=== PATIENT | male | born 1970 | race Caucasian/White ===

== ENCOUNTER 2017-09-10 15:01 | Observation (INO) | payer OTHER ==
--- NOTE | 2017-09-10 15:26 | PDOC ---
Rapid Medical Evaluation Time Seen by Provider: 09/10/17 15:25 Medical Evaluation: Allergies Allergy/AdvReac Type Severity Reaction Status Date / Time No Known Drug Allergies Allergy Verified 09/10/17 15:23 09/10/17 15:26 The patient presents with a chief complaint of: missed dialysis , last one was 5 days ago I have performed a brief in-person evaluation of this patient. Pertinent physical exam findings: vss, pt has no physical complaint I have ordered the following: cbc, cmp The patient will proceed to the ED for further evaluation. 09/10/17 15:28
[2017-09-10 15:48] LABS: BASO % 1.2 % (0-2.0); EOS % 1.1 % (0-4.5); HEMATOCRIT 33.8 % (35.4-49); HEMOGLOBIN 11.2 GM/dL (11.7-16.9); LYMPH % 14.9 % (8-40); MCH 29.4 pg (25.7-33.7); MCHC 33.1 g/dl (32.0-35.9); MEAN CELL VOLUME 88.9 fl (80-96); MEAN PLT VOLUME 10.2 fl (7.5-11.1); NEUT % 73.8 % (42.8-82.8); PLATELET COUNT 106 K/MM3 (134-434); RDW 16.5 % (11.9-15.9); WHITE BLOOD COUNT 3.5 K/mm3 (4.0-10.0)
[2017-09-10 16:20] LABS: ALBUMIN 3.7 g/dl (3.4-5.0); ANION GAP 17 (8-16); BLOOD UREA NITROGEN 77 mg/dL (7-18); CALCIUM 8.7 mg/dL (8.5-10.1); CHLORIDE 101 mmol/L (98-107); CO2 21 mmol/L (21-32); POTASSIUM 4.8 mmol/L (3.5-5.1); SGOT/AST 22 U/L (15-37); SODIUM 139 mmol/L (136-145)
[2017-09-10 16:28] LABS: ALK PHOS 139 U/L (45-117); SGPT/ALT 31 U/L (12-78); TOT PROT 6.8 g/dl (6.4-8.2)
[2017-09-10 16:34] LABS: GLUCOSE,RANDOM 334 mg/dL (74-106)
[2017-09-10 16:35] LABS: CREATININE 10.2 mg/dL (0.7-1.3)
[2017-09-10] MEDS ORDERED: SODIUM CHLORIDE 250 ML IV PRN (16:37)
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
--- NOTE | 2017-09-10 16:52 | HP ---
CHIEF COMPLAINT: PCP: HISTORY OF PRESENT ILLNESS: ER course was notable for: (1) (2) (3) Recent Travel: PAST MEDICAL HISTORY: PAST SURGICAL HISTORY: Social History: Smoking: Alcohol: Drugs: Family History: Allergies No Known Drug Allergies Allergy (Verified 09/10/17 15:23) HOME MEDICATIONS: Home Medications Medication Instructions Recorded Insulin Aspart [Novolog Flexpen] 10 unit SQ TID PRN #1 ml 11/16/14 Calcitriol [Calcitriol -] 0.25 mcg PO BID #60 capsule 10/07/15 Famotidine 20 mg PO DAILY 11/01/15 Acetaminophen Suppository [Tylenol 650 mg TN Q6H PRN #0 supp.rect 11/08/15 .Suppository -] Amlodipine Besylate [Norvasc -] 10 mg PO DAILY #30 tablet 11/08/15 Calcium Acetate [Phoslo -] 1,334 mg PO TIDCM #180 capsule 11/08/15 Furosemide [Lasix -] 40 mg PO BID #60 tablet 11/08/15 Labetalol HCl [Normodyne -] 600 mg PO TID #270 tablet 11/08/15 Lisinopril [Prinivil -] 40 mg PO DAILY #30 tablet 11/08/15 Ranitidine [Zantac -] 150 mg PO DAILY #30 tablet 11/08/15 hydrALAZINE HCL [Apresoline -] 1.5 tablet PO TID 30 Days tablet 11/08/15 REVIEW OF SYSTEMS CONSTITUTIONAL: Absent: fever, chills, diaphoresis, generalized weakness, malaise, loss of appetite, weight change HEENT: Absent: rhinorrhea, nasal congestion, throat pain, throat swelling, difficulty swallowing, mouth swelling, ear pain, eye pain, visual changes CARDIOVASCULAR: Absent: chest pain, syncope, palpitations, irregular heart rate, lightheadedness , peripheral edema RESPIRATORY: Absent: cough, shortness of breath, dyspnea with exertion, orthopnea, wheezing, stridor, hemoptysis GASTROINTESTINAL: Absent: abdominal pain, abdominal distension, nausea, vomiting, diarrhea, constipation, melena, hematochezia GENITOURINARY: Absent: dysuria, frequency, urgency, hesitancy, hematuria, flank pain, genital pain MUSCULOSKELETAL: Absent: myalgia, arthralgia, joint swelling, back pain, neck pain SKIN: Absent: rash, itching, pallor HEMATOLOGIC/IMMUNOLOGIC: Absent: easy bleeding, easy bruising, lymphadenopathy, frequent infections ENDOCRINE: Absent: unexplained weight gain, unexplained weight loss, heat intolerance, cold intolerance NEUROLOGIC: Absent: headache, focal weakness or paresthesias, dizziness, unsteady gait, seizure, mental status changes, bladder or bowel incontinence PSYCHIATRIC: Absent: anxiety, depression, suicidal or homicidal ideation, hallucinations. PHYSICAL EXAMINATION Vital Signs - 24 hr 09/10/17 15:23 Temperature 98.7 F Pulse Rate 75 Respiratory 19 Rate Blood Pressure 159/77 O2 Sat by Pulse 99 Oximetry (%) GENERAL: Awake, alert, and fully oriented, in no acute distress. HEAD: Normal with no signs of trauma. EYES: Pupils equal, round and reactive to light, extraocular movements intact, sclera anicteric, conjunctiva clear. No lid lag. EARS, NOSE, THROAT: Ears normal, nares patent, oropharynx clear without exudates. Moist mucous membranes. NECK: Normal range of motion, supple without lymphadenopathy, JVD, or masses. LUNGS: Breath sounds equal, clear to auscultation bilaterally. No wheezes, and no crackles. No accessory muscle use. HEART: Regular rate and rhythm, normal S1 and S2 without murmur, rub or gallop. ABDOMEN: Soft, nontender, not distended, normoactive bowel sounds, no guarding, no rebound, no masses. No hepatomegaly or splenomegaly. MUSCULOSKELETAL: Normal range of motion at all joints. No bony deformities or tenderness. No CVA tenderness. UPPER EXTREMITIES: 2+ pulses, warm, well-perfused. No cyanosis. No clubbing. No peripheral edema. LOWER EXTREMITIES: 2+ pulses, warm, well-perfused. No calf tenderness. No peripheral edema. NEUROLOGICAL: Cranial nerves II-XII intact. Normal speech. Normal gait. PSYCHIATRIC: Cooperative. Good eye contact. Appropriate mood and affect. SKIN: Warm, dry, normal turgor, no rashes or lesions noted, normal capillary refill. Laboratory Results - last 24 hr 09/10/17 09/10/17 15:40 15:40 WBC 3.5 L D RBC 3.80 L Hgb 11.2 L Hct 33.8 L MCV 88.9 MCH 29.4 MCHC 33.1 RDW 16.5 H Plt Count 106 L D MPV 10.2 Neutrophils % 73.8 Lymphocytes % 14.9 Monocytes % 9.0 Eosinophils % 1.1 D Basophils % 1.2 Sodium 139 Potassium 4.8 Chloride 101 Carbon Dioxide 21 Anion Gap 17 H BUN 77 H Creatinine 10.2 H* Creat Clearance w eGFR 5.54 Random Glucose 334 H* D Calcium 8.7 Total Bilirubin 1.0 D AST 22 ALT 31 Alkaline Phosphatase 139 H Total Protein 6.8 Albumin 3.7 D ASSESSMENT/PLAN: Hospitalist Screening - Colonoscopy Questionnaire Colonoscopy Questionnaire: Colonoscopy Questionnaire
[2017-09-10] MEDS: INSULIN SLIDING SCALE (NOVOLOG) 1 VIAL SQ SCH (21:57)
[2017-09-10] MEDS ORDERED: hydrALAZINE HCL 50 MG TABLET (FP) PO SCH (22:00)
[2017-09-10] MEDS: CALCIUM ACETATE 667 MG CAPSULE (FP) PO SCH (22:47)
[2017-09-10] MEDS: FUROSEMIDE 40 MG TABLET (FP) PO SCH (22:47)
[2017-09-10] MEDS: CALCITRIOL 0.25 MCG CAPSULE (FP) PO SCH (22:47)
[2017-09-10] MEDS: LABETALOL HCL 200 MG TABLET (FP) PO SCH (22:47)
[2017-09-11 00:19] VITALS: BMI 25.2
[2017-09-11] MEDS: INSULIN SLIDING SCALE (NOVOLOG) 1 VIAL SQ SCH (06:04)
[2017-09-11] MEDS: FUROSEMIDE 40 MG TABLET (FP) PO SCH (06:05)
[2017-09-11] MEDS: LABETALOL HCL 200 MG TABLET (FP) PO SCH (06:05)
--- NOTE | 2017-09-11 08:58 | DS ---
Physical Exam: SUBJECTIVE: Patient seen and examined OBJECTIVE: Vital Signs Period Temp Pulse Resp BP Sys/Kaufman Pulse Ox Last 24 Hr 97.9 F-98.7 F 62-99 16-20 143-195/69-93 98-99 PHYSICAL EXAM GENERAL: The patient is awake, alert, and fully oriented, in no acute distress. HEAD: Normal with no signs of trauma. EYES: PERRL, extraocular movements intact, sclera anicteric, conjunctiva clear. ENT: Ears normal, nares patent, oropharynx clear without exudates, moist mucous membranes. NECK: Trachea midline, full range of motion, supple. LUNGS: Breath sounds equal, clear to auscultation bilaterally, no wheezes, no crackles, no accessory muscle use. HEART: Regular rate and rhythm, S1, S2 without murmur, rub or gallop. ABDOMEN: Soft, nontender, nondistended, normoactive bowel sounds, no guarding, no rebound, no hepatosplenomegaly, no masses. EXTREMITIES: 2+ pulses, warm, well-perfused, no edema. NEUROLOGICAL: Cranial nerves II through XII grossly intact. Normal speech, gait not observed. PSYCH: Normal mood, normal affect. SKIN: Warm, dry, normal turgor, no rashes or lesions noted. LABS Laboratory Results - last 24 hr 09/10/17 09/10/17 09/10/17 15:40 15:40 18:30 WBC 3.5 L D RBC 3.80 L Hgb 11.2 L Hct 33.8 L MCV 88.9 MCH 29.4 MCHC 33.1 RDW 16.5 H Plt Count 106 L D MPV 10.2 Neutrophils % 73.8 Lymphocytes % 14.9 Monocytes % 9.0 Eosinophils % 1.1 D Basophils % 1.2 Sodium 139 Potassium 4.8 Chloride 101 Carbon Dioxide 21 Anion Gap 17 H BUN 77 H Creatinine 10.2 H* Creat Clearance w eGFR 5.54 POC Glucometer Random Glucose 334 H* D Calcium 8.7 Total Bilirubin 1.0 D AST 22 ALT 31 Alkaline Phosphatase 139 H Total Protein 6.8 Albumin 3.7 D Hep C Ab Diagnostic Cancelled HCV RNA PCR log copper etcher/ml Cancelled HCV RNA (PCR) IUs/ml Cancelled 09/10/17 09/11/17 21:51 05:55 WBC RBC Hgb Hct MCV MCH MCHC RDW Plt Count MPV Neutrophils % Lymphocytes % Monocytes % Eosinophils % Basophils % Sodium Potassium Chloride Carbon Dioxide Anion Gap BUN Creatinine Creat Clearance w eGFR POC Glucometer 137 130 Random Glucose Calcium Total Bilirubin AST ALT Alkaline Phosphatase Total Protein Albumin Hep C Ab Diagnostic HCV RNA PCR log copper etcher/ml HCV RNA (PCR) IUs/ml HOSPITAL COURSE: Date of Admission:09/10/17 Date of Discharge: 09/11/17 Discharge Summary Reason For Visit: END STAGE RENAL DISEASE Current Active Problems End-stage renal disease (ESRD) (Acute) Condition: Improved - Instructions Diet, Activity, Other Instructions: Please follow up with your next regularly scheduled dialysis treatment. Referrals: Miguel Kerns MD [Staff Physician] - Disposition: HOME - Home Medications Comprehensive Discharge Medication List: Ambulatory Orders Insulin Aspart [Novolog Flexpen] 10 unit SQ TID PRN #1 ml 11/16/14 Calcitriol [Calcitriol -] 0.25 mcg PO BID #60 capsule 10/07/15 Famotidine 20 mg PO DAILY 11/01/15 Acetaminophen Suppository [Tylenol .Suppository -] 650 mg [place] Q6H PRN #0 supp.rect 11/08/15 Amlodipine Besylate [Norvasc -] 10 mg PO DAILY #30 tablet 11/08/15 Calcium Acetate [Phoslo -] 1,334 mg PO TIDCM #180 capsule 11/08/15 Furosemide [Lasix -] 40 mg PO BID #60 tablet 11/08/15 Labetalol HCl [Normodyne -] 600 mg PO TID #270 tablet 11/08/15 Lisinopril [Prinivil -] 40 mg PO DAILY #30 tablet 11/08/15 Ranitidine [Zantac -] 150 mg PO DAILY #30 tablet 11/08/15 hydrALAZINE HCL [Apresoline -] 1.5 tablet PO TID 30 Days tablet 11/08/15
[2017-09-11] MEDS: CALCIUM ACETATE 667 MG CAPSULE (FP) PO SCH (09:02)
[2017-09-11] MEDS: CALCITRIOL 0.25 MCG CAPSULE (FP) PO SCH (09:03)
[2017-09-11 09:16] VITALS: BP 171/81; PULSE 73; TEMP 98.3
[2017-09-11] MEDS ORDERED: RANITIDINE HCL 150 MG TABLET (FP) PO SCH (10:00)
[2017-09-11] MEDS ORDERED: LISINOPRIL 20 MG TABLET (FP) PO SCH (10:00)
[2017-09-11] MEDS ORDERED: amLODIPine BESYLATE 10 MG TABLET (FP) PO SCH (10:00)
[2017-09-11] MEDS: hydrALAZINE HCL 50 MG TABLET (FP) PO SCH (10:16)
[2017-09-13 00:07] LABS: HBSAG SCREEN Negative (Negative); HEP A AB, IGM Negative (Negative); HEP B CORE AB, TOT Negative (Negative)
== END 2017-09-11 09:25 | disposition home or self-care (01) ==
LOC: JER 15:01 → JERBED 16:57 → J8W 21:30
PROVIDERS: ADMIT Internal Medicine; ATTEND Nurse Practitioner Acute Care
DX: N18.6 End stage renal disease (principal); I12.0 Hypertensive chronic kidney disease with stage 5 chronic kidney disease or end stage renal disease; E11.22 Type 2 diabetes mellitus with diabetic chronic kidney disease; E11.65 Type 2 diabetes mellitus with hyperglycemia; Z99.2 Dependence on renal dialysis; Z91.15 Patient's noncompliance with renal dialysis; Z87.891 Personal history of nicotine dependence; E78.5 Hyperlipidemia, unspecified; Z79.4 Long term (current) use of insulin; R60.0 Localized edema; D64.9 Anemia, unspecified
CPT/HCPCS: 36415; 80053; 82962; 85025; 86704; 86706; 86708; 87340; 99285-25; G0378

== ENCOUNTER 2017-09-20 15:05 | Inpatient (IN) | payer OTHER ==
[2017-09-21 05:22] VITALS: BMI 25.4
[2017-09-25 15:49] VITALS: BP 154/71; PULSE 73; TEMP 98.9
== END 2017-09-25 15:56 | disposition home or self-care (01) | DRG 263 ==
LOC: JER 15:05 → JERBED 21:09 → UNDOADMOB 21:58 → JERBED 21:58 → J8W 23:53 → JERBED 23:53 → OBSVTOIN 09-23 16:17
PROVIDERS: ADMIT Internal Medicine; ATTEND Family Medicine
PROC: 0FT44ZZ Resection of Gallbladder, Percutaneous Endoscopic Approach (ICD-10-PCS; principal; 2017-09-23)
PROC: 5A1D90Z Performance of Urinary Filtration, Continuous, Greater than 18 hours Per Day (ICD-10-PCS; 2017-09-24)
DX: K80.12 Calculus of gallbladder with acute and chronic cholecystitis without obstruction (principal); D64.9 Anemia, unspecified; I12.0 Hypertensive chronic kidney disease with stage 5 chronic kidney disease or end stage renal disease; E11.22 Type 2 diabetes mellitus with diabetic chronic kidney disease; E11.65 Type 2 diabetes mellitus with hyperglycemia; N18.6 End stage renal disease; Z99.2 Dependence on renal dialysis; E86.0 Dehydration; E11.51 Type 2 diabetes mellitus with diabetic peripheral angiopathy without gangrene; C23 Malignant neoplasm of gallbladder; E78.5 Hyperlipidemia, unspecified
CPT/HCPCS: 36415; 71045-TC-FY; 76705-TC; 80048; 80053; 82962; 83036; 83690; 83735; 84100; 84484; 85025; 85027; 85610; 86704; 86706; 86708; 86850; 86900; 86901; 87340; 93005; 93010; 94760; 97116-GP; 97161-GP; 99282-25; G0378; J0735; J0885; J7030

== ENCOUNTER 2018-03-10 21:23 | Observation (INO) | payer OTHER ==
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
[2018-03-10 22:08] VITALS: BMI 27.1
[2018-03-10 22:54] LABS: BASO % 0.7 % (0-2.0); EOS % 0.5 % (0-4.5); HEMOGLOBIN 8.4 GM/dL (11.7-16.9); LYMPH % 9.8 % (8-40); MCH 31.4 pg (25.7-33.7); MCHC 33.6 g/dl (32.0-35.9); MEAN CELL VOLUME 93.5 fl (80-96); MEAN PLT VOLUME 10.1 fl (7.5-11.1); MONO % 6.3 % (3.8-10.2); NEUT % 82.7 % (42.8-82.8); PLATELET COUNT 108 K/MM3 (134-434); RBC 2.68 M/mm3 (4.00-5.60); RDW 16.2 % (11.9-15.9); WHITE BLOOD COUNT 4.4 K/mm3 (4.0-10.0)
[2018-03-10 23:07] LABS: INR 1.05 (0.83-1.09); PROTHROMBIN TIME (PATIENT) 11.9 SEC (9.7-13.0)
[2018-03-10 23:10] LABS: ACTIVATED PTT 28.4 SECONDS (25.2-36.5)
[2018-03-10 23:25] LABS: ALBUMIN 3.6 g/dl (3.4-5.0); ANION GAP 11 MMOL/L (8-16); BILIRUBIN,TOTAL 0.9 mg/dL (0.2-1); BLOOD UREA NITROGEN 53 mg/dL (7-18); CALCIUM 8.7 mg/dL (8.5-10.1); CHLORIDE 101 mmol/L (98-107); CO2 27 mmol/L (21-32); GLUCOSE,RANDOM 183 mg/dL (74-106); LIPASE 91 U/L (73-393); MAGNESIUM 2.4 mg/dL (1.8-2.4); PHOSPHOROUS 5.1 mg/dL (2.5-4.9); POTASSIUM 4.5 mmol/L (3.5-5.1); SGOT/AST 26 U/L (15-37); SGPT/ALT 32 U/L (13-61); SODIUM 139 mmol/L (136-145)
[2018-03-10 23:26] LABS: ALK PHOS 113 U/L (45-117)
[2018-03-11] MEDS ORDERED: ASPIRIN 81 MG CHEWABLE TABLETS PO ONE (02:13)
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
[2018-03-11] MEDS ORDERED: ASPIRIN 325 MG TABLET ONE (02:54)
[2018-03-11] MEDS ORDERED: hydrALAZINE HCL 50 MG TABLET (FP) PO SCH (08:00)
[2018-03-11] MEDS: cloNIDine HCL 0.1 MG TABLET PO SCH ×2 (09:05→22:10)
[2018-03-11] MEDS ORDERED: cloNIDine HCL 0.1 MG TABLET ONE (09:18)
[2018-03-11 09:42] LABS: HEMATOCRIT 24.9 % (35.4-49); HEMOGLOBIN 8.5 GM/dL (11.7-16.9); LYMPH % 14.1 % (8-40); MCH 31.5 pg (25.7-33.7); MEAN CELL VOLUME 92.7 fl (80-96); MEAN PLT VOLUME 10.1 fl (7.5-11.1); MONO % 7.2 % (3.8-10.2); NEUT % 76.7 % (42.8-82.8); PLATELET COUNT 102 K/MM3 (134-434); RBC 2.69 M/mm3 (4.00-5.60); RDW 15.7 % (11.9-15.9); WHITE BLOOD COUNT 3.2 K/mm3 (4.0-10.0)
--- NOTE | 2018-03-11 09:57 | PN ---
Progress Note, Physician Chief Complaint: PATIENT SEEN AND EXAMINED IN ER EVENTS AND NOTES REVIEWED DENIES CHEST PAIN NO SOB - Current Medication List Current Medications: Active Medications Calcitriol (Rocaltrol -) 0.25 mcg PO BID AFIA Calcium Acetate (Phoslo -) 1,334 mg PO TIDCM AFIA Clonidine (Catapres -) 0.3 mg PO TID AFIA Insulin Aspart (Novolog Vial Sliding Scale -) 1 vial SQ ACHS [facility]; Protocol Labetalol HCl (Normodyne -) 600 mg PO TID AFIA Ranitidine HCl (Zantac -) 150 mg PO DAILY AFIA - Objective Vital Signs: Vital Signs Temperature 98.1 F 03/11/18 09:14 Pulse Rate 73 03/11/18 09:14 Respiratory Rate 16 03/11/18 09:14 Blood Pressure 183/83 03/11/18 09:14 O2 Sat by Pulse Oximetry (%) 97 03/11/18 08:57 Constitutional: Yes: No Distress Eyes: Yes: WNL HENT: Yes: WNL Neck: Yes: WNL Cardiovascular: Yes: WNL Respiratory: Yes: WNL Gastrointestinal: Yes: WNL Genitourinary: Yes: Other Musculoskeletal: Yes: WNL Extremities: Yes: WNL Edema: Yes Peripheral Pulses WNL: Yes Integumentary: Yes: WNL Wound/Incision: Yes: Clean/Dry Neurological: Yes: WNL ...Motor Strength: WNL Psychiatric: Yes: WNL Labs: CBC, BMP 03/11/18 09:00 03/10/18 22:38 INR, PTT INR 1.05 (0.83-1.09) 03/10/18 22:38 Problem List - Problems (1) Chest pain Code(s): R07.9 - CHEST PAIN, UNSPECIFIED Qualifiers: Chest pain type: unspecified Qualified Code(s): R07.9 - Chest pain, unspecified (2) End-stage renal disease (ESRD) Code(s): N18.6 - END STAGE RENAL DISEASE (3) ESRD (end stage renal disease) on dialysis Code(s): N18.6 - END STAGE RENAL DISEASE; Z99.2 - DEPENDENCE ON RENAL DIALYSIS Assessment/Plan CONTROL BP NO CARDIAC ALARMS AND ENZYMES NEGATIVE DC TELE RENAL AND CARDIO EVAL ON OBSERVATION
[2018-03-11] MEDS ORDERED: PATIENT'S OWN MEDICATION (NON-FORMULARY) (Famotidine [Famotidine] 20 MG) PO SCH (10:00)
[2018-03-11] MEDS ORDERED: FUROSEMIDE 40 MG TABLET (FP) PO SCH (10:00)
--- NOTE | 2018-03-11 10:28 | EKG ---
Test Reason : Blood Pressure : / mmHG Vent. Rate : 076 BPM Atrial Rate : 076 BPM P-R Int : 172 ms QRS Dur : 100 ms QT Int : 422 ms P-R-T Axes : 059 -35 070 degrees QTc Int : 474 ms NORMAL SINUS RHYTHM POSSIBLE LEFT ATRIAL ENLARGEMENT LEFT AXIS DEVIATION LEFT VENTRICULAR HYPERTROPHY CANNOT RULE OUT SEPTAL INFARCT (CITED ON OR BEFORE 03-OCT-2015) ABNORMAL ECG WHEN COMPARED WITH ECG OF 21-SEP-2017 09:25, QUESTIONABLE CHANGE IN INITIAL FORCES OF SEPTAL LEADS Confirmed by JAN DAVID, GEN ([id number]) on 03/11/2018 10:27:59 AM Referred By: Confirmed By:GEN MONTOYA MD
[2018-03-11] MEDS: CALCITRIOL 0.25 MCG CAPSULE (FP) PO SCH ×2 (11:00→22:08)
[2018-03-11] MEDS: RANITIDINE HCL 150 MG TABLET (FP) PO SCH (11:16)
--- NOTE | 2018-03-11 12:25 | CONSULT ---
Consult Consult Specialty:: Nephrology Reason for Consultation:: ESRD - History of Present Illness Chief Complaint: chest pain History of Present Illness: Pt is a 48 year old male with pmhx of ESRD, HTN, and anemia who presents to the ER with chest pain. He had an altercation with his yesterday. He says that he walked in and found her cheating on him. He became furious and then felt chest pain. He is now awake and alert. He denies chest pain. He denies palpitations. He is due for HD today. He did not take any of his bp meds last night or today. - History Source History Provided By: Patient - Past Medical History Cardio/Vascular: Yes: HTN, Hyperlipdemia Gastrointestinal: Yes: Cancer Renal/: Yes: Renal Failure, Hemodialysis (Mo,We,Fr) Heme/Onc: Yes: Other (adenocarcinoma gallbladder treated) Endocrine: Yes: Diabetes Mellitus - Past Surgical History Past Surgical History: Yes: AV Fistula/Graft (Left upper arm), Cholecystectomy - Alcohol/Substance Use Hx Alcohol Use: No History of Substance Use: reports: None - Smoking History Smoking history: Never smoked Have you smoked in the past 12 months: No Aproximately how many cigarettes per day: 12 If you are a former smoker, when did you quit?: 1999 - Social History ADL: Independent History of Recent Travel: No Home Medications - Allergies Allergies/Adverse Reactions: Allergies Allergy/AdvReac Type Severity Reaction Status Date / Time No Known Drug Allergies Allergy Verified 09/20/17 15:10 - Home Medications Home Medications: Ambulatory Orders Insulin Aspart [Novolog Flexpen] 10 unit SQ TID PRN #1 ml 11/16/14 Calcitriol [Calcitriol -] 0.25 mcg PO BID #60 capsule 10/07/15 Famotidine 20 mg PO DAILY 11/01/15 Acetaminophen Suppository [Tylenol .Suppository -] 650 mg [place] Q6H PRN #0 supp.rect 11/08/15 Calcium Acetate [Phoslo -] 1,334 mg PO TIDCM #180 capsule 11/08/15 Furosemide [Lasix -] 40 mg PO BID #60 tablet 11/08/15 Labetalol HCl [Normodyne -] 600 mg PO TID #270 tablet 11/08/15 Lisinopril [Prinivil -] 40 mg PO DAILY #30 tablet 11/08/15 Ranitidine [Zantac -] 150 mg PO DAILY #30 tablet 11/08/15 Clonidine HCl 0.3 mg PO TID #90 tablet 09/25/17 Hydralazine HCl 100 mg PO TID #180 tablet 09/25/17 Labetalol HCl [Normodyne -] 600 mg PO TID #270 tablet 09/25/17 Nifedipine ER [Procardia XL -] 90 mg PO DAILY #30 tab.er.24 09/25/17 Family Disease History - Family Disease History Family Disease History: Diabetes: Father (ESRD), Heart Disease: Father, Mother, Other: Father Review of Systems - Review of Systems Constitutional: reports: No Symptoms Eyes: reports: No Symptoms HENT: reports: No Symptoms Neck: reports: No Symptoms Cardiovascular: reports: Chest Pain Respiratory: reports: No Symptoms Gastrointestinal: reports: No Symptoms Genitourinary: reports: No Symptoms Musculoskeletal: reports: No Symptoms Integumentary: reports: No Symptoms Neurological: reports: No Symptoms Endocrine: reports: No Symptoms Psychiatric: reports: Other (agitated) Physical Exam Vital Signs: Vital Signs Temperature 98.1 F 03/11/18 09:14 Pulse Rate 73 03/11/18 09:14 Respiratory Rate 16 03/11/18 09:14 Blood Pressure 183/83 03/11/18 09:14 O2 Sat by Pulse Oximetry (%) 97 03/11/18 08:57 Constitutional: Yes: Anxious Eyes: Yes: Conjunctiva Clear HENT: Yes: Atraumatic Neck: Yes: Supple Cardiovascular: Yes: S1, S2 Respiratory: Yes: CTA Bilaterally Gastrointestinal: Yes: Soft Renal/: Yes: WNL Musculoskeletal: Yes: WNL Edema: Yes Edema: LLE: 1+, RLE: 1+ Neurological: Yes: Oriented Psychiatric: Yes: Agitated Labs: CBC, BMP 03/11/18 09:00 03/10/18 22:38 Laboratory Tests 03/10/18 03/10/18 03/11/18 22:38 22:38 01:00 Hgb 8.4 L Sodium 139 Potassium 4.5 BUN 53 H Creatinine 9.0 H* Troponin I 0.04 03/11/18 03/11/18 03/11/18 02:22 09:00 09:00 Hgb 8.5 L Sodium Potassium BUN Creatinine Troponin I 0.04 0.03 Problem List - Problems (1) Chest pain Code(s): R07.9 - CHEST PAIN, UNSPECIFIED Qualifiers: Chest pain type: unspecified Qualified Code(s): R07.9 - Chest pain, unspecified (2) End-stage renal disease (ESRD) Code(s): N18.6 - END STAGE RENAL DISEASE (3) Anemia Code(s): D64.9 - ANEMIA, UNSPECIFIED Qualifiers: Other causes of anemia: chronic disease, kidney Assessment/Plan Current Medications Generic Name Dose Route Start Last Admin Trade Name Freq PRN Reason Stop Dose Admin Calcitriol 0.25 mcg 03/11/18 10:00 Rocaltrol - PO BID [facility] Calcium Acetate 1,334 mg 03/11/18 12:00 Phoslo - PO TIDCM [facility] Clonidine 0.3 mg 03/11/18 08:00 03/11/18 09:05 Catapres - PO 0.3 mg TID [facility] Administration Insulin Aspart 1 vial 03/11/18 11:00 Novolog Vial Sliding Scale - SQ ACHS [facility] Protocol Labetalol HCl 600 mg 03/11/18 14:00 Normodyne - PO TID [facility] Ranitidine HCl 150 mg 03/11/18 10:00 03/11/18 11:16 Zantac - PO 150 mg DAILY [facility] Administration Impression 1. ESRD 2. HTN 3. DM 4. anemia 5. chest pain 6. gallbladder adenoca Plan - will arrange for HD today - resume home meds - can give bp meds now as BP is elevated - trop are negative - will follow Dr Kerns
[2018-03-11] MEDS ORDERED: SODIUM CHLORIDE 250 ML IV PRN (12:32)
[2018-03-11] MEDS: INSULIN SLIDING SCALE (NOVOLOG) 1 VIAL SQ SCH ×2 (13:23→22:21)
[2018-03-11] MEDS ORDERED: INSULIN (NOVOLOG) ASPART 100 UNITS/ML 10ML VIAL ONE ×2 (13:24→22:20)
[2018-03-11] MEDS: LISINOPRIL 20 MG TABLET (FP) PO SCH (13:30)
[2018-03-11] MEDS: CALCIUM ACETATE 667 MG CAPSULE (FP) PO SCH (13:30)
--- NOTE | 2018-03-11 13:31 | ECHO ---
Name: CRYSTAL SPAIN HARRIS Exam:Adult Echocardiogram Study Date: 03/11/2018 07:27 AM Age: 48 yrs Reason For Study: Chest pain Height: 68 in Weight: 178 lb BSA: 1.9 m2 BP: 178/81 mmHg MMode/2D Measurements & Calculations IVSd: 0.95 cm Ao root diam: 2.8 cm LVIDd: 5.3 cm LA dimension: 3.9 cm LVIDs: 3.4 cm LVPWd: 1.5 cm EDV(Teich): 137.7 ml LAV (MOD-bp): 71.6 ml ESV(Teich): 48.1 ml Doppler Measurements & Calculations MV E max bam: 174.0 cm/sec MR max bam: 366.5 cm/sec MV A max bam: 117.7 cm/sec MR max P.4 mmHg MV E/A: 1.5 MV dec time: 0.16 sec TR max bma: 314.5 cm/sec Med Peak E' Bam: 7.5 cm/sec TR max P.6 mmHg Med E/e': 23.2 Lat Peak E' Bam: 12.2 cm/sec Lat E/e': 14.3 PI Vmax: 122.2 cm/sec Procedure A two-dimensional transthoracic echocardiogram with color flow and Doppler was performed. Left Ventricle The left ventricular size, thickness and function are normal. The left ventricular ejection fraction is normal. Left Ventricular Filling pattern is normal for age. The left ventricular wall motion is sinan l. Right Ventricle The right ventricle is normal in size and function. Atria The left atrium is mildly dilated. The right atrium is mildly dilated. Mitral Valve There is mild mitral valve thickening. Prolapse of the posterior mitral leaflet(s). There is no mohinder l valve stenosis. There is mild to moderate mitral regurgitation. Tricuspid Valve There is mild tricuspid valve thickening. There is no tricuspid stenosis. There is mild tricuspid regurgitation. Right ventricular systolic pressure is elevated at 30-40mmHg. Aortic Valve The aortic valve is normal in structure and function. No hemodynamically significant valvular aortic stenosis. No aortic regurgitation is present. Pulmonic Valve The pulmonic valve is not well visualized. Great Vessels The aortic root is normal size. Pericardium/Pleura There is no pericardial effusion. Interpretation Summary There is mild to moderate mitral regurgitation. Prolapse of the posterior mitral leaflet(s). The left atrium is mildly dilated. The right atrium is mildly dilated. There is mild tricuspid regurgitation. Right ventricular systolic pressure is elevated at 30-40mmHg. The left ventricular wall motion is normal. Left Ventricular Filling pattern is normal for age. The left ventricular ejection fraction is normal. The left ventricular size, thickness and function are normal MD Oscar Melton 03/11/2018 01:31 PM
--- NOTE | 2018-03-11 16:36 | CON.CARD ---
Consult Consult Specialty:: Cardiology Referred by:: Dr. Worthy Reason for Consultation:: Chest pain - History of Present Illness Chief Complaint: chest pain sob History of Present Illness: 48 year old man pmh HTN, DMII, ESRD on HD, chronic anemia, h/o gallbladder adeno CA s/p recection and being monitored at [facility], admitted with chest pain, sob , uncontrolled HTN, nausea, abd discomfort, which was acutely exacerbated after finding out his was cheating on him yesterday. Pt was seen and examined today in HD in [facility]. pt states that the chest pain lasted approximately 15min then resolved once he got to the ER. states he felt well overnight and today. denies having had chest pain previously. - History Source History Provided By: Patient, Medical Record Limitations to Obtaining History: No Limitations - Past Medical History Cardio/Vascular: Yes: HTN, Hyperlipdemia Gastrointestinal: Yes: Cancer Renal/: Yes: Renal Failure, Hemodialysis (Mo,We,Fr) Endocrine: Yes: Diabetes Mellitus - Past Surgical History Past Surgical History: Yes: AV Fistula/Graft (Left upper arm), Cholecystectomy - Alcohol/Substance Use Hx Alcohol Use: No History of Substance Use: reports: None - Smoking History Smoking history: Never smoked Have you smoked in the past 12 months: No Aproximately how many cigarettes per day: 12 If you are a former smoker, when did you quit?: 1999 - Social History ADL: Independent History of Recent Travel: No Home Medications - Allergies Allergies/Adverse Reactions: Allergies Allergy/AdvReac Type Severity Reaction Status Date / Time No Known Drug Allergies Allergy Verified 09/20/17 15:10 - Home Medications Home Medications: Ambulatory Orders Insulin Aspart [Novolog Flexpen] 10 unit SQ TID PRN #1 ml 11/16/14 Calcitriol [Calcitriol -] 0.25 mcg PO BID #60 capsule 10/07/15 Famotidine 20 mg PO DAILY 11/01/15 Acetaminophen Suppository [Tylenol .Suppository -] 650 mg [place] Q6H PRN #0 supp.rect 11/08/15 Calcium Acetate [Phoslo -] 1,334 mg PO TIDCM #180 capsule 11/08/15 Furosemide [Lasix -] 40 mg PO BID #60 tablet 11/08/15 Labetalol HCl [Normodyne -] 600 mg PO TID #270 tablet 11/08/15 Lisinopril [Prinivil -] 40 mg PO DAILY #30 tablet 11/08/15 Ranitidine [Zantac -] 150 mg PO DAILY #30 tablet 11/08/15 Clonidine HCl 0.3 mg PO TID #90 tablet 09/25/17 Hydralazine HCl 100 mg PO TID #180 tablet 09/25/17 Labetalol HCl [Normodyne -] 600 mg PO TID #270 tablet 09/25/17 Nifedipine ER [Procardia XL -] 90 mg PO DAILY #30 tab.er.24 09/25/17 Family Disease History - Family Disease History Family Disease History: Diabetes: Father (ESRD), Heart Disease: Father, Mother, Other: Father Review of Systems - Review of Systems Cardiovascular: reports: Chest Pain, Shortness of Breath - Risk Factors Known Risk Factors: Yes: Diabetes Mellitus, Hypercholesterolemia, Hypertension Vital Signs: Vital Signs Temperature 98.2 F 03/11/18 14:15 Pulse Rate 67 03/11/18 16:20 Respiratory Rate 18 03/11/18 16:20 Blood Pressure 169/79 03/11/18 16:20 O2 Sat by Pulse Oximetry (%) 96 03/11/18 14:00 Constitutional: Yes: Well Nourished, No Distress, Calm Eyes: Yes: WNL, Conjunctiva Clear, EOM Intact, PERRL HENT: Yes: WNL, Atraumatic, Normocephalic Neck: Yes: WNL, Supple, Trachea Midline Respiratory: Yes: Regular, Rales. No: Rhonchi, SOB, Wheezes Gastrointestinal: Yes: Normal Bowel Sounds, Soft. No: Distention, Tenderness Cardiovascular: Yes: Regular Rate and Rhythm. No: Bradycardia, Tachycardia, Pulse Irregular, Gallop, Rub, Varicosities JVD: No Carotid Bruit: No PMI: Non-Displaced Heart Sounds: Yes: S1, S2. No: Split S2, S3, S4, Clicks, Gallop, Rub, Bruit Murmur: Yes: Systolic Murmur, Grade 3. No: Diastolic Murmur, Grade 1, Grade 2, Grade 4, Grade 5, Grade 6 Musculoskeletal: Yes: WNL Extremities: Yes: WNL Edema: No Peripheral Pulses WNL: Yes Peripheral Pulses: 2+ Left Doralis Pedis, 2+ Right Dorsalis Pedis Integumentary: Yes: WNL Neurological: Yes: Alert, Oriented Psychiatric: Yes: Alert, Oriented - Other Data Labs, Other Data: CBC, BMP 03/11/18 09:00 03/10/18 22:38 INR, PTT INR 1.05 (0.83-1.09) 03/10/18 22:38 Troponin, BNP 03/11/18 03/11/18 03/11/18 01:00 02:22 09:00 Troponin I 0.04 0.04 0.03 03/11/18 12:25 Troponin I 0.03 Troponin, BNP 03/11/18 03/11/18 03/11/18 01:00 02:22 09:00 Troponin I 0.04 0.04 0.03 03/11/18 12:25 Troponin I 0.03 nsr lvh with repolarization abnl otherwise nl ecg Echo: Report Reviewed Imaging - Results Chest X-ray: Report Reviewed, Image Reviewed EKG: Report Reviewed, Image Reviewed Other: Report Reviewed, Image Reviewed Assessment/Plan 48 year old man pmh HTN, DMII, ESRD on HD, chronic anemia, h/o gallbladder adeno CA s/p recection and being monitored at [facility], admitted with chest pain, sob , uncontrolled HTN, nausea, abd discomfort, which was acutely exacerbated after finding out his was cheating on him yesterday. Pt was seen and examined today in HD in [facility]. pt states that the chest pain lasted approximately 15min then resolved once he got to the ER. states he felt well overnight and today. denies having had chest pain previously. Chest pain/sob-after a stressful event -ekg no ischemia -symptoms resolved -cardiac enzymes wnl -echo showed normal LV systolic function, mild to mod MR with posterior MV leaflet prolapse -does have evidence of mild pulm edema on exam -volume removal with HD and with furosemide -can monitor on tele overnight -if no arrhythmias and no recurrence of symptoms pt can be discharged with a plan for close outpatient fup and ischemic work up as outpatient HTN-uncontrolled -re-evaluate after HD -cont Labetalol, lisinopril, hydralazine, nifedipine, clonidine for now -adjust meds as needed
[2018-03-11] MEDS: LABETALOL HCL 200 MG TABLET (FP) PO SCH (22:09)
[2018-03-11] MEDS: hydrALAZINE HCL 50 MG TABLET (FP) PO SCH (22:10)
[2018-03-12] MEDS: cloNIDine HCL 0.1 MG TABLET PO SCH ×2 (06:13→14:16)
[2018-03-12] MEDS: LABETALOL HCL 200 MG TABLET (FP) PO SCH ×2 (06:14→14:16)
[2018-03-12] MEDS: hydrALAZINE HCL 50 MG TABLET (FP) PO SCH ×2 (06:14→14:16)
[2018-03-12] MEDS: INSULIN SLIDING SCALE (NOVOLOG) 1 VIAL SQ SCH ×3 (06:15→16:42)
[2018-03-12 08:03] LABS: BASO % 0.6 % (0-2.0); EOS % 0.7 % (0-4.5); HEMATOCRIT 23.9 % (35.4-49); HEMOGLOBIN 8.1 GM/dL (11.7-16.9); LYMPH % 13.1 % (8-40); MCH 31.2 pg (25.7-33.7); MCHC 33.8 g/dl (32.0-35.9); MEAN CELL VOLUME 92.4 fl (80-96); MONO % 6.8 % (3.8-10.2); NEUT % 78.8 % (42.8-82.8); PLATELET COUNT 95 K/MM3 (134-434); RBC 2.59 M/mm3 (4.00-5.60); RDW 15.6 % (11.9-15.9); WHITE BLOOD COUNT 3.8 K/mm3 (4.0-10.0)
[2018-03-12 08:49] LABS: ANION GAP 11 MMOL/L (8-16); BLOOD UREA NITROGEN 37 mg/dL (7-18); CALCIUM 8.6 mg/dL (8.5-10.1); CHLORIDE 104 mmol/L (98-107); CO2 29 mmol/L (21-32); CREATININE 6.5 mg/dL (0.55-1.3); GLUCOSE,RANDOM 136 mg/dL (74-106); POTASSIUM 4.3 mmol/L (3.5-5.1); SODIUM 144 mmol/L (136-145)
--- NOTE | 2018-03-12 09:08 | PN ---
Progress Note, Physician History of Present Illness: 48 year old man pmh HTN, DMII, ESRD on HD, chronic anemia, h/o gallbladder adeno CA s/p recection and being monitored at [facility], admitted with chest pain, sob , uncontrolled HTN, nausea, abd discomfort, which was acutely exacerbated after finding out his was cheating on him yesterday. Pt was seen and examined today in HD in [facility]. pt states that the chest pain lasted approximately 15min then resolved once he got to the ER. states he felt well overnight and today. denies having had chest pain previously. - Current Medication List Current Medications: Active Medications Calcitriol (Rocaltrol -) 0.25 mcg PO BID [facility] Last Admin: 03/11/18 22:08 Dose: 0.25 mcg Calcium Acetate (Phoslo -) 1,334 mg PO TIDCM [facility] Last Admin: 03/11/18 13:30 Dose: 1,334 mg Clonidine (Catapres -) 0.3 mg PO TID [facility] Last Admin: 03/12/18 06:13 Dose: 0.3 mg Hydralazine HCl (Apresoline -) 100 mg PO TID [facility] Last Admin: 03/12/18 06:14 Dose: 100 mg Sodium Chloride (Normal Saline -) 250 mls @ 3,000 mls/hr IV PRN PRN PRN Reason: Hypotension during Dialysis Stop: 03/12/18 12:33 Insulin Aspart (Novolog Vial Sliding Scale -) 1 vial SQ [facility]; Protocol Last Admin: 03/12/18 06:15 Dose: Not Given Labetalol HCl (Normodyne -) 600 mg PO TID [facility] Last Admin: 03/12/18 06:14 Dose: 600 mg Lisinopril (Prinivil) 40 mg PO DAILY [facility] Last Admin: 03/11/18 13:30 Dose: 40 mg Nifedipine (Procardia Xl -) 90 mg PO DAILY [facility] Ranitidine HCl (Zantac -) 150 mg PO DAILY [facility] Last Admin: 03/11/18 11:16 Dose: 150 mg - Objective Vital Signs: Vital Signs Temperature 98.5 F 03/12/18 05:36 Pulse Rate 73 03/12/18 05:36 Respiratory Rate 18 03/12/18 05:36 Blood Pressure 184/80 03/12/18 05:36 O2 Sat by Pulse Oximetry (%) 96 03/11/18 19:30 Cardiovascular: Yes: S1, S2 Respiratory: Yes: Regular, CTA Bilaterally Gastrointestinal: Yes: Normal Bowel Sounds, Soft Labs: CBC, BMP 03/12/18 06:45 03/12/18 06:45 INR, PTT INR 1.05 (0.83-1.09) 03/10/18 22:38 Problem List - Problems (1) Chest pain Assessment/Plan: more likely secondary to stress (argument with his S.O.) Serial Enzymes negative Appreciate Cardiology consult Echo in am Asa given in ED, will continue continue cardiac monitoring Cardio consult -ekg no ischemia -symptoms resolved -cardiac enzymes wnl -echo showed normal LV systolic function, mild to mod MR with posterior MV leaflet prolapse -does have evidence of mild pulm edema on exam -volume removal with HD and with furosemide -if no arrhythmias and no recurrence of symptoms pt can be discharged with a plan for close outpatient fup and ischemic work up as outpatient Code(s): R07.9 - CHEST PAIN, UNSPECIFIED Qualifiers: Chest pain type: unspecified Qualified Code(s): R07.9 - Chest pain, unspecified (2) End-stage renal disease (ESRD) Assessment/Plan: HD (M,W,F) Appreciate Nephrology consult Continue home meds Code(s): N18.6 - END STAGE RENAL DISEASE (3) Anemia Code(s): D64.9 - ANEMIA, UNSPECIFIED Qualifiers: Other causes of anemia: chronic disease, kidney (4) Type 2 diabetes mellitus with diabetic peripheral angiopathy without gangrene Assessment/Plan: stable BGMs Code(s): E11.51 - TYPE 2 DIABETES W DIABETIC PERIPHERAL ANGIOPATH W/O GANGRENE
[2018-03-12] MEDS ORDERED: NIFEdipine E.R. 90 MG TABLET (FP) PO SCH (10:00)
[2018-03-12] MEDS ORDERED: PT OWN MED DRAWER 7, Y5N ONE (10:49)
[2018-03-12] MEDS: RANITIDINE HCL 150 MG TABLET (FP) PO SCH (10:51)
[2018-03-12] MEDS: LISINOPRIL 20 MG TABLET (FP) PO SCH (10:51)
[2018-03-12] MEDS: CALCITRIOL 0.25 MCG CAPSULE (FP) PO SCH (10:51)
[2018-03-12] MEDS: CALCIUM ACETATE 667 MG CAPSULE (FP) PO SCH ×4 (10:53→16:46)
--- NOTE | 2018-03-12 14:09 | PN ---
Progress Note, Physician Chief Complaint: Cardiology FU Has reporducible chest pain Telem NSR - Current Medication List Current Medications: Active Medications Calcitriol (Rocaltrol -) 0.25 mcg PO BID [facility] Last Admin: 03/12/18 10:51 Dose: 0.25 mcg Calcium Acetate (Phoslo -) 1,334 mg PO TIDCM [facility] Last Admin: 03/12/18 10:53 Dose: 1,334 mg Clonidine (Catapres -) 0.3 mg PO TID [facility] Last Admin: 03/12/18 06:13 Dose: 0.3 mg Hydralazine HCl (Apresoline -) 100 mg PO TID [facility] Last Admin: 03/12/18 06:14 Dose: 100 mg Sodium Chloride (Normal Saline -) 250 mls @ 3,000 mls/hr IV PRN PRN PRN Reason: Hypotension during Dialysis Stop: 03/12/18 12:33 Insulin Aspart (Novolog Vial Sliding Scale -) 1 vial SQ [facility]; Protocol Last Admin: 03/12/18 06:15 Dose: Not Given Labetalol HCl (Normodyne -) 600 mg PO TID [facility] Last Admin: 03/12/18 06:14 Dose: 600 mg Lisinopril (Prinivil) 40 mg PO DAILY [facility] Last Admin: 03/12/18 10:51 Dose: 40 mg Nifedipine (Procardia Xl -) 90 mg PO DAILY [facility] Last Admin: 03/12/18 10:51 Dose: 90 mg Ranitidine HCl (Zantac -) 150 mg PO DAILY [facility] Last Admin: 03/12/18 10:51 Dose: 150 mg - Objective Vital Signs: Vital Signs Temperature 98.6 F 03/12/18 10:00 Pulse Rate 67 03/12/18 10:00 Respiratory Rate 18 03/12/18 10:00 Blood Pressure 148/76 03/12/18 10:00 O2 Sat by Pulse Oximetry (%) 97 03/12/18 10:00 Constitutional: Yes: Well Nourished, No Distress Eyes: Yes: Conjunctiva Clear, EOM Intact HENT: Yes: Atraumatic, Normocephalic Neck: Yes: Supple, Trachea Midline Cardiovascular: Yes: Regular Rate and Rhythm. No: JVD Respiratory: Yes: Regular, CTA Bilaterally Gastrointestinal: Yes: Normal Bowel Sounds Edema: No Labs: CBC, BMP 03/12/18 06:45 03/12/18 06:45 INR, PTT INR 1.05 (0.83-1.09) 03/10/18 22:38 Problem List - Problems (1) Chest pain Code(s): R07.9 - CHEST PAIN, UNSPECIFIED Qualifiers: Chest pain type: unspecified Qualified Code(s): R07.9 - Chest pain, unspecified Assessment/Plan He has reproducible and non-cardiac chest pain. Telemetry is normal. No further in-patient cardiac testing is suggested at this time. Will see as needed
[2018-03-12] MEDS ORDERED: SODIUM CHLORIDE 250 ML IV PRN (15:33)
--- NOTE | 2018-03-12 15:35 | PN ---
Progress Note, Physician History of Present Illness: Pt seen and examined at bedside. He says that he has chest pain when he bends down. - Current Medication List Current Medications: Active Medications Calcitriol (Rocaltrol -) 0.25 mcg PO BID [facility] Last Admin: 03/12/18 10:51 Dose: 0.25 mcg Calcium Acetate (Phoslo -) 1,334 mg PO TIDCM [facility] Last Admin: 03/12/18 14:16 Dose: 1,334 mg Clonidine (Catapres -) 0.3 mg PO TID [facility] Last Admin: 03/12/18 14:16 Dose: 0.3 mg Hydralazine HCl (Apresoline -) 100 mg PO TID [facility] Last Admin: 03/12/18 14:16 Dose: 100 mg Sodium Chloride (Normal Saline -) 250 mls @ 3,000 mls/hr IV PRN PRN PRN Reason: Hypotension during Dialysis Stop: 03/12/18 12:33 Insulin Aspart (Novolog Vial Sliding Scale -) 1 vial SQ [facility]; Protocol Last Admin: 03/12/18 13:00 Dose: Not Given Labetalol HCl (Normodyne -) 600 mg PO TID [facility] Last Admin: 03/12/18 14:16 Dose: 600 mg Lisinopril (Prinivil) 40 mg PO DAILY [facility] Last Admin: 03/12/18 10:51 Dose: 40 mg Nifedipine (Procardia Xl -) 90 mg PO DAILY [facility] Last Admin: 03/12/18 10:51 Dose: 90 mg Ranitidine HCl (Zantac -) 150 mg PO DAILY [facility] Last Admin: 03/12/18 10:51 Dose: 150 mg - Objective Vital Signs: Vital Signs Temperature 99 F 03/12/18 14:00 Pulse Rate 69 03/12/18 14:00 Respiratory Rate 20 03/12/18 14:00 Blood Pressure 166/82 03/12/18 14:00 O2 Sat by Pulse Oximetry (%) 97 03/12/18 10:00 Constitutional: Yes: Calm Eyes: Yes: Conjunctiva Clear HENT: Yes: Atraumatic Neck: Yes: Supple Cardiovascular: Yes: S1, S2 Respiratory: Yes: CTA Bilaterally Gastrointestinal: Yes: Normal Bowel Sounds, Soft Genitourinary: Yes: WNL Musculoskeletal: Yes: WNL Edema: LLE: Trace, RLE: Trace Neurological: Yes: Oriented Psychiatric: Yes: Oriented Labs: CBC, BMP 03/12/18 06:45 03/12/18 06:45 INR, PTT INR 1.05 (0.83-1.09) 03/10/18 22:38 Problem List - Problems (1) Chest pain Code(s): R07.9 - CHEST PAIN, UNSPECIFIED Qualifiers: Chest pain type: unspecified Qualified Code(s): R07.9 - Chest pain, unspecified (2) End-stage renal disease (ESRD) Code(s): N18.6 - END STAGE RENAL DISEASE (3) Anemia Code(s): D64.9 - ANEMIA, UNSPECIFIED Qualifiers: Other causes of anemia: chronic disease, kidney Assessment/Plan Current Medications Generic Name Dose Route Start Last Admin Trade Name Freq PRN Reason Stop Dose Admin Calcitriol 0.25 mcg 03/11/18 10:00 03/12/18 10:51 Rocaltrol - PO 0.25 mcg BID [facility] Administration Calcium Acetate 1,334 mg 03/11/18 12:00 03/12/18 14:16 Phoslo - PO 1,334 mg TIDCM [facility] Administration Clonidine 0.3 mg 03/11/18 08:00 03/12/18 14:16 Catapres - PO 0.3 mg TID [facility] Administration Hydralazine HCl 100 mg 03/11/18 14:00 03/12/18 14:16 Apresoline - PO 100 mg TID [facility] Administration Sodium Chloride 250 mls @ 3,000 mls/hr 03/11/18 12:32 Normal Saline - IV 03/12/18 12:33 PRN PRN Hypotension during Dialysis Insulin Aspart 1 vial 03/11/18 11:00 03/12/18 13:00 Novolog Vial Sliding Scale - SQ Not Given ACHS [facility] Protocol Labetalol HCl 600 mg 03/11/18 14:00 03/12/18 14:16 Normodyne - PO 600 mg TID [facility] Administration Lisinopril 40 mg 03/11/18 12:45 03/12/18 10:51 Prinivil PO 40 mg DAILY [facility] Administration Nifedipine 90 mg 03/12/18 10:00 03/12/18 10:51 Procardia Xl - PO 90 mg DAILY [facility] Administration Ranitidine HCl 150 mg 03/11/18 10:00 03/12/18 10:51 Zantac - PO 150 mg DAILY [facility] Administration Impression 1. ESRD 2. HTN 3. DM 4. anemia 5. chest pain 6. gallbladder adenoca Plan - HD in am - cont bp meds - please give am meds tomorrow before HD - cardio input appreciated - will follow Dr Kerns
--- NOTE | 2018-03-12 15:45 | DS ---
Physical Examination Vital Signs: Vital Signs Temperature 99 F 03/12/18 14:00 Pulse Rate 69 03/12/18 14:00 Respiratory Rate 20 03/12/18 14:00 Blood Pressure 166/82 03/12/18 14:00 O2 Sat by Pulse Oximetry (%) 97 03/12/18 10:00 Labs: CBC, BMP 03/12/18 06:45 03/12/18 06:45 Discharge Summary Reason For Visit: SOB/END STAGE RENAL DISEASE Current Active Problems Chest pain (Acute) End-stage renal disease (ESRD) (Acute) SOB (shortness of breath) (Acute) Condition: Improved - Instructions Referrals: Rosalina Humphries MD [Primary Care Provider] - 1 Week Disposition: HOME - Home Medications Comprehensive Discharge Medication List: Ambulatory Orders Insulin Aspart [Novolog Flexpen] 10 unit SQ TID PRN #1 ml 11/16/14 Calcitriol [Calcitriol -] 0.25 mcg PO BID #60 capsule 10/07/15 Famotidine 20 mg PO DAILY 11/01/15 Acetaminophen Suppository [Tylenol .Suppository -] 650 mg [place] Q6H PRN #0 supp.rect 11/08/15 Calcium Acetate [Phoslo -] 1,334 mg PO TIDCM #180 capsule 11/08/15 Furosemide [Lasix -] 40 mg PO BID #60 tablet 11/08/15 Labetalol HCl [Normodyne -] 600 mg PO TID #270 tablet 11/08/15 Lisinopril [Prinivil -] 40 mg PO DAILY #30 tablet 11/08/15 Ranitidine [Zantac -] 150 mg PO DAILY #30 tablet 11/08/15 Clonidine HCl 0.3 mg PO TID #90 tablet 09/25/17 Hydralazine HCl 100 mg PO TID #180 tablet 09/25/17 Labetalol HCl [Normodyne -] 600 mg PO TID #270 tablet 09/25/17 Nifedipine ER [Procardia XL -] 90 mg PO DAILY #30 tab.er.24 09/25/17
[2018-03-12] MEDS ORDERED: INSULIN (NOVOLOG) ASPART 100 UNITS/ML 10ML VIAL ONE (16:38)
[2018-03-12 19:20] VITALS: BP 130/60; PULSE 65; TEMP 98.8
[2018-03-13] MEDS ORDERED: EPOETIN ALFA 2,000 UNIT/1 ML VIAL IVPUSH ONE (15:33)
[2018-03-14 00:09] LABS: HBSAG SCREEN Negative (Negative); HEP A AB, IGM Negative (Negative); HEP B CORE AB, TOT Negative (Negative)
== END 2018-03-12 18:38 | disposition home or self-care (01) ==
LOC: JER 21:23 → JERBED 03-11 02:16 → UNDOADMOB 03-11 05:12 → JERBED 03-11 05:12 → J4W 03-11 18:13
PROVIDERS: ADMIT Internal Medicine; ATTEND Family Medicine
PROC: 3E013VG Introduction of Insulin into Subcutaneous Tissue, Percutaneous Approach (ICD-10-PCS; principal; 2018-03-11)
DX: R07.9 Chest pain, unspecified (principal); R06.02 Shortness of breath; I12.0 Hypertensive chronic kidney disease with stage 5 chronic kidney disease or end stage renal disease; E11.22 Type 2 diabetes mellitus with diabetic chronic kidney disease; N18.6 End stage renal disease; N17.8 Other acute kidney failure; Z99.2 Dependence on renal dialysis; Z79.4 Long term (current) use of insulin; D64.9 Anemia, unspecified; E78.5 Hyperlipidemia, unspecified; E78.00 Pure hypercholesterolemia, unspecified; Z85.09 Personal history of malignant neoplasm of other digestive organs; Z90.49 Acquired absence of other specified parts of digestive tract
CPT/HCPCS: 36415; 71045-TC-FY; 80048; 80053; 82550; 82553; 82962; 83690; 83735; 84100; 84484; 85025; 85610; 85730; 86704; 86706; 86708; 86803; 86850; 86900; 86901; 87340; 93005; 93010; 93306-TC; 99285-25; G0378; J0735

== ENCOUNTER 2018-08-01 10:52 | Inpatient (IN) | payer OTHER ==
--- NOTE | 2018-08-01 11:31 | PDOC ---
History of Present Illness - General Chief Complaint: Respiratory Stated Complaint: SENT BY PCP / EVAL Time Seen by Provider: 08/01/18 11:13 History Source: Patient Exam Limitations: No Limitations - History of Present Illness Initial Comments: 08/01/18 11:39 Patient was sent from dialysis for evaluation of fevers, cough, body aches for the past 24 hours. States MAXIMUM TEMPERATURE was over 100 Severity: reports: mild, moderate Associated Symptoms: reports: denies symptoms, cough, earache, fever/chills, nasal congestion, nasal drainage Past History - Travel Traveled outside of the country in the last 30 days: No Close contact w/someone who was outside of country & ill: No - Past Medical History Allergies/Adverse Reactions: Allergies Allergy/AdvReac Type Severity Reaction Status Date / Time No Known Drug Allergies Allergy Verified 08/01/18 11:02 Home Medications: Ambulatory Orders Insulin Aspart [Novolog Flexpen] 10 unit SQ TID PRN #1 ml 11/16/14 Calcitriol [Calcitriol -] 0.25 mcg PO BID #60 capsule 10/07/15 Famotidine 20 mg PO DAILY 11/01/15 Acetaminophen Suppository [Tylenol .Suppository -] 650 mg [place] Q6H PRN #0 supp.rect 11/08/15 Calcium Acetate [Phoslo -] 1,334 mg PO TIDCM #180 capsule 11/08/15 Furosemide [Lasix -] 40 mg PO BID #60 tablet 11/08/15 Labetalol HCl [Normodyne -] 600 mg PO TID #270 tablet 11/08/15 Lisinopril [Prinivil -] 40 mg PO DAILY #30 tablet 11/08/15 Ranitidine [Zantac -] 150 mg PO DAILY #30 tablet 11/08/15 Clonidine HCl 0.3 mg PO TID #90 tablet 09/25/17 Hydralazine HCl 100 mg PO TID #180 tablet 09/25/17 Labetalol HCl [Normodyne -] 600 mg PO TID #270 tablet 09/25/17 Nifedipine ER [Procardia XL -] 90 mg PO DAILY #30 tab.er.24 09/25/17 Anemia: No Asthma: No Cancer: Yes Cardiac Disorders: No CVA: No COPD: No DVT: No Dementia: No Diabetes: Yes Dialysis: Yes (M-W-F) GI Disorders: No Disorders: No HTN: Yes Hypercholesterolemia: Yes Kidney Stones: (Possible kidney failure, has not started Dialysis process.) Liver Disease: No Psychiatric Problems: No Seizures: No Thyroid Disease: No Lung CA: No - Immunization History Immunization Up to Date: No - Suicide/Smoking/Psychosocial Hx Smoking History: Never smoked Have you smoked in the past 12 months: No Number of Cigarettes Smoked Daily: 12 If you are a former smoker, when did you quit?: 1999 Hx Alcohol Use: No Drug/Substance Use Hx: No Substance Use Type: None Hx Substance Use Treatment: No Review of Systems - Review of Systems Able to Perform ROS?: Yes Is the patient limited Amharic proficient: Yes Constitutional: Yes: Symptoms Reported, See HPI, Malaise HEENTM: Yes: Symptoms Reported, See HPI, Nose Congestion Respiratory: Yes: Symptoms reported, See HPI, Cough, Wheezing Musculoskeletal: Yes: Symptoms Reported, See HPI, Muscle Pain, Muscle Weakness All Other Systems: Reviewed and Negative *Physical Exam - Vital Signs Last Vital Signs Temp Pulse Resp BP Pulse Ox 99.2 F 76 18 146/58 L 99 08/01/18 10:56 08/01/18 10:56 08/01/18 10:56 08/01/18 10:56 08/01/18 10:56 - Physical Exam General Appearance: Yes: Nourished, Appropriately Dressed, Apparent Distress, Mild Distress HEENT: positive: EOMI, ROMINA, TMs Normal, Pharynx Normal, Pharyngeal Erythema ( mild, ), Nasal Congestion, Rhinorrhea, Sinus Tenderness Neck: positive: Supple. negative: Tender, Lymphadenopathy (R), Lymphadenopathy (L) Respiratory/Chest: positive: Normal Breath Sounds (but coarse insp exp BS. No rhonchi or crackle noted ). negative: Chest Tender, Lungs Clear, Rhonchi, Wheezing Cardiovascular: positive: Regular Rate Gastrointestinal/Abdominal: positive: Soft. negative: Tender Musculoskeletal: positive: Normal Inspection Integumentary: positive: Dry, Warm, Pale Neurologic: positive: night time nanny II-XII NML intact, Fully Oriented, Alert, Normal Mood/ Affect, Normal Response, Motor Strength 5/5 Moderate Sedation - Procedure Monitoring Vital Signs: Procedure Monitoring Vital Signs Temperature 99.2 F 08/01/18 10:56 Pulse Rate 76 08/01/18 10:56 Respiratory Rate 18 08/01/18 10:56 Blood Pressure 146/58 L 08/01/18 10:56 O2 Sat by Pulse Oximetry (%) 99 08/01/18 10:56 ED Treatment Course - LABORATORY CBC & Chemistry Diagram: 08/02/18 06:20 08/02/18 06:20 Progress Note - Progress Note Progress Note: 12:30 influenza set testing negative, however patient. Chest x-ray taken and noted to have bilateral pneumonia. Case was discussed with Dr. Sae Austin who will receive patient and main emergency department for further workup and probable admission. Patient updated plan *DC/Admit/Observation/Transfer Diagnosis at time of Disposition: Pneumonia - Discharge Dispostion Condition at time of disposition: Stable - Referrals - Patient Instructions - Post Discharge Activity
[2018-08-01] MEDS ORDERED: PIPERACILLIN/TAZOB 3.375 GM 3.375 GM in DEXTROSE 5%-WATER - 50 ML IVPB ONE (12:49)
[2018-08-01] MEDS ORDERED: VANCOMYCIN 1 GM in D5W (PRE-DOCKED) 1,000 MG/250 ML IVPB ONE (12:49)
--- NOTE | 2018-08-01 13:55 | PDOC ---
History of Present Illness - General History Source: Patient Exam Limitations: No Limitations - History of Present Illness Initial Comments: 08/01/18 14:42 The patient is a 48 year old male, with a significant past medical history of of IDDM, ESRD (on HD MWF, most recent today), chronic anemia, recently diagnosed gallbladder adenocarcinoma, and HTN (with prior hypertensive emergency ), who presents to the ED with a productive cough, associated with bloody sputum , and tactile fevers since yesterday. The patient notes he had 2 episodes of vomiting yesterday when he went to his HD appointment. The patient states he experiences chest tightness and chest pain when breathing. The patient denies sick contacts or recent travels. Allergies: NKA Social history: None reported PCP: Collins Silva <Renae Shine - Last Filed: 08/01/18 14:42> - General History Source: Patient Exam Limitations: No Limitations <Grover Austin - Last Filed: 08/01/18 15:46> - General Chief Complaint: Respiratory Stated Complaint: SENT BY PCP / EVAL Time Seen by Provider: 08/01/18 11:13 Past History <Renae Shine - Last Filed: 08/01/18 14:42> - Past Medical History Anemia: No Asthma: No Cancer: Yes Cardiac Disorders: No CVA: No COPD: No DVT: No Dementia: No Diabetes: Yes Dialysis: Yes (M-W-F) GI Disorders: No Disorders: No HTN: Yes Hypercholesterolemia: Yes Kidney Stones: (Possible kidney failure, has not started Dialysis process.) Liver Disease: No Psychiatric Problems: No Seizures: No Thyroid Disease: No Lung CA: No - Immunization History Immunization Up to Date: No - Suicide/Smoking/Psychosocial Hx Smoking History: Never smoked Have you smoked in the past 12 months: No Number of Cigarettes Smoked Daily: 12 If you are a former smoker, when did you quit?: 1999 Hx Alcohol Use: No Drug/Substance Use Hx: No Substance Use Type: None Hx Substance Use Treatment: No <Grover Austin - Last Filed: 08/01/18 15:46> - Past Medical History Allergies/Adverse Reactions: Allergies Allergy/AdvReac Type Severity Reaction Status Date / Time No Known Drug Allergies Allergy Verified 08/01/18 11:02 Home Medications: Ambulatory Orders Insulin Aspart [Novolog Flexpen] 10 unit SQ TID PRN #1 ml 11/16/14 Calcitriol [Calcitriol -] 0.25 mcg PO BID #60 capsule 10/07/15 Famotidine 20 mg PO DAILY 11/01/15 Acetaminophen Suppository [Tylenol .Suppository -] 650 mg [place] Q6H PRN #0 supp.rect 11/08/15 Calcium Acetate [Phoslo -] 1,334 mg PO TIDCM #180 capsule 11/08/15 Furosemide [Lasix -] 40 mg PO BID #60 tablet 11/08/15 Labetalol HCl [Normodyne -] 600 mg PO TID #270 tablet 11/08/15 Lisinopril [Prinivil -] 40 mg PO DAILY #30 tablet 11/08/15 Ranitidine [Zantac -] 150 mg PO DAILY #30 tablet 11/08/15 Clonidine HCl 0.3 mg PO TID #90 tablet 09/25/17 Hydralazine HCl 100 mg PO TID #180 tablet 09/25/17 Labetalol HCl [Normodyne -] 600 mg PO TID #270 tablet 09/25/17 Nifedipine ER [Procardia XL -] 90 mg PO DAILY #30 tab.er.24 09/25/17 Review of Systems - Review of Systems Able to Perform ROS?: Yes Comments:: 08/01/18 14:46 GENERAL/CONSTITUTIONAL: (+) fevers. No chills. No weakness. HEAD, EYES, EARS, NOSE AND THROAT: No change in vision. No ear pain or discharge. No sore throat. CARDIOVASCULAR: (+) chest pain or shortness of breath. RESPIRATORY: (+) cough GASTROINTESTINAL: (+) vomiting associated with bloody sputum. No diarrhea or constipation. GENITOURINARY: No dysuria, frequency, or change in urination. MUSCULOSKELETAL: No joint or muscle swelling or pain. No neck or back pain. SKIN: No rash NEUROLOGIC: no headache, vertigo, loss of consciousness, or change in strength/ sensation. ENDOCRINE: No increased thirst. No abnormal weight change. HEMATOLOGIC/LYMPHATIC: No anemia, easy bleeding, or history of blood clots. ALLERGIC/IMMUNOLOGIC: No hives or skin allergy. All Other Systems: Reviewed and Negative <Renae Shine - Last Filed: 08/01/18 14:42> - Review of Systems Is the patient limited Greek proficient: Yes <Grover Austin - Last Filed: 08/01/18 15:46> *Physical Exam - Vital Signs Last Vital Signs Temp Pulse Resp BP Pulse Ox 99.2 F 76 18 146/58 L 99 08/01/18 10:56 08/01/18 10:56 08/01/18 10:56 08/01/18 10:56 08/01/18 10:56 - Physical Exam Comments: 08/01/18 14:47 GENERAL: Awake, alert, and fully oriented, in no acute distress NECK: Normal ROM, supple, no lymphadenopathy, JVD, or masses LUNGS:(+) crackling on bilateral lung bases HEART: Regular rate and rhythm, normal S1 and S2, no murmurs, rubs or gallops ABDOMEN: Soft, nontender, normoactive bowel sounds. No guarding, no rebound. No masses EXTREMITIES: (+) right upper extremity fistula. No clubbing or cyanosis. No cords, erythema, or tenderness NEUROLOGICAL: Cranial nerves II through XII grossly intact. Normal speech SKIN: Warm, Dry, normal turgor, no rashes or lesions noted. <Renae Shine - Last Filed: 08/01/18 14:42> - Vital Signs Last Vital Signs Temp Pulse Resp BP Pulse Ox 99.2 F 76 18 146/58 L 99 08/01/18 10:56 08/01/18 10:56 08/01/18 10:56 08/01/18 10:56 08/01/18 10:56 <Grover Austin - Last Filed: 08/01/18 15:46> Moderate Sedation - Procedure Monitoring Vital Signs: Procedure Monitoring Vital Signs Temperature 99.2 F 08/01/18 10:56 Pulse Rate 76 08/01/18 10:56 Respiratory Rate 18 08/01/18 10:56 Blood Pressure 146/58 L 08/01/18 10:56 O2 Sat by Pulse Oximetry (%) 99 08/01/18 10:56 <Renae Shine - Last Filed: 08/01/18 14:42> - Procedure Monitoring Vital Signs: Procedure Monitoring Vital Signs Temperature 99.2 F 08/01/18 10:56 Pulse Rate 76 08/01/18 10:56 Respiratory Rate 18 08/01/18 10:56 Blood Pressure 146/58 L 08/01/18 10:56 O2 Sat by Pulse Oximetry (%) 99 08/01/18 10:56 <Grover Austin - Last Filed: 08/01/18 15:46> Heart Score/ECG Review #1 ECG reviewed & interpreted by me at: 14:00 08/01/18 13:56 NSR 80, left axis deviation, LVH, TWI aVL, QTC 475 msec <Grover Austin - Last Filed: 08/01/18 15:46> ED Treatment Course - LABORATORY CBC & Chemistry Diagram: 08/01/18 13:12 08/01/18 13:12 - ADDITIONAL ORDERS Additional order review: Laboratory Results 08/01/18 08/01/18 08/01/18 13:45 13:12 13:12 PT with INR 13.40 H INR 1.13 H PTT (Actin FS) 28.3 VBG pH 7.47 H POC VBG pCO2 39.5 POC VBG pO2 45.8 Mixed VBG HCO3 28.1 H Sodium 136 Potassium 3.9 Chloride 100 Carbon Dioxide 28 Anion Gap 9 BUN 33 H Creatinine 6.1 H Creat Clearance w eGFR 9.98 Random Glucose 192 H Calcium 8.5 Total Bilirubin 1.4 H AST 18 ALT 23 Alkaline Phosphatase 105 Total Protein 7.0 Albumin 3.4 08/01/18 13:12 RBC 3.68 L MCV 90.2 MCHC 34.0 RDW 17.8 H MPV 10.3 Neutrophils % 87.7 H Lymphocytes % 5.2 L D Monocytes % 6.6 Eosinophils % 0.1 D Basophils % 0.4 - Medications Given in the ED: ED Medications Discontinued Medications Generic Name Dose Route Start Last Admin Trade Name Freq PRN Reason Stop Dose Admin Piperacillin Sod/Tazobactam 50 mls @ 100 mls/hr 08/01/18 12:49 08/01/18 14:23 Sod 3.375 gm/ Dextrose IVPB 08/01/18 13:18 100 mls/hr ONCE ONE Administration Protocol <Renae Shine - Last Filed: 08/01/18 14:42> - LABORATORY CBC & Chemistry Diagram: 08/01/18 13:12 08/01/18 13:12 <Grover Austin - Last Filed: 08/01/18 15:46> Medical Decision Making - Medical Decision Making 08/01/18 13:55 A portion of this note was documented by scribe services under my direction. I have reviewed the details of the note, within reason, and agree with the documentation with the following case summary and management plan written by me. Patient treated in the ED. Nursing notes are reviewed and incorporated into the medical decision-making. Vital signs reviewed. Peripheral IV access obtained by the nurse, laboratory studies are drawn and sent, reviewed and interpreted by myself. Vital Signs Temp Pulse Resp BP Pulse Ox 99.2 F 76 18 146/58 L 99 08/01/18 10:56 08/01/18 10:56 08/01/18 10:56 08/01/18 10:56 08/01/18 10:56 48-year-old male with past medical history of type 1 diabetes, end-stage renal disease on dialysis, last dialysis today, hypertension, hyperlipidemia, presents with coughing since yesterday. Patient has been complaining about mildly blood tinged productive cough and tactile fevers at home. Started reports some chest discomfort and shortness of breath. Denies sick contacts or recent travels. With the dialysis today completed the course. Chest x-ray doctors bilateral pneumonia. Given that he is a dialysis patient, will treat as hospital acquired pneumonia. Neck and Zosyn ordered. Admit the patient to the hospital. 08/01/18 15:44 CBC, BMP 08/01/18 13:12 08/01/18 13:12 CMP Sodium 136 mmol/L (136-145) 08/01/18 13:12 Potassium 3.9 mmol/L (3.5-5.1) 08/01/18 13:12 Chloride 100 mmol/L (98-107) 08/01/18 13:12 Carbon Dioxide 28 mmol/L (21-32) 08/01/18 13:12 Anion Gap 9 MMOL/L (8-16) 08/01/18 13:12 BUN 33 mg/dL (7-18) H 08/01/18 13:12 Creatinine 6.1 mg/dL (0.55-1.3) H 08/01/18 13:12 Creat Clearance w eGFR 9.98 (>60) 08/01/18 13:12 Random Glucose 192 mg/dL (74-106) H 08/01/18 13:12 Lactic Acid 2.3 mmol/L (0.4-2.0) H* 08/01/18 13:12 Calcium 8.5 mg/dL (8.5-10.1) 08/01/18 13:12 Total Bilirubin 1.4 mg/dL (0.2-1) H 08/01/18 13:12 AST 18 U/L (15-37) 08/01/18 13:12 ALT 23 U/L (13-61) 08/01/18 13:12 Alkaline Phosphatase 105 U/L (45-117) 08/01/18 13:12 Troponin I 0.07 ng/ml (0.00-0.05) H 08/01/18 13:12 Total Protein 7.0 g/dl (6.4-8.2) 08/01/18 13:12 Albumin 3.4 g/dl (3.4-5.0) 08/01/18 13:12 Slightly elevated troponin, which I suspect is secondary to the ESRD. However, case discussed with Dr. Worthy. Will consult Dr. Rowe and admit on telemetry. Admission diagnosis: Bilateral PNA Case discussed in detail with admitting physician including history, physical exam and ancillary studies. Admitting physician has assumed care for the patient, will follow all pending diagnostics and will complete the evaluation and treatment. <Grover Austin - Last Filed: 08/01/18 15:46> *DC/Admit/Observation/Transfer - Attestations Scribe Attestion: 08/01/18 14:47 Documentation prepared by Renae Shine, acting as medical dosimetrist for Grover Austin MD, MD <Renae Shine - Last Filed: 08/01/18 14:42> - Discharge Dispostion Decision to Admit order: Yes <Grover Austin - Last Filed: 08/01/18 15:46> Diagnosis at time of Disposition: Pneumonia Qualifiers: Pneumonia type: due to unspecified organism Laterality: unspecified laterality Lung location: unspecified part of lung Qualified Code(s): J18.9 - Pneumonia, unspecified organism - Discharge Dispostion Condition at time of disposition: Stable - Referrals Referrals: Collins Romano [Primary Care Provider] - - Patient Instructions - Post Discharge Activity
[2018-08-01 14:04] LABS: BASO % 0.4 % (0-2.0); EOS % 0.1 % (0-4.5); HEMATOCRIT 33.2 % (35.4-49); HEMOGLOBIN 11.3 GM/dL (11.7-16.9); LYMPH % 5.2 % (8-40); MCH 30.7 pg (25.7-33.7); MEAN CELL VOLUME 90.2 fl (80-96); MEAN PLT VOLUME 10.3 fl (7.5-11.1); MONO % 6.6 % (3.8-10.2); NEUT % 87.7 % (42.8-82.8); PLATELET COUNT 125 K/MM3 (134-434); RBC 3.68 M/mm3 (4.00-5.60); RDW 17.8 % (11.9-15.9); WHITE BLOOD COUNT 9.7 K/mm3 (4.0-10.0)
[2018-08-01 14:04] LABS: VENOUS PC02 39.5 mmHg (38-52); VENOUS PH 7.47 (7.32-7.42); VENOUS PO2 45.8 mmHg (28-48)
[2018-08-01 14:10] LABS: INR 1.13 (0.83-1.09); PROTHROMBIN TIME (PATIENT) 13.4 SEC (9.7-13.0)
[2018-08-01 14:13] LABS: ACTIVATED PTT 28.3 SECONDS (25.2-36.5)
[2018-08-01] MEDS ORDERED: PIPERACILLIN/TAZOB 3.375 GM 3.375 GM/50 ML BAG IVPB ONE (14:15)
[2018-08-01] MEDS ORDERED: VANCOMYCIN 1 GRAM (PRE-DOCKED) 1,000 MG/250 ML BAG IVPB ONE (14:15)
[2018-08-01 14:19] LABS: ALBUMIN 3.4 g/dl (3.4-5.0); ALK PHOS 105 U/L (45-117); ANION GAP 9 MMOL/L (8-16); BILIRUBIN,TOTAL 1.4 mg/dL (0.2-1); BLOOD UREA NITROGEN 33 mg/dL (7-18); CALCIUM 8.5 mg/dL (8.5-10.1); CHLORIDE 100 mmol/L (98-107); CO2 28 mmol/L (21-32); CREATININE 6.1 mg/dL (0.55-1.3); GLUCOSE,RANDOM 192 mg/dL (74-106); POTASSIUM 3.9 mmol/L (3.5-5.1); SGOT/AST 18 U/L (15-37); SGPT/ALT 23 U/L (13-61); SODIUM 136 mmol/L (136-145)
--- NOTE | 2018-08-01 15:29 | EKG ---
Test Reason : Blood Pressure : / mmHG Vent. Rate : 080 BPM Atrial Rate : 080 BPM P-R Int : 158 ms QRS Dur : 096 ms QT Int : 412 ms P-R-T Axes : 032 -31 080 degrees QTc Int : 475 ms NORMAL SINUS RHYTHM LEFT AXIS DEVIATION MINIMAL VOLTAGE CRITERIA FOR LVH, MAY BE NORMAL VARIANT SEPTAL INFARCT (CITED ON OR BEFORE 03-OCT-2015) ABNORMAL ECG Confirmed by Guero Rowe MD ([id number]) on 08/01/2018 3:28:45 PM Referred By: Confirmed By:Guero Rowe MD
[2018-08-01] MEDS ORDERED: PIPERACILLIN/TAZOB 2.25 GM 2.25 GM/50 ML BAG IVPB ONE (18:03)
[2018-08-01] MEDS: PIPERACILLIN/TAZOB 2.25 GM 2.25 GM in DEXTROSE 5%-WATER - 50 ML IVPB SCH ×2 (18:08→18:15)
[2018-08-01] MEDS: CALCIUM ACETATE 667 MG CAPSULE (FP) PO SCH (18:08)
[2018-08-01] MEDS ORDERED: FUROSEMIDE 40 MG TABLET (FP) ONE (22:56)
[2018-08-01] MEDS ORDERED: hydrALAZINE HCL 25 MG TABLET (FP) ONE (22:56)
[2018-08-01] MEDS ORDERED: LABETALOL HCL 100 MG TABLET (FP) ONE (22:56)
[2018-08-01] MEDS ORDERED: cloNIDine HCL 0.1 MG TABLET ONE (22:56)
[2018-08-01] MEDS ORDERED: HEPARIN NA (PORCINE) 5,000 UNITS/ML 1ML VIAL ONE (22:57)
[2018-08-01] MEDS: cloNIDine HCL 0.1 MG TABLET PO SCH (23:13)
[2018-08-01] MEDS: LABETALOL HCL 200 MG TABLET (FP) PO SCH (23:13)
[2018-08-01] MEDS: hydrALAZINE HCL 50 MG TABLET (FP) PO SCH (23:13)
[2018-08-01] MEDS: HEPARIN NA (PORCINE) 5,000 UNITS/ML 1ML VIAL SQ SCH (23:13)
[2018-08-01] MEDS: FUROSEMIDE 40 MG TABLET (FP) PO SCH (23:13)
[2018-08-01] MEDS: INSULIN SLIDING SCALE (NOVOLOG) 1 VIAL SQ SCH (23:13)
[2018-08-01] MEDS: CALCITRIOL 0.25 MCG CAPSULE (FP) PO SCH (23:14)
[2018-08-02] MEDS ORDERED: PIPERACILLIN/TAZOB 2.25 GM 2.25 GM/50 ML BAG IVPB ONE ×2 (02:20→10:06)
[2018-08-02] MEDS: PIPERACILLIN/TAZOB 2.25 GM 2.25 GM in DEXTROSE 5%-WATER - 50 ML IVPB SCH ×2 (02:28→10:11)
[2018-08-02] MEDS ORDERED: LABETALOL HCL 100 MG TABLET (FP) ONE (06:36)
[2018-08-02] MEDS ORDERED: hydrALAZINE HCL 25 MG TABLET (FP) ONE (06:36)
[2018-08-02] MEDS ORDERED: cloNIDine HCL 0.1 MG TABLET ONE (06:36)
[2018-08-02] MEDS: cloNIDine HCL 0.1 MG TABLET PO SCH ×3 (06:38→21:03)
[2018-08-02] MEDS: INSULIN SLIDING SCALE (NOVOLOG) 1 VIAL SQ SCH ×4 (06:38→22:22)
[2018-08-02] MEDS: hydrALAZINE HCL 50 MG TABLET (FP) PO SCH ×3 (06:38→21:05)
[2018-08-02] MEDS: LABETALOL HCL 200 MG TABLET (FP) PO SCH ×3 (06:38→21:03)
[2018-08-02 06:55] LABS: BASO % 1.4 % (0-2.0); EOS % 0.8 % (0-4.5); HEMATOCRIT 32.1 % (35.4-49); HEMOGLOBIN 10.7 GM/dL (11.7-16.9); LYMPH % 15.4 % (8-40); MCH 30.1 pg (25.7-33.7); MCHC 33.2 g/dl (32.0-35.9); MEAN CELL VOLUME 90.7 fl (80-96); MEAN PLT VOLUME 10.1 fl (7.5-11.1); MONO % 8.2 % (3.8-10.2); NEUT % 74.2 % (42.8-82.8); PLATELET COUNT 115 K/MM3 (134-434); RBC 3.54 M/mm3 (4.00-5.60); RDW 17.8 % (11.9-15.9); WHITE BLOOD COUNT 5.4 K/mm3 (4.0-10.0)
[2018-08-02 07:44] LABS: ALBUMIN 3.2 g/dl (3.4-5.0); ALK PHOS 91 U/L (45-117); ANION GAP 10 MMOL/L (8-16); BILIRUBIN,TOTAL 1.5 mg/dL (0.2-1); BLOOD UREA NITROGEN 53 mg/dL (7-18); CALCIUM 8.4 mg/dL (8.5-10.1); CHLORIDE 104 mmol/L (98-107); CHOLESTEROL 98 mg/dL (50-200); CO2 24 mmol/L (21-32); GLUCOSE,RANDOM 132 mg/dL (74-106); HDL CHOLESTEROL 49 mg/dL (40-60); MAGNESIUM 2.8 mg/dL (1.8-2.4); PHOSPHOROUS 3.8 mg/dL (2.5-4.9); POTASSIUM 4.2 mmol/L (3.5-5.1); SGOT/AST 11 U/L (15-37); SGPT/ALT 18 U/L (13-61); SODIUM 138 mmol/L (136-145); TOT PROT 6.4 g/dl (6.4-8.2); TRIGLYCERIDES 84 mg/dL (0-150)
[2018-08-02 07:52] LABS: CREATININE 8.3 mg/dL (0.55-1.3)
[2018-08-02] MEDS: CALCIUM ACETATE 667 MG CAPSULE (FP) PO SCH ×3 (08:42→18:04)
[2018-08-02] MEDS: HEPARIN NA (PORCINE) 5,000 UNITS/ML 1ML VIAL SQ SCH ×2 (09:12→21:04)
[2018-08-02] MEDS: FUROSEMIDE 40 MG TABLET (FP) PO SCH ×2 (09:12→21:04)
[2018-08-02] MEDS: CALCITRIOL 0.25 MCG CAPSULE (FP) PO SCH ×2 (09:12→21:04)
[2018-08-02] MEDS: RANITIDINE HCL 150 MG TABLET (FP) PO SCH ×2 (09:12)
[2018-08-02] MEDS: NIFEdipine E.R. 90 MG TABLET (FP) PO SCH (09:12)
--- NOTE | 2018-08-02 11:06 | EKG ---
Test Reason : Blood Pressure : / mmHG Vent. Rate : 065 BPM Atrial Rate : 065 BPM P-R Int : 178 ms QRS Dur : 108 ms QT Int : 450 ms P-R-T Axes : 063 -42 075 degrees QTc Int : 468 ms NORMAL SINUS RHYTHM POSSIBLE LEFT ATRIAL ENLARGEMENT LEFT AXIS DEVIATION LEFT VENTRICULAR HYPERTROPHY CANNOT RULE OUT SEPTAL INFARCT (CITED ON OR BEFORE 03-OCT-2015) ABNORMAL ECG WHEN COMPARED WITH ECG OF 02-AUG-2018 00:33, NO SIGNIFICANT CHANGE WAS FOUND Confirmed by Guero Rowe MD ([id number]) on 08/02/2018 11:05:48 AM Referred By: Collins WHITMAN Confirmed By:Guero Rowe MD
[2018-08-02] MEDS ORDERED: INSULIN (NOVOLOG) ASPART 100 UNITS/ML 10ML VIAL ONE (11:38)
--- NOTE | 2018-08-02 12:13 | CON.NEP ---
Consult Consult Specialty:: nephrology Reason for Consultation:: esrd - History of Present Illness History of Present Illness: The patient is a 48 year old male, with a significant past medical history of of IDDM, ESRD (on HD MWF, most recent today), chronic anemia, recently diagnosed gallbladder adenocarcinoma, and HTN (with prior hypertensive emergency ), who presents to the ED with a productive cough, associated with bloody sputum , and tactile fevers two days ago. The patient notes he had 2 episodes of vomiting when he went to his HD appointment. The patient states he experiences chest tightness and chest pain when breathing. The patient denies sick contacts or recent travels. His GB adenocarcinoma was diagnosed last year and he had a cholecystectomy august of last year. He was coughing on friday and did not go to hd. At night he started having hemoptysis but he did not notice until the morning. He is comfortable now - Past Medical History Cardio/Vascular: Yes: HTN, Hyperlipdemia Gastrointestinal: Yes: Cancer Renal/: Yes: Renal Failure, Hemodialysis (Mo,We,Fr) Endocrine: Yes: Diabetes Mellitus - Past Surgical History Past Surgical History: Yes: AV Fistula/Graft (Left upper arm), Cholecystectomy - Alcohol/Substance Use Hx Alcohol Use: No History of Substance Use: reports: None - Smoking History Smoking history: Never smoked Have you smoked in the past 12 months: No Aproximately how many cigarettes per day: 12 If you are a former smoker, when did you quit?: 1999 - Social History ADL: Independent History of Recent Travel: No Home Medications - Allergies Allergies/Adverse Reactions: Allergies Allergy/AdvReac Type Severity Reaction Status Date / Time No Known Drug Allergies Allergy Verified 08/01/18 11:02 - Home Medications Home Medications: Ambulatory Orders Insulin Aspart [Novolog Flexpen] 10 unit SQ TID PRN #1 ml 11/16/14 Calcitriol [Calcitriol -] 0.25 mcg PO BID #60 capsule 10/07/15 Famotidine 20 mg PO DAILY 11/01/15 Acetaminophen Suppository [Tylenol .Suppository -] 650 mg [place] Q6H PRN #0 supp.rect 11/08/15 Calcium Acetate [Phoslo -] 1,334 mg PO TIDCM #180 capsule 11/08/15 Furosemide [Lasix -] 40 mg PO BID #60 tablet 11/08/15 Labetalol HCl [Normodyne -] 600 mg PO TID #270 tablet 11/08/15 Lisinopril [Prinivil -] 40 mg PO DAILY #30 tablet 11/08/15 Ranitidine [Zantac -] 150 mg PO DAILY #30 tablet 11/08/15 Clonidine HCl 0.3 mg PO TID #90 tablet 09/25/17 Hydralazine HCl 100 mg PO TID #180 tablet 09/25/17 Labetalol HCl [Normodyne -] 600 mg PO TID #270 tablet 09/25/17 Nifedipine ER [Procardia XL -] 90 mg PO DAILY #30 tab.er.24 09/25/17 Family Disease History - Family Disease History Family Disease History: Diabetes: Father (ESRD), Heart Disease: Father, Mother, Other: Father Review of Systems - Review of Systems Constitutional: reports: Fever Eyes: reports: No Symptoms HENT: reports: No Symptoms Neck: reports: No Symptoms Cardiovascular: reports: No Symptoms Respiratory: reports: Cough, Other (hemoptysis) Gastrointestinal: reports: No Symptoms Genitourinary: reports: No Symptoms Breasts: reports: No Symptoms Reported Musculoskeletal: reports: No Symptoms Integumentary: reports: No Symptoms Neurological: reports: No Symptoms Endocrine: reports: No Symptoms Hematology/Lymphatic: reports: No Symptoms Psychiatric: reports: No Symptoms Nephrology Consult - Height Height: 5 ft 8 in - Weight Weight: 167 lb 15.876 oz - BMI Body Mass Index (BMI): 25.5 - Lab Results CBC,BMP: CBC, BMP 08/02/18 06:20 08/02/18 06:20 Anion Gap: Anion Gap Anion Gap 10 MMOL/L (8-16) 08/02/18 06:20 - Imaging Chest X-ray: Report Reviewed - Physical Examination Vital Signs: Vital Signs Temperature 98.5 F 08/02/18 06:29 Pulse Rate 88 08/02/18 06:29 Respiratory Rate 19 08/02/18 06:29 Blood Pressure 164/66 08/02/18 06:29 O2 Sat by Pulse Oximetry (%) 100 08/02/18 06:29 Constitutional: Yes: Well Nourished, No Distress, Calm Eyes: Yes: Conjunctiva Clear HENT: Yes: Atraumatic, Normocephalic Neck: Yes: Supple, Trachea Midline Cardiovascular: Yes: Regular Rate and Rhythm Respiratory: Yes: Rales (at left base associated with some tenderness) Gastrointestinal: Yes: Normal Bowel Sounds Renal/: Yes: WNL Access for Hemodialysis: AV Fistula Musculoskeletal: Yes: WNL Extremities: Yes: WNL Edema: No Neurological: Yes: Alert, Oriented Psychiatric: Yes: Alert, Oriented Assessment/Plan IMPRESSION likely has pneumonia perhaps bilobar but definitely on left base esrd h/o GB cancer s/p cholecystectomy h/o dm PLAN agree with antibiotics he was dialyzed yesterday monitor glucose and use insulin to treat as necessary MV
--- NOTE | 2018-08-02 12:37 | HP ---
Admitting History and Physical - Admission History of Present Illness: 48 year old male, with a significant past medical history of of IDDM, ESRD (on HD MWF, most recent today), chronic anemia, recently diagnosed gallbladder adenocarcinoma, and HTN (with prior hypertensive emergency), who presents to the ED with a productive cough, associated with bloody sputum, and tactile fevers since yesterday. The patient notes he had 2 episodes of vomiting yesterday when he went to his HD appointment. The patient states he experiences chest tightness and chest pain when breathing. The patient denies sick contacts or recent travels. - Past Medical History Cardiovascular: Yes: HTN, Hyperlipdemia Gastrointestinal: Yes: Cancer Renal/: Yes: Renal Failure, Hemodialysis (Mo,We,Fr) Heme/Onc: Yes: Other (adenocarcinoma gallbladder treated) Endocrine: Yes: Diabetes Mellitus - Past Surgical History Past Surgical History: Yes: AV Fistula/Graft (Left upper arm), Cholecystectomy - Smoking History Smoking history: Never smoked Have you smoked in the past 12 months: No Aproximately how many cigarettes per day: 12 If you are a former smoker, when did you quit?: 1999 - Alcohol/Substance Use Hx Alcohol Use: No History of Substance Use: reports: None - Social History ADL: Independent History of Recent Travel: No Home Medications - Allergies Allergies/Adverse Reactions: Allergies Allergy/AdvReac Type Severity Reaction Status Date / Time No Known Drug Allergies Allergy Verified 08/01/18 11:02 - Home Medications Home Medications: Ambulatory Orders Insulin Aspart [Novolog Flexpen] 10 unit SQ TID PRN #1 ml 11/16/14 Calcitriol [Calcitriol -] 0.25 mcg PO BID #60 capsule 10/07/15 Famotidine 20 mg PO DAILY 11/01/15 Acetaminophen Suppository [Tylenol .Suppository -] 650 mg NC Q6H PRN #0 supp.rect 11/08/15 Calcium Acetate [Phoslo -] 1,334 mg PO TIDCM #180 capsule 11/08/15 Furosemide [Lasix -] 40 mg PO BID #60 tablet 11/08/15 Labetalol HCl [Normodyne -] 600 mg PO TID #270 tablet 11/08/15 Lisinopril [Prinivil -] 40 mg PO DAILY #30 tablet 11/08/15 Ranitidine [Zantac -] 150 mg PO DAILY #30 tablet 11/08/15 Clonidine HCl 0.3 mg PO TID #90 tablet 09/25/17 Hydralazine HCl 100 mg PO TID #180 tablet 09/25/17 Labetalol HCl [Normodyne -] 600 mg PO TID #270 tablet 09/25/17 Nifedipine ER [Procardia XL -] 90 mg PO DAILY #30 tab.er.24 09/25/17 Family Disease History - Family Disease History Family Disease History: Diabetes: Father (ESRD), Heart Disease: Father, Mother, Other: Father Review of Systems - Review of Systems Cardiovascular: reports: Shortness of Breath Respiratory: reports: Cough, SOB, SOB on Exertion Gastrointestinal: reports: No Symptoms Physical Examination Vital Signs: Vital Signs Temperature 98.5 F 08/02/18 06:29 Pulse Rate 88 08/02/18 06:29 Respiratory Rate 19 08/02/18 06:29 Blood Pressure 164/66 08/02/18 06:29 O2 Sat by Pulse Oximetry (%) 100 08/02/18 06:29 Cardiovascular: Yes: S1, S2 Respiratory: Yes: Rhonchi Gastrointestinal: Yes: Normal Bowel Sounds, Soft Labs: CBC, BMP 08/02/18 06:20 08/02/18 06:20 Imaging - Results X-ray: Report Reviewed Problem List - Problems (1) Pneumonia Assessment/Plan: IV Abx Id consult nebs pulm Code(s): J18.9 - PNEUMONIA, UNSPECIFIED ORGANISM Qualifiers: Pneumonia type: due to unspecified organism Laterality: unspecified laterality Lung location: unspecified part of lung Qualified Code(s): J18.9 - Pneumonia, unspecified organism (2) Troponin I above reference range Assessment/Plan: maybe due to renal ds cardio Code(s): R74.8 - ABNORMAL LEVELS OF OTHER SERUM ENZYMES (3) Chronic renal failure Assessment/Plan: dialysis per renal Code(s): N18.9 - CHRONIC KIDNEY DISEASE, UNSPECIFIED Qualifiers: Chronic kidney disease stage: unspecified stage Qualified Code(s): N18.9 - Chronic kidney disease, unspecified
--- NOTE | 2018-08-02 12:54 | CON.CARD ---
Consult Consult Specialty:: Cardiology Referred by:: Deacon Reason for Consultation:: elevated troponin - History of Present Illness Chief Complaint: vomiting History of Present Illness: 48 year old man pmh HTN, DMII, ESRD on HD, chronic anemia, h/o gallbladder adeno CA s/p recection and being monitored at [facility] sent from HD with cough and fever, bloody sputum. No chest pain, orthopnea, pnd or edema. +sob. Noted with elevated troponin. ECG unchanged. CXR left side patchy infiltrate. - History Source History Provided By: Patient, Medical Record - Past Medical History Cardio/Vascular: Yes: HTN, Hyperlipdemia Gastrointestinal: Yes: Cancer Renal/: Yes: Renal Failure, Hemodialysis (Mo,We,Fr) Endocrine: Yes: Diabetes Mellitus - Past Surgical History Past Surgical History: Yes: AV Fistula/Graft (Left upper arm), Cholecystectomy - Alcohol/Substance Use Hx Alcohol Use: No History of Substance Use: reports: None - Smoking History Smoking history: Never smoked Have you smoked in the past 12 months: No Aproximately how many cigarettes per day: 12 If you are a former smoker, when did you quit?: 1999 - Social History ADL: Independent History of Recent Travel: No Home Medications - Allergies Allergies/Adverse Reactions: Allergies Allergy/AdvReac Type Severity Reaction Status Date / Time No Known Drug Allergies Allergy Verified 08/01/18 11:02 - Home Medications Home Medications: Ambulatory Orders Insulin Aspart [Novolog Flexpen] 10 unit SQ TID PRN #1 ml 11/16/14 Calcitriol [Calcitriol -] 0.25 mcg PO BID #60 capsule 10/07/15 Famotidine 20 mg PO DAILY 11/01/15 Acetaminophen Suppository [Tylenol .Suppository -] 650 mg PA Q6H PRN #0 supp.rect 11/08/15 Calcium Acetate [Phoslo -] 1,334 mg PO TIDCM #180 capsule 11/08/15 Furosemide [Lasix -] 40 mg PO BID #60 tablet 11/08/15 Labetalol HCl [Normodyne -] 600 mg PO TID #270 tablet 11/08/15 Lisinopril [Prinivil -] 40 mg PO DAILY #30 tablet 11/08/15 Ranitidine [Zantac -] 150 mg PO DAILY #30 tablet 11/08/15 Clonidine HCl 0.3 mg PO TID #90 tablet 09/25/17 Hydralazine HCl 100 mg PO TID #180 tablet 09/25/17 Labetalol HCl [Normodyne -] 600 mg PO TID #270 tablet 09/25/17 Nifedipine ER [Procardia XL -] 90 mg PO DAILY #30 tab.er.24 09/25/17 Family Disease History - Family Disease History Family Disease History: Diabetes: Father (ESRD), Heart Disease: Father, Mother, Other: Father Vital Signs: Vital Signs Temperature 98.5 F 08/02/18 06:29 Pulse Rate 88 08/02/18 06:29 Respiratory Rate 08/02/18 06:29 Blood Pressure 164/66 08/02/18 06:29 O2 Sat by Pulse Oximetry (%) 100 08/02/18 06:29 Constitutional: Yes: No Distress, Calm Eyes: Yes: Conjunctiva Clear, EOM Intact HENT: Yes: Normocephalic Neck: Yes: Trachea Midline Respiratory: Yes: Rhonchi Gastrointestinal: Yes: Normal Bowel Sounds, Soft Cardiovascular: Yes: Regular Rate and Rhythm JVD: No Carotid Bruit: No PMI: Non-Displaced Extremities: Yes: WNL Edema: No Peripheral Pulses WNL: Yes - Other Data Labs, Other Data: CBC, BMP 08/02/18 06:20 08/02/18 06:20 INR, PTT INR 1.13 (0.83-1.09) H 08/01/18 13:12 Troponin, BNP 08/01/18 08/01/18 08/02/18 13:12 13:12 06:20 Troponin I 0.07 H Cancelled 0.05 Troponin, BNP 08/01/18 08/01/18 08/02/18 13:12 13:12 06:20 Troponin I 0.07 H Cancelled 0.05 Imaging - Results Chest X-ray: Report Reviewed (patchy left infiltrate) EKG: Report Reviewed (no changes) Assessment/Plan 48 year old man pmh HTN, DMII, ESRD on HD, chronic anemia, h/o gallbladder adeno CA s/p recection and being monitored at [facility] sent from HD with cough and fever, bloody sputum. No chest pain, orthopnea, pnd or edema. +sob. Noted with elevated troponin. ECG unchanged. CXR left side patchy infiltrate. Elevated troponin--Due to renal disease, nonischemic pattern. ECG without changes. No need for telemetry monitoring. Abx per medicine. HD per renal. Will follow as needed.
[2018-08-02 14:18] LABS: URINE APPEARANCE CLOUDY; URINE BILIRUBIN NEGATIVE (<2.0 mg/dL); URINE COLOR YELLOW; URINE GLUCOSE (UA) 2+ (NEGATIVE); URINE KETONE NEGATIVE (NEGATIVE); URINE LEUK ESTERASE NEGATIVE (NEGATIVE); URINE NITRITE NEGATIVE (NEGATIVE); URINE PROTEIN 3+ (NEGATIVE); URINE UROBILINOGEN NEGATIVE mg/dL (0.2-1.0)
[2018-08-02 14:25] LABS: GRANULAR CASTS 5 /lpf; URINE HYALINE CAST 1 /lpf
--- NOTE | 2018-08-02 16:06 | PN ---
Progress Note (short form) - Note Progress Note: PULMONARY CONSULTATION DICTATED 08/02/18 IMP PNEUMONIA HEMOPTYSIS SECONDARY TO PNEUMONIA ESRD ON HD ANEMIA H/O GALLBLADDER CA PLAN ABX O2 CULTURES INHALED BRONCHODILATORS CHEST CT HD PER RENAL QUANTIFY HEMOPTYSIS DR ALEXANDER Problem List - Problems (1) Pneumonia Code(s): J18.9 - PNEUMONIA, UNSPECIFIED ORGANISM (2) Hemoptysis Code(s): R04.2 - HEMOPTYSIS (3) Pneumonia Code(s): J18.9 - PNEUMONIA, UNSPECIFIED ORGANISM Qualifiers: Pneumonia type: due to unspecified organism Laterality: unspecified laterality Lung location: unspecified part of lung Qualified Code(s): J18.9 - Pneumonia, unspecified organism (4) Anemia Code(s): D64.9 - ANEMIA, UNSPECIFIED Qualifiers: Other causes of anemia: chronic disease, kidney (5) ESRD (end stage renal disease) on dialysis Code(s): N18.6 - END STAGE RENAL DISEASE; Z99.2 - DEPENDENCE ON RENAL DIALYSIS (6) Nausea & vomiting Code(s): R11.2 - NAUSEA WITH VOMITING, UNSPECIFIED Qualifiers: Vomiting type: unspecified Vomiting Intractability: unspecified Qualified Code(s): R11.2 - Nausea with vomiting, unspecified (7) Type 2 diabetes mellitus with diabetic peripheral angiopathy without gangrene Code(s): E11.51 - TYPE 2 DIABETES W DIABETIC PERIPHERAL ANGIOPATH W/O GANGRENE (8) Hyperlipidemia Code(s): E78.5 - HYPERLIPIDEMIA, UNSPECIFIED (9) Hypertension Code(s): I10 - ESSENTIAL (PRIMARY) HYPERTENSION Qualifiers: Hypertension type: essential hypertension
--- NOTE | 2018-08-02 16:12 | PN ---
Progress Note (short form) - Note Progress Note: PULMONARY CONSULTATION DICTATED 08/02/18 IMP PNEUMONIA HEMOPTYSIS SECONDARY TO PNEUMONIA ESRD ON HD ANEMIA HTN IDDM H/O GALLBLADDER CA PLAN ABX O2 CULTURES INHALED BRONCHODILATORS CHEST CT HD PER RENAL QUANTIFY HEMOPTYSIS DR ALEXANDER Problem List - Problems (1) Pneumonia Code(s): J18.9 - PNEUMONIA, UNSPECIFIED ORGANISM (2) Hemoptysis Code(s): R04.2 - HEMOPTYSIS (3) Pneumonia Code(s): J18.9 - PNEUMONIA, UNSPECIFIED ORGANISM Qualifiers: Pneumonia type: due to unspecified organism Laterality: unspecified laterality Lung location: unspecified part of lung Qualified Code(s): J18.9 - Pneumonia, unspecified organism (4) Anemia Code(s): D64.9 - ANEMIA, UNSPECIFIED Qualifiers: Other causes of anemia: chronic disease, kidney (5) ESRD (end stage renal disease) on dialysis Code(s): N18.6 - END STAGE RENAL DISEASE; Z99.2 - DEPENDENCE ON RENAL DIALYSIS (6) Nausea & vomiting Code(s): R11.2 - NAUSEA WITH VOMITING, UNSPECIFIED Qualifiers: Vomiting type: unspecified Vomiting Intractability: unspecified Qualified Code(s): R11.2 - Nausea with vomiting, unspecified (7) Type 2 diabetes mellitus with diabetic peripheral angiopathy without gangrene Code(s): E11.51 - TYPE 2 DIABETES W DIABETIC PERIPHERAL ANGIOPATH W/O GANGRENE (8) Hyperlipidemia Code(s): E78.5 - HYPERLIPIDEMIA, UNSPECIFIED (9) Hypertension Code(s): I10 - ESSENTIAL (PRIMARY) HYPERTENSION Qualifiers: Hypertension type: essential hypertension
--- NOTE | 2018-08-02 18:49 | CONS ---
DATE OF CONSULTATION: 08/02/2018 REFERRING PHYSICIAN: Jennifer Worthy MD The patient is a 48-year-old male, with a past medical history significant for end-stage renal disease, on hemodialysis 3 times weekly, chronic anemia, recently diagnosed gallbladder carcinoma, status post cholecystectomy, currently not on any chemo, hypertension, prior history of hypertensive emergency, insulin-dependent diabetes mellitus, admitted to [facility] with complaint of 2 -day history of shortness of breath, cough productive of bloody sputum. Patient stated he was doing well until Friday prior to admission. At the time, he started developing cough productive of bloody sputum. He also had intermittent fevers and chills. He also had a couple of episodes of nausea and vomiting. He presented to the emergency room with the above. In the ER, he had a chest x-ray performed, which revealed left-sided infiltrate. He was placed on broad-spectrum antibiotics. The patient has a history of tobacco use, quit 20 years ago. 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 He was born in [place] and moved to the [place] greater than 20 years ago. There is no history of pneumonia or TB. Asstated before, he has a history of gallbladder CA diagnosed last year and had a cholecystectomy in August of last year. There is no previous history of hemoptysis. Past medical history, again, with insulin-dependent diabetes mellitus, end-stage renal disease, on hemodialysis, chronic anemia, gallbladder CA, and hypertension. REVIEW OF SYSTEMS: Positive cough, positive mild shortness of breath, positive hemoptysis, positive fever. Positive mild chest discomfort, left-sided chest pain. No nausea or vomiting. No lower extremity edema. No abdominal pain. CURRENT MEDICATIONS: Piperacillin, heparin, DuoNeb, Normodyne, Catapres, Procardia, Apresoline, Zantac, NovoLog, Lasix, PhosLo, and Rocaltrol. PHYSICAL EXAMINATION: General: The patient is a well-developed, well-nourished male, awake, alert, currently in no acute distress. Vital Signs: He is afebrile. Blood pressure is 149/74. Respiratory rate 20. O2 saturation is 100% on room air. HEENT: Normocephalic, atraumatic. Neck: Supple. Heart: Regular, S1, S2. Chest: Crackles noted on the left with few rhonchi. Abdomen: Soft. Bowel sounds are positive. Extremities: No cyanosis, edema. LABORATORY DATA: WBC 5.4, hemoglobin 10.7, hematocrit 32.1, platelet count 115, 000. INR is 1.13. Venous blood gas 7.47, pCO2 of 39, pO2 of 40, bicarbonate 28. Electrolytes: BUN 53, creatinine 8.3, bilirubin 1.5, magnesium 2.8. Chest x- ray: Left-sided infiltrate, patchy infiltrate on the left, minimal on the right. IMPRESSION: 1. Left-sided pneumonia. 2. Hemoptysis, likely secondary to pneumonia. 3. End-stage renal disease, on hemodialysis. 4. Anemia. 5. Insulin-dependent diabetes mellitus. 6. Hypertension with history of hypertensive emergency. 7. History of gallbladder cancer. PLAN: Broad-spectrum antibiotics, supplemental O2, pancultures, inhaled bronchodilators, obtain chest CT scan of the chest, hemodialysis as per renal, and quantify hemoptysis.Obtain cultures,legionella antigen TRAM ALEXANDER M.D. [id number] MTDD
[2018-08-02] MEDS: ALBUTEROL SO4 2.5/IPRATROPIUM 0.5 INH SOL 3 ML VIAL.NEB. NEB SCH ×2 (18:50→20:50)
[2018-08-03] MEDS: hydrALAZINE HCL 50 MG TABLET (FP) PO SCH ×3 (06:00→21:48)
[2018-08-03] MEDS: cloNIDine HCL 0.1 MG TABLET PO SCH ×3 (06:01→21:22)
[2018-08-03] MEDS: LABETALOL HCL 200 MG TABLET (FP) PO SCH ×3 (06:01→21:22)
[2018-08-03] MEDS: INSULIN SLIDING SCALE (NOVOLOG) 1 VIAL SQ SCH ×4 (06:02→21:32)
[2018-08-03] MEDS: ALBUTEROL SO4 2.5/IPRATROPIUM 0.5 INH SOL 3 ML VIAL.NEB. NEB SCH ×4 (07:32→20:13)
[2018-08-03] MEDS: CALCIUM ACETATE 667 MG CAPSULE (FP) PO SCH ×3 (09:30→17:34)
[2018-08-03] MEDS: HEPARIN NA (PORCINE) 5,000 UNITS/ML 1ML VIAL SQ SCH ×2 (09:36→21:25)
[2018-08-03] MEDS: CALCITRIOL 0.25 MCG CAPSULE (FP) PO SCH ×2 (09:37→21:24)
[2018-08-03] MEDS: RANITIDINE HCL 150 MG TABLET (FP) PO SCH ×2 (09:37→12:25)
--- NOTE | 2018-08-03 10:43 | PN ---
Progress Note, Physician History of Present Illness: PULMONARY ALERT,FEELING BETTER,LESS COUGH,-HEMOPTYSIS - Current Medication List Current Medications: Active Medications Acetaminophen (Tylenol -) 650 mg PO Q4H PRN PRN Reason: FEVER Albuterol/Ipratropium (Duoneb -) 1 amp NEB RQID [facility] Last Admin: 08/03/18 07:32 Dose: 1 amp Calcitriol (Rocaltrol -) 0.25 mcg PO BID [facility] Last Admin: 08/03/18 09:37 Dose: 0.25 mcg Calcium Acetate (Phoslo -) 1,334 mg PO TIDCM [facility] Last Admin: 08/03/18 09:30 Dose: 1,334 mg Clonidine (Catapres -) 0.3 mg PO TID [facility] Last Admin: 08/03/18 06:01 Dose: Not Given Furosemide (Lasix -) 40 mg PO BID [facility] Last Admin: 08/02/18 21:04 Dose: 40 mg Heparin Sodium (Porcine) (Heparin -) 5,000 unit SQ BID [facility] Last Admin: 08/03/18 09:36 Dose: 5,000 unit Hydralazine HCl (Apresoline -) 100 mg PO TID [facility] Last Admin: 08/03/18 06:00 Dose: Not Given Piperacillin Sod/Tazobactam (Sod 2.25 gm/ Dextrose) 50 mls @ 100 mls/hr IVPB Q8H-IV [facility]; Protocol Last Admin: 08/01/18 18:08 Dose: 100 mls/hr Insulin Aspart (Novolog Vial Sliding Scale -) 1 vial SQ ACHS [facility]; Protocol Last Admin: 08/03/18 06:02 Dose: Not Given Labetalol HCl (Normodyne -) 600 mg PO TID [facility] Last Admin: 08/03/18 06:01 Dose: Not Given Nifedipine (Procardia Xl -) 90 mg PO DAILY [facility] Last Admin: 08/02/18 09:12 Dose: 90 mg Ranitidine HCl (Zantac -) 150 mg PO DAILY [facility] Last Admin: 08/03/18 09:37 Dose: 150 mg Ranitidine HCl (Zantac -) 150 mg PO DAILY [facility] Last Admin: 08/02/18 09:12 Dose: 150 mg - Objective Vital Signs: Vital Signs Temperature 98 F 08/03/18 05:00 Pulse Rate 62 08/03/18 05:00 Respiratory Rate 20 08/03/18 05:00 Blood Pressure 149/73 08/03/18 05:00 O2 Sat by Pulse Oximetry (%) 96 08/02/18 20:01 Constitutional: Yes: Well Nourished, Calm Eyes: Yes: WNL HENT: Yes: WNL Neck: Yes: WNL Cardiovascular: Yes: Regular Rate and Rhythm, S1, S2 Respiratory: Yes: Rales (CRACKLES ON LEFT) Gastrointestinal: Yes: Normal Bowel Sounds, Soft Extremities: Yes: WNL Edema: No Labs: CBC, BMP - ....Imaging Cat Scan: Image Reviewed Problem List - Problems (1) Pneumonia Code(s): J18.9 - PNEUMONIA, UNSPECIFIED ORGANISM (2) Hemoptysis Code(s): R04.2 - HEMOPTYSIS (3) Pneumonia Code(s): J18.9 - PNEUMONIA, UNSPECIFIED ORGANISM Qualifiers: Pneumonia type: due to unspecified organism Laterality: unspecified laterality Lung location: unspecified part of lung Qualified Code(s): J18.9 - Pneumonia, unspecified organism (4) Anemia Code(s): D64.9 - ANEMIA, UNSPECIFIED Qualifiers: Other causes of anemia: chronic disease, kidney (5) ESRD (end stage renal disease) on dialysis Code(s): N18.6 - END STAGE RENAL DISEASE; Z99.2 - DEPENDENCE ON RENAL DIALYSIS (6) Nausea & vomiting Code(s): R11.2 - NAUSEA WITH VOMITING, UNSPECIFIED Qualifiers: Vomiting type: unspecified Vomiting Intractability: unspecified Qualified Code(s): R11.2 - Nausea with vomiting, unspecified (7) Type 2 diabetes mellitus with diabetic peripheral angiopathy without gangrene Code(s): E11.51 - TYPE 2 DIABETES W DIABETIC PERIPHERAL ANGIOPATH W/O GANGRENE (8) Hyperlipidemia Code(s): E78.5 - HYPERLIPIDEMIA, UNSPECIFIED (9) Hypertension Code(s): I10 - ESSENTIAL (PRIMARY) HYPERTENSION Qualifiers: Hypertension type: essential hypertension Assessment/Plan IMP PNEUMONIA HEMOPTYSIS SECONDARY TO PNEUMONIA IMPROVING ESRD ON HD ANEMIA HTN IDDM H/O GALLBLADDER CA PLAN ABX O2 INHALED BRONCHODILATORS HD PER RENAL QUANTIFY HEMOPTYSIS DR ALEXANDER Problem List - Problems (1) Pneumonia Code(s): J18.9 - PNEUMONIA, UNSPECIFIED ORGANISM (2) Hemoptysis Code(s): R04.2 - HEMOPTYSIS (3) Pneumonia Code(s): J18.9 - PNEUMONIA, UNSPECIFIED ORGANISM Qualifiers: Pneumonia type: due to unspecified organism Laterality: unspecified laterality Lung location: unspecified part of lung Qualified Code(s): J18.9 - Pneumonia, unspecified organism (4) Anemia Code(s): D64.9 - ANEMIA, UNSPECIFIED Qualifiers: Other causes of anemia: chronic disease, kidney (5) ESRD (end stage renal disease) on dialysis Code(s): N18.6 - END STAGE RENAL DISEASE; Z99.2 - DEPENDENCE ON RENAL DIALYSIS (6) Nausea & vomiting Code(s): R11.2 - NAUSEA WITH VOMITING, UNSPECIFIED Qualifiers: Vomiting type: unspecified Vomiting Intractability: unspecified Qualified Code(s): R11.2 - Nausea with vomiting, unspecified (7) Type 2 diabetes mellitus with diabetic peripheral angiopathy without gangrene Code(s): E11.51 - TYPE 2 DIABETES W DIABETIC PERIPHERAL ANGIOPATH W/O GANGRENE (8) Hyperlipidemia Code(s): E78.5 - HYPERLIPIDEMIA, UNSPECIFIED (9) Hypertension Code(s): I10 - ESSENTIAL (PRIMARY) HYPERTENSION Qualifiers: Hypertension type: essential hypertension
--- NOTE | 2018-08-03 11:21 | PN ---
Progress Note (short form) - Note Progress Note: ID CONSULT DICTATED PNEUMONIA BLOOD STREAKED SPUTUM ESRD AWAIT C/S EMPIRIC [id number]
[2018-08-03] MEDS: NIFEdipine E.R. 90 MG TABLET (FP) PO SCH (11:36)
[2018-08-03] MEDS: FUROSEMIDE 40 MG TABLET (FP) PO SCH ×2 (11:37→21:24)
[2018-08-03] MEDS: CEFTRIAXONE 2 GM in DEXTROSE 5%-WATER 100 ML IVPB SCH (12:25)
[2018-08-03] MEDS ORDERED: SODIUM CHLORIDE 250 ML IV PRN (12:34)
--- NOTE | 2018-08-03 12:34 | PN ---
Progress Note, Physician History of Present Illness: Pt seen and examined at bedside. He is awake and alert. He feels that the cough is a little better today. - Current Medication List Current Medications: Active Medications Acetaminophen (Tylenol -) 650 mg PO Q4H PRN PRN Reason: FEVER Albuterol/Ipratropium (Duoneb -) 1 amp NEB RQID [facility] Last Admin: 08/03/18 11:30 Dose: 1 amp Calcitriol (Rocaltrol -) 0.25 mcg PO BID [facility] Last Admin: 08/03/18 09:37 Dose: 0.25 mcg Calcium Acetate (Phoslo -) 1,334 mg PO TIDCM [facility] Last Admin: 08/03/18 09:30 Dose: 1,334 mg Clonidine (Catapres -) 0.3 mg PO TID [facility] Last Admin: 08/03/18 06:01 Dose: Not Given Furosemide (Lasix -) 40 mg PO BID [facility] Last Admin: 08/03/18 11:37 Dose: 40 mg Heparin Sodium (Porcine) (Heparin -) 5,000 unit SQ BID [facility] Last Admin: 08/03/18 09:36 Dose: 5,000 unit Hydralazine HCl (Apresoline -) 100 mg PO TID [facility] Last Admin: 08/03/18 06:00 Dose: Not Given Ceftriaxone Sodium 2 gm/ (Dextrose) 100 mls @ 200 mls/hr IVPB DAILY [facility]; Protocol Insulin Aspart (Novolog Vial Sliding Scale -) 1 vial SQ ACHS [facility]; Protocol Last Admin: 08/03/18 06:02 Dose: Not Given Labetalol HCl (Normodyne -) 600 mg PO TID [facility] Last Admin: 08/03/18 06:01 Dose: Not Given Nifedipine (Procardia Xl -) 90 mg PO DAILY [facility] Last Admin: 08/03/18 11:36 Dose: 90 mg Ranitidine HCl (Zantac -) 150 mg PO DAILY [facility] Last Admin: 08/03/18 09:37 Dose: 150 mg Ranitidine HCl (Zantac -) 150 mg PO DAILY [facility] Last Admin: 08/03/18 12:25 Dose: 150 mg - Objective Vital Signs: Vital Signs Temperature 98 F 08/03/18 05:00 Pulse Rate 62 08/03/18 05:00 Respiratory Rate 20 08/03/18 05:00 Blood Pressure 149/73 08/03/18 05:00 O2 Sat by Pulse Oximetry (%) 96 08/02/18 20:01 Constitutional: Yes: Calm Eyes: Yes: Conjunctiva Clear HENT: Yes: Atraumatic Neck: Yes: Supple Cardiovascular: Yes: S1, S2 Respiratory: Yes: CTA Bilaterally Gastrointestinal: Yes: Soft Genitourinary: Yes: WNL Musculoskeletal: Yes: WNL Edema: LLE: Trace, RLE: Trace Neurological: Yes: Oriented Psychiatric: Yes: Oriented Labs: CBC, BMP 08/02/18 06:20 08/02/18 06:20 INR, PTT INR 1.13 (0.83-1.09) H 08/01/18 13:12 Problem List - Problems (1) Hemoptysis Code(s): R04.2 - HEMOPTYSIS (2) Pneumonia Code(s): J18.9 - PNEUMONIA, UNSPECIFIED ORGANISM (3) End-stage renal disease (ESRD) Code(s): N18.6 - END STAGE RENAL DISEASE Assessment/Plan Current Medications Generic Name Dose Route Start Last Admin Trade Name Freq PRN Reason Stop Dose Admin Acetaminophen 650 mg 08/01/18 17:08 Tylenol - PO Q4H PRN FEVER Albuterol/Ipratropium 1 amp 08/02/18 16:00 08/03/18 11:30 Duoneb - NEB 1 amp RQID [facility] Administration Calcitriol 0.25 mcg 08/01/18 22:00 08/03/18 09:37 Rocaltrol - PO 0.25 mcg BID [facility] Administration Calcium Acetate 1,334 mg 08/01/18 17:30 08/03/18 09:30 Phoslo - PO 1,334 mg TIDCM [facility] Administration Clonidine 0.3 mg 08/01/18 22:00 08/03/18 06:01 Catapres - PO Not Given TID [facility] Furosemide 40 mg 08/01/18 22:00 08/03/18 11:37 Lasix - PO 40 mg BID [facility] Administration Heparin Sodium (Porcine) 5,000 unit 08/01/18 22:00 08/03/18 09:36 Heparin - SQ 5,000 unit BID [facility] Administration Hydralazine HCl 100 mg 08/01/18 22:00 08/03/18 06:00 Apresoline - PO Not Given TID [facility] Ceftriaxone Sodium 2 gm/ 100 mls @ 200 mls/hr 08/03/18 11:30 Dextrose IVPB DAILY [facility] Protocol Insulin Aspart 1 vial 08/01/18 22:00 08/03/18 06:02 Novolog Vial Sliding Scale - SQ Not Given ACHS [facility] Protocol Labetalol HCl 600 mg 08/01/18 22:00 08/03/18 06:01 Normodyne - PO Not Given TID [facility] Nifedipine 90 mg 08/02/18 10:00 08/03/18 11:36 Procardia Xl - PO 90 mg DAILY [facility] Administration Ranitidine HCl 150 mg 08/02/18 10:00 08/03/18 09:37 Zantac - PO 150 mg DAILY [facility] Administration Ranitidine HCl 150 mg 08/02/18 10:00 08/03/18 12:25 Zantac - PO 150 mg DAILY [facility] Administration Impression 1. ESRD 2. HTN 3. DM 4. anemia 5. PNA 6. gallbladder adenoca 7. hemopysis Plan - cont abx - follow up ct scan of the chest - repeat labs in am - HD tomorrow, he was last dialyzed on Friday - HD 3 45, opti 180, 2 k bath, micera (07/29) with next dose due on the - will follow Dr Kerns
[2018-08-03] MEDS ORDERED: DEXTROSE 5%-WATER 100 ML IVPB ONE (13:00)
--- NOTE | 2018-08-03 14:25 | PN ---
Progress Note, Physician Chief Complaint: patient admitted for pna on HD per renal chest ct done awaitng report - Current Medication List Current Medications: Active Medications Acetaminophen (Tylenol -) 650 mg PO Q4H PRN PRN Reason: FEVER Albuterol/Ipratropium (Duoneb -) 1 amp NEB RQID [facility] Last Admin: 08/03/18 11:30 Dose: 1 amp Calcitriol (Rocaltrol -) 0.25 mcg PO BID [facility] Last Admin: 08/03/18 09:37 Dose: 0.25 mcg Calcium Acetate (Phoslo -) 1,334 mg PO TIDCM [facility] Last Admin: 08/03/18 13:00 Dose: 1,334 mg Clonidine (Catapres -) 0.3 mg PO TID [facility] Last Admin: 08/03/18 13:17 Dose: 0.3 mg Furosemide (Lasix -) 40 mg PO BID [facility] Last Admin: 08/03/18 11:37 Dose: 40 mg Heparin Sodium (Porcine) (Heparin -) 5,000 unit SQ BID [facility] Last Admin: 08/03/18 09:36 Dose: 5,000 unit Hydralazine HCl (Apresoline -) 100 mg PO TID [facility] Last Admin: 08/03/18 13:18 Dose: 100 mg Ceftriaxone Sodium 2 gm/ (Dextrose) 100 mls @ 200 mls/hr IVPB DAILY [facility]; Protocol Last Admin: 08/03/18 12:25 Dose: 200 mls/hr Sodium Chloride (Normal Saline -) 250 mls @ 3,000 mls/hr IV PRN PRN PRN Reason: Hypotension during Dialysis Stop: 08/04/18 12:34 Insulin Aspart (Novolog Vial Sliding Scale -) 1 vial SQ ACHS [facility]; Protocol Last Admin: 08/03/18 11:40 Dose: 5 units Labetalol HCl (Normodyne -) 600 mg PO TID [facility] Last Admin: 08/03/18 13:18 Dose: 600 mg Nifedipine (Procardia Xl -) 90 mg PO DAILY [facility] Last Admin: 08/03/18 11:36 Dose: 90 mg Ranitidine HCl (Zantac -) 150 mg PO DAILY [facility] Last Admin: 08/03/18 09:37 Dose: 150 mg Ranitidine HCl (Zantac -) 150 mg PO DAILY [facility] Last Admin: 08/03/18 12:25 Dose: 150 mg - Objective Vital Signs: Vital Signs Temperature 98 F 08/03/18 13:00 Pulse Rate 66 08/03/18 13:00 Respiratory Rate 20 08/03/18 05:00 Blood Pressure 171/81 H 08/03/18 13:00 O2 Sat by Pulse Oximetry (%) 96 08/03/18 09:00 Constitutional: Yes: Calm Cardiovascular: Yes: Regular Rate and Rhythm, S1, S2 Respiratory: Yes: Diminished Gastrointestinal: Yes: Normal Bowel Sounds, Soft Edema: No Labs: CBC, BMP 08/02/18 06:20 08/02/18 06:20 INR, PTT INR 1.13 (0.83-1.09) H 08/01/18 13:12 Problem List - Problems (1) Hemoptysis Assessment/Plan: chest ct pendinf iv abx Code(s): R04.2 - HEMOPTYSIS (2) Pneumonia Assessment/Plan: iv abx Code(s): J18.9 - PNEUMONIA, UNSPECIFIED ORGANISM Qualifiers: Pneumonia type: due to unspecified organism Laterality: unspecified laterality Lung location: unspecified part of lung Qualified Code(s): J18.9 - Pneumonia, unspecified organism (3) ESRD (end stage renal disease) on dialysis Assessment/Plan: HD per renal Code(s): N18.6 - END STAGE RENAL DISEASE; Z99.2 - DEPENDENCE ON RENAL DIALYSIS (4) HTN (hypertension) Assessment/Plan: hydralazine labetolol Code(s): I10 - ESSENTIAL (PRIMARY) HYPERTENSION
--- NOTE | 2018-08-03 16:56 | CONS ---
DATE OF CONSULTATION: DATE OF DICTATION: 08/03/2018 INFECTIOUS DISEASE CONSULTATION HISTORY OF PRESENT ILLNESS: The patient is a 48-year-old male with a history of end-stage renal disease on hemodialysis evaluated for pneumonia. He was admitted to the hospital on August 01, 2018. He was sent from hemodialysis to the emergency room for evaluation. The patient complained of a 24-hour history of fever, body ache, cough productive of white sputum with blood streaks, as well as chest tightness. The patient had nausea and vomiting x2 episodes. He presented to the emergency room where chest x-ray showed patchy infiltrate left greater than right. A CAT scan was performed. Official reading is pending, however he appears to have ground glass infiltrates mostly left lung pires. He was empirically treated with Zosyn. He reports clinical improvement in his breathing with decreased cough but denies any hemoptysis at the present time, no complaints of chest pain. He is afebrile. The patient denies any ill contacts. No recent hospitalization. No recent travel. He is originally from [place], has been living in the [facility] for the past 20 years. He is an ex-smoker. PAST MEDICAL HISTORY: Positive for end-stage renal disease on hemodialysis, insulin dependent diabetes mellitus, congestive heart failure, chronic anemia, recently diagnosed adenocarcinoma of the gallbladder, hypertension. PAST SURGICAL HISTORY: Status post cholecystectomy, status post left upper extremity AV graft. ALLERGIES: No known allergies. MEDICATION: Include insulin, Calcitrol, Pepcid, PhosLo, Lasix, Normodyne, Prinivil, Procardia. SOCIAL HISTORY: As per HPI. SYSTEMS REVIEW: Neurologic: No loss of consciousness, seizure activity, or focal weakness. Cardiac: Negative for chest pain or palpitations. Respiratory: As per HPI. Gastrointestinal: As per HPI. Genitourinary: End-stage renal disease on hemodialysis. LABORATORY DATA: White count 5.4, with 74 neutrophils, 15 lymphocytes, 8 monocytes. Hematocrit 32.1, platelet count 115, BUN 53, creatinine 8.3, total bilirubin 1.5, alkaline phosphatase 91, AST 11. Urinalysis negative. Blood cultures and urine culture preliminarily negative. Legionella antigen pending. PHYSICAL EXAMINATION: General: On exam, he is awake and alert, he is supine in bed, in no acute distress. His breathing is nonlabored. Vital signs: Temperature 98, blood pressure 149/73, pulse 62 regular, respirations 20 per minute. HEENT: Sclerae anicteric. Cardiovascular: Heart sounds S1, S2. Lungs: Crepitations at the left base. Abdomen: Soft, no tenderness elicited. No mass, rebound, or rigidity. Extremities: Negative for edema. AV graft is present in the left upper extremity. IMPRESSION: 1. Community-acquired pneumonia versus atypical left sided pneumonia. 2. History of blood streaked sputum likely secondary to pulmonary infection. 3. End-stage renal disease on hemodialysis. 4. Insulin dependent diabetes mellitus. 5. Thrombocytopenia. Possibly secondary to sepsis. 6. History of adenocarcinoma of the gallbladder. Await culture results. Await urine legionella and pneumococcal antigens. Empiric antibiotic coverage with ceftriaxone 2 g IV piggyback every 24 hours. Would avoid empiric use of Zithromax and Levaquin in light of prolonged QT interval. Further recommendations pending cultures and clinical course. Will follow. Thank you for the kind referral. DOUGLAS SCHULTZ M.D. [id number]
[2018-08-04] MEDS: cloNIDine HCL 0.1 MG TABLET PO SCH ×3 (06:31→22:26)
[2018-08-04] MEDS: hydrALAZINE HCL 50 MG TABLET (FP) PO SCH ×3 (06:31→22:26)
[2018-08-04] MEDS: LABETALOL HCL 200 MG TABLET (FP) PO SCH ×3 (06:32→22:25)
[2018-08-04] MEDS: INSULIN SLIDING SCALE (NOVOLOG) 1 VIAL SQ SCH ×4 (07:00→22:26)
[2018-08-04] MEDS: ALBUTEROL SO4 2.5/IPRATROPIUM 0.5 INH SOL 3 ML VIAL.NEB. NEB SCH ×4 (07:49→21:15)
[2018-08-04] MEDS ORDERED: DEXTROSE 5%-WATER 100 ML IVPB ONE (08:19)
[2018-08-04] MEDS: CALCIUM ACETATE 667 MG CAPSULE (FP) PO SCH ×3 (08:35→16:44)
[2018-08-04 08:43] LABS: HEMATOCRIT 31.7 % (35.4-49); HEMOGLOBIN 10.8 GM/dL (11.7-16.9); MEAN CELL VOLUME 91.4 fl (80-96); MEAN PLT VOLUME 10.3 fl (7.5-11.1); PLATELET COUNT 139 K/MM3 (134-434); RBC 3.46 M/mm3 (4.00-5.60); RDW 17.6 % (11.9-15.9); WHITE BLOOD COUNT 5.2 K/mm3 (4.0-10.0)
[2018-08-04 09:19] LABS: ANION GAP 15 MMOL/L (8-16); BLOOD UREA NITROGEN 93 mg/dL (7-18); CALCIUM 8.7 mg/dL (8.5-10.1); CHLORIDE 100 mmol/L (98-107); CO2 20 mmol/L (21-32); GLUCOSE,RANDOM 177 mg/dL (74-106); SODIUM 134 mmol/L (136-145)
[2018-08-04] MEDS: RANITIDINE HCL 150 MG TABLET (FP) PO SCH ×2 (09:30→14:52)
--- NOTE | 2018-08-04 10:02 | PN ---
Progress Note, Physician - Current Medication List Current Medications: Active Medications Acetaminophen (Tylenol -) 650 mg PO Q4H PRN PRN Reason: FEVER Albuterol/Ipratropium (Duoneb -) 1 amp NEB RQID [facility] Last Admin: 08/04/18 07:49 Dose: 1 amp Calcitriol (Rocaltrol -) 0.25 mcg PO BID [facility] Last Admin: 08/03/18 21:24 Dose: 0.25 mcg Calcium Acetate (Phoslo -) 1,334 mg PO TIDCM [facility] Last Admin: 08/04/18 08:35 Dose: 1,334 mg Clonidine (Catapres -) 0.3 mg PO TID [facility] Last Admin: 08/04/18 06:31 Dose: Not Given Furosemide (Lasix -) 40 mg PO BID [facility] Last Admin: 08/03/18 21:24 Dose: 40 mg Heparin Sodium (Porcine) (Heparin -) 5,000 unit SQ BID [facility] Last Admin: 08/03/18 21:25 Dose: 5,000 unit Hydralazine HCl (Apresoline -) 100 mg PO TID [facility] Last Admin: 08/04/18 06:31 Dose: Not Given Ceftriaxone Sodium 2 gm/ (Dextrose) 100 mls @ 200 mls/hr IVPB DAILY [facility]; Protocol Last Admin: 08/03/18 12:25 Dose: 200 mls/hr Sodium Chloride (Normal Saline -) 250 mls @ 3,000 mls/hr IV PRN PRN PRN Reason: Hypotension during Dialysis Stop: 08/04/18 12:34 Insulin Aspart (Novolog Vial Sliding Scale -) 1 vial SQ ACHS [facility]; Protocol Last Admin: 08/03/18 21:32 Dose: 2 units Labetalol HCl (Normodyne -) 600 mg PO TID [facility] Last Admin: 08/04/18 06:32 Dose: Not Given Nifedipine (Procardia Xl -) 90 mg PO DAILY [facility] Last Admin: 08/03/18 11:36 Dose: 90 mg Ranitidine HCl (Zantac -) 150 mg PO DAILY [facility] Last Admin: 08/03/18 09:37 Dose: 150 mg Ranitidine HCl (Zantac -) 150 mg PO DAILY [facility] Last Admin: 08/03/18 12:25 Dose: 150 mg - Objective Vital Signs: Vital Signs Temperature 97.6 F 08/04/18 06:18 Pulse Rate 66 08/04/18 06:18 Respiratory Rate 18 08/04/18 06:18 Blood Pressure 158/73 08/04/18 06:18 O2 Sat by Pulse Oximetry (%) 98 08/03/18 20:27 Cardiovascular: Yes: S1, S2 Respiratory: Yes: On Nasal O2, Rhonchi Gastrointestinal: Yes: Normal Bowel Sounds, Soft Labs: CBC, BMP 08/04/18 08:31 08/04/18 08:31 INR, PTT INR 1.13 (0.83-1.09) H 08/01/18 13:12 Problem List - Problems (1) Pneumonia Assessment/Plan: IV Abx Id consult noted ct pos for pneumonia nebs pulm Code(s): J18.9 - PNEUMONIA, UNSPECIFIED ORGANISM Qualifiers: Pneumonia type: due to unspecified organism Laterality: unspecified laterality Lung location: unspecified part of lung Qualified Code(s): J18.9 - Pneumonia, unspecified organism (2) Troponin I above reference range Assessment/Plan: maybe due to renal ds cardio Code(s): R74.8 - ABNORMAL LEVELS OF OTHER SERUM ENZYMES (3) Chronic renal failure Assessment/Plan: dialysis per renal Code(s): N18.9 - CHRONIC KIDNEY DISEASE, UNSPECIFIED Qualifiers: Chronic kidney disease stage: unspecified stage Qualified Code(s): N18.9 - Chronic kidney disease, unspecified
[2018-08-04] MEDS: HEPARIN NA (PORCINE) 5,000 UNITS/ML 1ML VIAL SQ SCH ×2 (10:15→22:26)
[2018-08-04 12:27] LABS: CREATININE 13.8 mg/dL (0.55-1.3)
[2018-08-04] MEDS: FUROSEMIDE 40 MG TABLET (FP) PO SCH ×2 (12:27→22:26)
[2018-08-04] MEDS: CALCITRIOL 0.25 MCG CAPSULE (FP) PO SCH ×2 (12:27→22:26)
[2018-08-04] MEDS: CEFTRIAXONE 2 GM in DEXTROSE 5%-WATER 100 ML IVPB SCH (12:27)
[2018-08-04] MEDS: NIFEdipine E.R. 90 MG TABLET (FP) PO SCH (12:27)
--- NOTE | 2018-08-04 12:27 | PN ---
Progress Note, Physician History of Present Illness: PULMONARY ALERT,FEELING BETTER,-SOB,-HEMOPTYSIS - Current Medication List Current Medications: Active Medications Acetaminophen (Tylenol -) 650 mg PO Q4H PRN PRN Reason: FEVER Albuterol/Ipratropium (Duoneb -) 1 amp NEB RQID [facility] Last Admin: 08/04/18 11:31 Dose: 1 amp Calcitriol (Rocaltrol -) 0.25 mcg PO BID [facility] Last Admin: 08/03/18 21:24 Dose: 0.25 mcg Calcium Acetate (Phoslo -) 1,334 mg PO TIDCM [facility] Last Admin: 08/04/18 08:35 Dose: 1,334 mg Clonidine (Catapres -) 0.3 mg PO TID [facility] Last Admin: 08/04/18 06:31 Dose: Not Given Furosemide (Lasix -) 40 mg PO BID [facility] Last Admin: 08/03/18 21:24 Dose: 40 mg Heparin Sodium (Porcine) (Heparin -) 5,000 unit SQ BID [facility] Last Admin: 08/03/18 21:25 Dose: 5,000 unit Hydralazine HCl (Apresoline -) 100 mg PO TID [facility] Last Admin: 08/04/18 06:31 Dose: Not Given Ceftriaxone Sodium 2 gm/ (Dextrose) 100 mls @ 200 mls/hr IVPB DAILY [facility]; Protocol Last Admin: 08/03/18 12:25 Dose: 200 mls/hr Sodium Chloride (Normal Saline -) 250 mls @ 3,000 mls/hr IV PRN PRN PRN Reason: Hypotension during Dialysis Stop: 08/04/18 12:34 Insulin Aspart (Novolog Vial Sliding Scale -) 1 vial SQ ACHS [facility]; Protocol Last Admin: 08/03/18 21:32 Dose: 2 units Labetalol HCl (Normodyne -) 600 mg PO TID [facility] Last Admin: 08/04/18 06:32 Dose: Not Given Nifedipine (Procardia Xl -) 90 mg PO DAILY [facility] Last Admin: 08/03/18 11:36 Dose: 90 mg Ranitidine HCl (Zantac -) 150 mg PO DAILY [facility] Last Admin: 08/03/18 09:37 Dose: 150 mg Ranitidine HCl (Zantac -) 150 mg PO DAILY [facility] Last Admin: 08/03/18 12:25 Dose: 150 mg - Objective Vital Signs: Vital Signs Temperature 98.2 F 08/04/18 10:00 Pulse Rate 78 08/04/18 10:40 Respiratory Rate 18 08/04/18 10:40 Blood Pressure 176/79 H 08/04/18 10:40 O2 Sat by Pulse Oximetry (%) 98 08/04/18 09:00 Constitutional: Yes: Well Nourished, Calm Eyes: Yes: WNL HENT: Yes: WNL Neck: Yes: WNL Cardiovascular: Yes: Regular Rate and Rhythm, S1 Respiratory: Yes: Rhonchi (FEW CRACKLES ON LEFT) Gastrointestinal: Yes: Normal Bowel Sounds, Soft Extremities: Yes: WNL Edema: No Labs: CBC, BMP 08/04/18 08:31 08/04/18 08:31 INR, PTT INR 1.13 (0.83-1.09) H 08/01/18 13:12 Problem List - Problems (1) Pneumonia Code(s): J18.9 - PNEUMONIA, UNSPECIFIED ORGANISM (2) Hemoptysis Code(s): R04.2 - HEMOPTYSIS (3) Pneumonia Code(s): J18.9 - PNEUMONIA, UNSPECIFIED ORGANISM Qualifiers: Pneumonia type: due to unspecified organism Laterality: unspecified laterality Lung location: unspecified part of lung Qualified Code(s): J18.9 - Pneumonia, unspecified organism (4) Anemia Code(s): D64.9 - ANEMIA, UNSPECIFIED Qualifiers: Other causes of anemia: chronic disease, kidney (5) ESRD (end stage renal disease) on dialysis Code(s): N18.6 - END STAGE RENAL DISEASE; Z99.2 - DEPENDENCE ON RENAL DIALYSIS (6) Nausea & vomiting Code(s): R11.2 - NAUSEA WITH VOMITING, UNSPECIFIED Qualifiers: Vomiting type: unspecified Vomiting Intractability: unspecified Qualified Code(s): R11.2 - Nausea with vomiting, unspecified (7) Type 2 diabetes mellitus with diabetic peripheral angiopathy without gangrene Code(s): E11.51 - TYPE 2 DIABETES W DIABETIC PERIPHERAL ANGIOPATH W/O GANGRENE (8) Hyperlipidemia Code(s): E78.5 - HYPERLIPIDEMIA, UNSPECIFIED (9) Hypertension Code(s): I10 - ESSENTIAL (PRIMARY) HYPERTENSION Qualifiers: Hypertension type: essential hypertension Assessment/Plan IMP PNEUMONIA CLINICALLY IMPROVING HEMOPTYSIS RESOLVED ESRD ON HD ANEMIA HTN IDDM H/O GALLBLADDER CA PLAN ABX O2 INHALED BRONCHODILATORS HD PER RENAL DR ALEXANDER Problem List - Problems (1) Pneumonia Code(s): J18.9 - PNEUMONIA, UNSPECIFIED ORGANISM (2) Hemoptysis Code(s): R04.2 - HEMOPTYSIS (3) Pneumonia Code(s): J18.9 - PNEUMONIA, UNSPECIFIED ORGANISM Qualifiers: Pneumonia type: due to unspecified organism Laterality: unspecified laterality Lung location: unspecified part of lung Qualified Code(s): J18.9 - Pneumonia, unspecified organism (4) Anemia Code(s): D64.9 - ANEMIA, UNSPECIFIED Qualifiers: Other causes of anemia: chronic disease, kidney (5) ESRD (end stage renal disease) on dialysis Code(s): N18.6 - END STAGE RENAL DISEASE; Z99.2 - DEPENDENCE ON RENAL DIALYSIS (6) Nausea & vomiting Code(s): R11.2 - NAUSEA WITH VOMITING, UNSPECIFIED Qualifiers: Vomiting type: unspecified Vomiting Intractability: unspecified Qualified Code(s): R11.2 - Nausea with vomiting, unspecified (7) Type 2 diabetes mellitus with diabetic peripheral angiopathy without gangrene Code(s): E11.51 - TYPE 2 DIABETES W DIABETIC PERIPHERAL ANGIOPATH W/O GANGRENE (8) Hyperlipidemia Code(s): E78.5 - HYPERLIPIDEMIA, UNSPECIFIED (9) Hypertension Code(s): I10 - ESSENTIAL (PRIMARY) HYPERTENSION Qualifiers: Hypertension type: essential hypertension
--- NOTE | 2018-08-04 12:38 | PN ---
Progress Note, Physician History of Present Illness: Pt seen and examined at bedside. He tolerated HD today. - Current Medication List Current Medications: Active Medications Acetaminophen (Tylenol -) 650 mg PO Q4H PRN PRN Reason: FEVER Albuterol/Ipratropium (Duoneb -) 1 amp NEB RQID [facility] Last Admin: 08/04/18 11:31 Dose: 1 amp Calcitriol (Rocaltrol -) 0.25 mcg PO BID [facility] Last Admin: 08/04/18 12:27 Dose: 0.25 mcg Calcium Acetate (Phoslo -) 1,334 mg PO TIDCM [facility] Last Admin: 08/04/18 08:35 Dose: 1,334 mg Clonidine (Catapres -) 0.3 mg PO TID [facility] Last Admin: 08/04/18 06:31 Dose: Not Given Furosemide (Lasix -) 40 mg PO BID [facility] Last Admin: 08/04/18 12:27 Dose: 40 mg Heparin Sodium (Porcine) (Heparin -) 5,000 unit SQ BID [facility] Last Admin: 08/04/18 10:15 Dose: 5,000 unit Hydralazine HCl (Apresoline -) 100 mg PO TID [facility] Last Admin: 08/04/18 06:31 Dose: Not Given Ceftriaxone Sodium 2 gm/ (Dextrose) 100 mls @ 200 mls/hr IVPB DAILY [facility]; Protocol Last Admin: 08/04/18 12:27 Dose: 200 mls/hr Sodium Chloride (Normal Saline -) 250 mls @ 3,000 mls/hr IV PRN PRN PRN Reason: Hypotension during Dialysis Stop: 08/04/18 12:34 Insulin Aspart (Novolog Vial Sliding Scale -) 1 vial SQ ACHS [facility]; Protocol Last Admin: 08/04/18 12:00 Dose: Not Given Labetalol HCl (Normodyne -) 600 mg PO TID [facility] Last Admin: 08/04/18 06:32 Dose: Not Given Nifedipine (Procardia Xl -) 90 mg PO DAILY [facility] Last Admin: 08/04/18 12:27 Dose: 90 mg Ranitidine HCl (Zantac -) 150 mg PO DAILY [facility] Last Admin: 08/04/18 09:30 Dose: 150 mg Ranitidine HCl (Zantac -) 150 mg PO DAILY [facility] Last Admin: 08/03/18 12:25 Dose: 150 mg - Objective Vital Signs: Vital Signs Temperature 98.2 F 08/04/18 10:00 Pulse Rate 78 08/04/18 10:40 Respiratory Rate 18 08/04/18 10:40 Blood Pressure 176/79 H 08/04/18 10:40 O2 Sat by Pulse Oximetry (%) 98 08/04/18 09:00 Constitutional: Yes: Calm Eyes: Yes: Conjunctiva Clear HENT: Yes: Atraumatic Cardiovascular: Yes: S1, S2 Respiratory: Yes: CTA Bilaterally Gastrointestinal: Yes: Normal Bowel Sounds, Soft Genitourinary: Yes: WNL Musculoskeletal: Yes: WNL Extremities: Yes: WNL Edema: No Neurological: Yes: Oriented Psychiatric: Yes: Oriented Labs: CBC, BMP 08/04/18 08:31 08/04/18 08:31 INR, PTT INR 1.13 (0.83-1.09) H 08/01/18 13:12 Problem List - Problems (1) Hemoptysis Code(s): R04.2 - HEMOPTYSIS (2) Pneumonia Code(s): J18.9 - PNEUMONIA, UNSPECIFIED ORGANISM (3) End-stage renal disease (ESRD) Code(s): N18.6 - END STAGE RENAL DISEASE Assessment/Plan Current Medications Generic Name Dose Route Start Last Admin Trade Name Freq PRN Reason Stop Dose Admin Acetaminophen 650 mg 08/01/18 17:08 Tylenol - PO Q4H PRN FEVER Albuterol/Ipratropium 1 amp 08/02/18 16:00 08/04/18 11:31 Duoneb - NEB 1 amp RQID [facility] Administration Calcitriol 0.25 mcg 08/01/18 22:00 08/04/18 12:27 Rocaltrol - PO 0.25 mcg BID [facility] Administration Calcium Acetate 1,334 mg 08/01/18 17:30 08/04/18 12:36 Phoslo - PO 1,334 mg TIDCM [facility] Administration Clonidine 0.3 mg 08/01/18 22:00 08/04/18 06:31 Catapres - PO Not Given TID [facility] Furosemide 40 mg 08/01/18 22:00 08/04/18 12:27 Lasix - PO 40 mg BID [facility] Administration Heparin Sodium (Porcine) 5,000 unit 08/01/18 22:00 08/04/18 10:15 Heparin - SQ 5,000 unit BID [facility] Administration Hydralazine HCl 100 mg 08/01/18 22:00 08/04/18 06:31 Apresoline - PO Not Given TID [facility] Ceftriaxone Sodium 2 gm/ 100 mls @ 200 mls/hr 08/03/18 11:30 08/04/18 12:27 Dextrose IVPB 200 mls/hr DAILY [facility] Administration Protocol Sodium Chloride 250 mls @ 3,000 mls/hr 08/03/18 12:34 Normal Saline - IV 08/04/18 12:34 PRN PRN Hypotension during Dialysis Insulin Aspart 1 vial 08/01/18 22:00 08/04/18 12:00 Novolog Vial Sliding Scale - SQ Not Given ACHS [facility] Protocol Labetalol HCl 600 mg 08/01/18 22:00 08/04/18 06:32 Normodyne - PO Not Given TID [facility] Nifedipine 90 mg 08/02/18 10:00 08/04/18 12:27 Procardia Xl - PO 90 mg DAILY [facility] Administration Ranitidine HCl 150 mg 08/02/18 10:00 08/04/18 09:30 Zantac - PO 150 mg DAILY [facility] Administration Ranitidine HCl 150 mg 08/02/18 10:00 08/03/18 12:25 Zantac - PO 150 mg DAILY [facility] Administration Impression 1. ESRD 2. HTN 3. DM 4. anemia 5. PNA 6. gallbladder adenoca 7. hemopysis Plan - HD today - cont abx - pulm input appreciated - HD 3 45, opti 180, 2 k bath, micera (07/29) with next dose due on the - will follow Dr Kerns
--- NOTE | 2018-08-04 14:53 | PN ---
Progress Note, Physician History of Present Illness: c/o R SIDED CHEST PAIN WITH COUGH NO PURULENT SPUTUM PRODUCTION OR HEMOPTYSIS NO C/O CHEST PAIN, NO C/O F/C LEGIONELLA AG (-) - Current Medication List Current Medications: Active Medications Acetaminophen (Tylenol -) 650 mg PO Q4H PRN PRN Reason: FEVER Albuterol/Ipratropium (Duoneb -) 1 amp NEB RQID [facility] Last Admin: 08/04/18 11:31 Dose: 1 amp Calcitriol (Rocaltrol -) 0.25 mcg PO BID [facility] Last Admin: 08/04/18 12:27 Dose: 0.25 mcg Calcium Acetate (Phoslo -) 1,334 mg PO TIDCM [facility] Last Admin: 08/04/18 12:36 Dose: 1,334 mg Clonidine (Catapres -) 0.3 mg PO TID [facility] Last Admin: 08/04/18 14:03 Dose: 0.3 mg Furosemide (Lasix -) 40 mg PO BID [facility] Last Admin: 08/04/18 12:27 Dose: 40 mg Heparin Sodium (Porcine) (Heparin -) 5,000 unit SQ BID [facility] Last Admin: 08/04/18 10:15 Dose: 5,000 unit Hydralazine HCl (Apresoline -) 100 mg PO TID [facility] Last Admin: 08/04/18 14:03 Dose: 100 mg Ceftriaxone Sodium 2 gm/ (Dextrose) 100 mls @ 200 mls/hr IVPB DAILY [facility]; Protocol Last Admin: 08/04/18 12:27 Dose: 200 mls/hr Sodium Chloride (Normal Saline -) 250 mls @ 3,000 mls/hr IV PRN PRN PRN Reason: Hypotension during Dialysis Stop: 08/04/18 12:34 Insulin Aspart (Novolog Vial Sliding Scale -) 1 vial SQ ACHS [facility]; Protocol Last Admin: 08/04/18 12:00 Dose: Not Given Labetalol HCl (Normodyne -) 600 mg PO TID [facility] Last Admin: 08/04/18 14:03 Dose: 600 mg Nifedipine (Procardia Xl -) 90 mg PO DAILY [facility] Last Admin: 08/04/18 12:27 Dose: 90 mg Ranitidine HCl (Zantac -) 150 mg PO DAILY [facility] Last Admin: 08/04/18 09:30 Dose: 150 mg - Objective Vital Signs: Vital Signs Temperature 97.0 F L 08/04/18 11:40 Pulse Rate 80 08/04/18 11:40 Respiratory Rate 18 08/04/18 11:40 Blood Pressure 180/77 H 08/04/18 11:40 O2 Sat by Pulse Oximetry (%) 98 08/04/18 09:00 Constitutional: Yes: No Distress Cardiovascular: Yes: Regular Rate and Rhythm, S1, S2 Respiratory: Yes: Rhonchi Gastrointestinal: Yes: Normal Bowel Sounds, Soft. No: Tenderness Labs: CBC, BMP 08/04/18 08:31 08/04/18 08:31 INR, PTT INR 1.13 (0.83-1.09) H 08/01/18 13:12 Assessment/Plan PNEUMONIA ESRD IDDM THROMBOCYTOPENIA ADENOCARCINOMA OF GB CONTINUE CEFTRIAXONE HIV TESTING (PT GIVES VERBAL CONSENT)
[2018-08-04] MEDS: ACETAMINOPHEN 325 MG TABLET (FP) PO PRN (22:24)
[2018-08-05] MEDS: cloNIDine HCL 0.1 MG TABLET PO SCH ×3 (06:34→21:50)
[2018-08-05] MEDS: LABETALOL HCL 200 MG TABLET (FP) PO SCH ×3 (06:34→21:50)
[2018-08-05] MEDS: INSULIN SLIDING SCALE (NOVOLOG) 1 VIAL SQ SCH ×4 (06:34→21:50)
[2018-08-05] MEDS: hydrALAZINE HCL 50 MG TABLET (FP) PO SCH ×3 (06:34→21:49)
[2018-08-05] MEDS: ALBUTEROL SO4 2.5/IPRATROPIUM 0.5 INH SOL 3 ML VIAL.NEB. NEB SCH ×4 (08:50→20:42)
[2018-08-05] MEDS ORDERED: DEXTROSE 5%-WATER 100 ML IVPB ONE (09:31)
[2018-08-05] MEDS: CEFTRIAXONE 2 GM in DEXTROSE 5%-WATER 100 ML IVPB SCH (09:34)
[2018-08-05] MEDS: RANITIDINE HCL 150 MG TABLET (FP) PO SCH (09:35)
[2018-08-05] MEDS: FUROSEMIDE 40 MG TABLET (FP) PO SCH ×2 (09:35→21:50)
[2018-08-05] MEDS: CALCIUM ACETATE 667 MG CAPSULE (FP) PO SCH ×3 (09:35→18:12)
[2018-08-05] MEDS: NIFEdipine E.R. 90 MG TABLET (FP) PO SCH (09:35)
[2018-08-05] MEDS: HEPARIN NA (PORCINE) 5,000 UNITS/ML 1ML VIAL SQ SCH ×2 (09:35→21:50)
[2018-08-05] MEDS: CALCITRIOL 0.25 MCG CAPSULE (FP) PO SCH ×2 (09:35→21:51)
--- NOTE | 2018-08-05 10:36 | PN ---
Progress Note, Physician - Current Medication List Current Medications: Active Medications Acetaminophen (Tylenol -) 650 mg PO Q4H PRN PRN Reason: FEVER Last Admin: 08/04/18 22:24 Dose: 650 mg Albuterol/Ipratropium (Duoneb -) 1 amp NEB RQID [facility] Last Admin: 08/05/18 08:50 Dose: 1 amp Calcitriol (Rocaltrol -) 0.25 mcg PO BID [facility] Last Admin: 08/05/18 09:35 Dose: 0.25 mcg Calcium Acetate (Phoslo -) 1,334 mg PO TIDCM [facility] Last Admin: 08/05/18 09:35 Dose: 1,334 mg Clonidine (Catapres -) 0.3 mg PO TID [facility] Last Admin: 08/05/18 06:34 Dose: 0.3 mg Furosemide (Lasix -) 40 mg PO BID [facility] Last Admin: 08/05/18 09:35 Dose: 40 mg Heparin Sodium (Porcine) (Heparin -) 5,000 unit SQ BID [facility] Last Admin: 08/05/18 09:35 Dose: 5,000 unit Hydralazine HCl (Apresoline -) 100 mg PO TID [facility] Last Admin: 08/05/18 06:34 Dose: 100 mg Ceftriaxone Sodium 2 gm/ (Dextrose) 100 mls @ 200 mls/hr IVPB DAILY [facility]; Protocol Last Admin: 08/05/18 09:34 Dose: 200 mls/hr Insulin Aspart (Novolog Vial Sliding Scale -) 1 vial SQ ACHS [facility]; Protocol Last Admin: 08/05/18 06:34 Dose: Not Given Labetalol HCl (Normodyne -) 600 mg PO TID [facility] Last Admin: 08/05/18 06:34 Dose: 600 mg Nifedipine (Procardia Xl -) 90 mg PO DAILY [facility] Last Admin: 08/05/18 09:35 Dose: 90 mg Ranitidine HCl (Zantac -) 150 mg PO DAILY [facility] Last Admin: 08/05/18 09:35 Dose: 150 mg - Objective Vital Signs: Vital Signs Temperature 98.0 F 08/05/18 09:04 Pulse Rate 70 08/05/18 09:04 Respiratory Rate 18 08/05/18 09:04 Blood Pressure 178/78 H 08/05/18 09:04 O2 Sat by Pulse Oximetry (%) 98 08/04/18 21:00 Cardiovascular: Yes: Regular Rate and Rhythm Respiratory: Yes: Rhonchi Gastrointestinal: Yes: Normal Bowel Sounds, Soft Labs: CBC, BMP 08/04/18 08:31 08/04/18 08:31 INR, PTT INR 1.13 (0.83-1.09) H 08/01/18 13:12 Problem List - Problems (1) Pneumonia Assessment/Plan: IV Abx rocephin per id Id consult noted ct pos for pneumonia nebs pulm Code(s): J18.9 - PNEUMONIA, UNSPECIFIED ORGANISM Qualifiers: Pneumonia type: due to unspecified organism Laterality: unspecified laterality Lung location: unspecified part of lung Qualified Code(s): J18.9 - Pneumonia, unspecified organism (2) Troponin I above reference range Assessment/Plan: maybe due to renal ds cardio Code(s): R74.8 - ABNORMAL LEVELS OF OTHER SERUM ENZYMES (3) Chronic renal failure Assessment/Plan: dialysis per renal Code(s): N18.9 - CHRONIC KIDNEY DISEASE, UNSPECIFIED Qualifiers: Chronic kidney disease stage: unspecified stage Qualified Code(s): N18.9 - Chronic kidney disease, unspecified
[2018-08-05 11:27] LABS: HBSAG SCREEN Negative (Negative); HEP A AB, IGM Negative (Negative); HEP B CORE AB, TOT Negative (Negative)
[2018-08-05] MEDS ORDERED: SODIUM CHLORIDE 250 ML IV PRN (13:41)
--- NOTE | 2018-08-05 13:41 | PN ---
Progress Note, Physician History of Present Illness: Pt seen and examined at bedside. He is awake and alert. He denies shortness of breath. He denies cough. - Current Medication List Current Medications: Active Medications Acetaminophen (Tylenol -) 650 mg PO Q4H PRN PRN Reason: FEVER Last Admin: 08/04/18 22:24 Dose: 650 mg Albuterol/Ipratropium (Duoneb -) 1 amp NEB RQID [facility] Last Admin: 08/05/18 11:39 Dose: 1 amp Calcitriol (Rocaltrol -) 0.25 mcg PO BID [facility] Last Admin: 08/05/18 09:35 Dose: 0.25 mcg Calcium Acetate (Phoslo -) 1,334 mg PO TIDCM [facility] Last Admin: 08/05/18 12:29 Dose: 1,334 mg Clonidine (Catapres -) 0.3 mg PO TID [facility] Last Admin: 08/05/18 06:34 Dose: 0.3 mg Furosemide (Lasix -) 40 mg PO BID [facility] Last Admin: 08/05/18 09:35 Dose: 40 mg Heparin Sodium (Porcine) (Heparin -) 5,000 unit SQ BID [facility] Last Admin: 08/05/18 09:35 Dose: 5,000 unit Hydralazine HCl (Apresoline -) 100 mg PO TID [facility] Last Admin: 08/05/18 06:34 Dose: 100 mg Ceftriaxone Sodium 2 gm/ (Dextrose) 100 mls @ 200 mls/hr IVPB DAILY [facility]; Protocol Last Admin: 08/05/18 09:34 Dose: 200 mls/hr Insulin Aspart (Novolog Vial Sliding Scale -) 1 vial SQ ACHS [facility]; Protocol Last Admin: 08/05/18 12:29 Dose: 5 units Labetalol HCl (Normodyne -) 600 mg PO TID [facility] Last Admin: 08/05/18 06:34 Dose: 600 mg Nifedipine (Procardia Xl -) 90 mg PO DAILY [facility] Last Admin: 08/05/18 09:35 Dose: 90 mg Ranitidine HCl (Zantac -) 150 mg PO DAILY [facility] Last Admin: 08/05/18 09:35 Dose: 150 mg - Objective Vital Signs: Vital Signs Temperature 98.0 F 08/05/18 09:04 Pulse Rate 70 08/05/18 09:04 Respiratory Rate 18 08/05/18 09:04 Blood Pressure 178/78 H 08/05/18 09:04 O2 Sat by Pulse Oximetry (%) 98 08/04/18 21:00 Constitutional: Yes: Calm Eyes: Yes: Conjunctiva Clear HENT: Yes: Atraumatic Neck: Yes: Supple Cardiovascular: Yes: S1, S2 Respiratory: Yes: CTA Bilaterally Gastrointestinal: Yes: Soft Genitourinary: Yes: WNL Musculoskeletal: Yes: WNL Edema: No Neurological: Yes: Oriented Psychiatric: Yes: Oriented Labs: CBC, BMP 08/04/18 08:31 08/04/18 08:31 INR, PTT INR 1.13 (0.83-1.09) H 08/01/18 13:12 Problem List - Problems (1) Hemoptysis Code(s): R04.2 - HEMOPTYSIS (2) Pneumonia Code(s): J18.9 - PNEUMONIA, UNSPECIFIED ORGANISM (3) End-stage renal disease (ESRD) Code(s): N18.6 - END STAGE RENAL DISEASE Assessment/Plan Current Medications Generic Name Dose Route Start Last Admin Trade Name Freq PRN Reason Stop Dose Admin Acetaminophen 650 mg 08/01/18 17:08 08/04/18 22:24 Tylenol - PO 650 mg Q4H PRN Administration FEVER Albuterol/Ipratropium 1 amp 08/02/18 16:00 08/05/18 11:39 Duoneb - NEB 1 amp RQID [facility] Administration Calcitriol 0.25 mcg 08/01/18 22:00 08/05/18 09:35 Rocaltrol - PO 0.25 mcg BID [facility] Administration Calcium Acetate 1,334 mg 08/01/18 17:30 08/05/18 12:29 Phoslo - PO 1,334 mg TIDCM [facility] Administration Clonidine 0.3 mg 08/01/18 22:00 08/05/18 06:34 Catapres - PO 0.3 mg TID [facility] Administration Furosemide 40 mg 08/01/18 22:00 08/05/18 09:35 Lasix - PO 40 mg BID [facility] Administration Heparin Sodium (Porcine) 5,000 unit 08/01/18 22:00 08/05/18 09:35 Heparin - SQ 5,000 unit BID [facility] Administration Hydralazine HCl 100 mg 08/01/18 22:00 08/05/18 06:34 Apresoline - PO 100 mg TID [facility] Administration Ceftriaxone Sodium 2 gm/ 100 mls @ 200 mls/hr 08/03/18 11:30 08/05/18 09:34 Dextrose IVPB 200 mls/hr DAILY [facility] Administration Protocol Insulin Aspart 1 vial 08/01/18 22:00 08/05/18 12:29 Novolog Vial Sliding Scale - SQ 5 units ACHS [facility] Administration Protocol Labetalol HCl 600 mg 08/01/18 22:00 08/05/18 06:34 Normodyne - PO 600 mg TID [facility] Administration Nifedipine 90 mg 08/02/18 10:00 08/05/18 09:35 Procardia Xl - PO 90 mg DAILY [facility] Administration Ranitidine HCl 150 mg 08/02/18 10:00 08/05/18 09:35 Zantac - PO 150 mg DAILY [facility] Administration Impression 1. ESRD 2. HTN 3. DM 4. anemia 5. PNA 6. gallbladder adenoca 7. hemopysis Plan - HD tomorrow - give HD meds before HD in the morning - abx per ID - HD 3 45, opti 180, 2 k bath, micera (07/29) with next dose due on the - will follow Dr Kerns
--- NOTE | 2018-08-05 15:37 | PN ---
Progress Note, Physician History of Present Illness: pulmonary alert feeling better,sob,less cough,-hemoptysis - Current Medication List Current Medications: Active Medications Acetaminophen (Tylenol -) 650 mg PO Q4H PRN PRN Reason: FEVER Last Admin: 08/04/18 22:24 Dose: 650 mg Albuterol/Ipratropium (Duoneb -) 1 amp NEB RQID [facility] Last Admin: 08/05/18 11:39 Dose: 1 amp Calcitriol (Rocaltrol -) 0.25 mcg PO BID [facility] Last Admin: 08/05/18 09:35 Dose: 0.25 mcg Calcium Acetate (Phoslo -) 1,334 mg PO TIDCM [facility] Last Admin: 08/05/18 12:29 Dose: 1,334 mg Clonidine (Catapres -) 0.3 mg PO TID [facility] Last Admin: 08/05/18 14:17 Dose: 0.3 mg Furosemide (Lasix -) 40 mg PO BID [facility] Last Admin: 08/05/18 09:35 Dose: 40 mg Heparin Sodium (Porcine) (Heparin -) 5,000 unit SQ BID [facility] Last Admin: 08/05/18 09:35 Dose: 5,000 unit Hydralazine HCl (Apresoline -) 100 mg PO TID [facility] Last Admin: 08/05/18 14:17 Dose: 100 mg Ceftriaxone Sodium 2 gm/ (Dextrose) 100 mls @ 200 mls/hr IVPB DAILY [facility]; Protocol Last Admin: 08/05/18 09:34 Dose: 200 mls/hr Sodium Chloride (Normal Saline -) 250 mls @ 3,000 mls/hr IV PRN PRN PRN Reason: Hypotension during Dialysis Stop: 08/06/18 13:41 Insulin Aspart (Novolog Vial Sliding Scale -) 1 vial SQ ACHS [facility]; Protocol Last Admin: 08/05/18 12:29 Dose: 5 units Labetalol HCl (Normodyne -) 600 mg PO TID [facility] Last Admin: 08/05/18 14:17 Dose: 600 mg Nifedipine (Procardia Xl -) 90 mg PO DAILY [facility] Last Admin: 08/05/18 09:35 Dose: 90 mg Ranitidine HCl (Zantac -) 150 mg PO DAILY [facility] Last Admin: 08/05/18 09:35 Dose: 150 mg - Objective Vital Signs: Vital Signs Temperature 98.2 F 08/05/18 14:17 Pulse Rate 69 08/05/18 14:17 Respiratory Rate 20 08/05/18 14:17 Blood Pressure 172/69 H 08/05/18 14:17 O2 Sat by Pulse Oximetry (%) 98 08/05/18 09:00 Constitutional: Yes: Well Nourished, Calm Eyes: Yes: WNL HENT: Yes: WNL Neck: Yes: WNL Cardiovascular: Yes: Regular Rate and Rhythm, S1, S2 Respiratory: Yes: Rales (few crackles on left) Gastrointestinal: Yes: Normal Bowel Sounds, Soft Extremities: Yes: WNL Edema: No Labs: CBC, BMP Problem List - Problems (1) Pneumonia Code(s): J18.9 - PNEUMONIA, UNSPECIFIED ORGANISM (2) Hemoptysis Code(s): R04.2 - HEMOPTYSIS (3) Pneumonia Code(s): J18.9 - PNEUMONIA, UNSPECIFIED ORGANISM Qualifiers: Pneumonia type: due to unspecified organism Laterality: unspecified laterality Lung location: unspecified part of lung Qualified Code(s): J18.9 - Pneumonia, unspecified organism (4) Anemia Code(s): D64.9 - ANEMIA, UNSPECIFIED Qualifiers: Other causes of anemia: chronic disease, kidney (5) ESRD (end stage renal disease) on dialysis Code(s): N18.6 - END STAGE RENAL DISEASE; Z99.2 - DEPENDENCE ON RENAL DIALYSIS (6) Nausea & vomiting Code(s): R11.2 - NAUSEA WITH VOMITING, UNSPECIFIED Qualifiers: Vomiting type: unspecified Vomiting Intractability: unspecified Qualified Code(s): R11.2 - Nausea with vomiting, unspecified (7) Type 2 diabetes mellitus with diabetic peripheral angiopathy without gangrene Code(s): E11.51 - TYPE 2 DIABETES W DIABETIC PERIPHERAL ANGIOPATH W/O GANGRENE (8) Hyperlipidemia Code(s): E78.5 - HYPERLIPIDEMIA, UNSPECIFIED (9) Hypertension Code(s): I10 - ESSENTIAL (PRIMARY) HYPERTENSION Qualifiers: Hypertension type: essential hypertension Assessment/Plan IMP PNEUMONIA CLINICALLY IMPROVING HEMOPTYSIS RESOLVED ESRD ON HD ANEMIA HTN IDDM H/O GALLBLADDER CA PLAN ABX aAS PER ID O2 INHALED BRONCHODILATORS HD PER RENAL DR ALEXANDER Problem List - Problems (1) Pneumonia Code(s): J18.9 - PNEUMONIA, UNSPECIFIED ORGANISM (2) Hemoptysis Code(s): R04.2 - HEMOPTYSIS (3) Pneumonia Code(s): J18.9 - PNEUMONIA, UNSPECIFIED ORGANISM Qualifiers: Pneumonia type: due to unspecified organism Laterality: unspecified laterality Lung location: unspecified part of lung Qualified Code(s): J18.9 - Pneumonia, unspecified organism (4) Anemia Code(s): D64.9 - ANEMIA, UNSPECIFIED Qualifiers: Other causes of anemia: chronic disease, kidney (5) ESRD (end stage renal disease) on dialysis Code(s): N18.6 - END STAGE RENAL DISEASE; Z99.2 - DEPENDENCE ON RENAL DIALYSIS (6) Nausea & vomiting Code(s): R11.2 - NAUSEA WITH VOMITING, UNSPECIFIED Qualifiers: Vomiting type: unspecified Vomiting Intractability: unspecified Qualified Code(s): R11.2 - Nausea with vomiting, unspecified (7) Type 2 diabetes mellitus with diabetic peripheral angiopathy without gangrene Code(s): E11.51 - TYPE 2 DIABETES W DIABETIC PERIPHERAL ANGIOPATH W/O GANGRENE (8) Hyperlipidemia Code(s): E78.5 - HYPERLIPIDEMIA, UNSPECIFIED (9) Hypertension Code(s): I10 - ESSENTIAL (PRIMARY) HYPERTENSION Qualifiers: Hypertension type: essential hypertension
[2018-08-06] MEDS: hydrALAZINE HCL 50 MG TABLET (FP) PO SCH ×2 (05:24→12:51)
[2018-08-06] MEDS: LABETALOL HCL 200 MG TABLET (FP) PO SCH ×3 (05:24→21:27)
[2018-08-06] MEDS: cloNIDine HCL 0.1 MG TABLET PO SCH ×3 (05:24→22:30)
[2018-08-06] MEDS: INSULIN SLIDING SCALE (NOVOLOG) 1 VIAL SQ SCH ×4 (06:37→22:30)
[2018-08-06] MEDS: ALBUTEROL SO4 2.5/IPRATROPIUM 0.5 INH SOL 3 ML VIAL.NEB. NEB SCH ×4 (07:15→20:28)
[2018-08-06] MEDS: PIPERACILLIN/TAZOB 2.25 GM 2.25 GM in DEXTROSE 5%-WATER - 50 ML IVPB SCH ×2 (07:26→07:27)
[2018-08-06] MEDS: CALCITRIOL 0.25 MCG CAPSULE (FP) PO SCH ×2 (09:19→21:29)
[2018-08-06] MEDS: NIFEdipine E.R. 90 MG TABLET (FP) PO SCH (09:19)
[2018-08-06] MEDS: HEPARIN NA (PORCINE) 5,000 UNITS/ML 1ML VIAL SQ SCH ×2 (09:19→21:28)
[2018-08-06] MEDS: FUROSEMIDE 40 MG TABLET (FP) PO SCH ×2 (09:20→21:27)
[2018-08-06] MEDS: RANITIDINE HCL 150 MG TABLET (FP) PO SCH (09:20)
[2018-08-06] MEDS: CALCIUM ACETATE 667 MG CAPSULE (FP) PO SCH ×3 (09:20→17:58)
[2018-08-06] MEDS: LISINOPRIL 20 MG TABLET (FP) PO SCH (10:30)
[2018-08-06 11:20] LABS: HEMATOCRIT 33.2 % (35.4-49); HEMOGLOBIN 11.2 GM/dL (11.7-16.9); MCH 30.3 pg (25.7-33.7); MCHC 33.7 g/dl (32.0-35.9); MEAN CELL VOLUME 90.1 fl (80-96); MEAN PLT VOLUME 9.9 fl (7.5-11.1); PLATELET COUNT 136 K/MM3 (134-434); RBC 3.68 M/mm3 (4.00-5.60); RDW 17.5 % (11.9-15.9); WHITE BLOOD COUNT 4.8 K/mm3 (4.0-10.0)
--- NOTE | 2018-08-06 11:32 | PN ---
Progress Note, Physician History of Present Illness: Pt seen and examined at bedside. He is tolerating HD. His blood pressure has been elevated. - Current Medication List Current Medications: Active Medications Acetaminophen (Tylenol -) 650 mg PO Q4H PRN PRN Reason: FEVER Last Admin: 08/04/18 22:24 Dose: 650 mg Albuterol/Ipratropium (Duoneb -) 1 amp NEB RQID [facility] Last Admin: 08/06/18 11:17 Dose: Not Given Calcitriol (Rocaltrol -) 0.25 mcg PO BID [facility] Last Admin: 08/06/18 09:19 Dose: 0.25 mcg Calcium Acetate (Phoslo -) 1,334 mg PO TIDCM [facility] Last Admin: 08/06/18 09:20 Dose: 1,334 mg Clonidine (Catapres -) 0.3 mg PO TID [facility] Last Admin: 08/06/18 05:24 Dose: 0.3 mg Furosemide (Lasix -) 40 mg PO BID [facility] Last Admin: 08/06/18 09:20 Dose: 40 mg Heparin Sodium (Porcine) (Heparin -) 5,000 unit SQ BID [facility] Last Admin: 08/06/18 09:19 Dose: Not Given Hydralazine HCl (Apresoline -) 100 mg PO TID [facility] Last Admin: 08/06/18 05:24 Dose: 100 mg Ceftriaxone Sodium 2 gm/ (Dextrose) 100 mls @ 200 mls/hr IVPB DAILY [facility]; Protocol Last Admin: 08/05/18 09:34 Dose: 200 mls/hr Sodium Chloride (Normal Saline -) 250 mls @ 3,000 mls/hr IV PRN PRN PRN Reason: Hypotension during Dialysis Stop: 08/06/18 13:41 Insulin Aspart (Novolog Vial Sliding Scale -) 1 vial SQ ACHS [facility]; Protocol Last Admin: 08/06/18 06:37 Dose: Not Given Labetalol HCl (Normodyne -) 600 mg PO TID [facility] Last Admin: 08/06/18 05:24 Dose: 600 mg Lisinopril (Prinivil) 40 mg PO DAILY [facility] Last Admin: 08/06/18 10:30 Dose: 40 mg Nifedipine (Procardia Xl -) 90 mg PO DAILY [facility] Last Admin: 08/06/18 09:19 Dose: 90 mg Ranitidine HCl (Zantac -) 150 mg PO DAILY [facility] Last Admin: 08/06/18 09:20 Dose: 150 mg - Objective Vital Signs: Vital Signs Temperature 98.1 F 08/06/18 09:00 Pulse Rate 73 08/06/18 09:00 Respiratory Rate 18 08/06/18 09:00 Blood Pressure 208/88 H 08/06/18 09:00 O2 Sat by Pulse Oximetry (%) 98 08/05/18 21:00 Constitutional: Yes: Calm Eyes: Yes: Conjunctiva Clear HENT: Yes: Atraumatic Cardiovascular: Yes: S1, S2 Respiratory: Yes: CTA Bilaterally Gastrointestinal: Yes: Soft Genitourinary: Yes: WNL Edema: Yes Edema: LLE: 1+, RLE: 1+ Neurological: Yes: Oriented Psychiatric: Yes: Oriented Labs: INR, PTT INR 1.13 (0.83-1.09) H 08/01/18 13:12 Problem List - Problems (1) Hemoptysis Code(s): R04.2 - HEMOPTYSIS (2) Pneumonia Code(s): J18.9 - PNEUMONIA, UNSPECIFIED ORGANISM (3) End-stage renal disease (ESRD) Code(s): N18.6 - END STAGE RENAL DISEASE Assessment/Plan Current Medications Generic Name Dose Route Start Last Admin Trade Name Freq PRN Reason Stop Dose Admin Acetaminophen 650 mg 08/01/18 17:08 08/04/18 22:24 Tylenol - PO 650 mg Q4H PRN Administration FEVER Albuterol/Ipratropium 1 amp 08/02/18 16:00 08/06/18 11:17 Duoneb - NEB Not Given RQID [facility] Calcitriol 0.25 mcg 08/01/18 22:00 08/06/18 09:19 Rocaltrol - PO 0.25 mcg BID [facility] Administration Calcium Acetate 1,334 mg 08/01/18 17:30 08/06/18 09:20 Phoslo - PO 1,334 mg TIDCM [facility] Administration Clonidine 0.3 mg 08/01/18 22:00 08/06/18 05:24 Catapres - PO 0.3 mg TID [facility] Administration Furosemide 40 mg 08/01/18 22:00 08/06/18 09:20 Lasix - PO 40 mg BID [facility] Administration Heparin Sodium (Porcine) 5,000 unit 08/01/18 22:00 08/06/18 09:19 Heparin - SQ Not Given BID [facility] Hydralazine HCl 100 mg 08/01/18 22:00 08/06/18 05:24 Apresoline - PO 100 mg TID [facility] Administration Ceftriaxone Sodium 2 gm/ 100 mls @ 200 mls/hr 08/03/18 11:30 08/05/18 09:34 Dextrose IVPB 200 mls/hr DAILY [facility] Administration Protocol Sodium Chloride 250 mls @ 3,000 mls/hr 08/05/18 13:41 Normal Saline - IV 08/06/18 13:41 PRN PRN Hypotension during Dialysis Insulin Aspart 1 vial 08/01/18 22:00 08/06/18 06:37 Novolog Vial Sliding Scale - SQ Not Given ACHS [facility] Protocol Labetalol HCl 600 mg 08/01/18 22:00 08/06/18 05:24 Normodyne - PO 600 mg TID [facility] Administration Lisinopril 40 mg 08/06/18 10:30 08/06/18 10:30 Prinivil PO 40 mg DAILY [facility] Administration Nifedipine 90 mg 08/02/18 10:00 08/06/18 09:19 Procardia Xl - PO 90 mg DAILY [facility] Administration Nifedipine 30 mg 08/06/18 11:29 Procardia Xl - PO 08/06/18 11:30 ONCE ONE Ranitidine HCl 150 mg 08/02/18 10:00 08/06/18 09:20 Zantac - PO 150 mg DAILY [facility] Administration Impression 1. ESRD 2. HTN 3. DM 4. anemia 5. PNA 6. gallbladder adenoca 7. hemopysis Plan - HD today - monitor bp after am meds - will restart lisinopril at 40 mg - will give another dose of procardia - cardio follow up - abx per ID - HD 3 45, opti 180, 2 k bath, micera (07/29) with next dose due on the - will follow Dr Kerns
--- NOTE | 2018-08-06 11:36 | PN ---
Progress Note (short form) - Note Progress Note: PULMONARY Still some hemoptysis. No fevers or chills. Vital Signs Period Temp Pulse Resp BP Sys/Kaufman Pulse Ox Last 24 Hr 97.1 F-98.4 F 66-75 18-20 157-230/65-91 98 Gen: NAD at rest Heart: RRR Lung: decreased breath sounds at the bases Abd: soft, nontender Ext: no edema Active Medications Acetaminophen (Tylenol -) 650 mg PO Q4H PRN PRN Reason: FEVER Last Admin: 08/04/18 22:24 Dose: 650 mg Albuterol/Ipratropium (Duoneb -) 1 amp NEB RQID [facility] Last Admin: 08/06/18 11:17 Dose: Not Given Calcitriol (Rocaltrol -) 0.25 mcg PO BID [facility] Last Admin: 08/06/18 09:19 Dose: 0.25 mcg Calcium Acetate (Phoslo -) 1,334 mg PO TIDCM [facility] Last Admin: 08/06/18 09:20 Dose: 1,334 mg Clonidine (Catapres -) 0.3 mg PO TID [facility] Last Admin: 08/06/18 05:24 Dose: 0.3 mg Furosemide (Lasix -) 40 mg PO BID [facility] Last Admin: 08/06/18 09:20 Dose: 40 mg Heparin Sodium (Porcine) (Heparin -) 5,000 unit SQ BID [facility] Last Admin: 08/06/18 09:19 Dose: Not Given Hydralazine HCl (Apresoline -) 100 mg PO TID [facility] Last Admin: 08/06/18 05:24 Dose: 100 mg Ceftriaxone Sodium 2 gm/ (Dextrose) 100 mls @ 200 mls/hr IVPB DAILY [facility]; Protocol Last Admin: 08/05/18 09:34 Dose: 200 mls/hr Sodium Chloride (Normal Saline -) 250 mls @ 3,000 mls/hr IV PRN PRN PRN Reason: Hypotension during Dialysis Stop: 08/06/18 13:41 Insulin Aspart (Novolog Vial Sliding Scale -) 1 vial SQ ACHS [facility]; Protocol Last Admin: 08/06/18 06:37 Dose: Not Given Labetalol HCl (Normodyne -) 600 mg PO TID [facility] Last Admin: 08/06/18 05:24 Dose: 600 mg Lisinopril (Prinivil) 40 mg PO DAILY [facility] Last Admin: 08/06/18 10:30 Dose: 40 mg Nifedipine (Procardia Xl -) 90 mg PO DAILY [facility] Last Admin: 08/06/18 09:19 Dose: 90 mg Nifedipine (Procardia Xl -) 30 mg PO ONCE ONE Stop: 08/06/18 11:30 Ranitidine HCl (Zantac -) 150 mg PO DAILY [facility] Last Admin: 08/06/18 09:20 Dose: 150 mg A/P Pneumonia Hemoptysis ESRD on HD HTN DM Anemia - continue antibiotics - HD per renal - inhaled bronchodilators - O2 to keep SpO2 >90%
[2018-08-06 11:45] LABS: ANION GAP 14 MMOL/L (8-16); BLOOD UREA NITROGEN 72 mg/dL (7-18); CALCIUM 8.8 mg/dL (8.5-10.1); CHLORIDE 96 mmol/L (98-107); CO2 24 mmol/L (21-32); GLUCOSE,RANDOM 207 mg/dL (74-106); POTASSIUM 5.2 mmol/L (3.5-5.1); SODIUM 134 mmol/L (136-145)
[2018-08-06] MEDS ORDERED: NIFEdipine E.R. 30 MG TABLET (FP) PO ONE (11:45)
[2018-08-06 11:52] LABS: CREATININE 11.7 mg/dL (0.55-1.3)
--- NOTE | 2018-08-06 12:49 | PN ---
Progress Note, Physician Chief Complaint: patient seen and examined during HD awake laert BP have been running high procardia and lisinopril dose given - Current Medication List Current Medications: Active Medications Acetaminophen (Tylenol -) 650 mg PO Q4H PRN PRN Reason: FEVER Last Admin: 08/04/18 22:24 Dose: 650 mg Albuterol/Ipratropium (Duoneb -) 1 amp NEB RQID [facility] Last Admin: 08/06/18 11:17 Dose: Not Given Calcitriol (Rocaltrol -) 0.25 mcg PO BID [facility] Last Admin: 08/06/18 09:19 Dose: 0.25 mcg Calcium Acetate (Phoslo -) 1,334 mg PO TIDCM [facility] Last Admin: 08/06/18 09:20 Dose: 1,334 mg Clonidine (Catapres -) 0.3 mg PO TID [facility] Last Admin: 08/06/18 05:24 Dose: 0.3 mg Furosemide (Lasix -) 40 mg PO BID [facility] Last Admin: 08/06/18 09:20 Dose: 40 mg Heparin Sodium (Porcine) (Heparin -) 5,000 unit SQ BID [facility] Last Admin: 08/06/18 09:19 Dose: Not Given Hydralazine HCl (Apresoline -) 100 mg PO TID [facility] Last Admin: 08/06/18 05:24 Dose: 100 mg Ceftriaxone Sodium 2 gm/ (Dextrose) 100 mls @ 200 mls/hr IVPB DAILY [facility]; Protocol Last Admin: 08/05/18 09:34 Dose: 200 mls/hr Sodium Chloride (Normal Saline -) 250 mls @ 3,000 mls/hr IV PRN PRN PRN Reason: Hypotension during Dialysis Stop: 08/06/18 13:41 Insulin Aspart (Novolog Vial Sliding Scale -) 1 vial SQ ACHS [facility]; Protocol Last Admin: 08/06/18 06:37 Dose: Not Given Labetalol HCl (Normodyne -) 600 mg PO TID [facility] Last Admin: 08/06/18 05:24 Dose: 600 mg Lisinopril (Prinivil) 40 mg PO DAILY [facility] Last Admin: 08/06/18 10:30 Dose: 40 mg Nifedipine (Procardia Xl -) 90 mg PO DAILY [facility] Last Admin: 08/06/18 09:19 Dose: 90 mg Ranitidine HCl (Zantac -) 150 mg PO DAILY [facility] Last Admin: 08/06/18 09:20 Dose: 150 mg - Objective Vital Signs: Vital Signs Temperature 98.1 F 08/06/18 09:00 Pulse Rate 77 08/06/18 12:05 Respiratory Rate 18 08/06/18 12:05 Blood Pressure 239/94 H 08/06/18 12:05 O2 Sat by Pulse Oximetry (%) 98 08/05/18 21:00 Constitutional: Yes: Calm Cardiovascular: Yes: Regular Rate and Rhythm, S1, S2 Respiratory: Yes: CTA Bilaterally Gastrointestinal: Yes: Normal Bowel Sounds, Soft Edema: No Neurological: Yes: Alert Labs: CBC, BMP 08/06/18 10:30 08/06/18 10:30 INR, PTT INR 1.13 (0.83-1.09) H 08/01/18 13:12 Problem List - Problems (1) HTN (hypertension) Assessment/Plan: hydralazine labetolol clonidine procardia and lisinopril dose given today still BP elevated will transfer to icu for monitoring Code(s): I10 - ESSENTIAL (PRIMARY) HYPERTENSION (2) Hemoptysis Assessment/Plan: chest ct noted iv abx Code(s): R04.2 - HEMOPTYSIS (3) Pneumonia Assessment/Plan: iv abx rocephin Code(s): J18.9 - PNEUMONIA, UNSPECIFIED ORGANISM Qualifiers: Pneumonia type: due to unspecified organism Laterality: unspecified laterality Lung location: unspecified part of lung Qualified Code(s): J18.9 - Pneumonia, unspecified organism (4) ESRD (end stage renal disease) on dialysis Assessment/Plan: HD per renal- today Code(s): N18.6 - END STAGE RENAL DISEASE; Z99.2 - DEPENDENCE ON RENAL DIALYSIS
--- NOTE | 2018-08-06 13:51 | CONSULT ---
Consultation: REQUESTING PROVIDER: CONSULT REQUEST: We have been asked to medically evaluate this patient for hypertensive urgency. HISTORY OF PRESENT ILLNESS: 48 yo M with a hx of HTN (with previous HTN emergencies), IDDM, ESRD on HD MWF ( last dialysis today), adenocarcinoma s/p cholecystectomy, and anemia admitted to [facility] with complaint of SOB with productive cough with blood. It has been expressed the patient may have poor compliance with his anti-hypertensive medications and stated that his blood pressures are normally at "225 SBP at home ". Per the patient, he denies the following: headaches, SOB, abdominal pain, back pain, visual changes, FND, and lightheadedness. Endorses right sternal chest pain that is not new and occurred in the past. Denies a hx of CVA and [place]. REVIEW OF SYSTEMS: CONSTITUTIONAL: Absent: fever, chills, diaphoresis, generalized weakness, malaise, loss of appetite, weight change HEENT: Absent: rhinorrhea, nasal congestion, throat pain, throat swelling, difficulty swallowing, mouth swelling, ear pain, eye pain, visual changes CARDIOVASCULAR: Absent: chest pain, syncope, palpitations, irregular heart rate, lightheadedness , peripheral edema RESPIRATORY: Absent: cough, shortness of breath, dyspnea with exertion, orthopnea, wheezing, stridor, hemoptysis GASTROINTESTINAL: Absent: abdominal pain, abdominal distension, nausea, vomiting, diarrhea, constipation, melena, hematochezia GENITOURINARY: Absent: dysuria, frequency, urgency, hesitancy, hematuria, flank pain, genital pain MUSCULOSKELETAL: Absent: myalgia, arthralgia, joint swelling, back pain, neck pain SKIN: Absent: rash, itching, pallor HEMATOLOGIC/IMMUNOLOGIC: Absent: easy bleeding, easy bruising, lymphadenopathy, frequent infections ENDOCRINE: Absent: unexplained weight gain, unexplained weight loss, heat intolerance, cold intolerance NEUROLOGIC: Absent: headache, focal weakness or paresthesias, dizziness, unsteady gait, seizure, mental status changes, bladder or bowel incontinence PSYCHIATRIC: Absent: anxiety, depression, suicidal or homicidal ideation, hallucinations. PHYSICAL EXAMINATION Vital Signs - 24 hr 08/05/18 08/05/18 08/05/18 14:17 18:00 21:00 Temperature 98.2 F 97.2 F L Pulse Rate 69 66 Respiratory 20 19 18 Rate Blood Pressure 172/69 H 162/65 O2 Sat by Pulse 98 Oximetry (%) 08/06/18 08/06/18 08/06/18 02:00 06:00 09:00 Temperature 97.1 F L 98.4 F 98.1 F Pulse Rate 67 75 73 Respiratory 18 18 18 Rate Blood Pressure 157/65 218/90 H 208/88 H O2 Sat by Pulse Oximetry (%) 08/06/18 08/06/18 08/06/18 10:00 10:05 10:35 Temperature Pulse Rate 70 68 72 Respiratory 18 18 18 Rate Blood Pressure 203/87 H 203/84 H 228/91 H O2 Sat by Pulse Oximetry (%) 08/06/18 08/06/18 08/06/18 11:05 11:35 12:05 Temperature Pulse Rate 73 75 77 Respiratory 18 18 18 Rate Blood Pressure 230/89 H 233/95 H 239/94 H O2 Sat by Pulse Oximetry (%) 08/06/18 08/06/18 12:35 13:05 Temperature Pulse Rate 77 76 Respiratory 18 18 Rate Blood Pressure 231/96 H 232/95 H O2 Sat by Pulse Oximetry (%) GENERAL: Awake, alert, and fully oriented, in no acute distress. HEAD: Normal with no signs of trauma. EYES: Pupils equal, round and reactive to light, extraocular movements intact, sclera anicteric, conjunctiva clear. No lid lag. EARS, NOSE, THROAT: Ears normal, nares patent, oropharynx clear without exudates. Moist mucous membranes. NECK: Normal range of motion, supple without lymphadenopathy, JVD, or masses. LUNGS: Breath sounds equal, clear to auscultation bilaterally. No wheezes, and no crackles. No accessory muscle use. HEART: Regular rate and rhythm, normal S1 and S2 without murmur, rub or gallop. ABDOMEN: Soft, nontender, not distended, normoactive bowel sounds, no guarding, no rebound, no masses. No hepatomegaly or splenomegaly. MUSCULOSKELETAL: Normal range of motion at all joints. No bony deformities or tenderness. No CVA tenderness. UPPER EXTREMITIES: 2+ pulses, warm, well-perfused. No cyanosis. No clubbing. Cap refill <2 seconds. No peripheral edema. Dialysis access on left arm LOWER EXTREMITIES: 2+ pulses, warm, well-perfused. No calf tenderness. No peripheral edema. NEUROLOGICAL: Cranial nerves II-XII intact. Normal speech. Normal gait. PSYCHIATRIC: Cooperative. Good eye contact. Appropriate mood and affect. SKIN: Warm, dry, normal turgor, no rashes or lesions noted. Laboratory Results - last 24 hr 08/05/18 08/05/18 08/06/18 16:46 21:36 06:12 WBC RBC Hgb Hct MCV MCH MCHC RDW Plt Count MPV Sodium Potassium Chloride Carbon Dioxide Anion Gap BUN Creatinine Creat Clearance w eGFR POC Glucometer 132 195 148 Random Glucose Calcium 08/06/18 08/06/18 10:30 10:30 WBC 4.8 RBC 3.68 L Hgb 11.2 L Hct 33.2 L MCV 90.1 MCH 30.3 MCHC 33.7 RDW 17.5 H Plt Count 136 MPV 9.9 Sodium 134 L Potassium 5.2 H Chloride 96 L Carbon Dioxide 24 Anion Gap 14 BUN 72 H Creatinine 11.7 H* Creat Clearance w eGFR 4.71 POC Glucometer Random Glucose 207 H Calcium 8.8 Active Medications Generic Name Dose Route Start Last Admin Trade Name Freigor PRN Reason Stop Dose Admin Acetaminophen 650 mg 08/01/18 17:08 08/04/18 22:24 Tylenol - PO 650 mg Q4H PRN Administration FEVER Albuterol/Ipratropium 1 amp 08/02/18 16:00 08/06/18 11:17 Duoneb - NEB Not Given RQID [facility] Calcitriol 0.25 mcg 08/01/18 22:00 08/06/18 09:19 Rocaltrol - PO 0.25 mcg BID [facility] Administration Calcium Acetate 1,334 mg 08/01/18 17:30 08/06/18 09:20 Phoslo - PO 1,334 mg TIDCM [facility] Administration Chlorhexidine Gluconate 1 applic 08/06/18 22:00 Hibiclens For Decolonization - TP HS [facility] Clonidine 0.3 mg 08/01/18 22:00 08/06/18 05:24 Catapres - PO 0.3 mg TID [facility] Administration Furosemide 40 mg 08/01/18 22:00 08/06/18 09:20 Lasix - PO 40 mg BID [facility] Administration Heparin Sodium (Porcine) 5,000 unit 08/01/18 22:00 08/06/18 09:19 Heparin - SQ Not Given BID [facility] Hydralazine HCl 100 mg 08/01/18 22:00 08/06/18 12:51 Apresoline - PO 100 mg TID [facility] Administration Ceftriaxone Sodium 2 gm/ 100 mls @ 200 mls/hr 08/03/18 11:30 08/05/18 09:34 Dextrose IVPB 200 mls/hr DAILY [facility] Administration Protocol Sodium Chloride 250 mls @ 3,000 mls/hr 08/05/18 13:41 Normal Saline - IV 08/06/18 13:41 PRN PRN Hypotension during Dialysis Nicardipine HCl 25 mg/ 250 mls @ 50 mls/hr 08/06/18 13:45 Dextrose IVPB TITR [facility] Protocol 5 MG/HR Insulin Aspart 1 vial 08/01/18 22:00 08/06/18 06:37 Novolog Vial Sliding Scale - SQ Not Given ACHS [facility] Protocol Labetalol HCl 600 mg 08/01/18 22:00 08/06/18 12:51 Normodyne - PO 600 mg TID [facility] Administration Lisinopril 40 mg 08/06/18 10:30 08/06/18 10:30 Prinivil PO 40 mg DAILY [facility] Administration Mupirocin 1 applic 08/06/18 22:00 Bactroban Ointment (For Decolonization) - NS 08/11/18 21:59 BID [facility] Nifedipine 90 mg 08/02/18 10:00 08/06/18 09:19 Procardia Xl - PO 90 mg DAILY [facility] Administration Ranitidine HCl 150 mg 08/02/18 10:00 08/06/18 09:20 Zantac - PO 150 mg DAILY [facility] Administration ASSESSMENT/PLAN: 48 yo M with a hx of HTN (with previous HTN emergencies), IDDM, ESRD on HD MWF ( last dialysis today), adenocarcinoma s/p cholecystectomy, and anemia admitted to [facility] with complaint of SOB with productive cough with blood admitted to the intensive care unit for hypertensive urgency with failed control of BPs with oral medications. Neuro: A&O x3 Alert and awake, conversed well during exam CV Patient has chronic HTN possibly secondary to ESRD vs essential HTN. On the following home medications: lisinopril, furosemide, clonidine, hydralazine, and labetalol. Currently on the following medications: 600 mg labetalol TID, 40 mg lisinopril q daily, nifedipine ER 90 mg, furosemide 40 mg BID, hydralazine 100 mg TID, clonidine 0.3 mg TID. -Consulted cardiology; resuming oral meds except for nifedipine. Recommended nicardipine drip with target SBP 160-180. -BP was 226/81 (MAP 129) on presentation. Currently at 161/64 with MAP of 96 possibly secondary to recent dialysis vs oral medications. Ordered nicardipine 5 mg/hr but will at the time be held due to target BP met. Resp Patient does not have symptomatic complaints of SOB Currently has community acquired PNA treated with ceftriaxone -Will monitor SpO2 >94% -Currently breathing on room air -Continue ceftriaxone and follow cultures -Duoneb treatments scheduled GI Hx of adenocarcinoma gallbladder s/p cholecystectomy Currently no abdominal complaints. GI prophylaxis: Ranitidine Nephro ESRD on HD (dialysis today; on dialysis for 3 years) Schedule is MWF Followed by Nephrology Hem/Onc Hx of anemia Will monitor hemoglobin/hematocrit trends ID Followed by ID; recommended ceftriaxone for Community acquired PNA. -Continue ceftriaxone (currently on day 4) FEN -Nutrition: Renal diet -Monitor electrolytes and replete as necessary -sliding scale - not given this morning DVT pphx -SCDs -On heparin Dispo: We will continue to follow the patient. Thank you for this consultative opportunity. Visit type - Emergency Visit Emergency Visit: Yes ED Registration Date: 08/01/18 Care time: The patient presented to the Emergency Department on the above date and was hospitalized for further evaluation of their emergent condition. - New Patient This patient is new to me today: Yes Date on this admission: 08/06/18 - Critical Care Critical Care patient: Yes Total Critical Care Time (in minutes): 36 Critical Care Statement: The care of this patient involved high complexity decision making to prevent further life threatening deterioration of the patient 's condition and/or to evaluate & treat vital organ system(s) failure or risk of failure.
[2018-08-06] MEDS: NICARDIPINE 25 MG in DEXTROSE 5%-WATER - 240 ML IVPB SCH ×2 (14:56→23:23)
[2018-08-06] MEDS ORDERED: DEXTROSE 5%-WATER 100 ML IVPB ONE (15:05)
[2018-08-06] MEDS: CEFTRIAXONE 2 GM in DEXTROSE 5%-WATER 100 ML IVPB SCH (15:12)
--- NOTE | 2018-08-06 16:22 | PN ---
Progress Note, Physician Chief Complaint: Cardiology FU Asked to see patient for severe HTN during HD. No missed medication doses. He is asymptomatic. No dyspnea, COTA vomitting. Has chronic mild Rt sided chest pain which is not new. History of Present Illness: 48 year old man pmh HTN, DMII, ESRD on HD, chronic anemia, h/o gallbladder adeno CA s/p recection and being monitored at [facility] sent from HD with cough and fever, bloody sputum. No chest pain, orthopnea, pnd or edema. CXR left side patchy infiltrate. Being treated for PNA. - Current Medication List Current Medications: Active Medications Acetaminophen (Tylenol -) 650 mg PO Q4H PRN PRN Reason: FEVER Last Admin: 08/04/18 22:24 Dose: 650 mg Albuterol/Ipratropium (Duoneb -) 1 amp NEB RQID [facility] Last Admin: 08/06/18 15:55 Dose: 1 amp Calcitriol (Rocaltrol -) 0.25 mcg PO BID [facility] Last Admin: 08/06/18 09:19 Dose: 0.25 mcg Calcium Acetate (Phoslo -) 1,334 mg PO TIDCM [facility] Last Admin: 08/06/18 13:58 Dose: Not Given Chlorhexidine Gluconate (Hibiclens For Decolonization -) 1 applic TP HS [facility] Clonidine (Catapres -) 0.3 mg PO TID [facility] Last Admin: 08/06/18 15:12 Dose: 0.3 mg Furosemide (Lasix -) 40 mg PO BID [facility] Last Admin: 08/06/18 09:20 Dose: 40 mg Heparin Sodium (Porcine) (Heparin -) 5,000 unit SQ BID [facility] Last Admin: 08/06/18 09:19 Dose: Not Given Hydralazine HCl (Apresoline -) 100 mg PO TID [facility] Ceftriaxone Sodium 2 gm/ (Dextrose) 100 mls @ 200 mls/hr IVPB DAILY [facility]; Protocol Last Admin: 08/06/18 15:12 Dose: 200 mls/hr Nicardipine HCl 25 mg/ (Dextrose) 250 mls @ 50 mls/hr IVPB TITR [facility]; Protocol Last Titration: 08/06/18 15:38 Dose: 0 mg/hr, 0 mls/hr Insulin Aspart (Novolog Vial Sliding Scale -) 1 vial SQ ACHS [facility]; Protocol Last Admin: 08/06/18 13:58 Dose: Not Given Labetalol HCl (Normodyne -) 600 mg PO TID [facility] Lisinopril (Prinivil) 40 mg PO DAILY [facility] Last Admin: 08/06/18 10:30 Dose: 40 mg Mupirocin (Bactroban Ointment (For Decolonization) -) 1 applic NS BID [facility] Stop: 08/11/18 21:59 Ranitidine HCl (Zantac -) 150 mg PO DAILY [facility] Last Admin: 08/06/18 09:20 Dose: 150 mg - Objective Vital Signs: Vital Signs Temperature 98 F 08/06/18 15:12 Pulse Rate 73 08/06/18 15:34 Respiratory Rate 18 08/06/18 15:12 Blood Pressure 161/64 08/06/18 15:34 O2 Sat by Pulse Oximetry (%) 94 L 08/06/18 09:00 Constitutional: Yes: Well Nourished, No Distress Eyes: Yes: Conjunctiva Clear HENT: Yes: Atraumatic, Normocephalic Neck: Yes: Supple, Trachea Midline Cardiovascular: Yes: Regular Rate and Rhythm, S1, S2. No: JVD Respiratory: Yes: Regular, Poor Air Entry, Rales Gastrointestinal: Yes: Normal Bowel Sounds Edema: No Labs: CBC, BMP 08/06/18 10:30 08/06/18 14:00 INR, PTT INR 1.13 (0.83-1.09) H 08/01/18 13:12 Assessment/Plan 48 year old man pmh HTN, DMII, ESRD on HD, chronic anemia, h/o gallbladder adeno CA s/p recection and being monitored at [facility] sent from HD with cough and fever, bloody sputum. No chest pain, orthopnea, pnd or edema. +sob. Noted with elevated troponin. ECG unchanged. CXR left side patchy infiltrate. Asked to see patient for severe HTN during HD. No missed medication doses. He is asymptomatic. No dyspnea, COTA vomitting. Has chronic mild Rt sided chest pain which is not new. Severe HTN: Possibly due to volume overload. No signs of ischemia or end organ injury Continue with current medication regimen of Hydralazine, labetalol, ACEI and clonidine. Has not required Nicardipine drip. If severely elevated would resume, Check CXR.
[2018-08-06] MEDS ORDERED: INSULIN (NOVOLOG) ASPART 100 UNITS/ML 10ML VIAL ONE (16:53)
[2018-08-06] MEDS ORDERED: hydrALAZINE HCL 25 MG TABLET (FP) PO SCH (21:00)
[2018-08-06] MEDS: MUPIROCIN 2% TOPICAL OINTMENT FOR DECOLONIZATION NS SCH (21:28)
[2018-08-06] MEDS ORDERED: CHLORHEXIDINE GLUCONATE 4% CLEANSER FOR DECOLONIZATION TP SCH (22:00)
[2018-08-07] MEDS ORDERED: PT OWN MED DRAWER 7, Y5N ONE (06:02)
[2018-08-07] MEDS: hydrALAZINE HCL 50 MG TABLET (FP) PO SCH ×3 (06:19→21:04)
[2018-08-07] MEDS: LABETALOL HCL 200 MG TABLET (FP) PO SCH ×3 (06:19→21:05)
[2018-08-07] MEDS: cloNIDine HCL 0.1 MG TABLET PO SCH ×3 (06:20→21:05)
[2018-08-07] MEDS: INSULIN SLIDING SCALE (NOVOLOG) 1 VIAL SQ SCH ×3 (06:27→21:48)
[2018-08-07 06:35] LABS: ANION GAP 9 MMOL/L (8-16); BLOOD UREA NITROGEN 45 mg/dL (7-18); CALCIUM 8.8 mg/dL (8.5-10.1); CHLORIDE 97 mmol/L (98-107); CO2 30 mmol/L (21-32); GLUCOSE,RANDOM 150 mg/dL (74-106); MAGNESIUM 2.4 mg/dL (1.8-2.4); PHOSPHOROUS 5.3 mg/dL (2.5-4.9); POTASSIUM 4.2 mmol/L (3.5-5.1); SODIUM 135 mmol/L (136-145)
[2018-08-07 06:38] LABS: HEMATOCRIT 32.7 % (35.4-49); HEMOGLOBIN 10.9 GM/dL (11.7-16.9); MCH 30.1 pg (25.7-33.7); MCHC 33.5 g/dl (32.0-35.9); MEAN CELL VOLUME 89.9 fl (80-96); MEAN PLT VOLUME 9.8 fl (7.5-11.1); PLATELET COUNT 135 K/MM3 (134-434); RBC 3.64 M/mm3 (4.00-5.60); RDW 17.5 % (11.9-15.9); WHITE BLOOD COUNT 5.5 K/mm3 (4.0-10.0)
[2018-08-07 06:40] LABS: CREATININE 7.9 mg/dL (0.55-1.3)
[2018-08-07] MEDS: ALBUTEROL SO4 2.5/IPRATROPIUM 0.5 INH SOL 3 ML VIAL.NEB. NEB SCH ×4 (07:45→20:23)
--- NOTE | 2018-08-07 07:48 | PN ---
Physical Exam: SUBJECTIVE: Patient seen and examined Patient was seen and examined by me. SBP sohail to 190s per night team and nicardipine drip started. Patient is resting in bed with no symptomatic complaints with drip off because of target BP met. Off drip and will start minoxidil today. OBJECTIVE: Vital Signs Period Temp Pulse Resp BP Sys/Kaufman Pulse Ox Last 24 Hr 98 F-98.2 F 66-78 14-22 137-239/62-96 94-96 GENERAL: Awake, alert, and fully oriented, in no acute distress. HEAD: Normal with no signs of trauma. EYES: Pupils equal, round and reactive to light, extraocular movements intact, sclera anicteric, conjunctiva clear. No lid lag. EARS, NOSE, THROAT: Ears normal, nares patent, oropharynx clear without exudates. Moist mucous membranes. NECK: Normal range of motion, supple without lymphadenopathy, JVD, or masses. LUNGS: Breath sounds equal, clear to auscultation bilaterally. No wheezes, and no crackles. No accessory muscle use. HEART: Regular rate and rhythm, normal S1 and S2 without murmur, rub or gallop. ABDOMEN: Soft, nontender, not distended, normoactive bowel sounds, no guarding, no rebound, no masses. No hepatomegaly or splenomegaly. MUSCULOSKELETAL: Normal range of motion at all joints. No bony deformities or tenderness. No CVA tenderness. UPPER EXTREMITIES: 2+ pulses, warm, well-perfused. No cyanosis. No clubbing. Cap refill <2 seconds. No peripheral edema. Dialysis access on left arm LOWER EXTREMITIES: 2+ pulses, warm, well-perfused. No calf tenderness. No peripheral edema. NEUROLOGICAL: Cranial nerves II-XII intact. Normal speech. Normal gait. PSYCHIATRIC: Cooperative. Good eye contact. Appropriate mood and affect. SKIN: Warm, dry, normal turgor, no rashes or lesions noted. Laboratory Results - last 24 hr 08/06/18 08/06/18 08/06/18 10:30 10:30 14:00 WBC 4.8 RBC 3.68 L Hgb 11.2 L Hct 33.2 L MCV 90.1 MCH 30.3 MCHC 33.7 RDW 17.5 H Plt Count 136 MPV 9.9 Sodium 134 L Potassium 5.2 H Chloride 96 L Carbon Dioxide 24 Anion Gap 14 BUN 72 H 20 H Creatinine 11.7 H* 4.0 H Creat Clearance w eGFR 4.71 POC Glucometer Random Glucose 207 H Calcium 8.8 Phosphorus Magnesium 08/06/18 08/06/18 08/07/18 16:46 21:55 05:30 WBC RBC Hgb Hct MCV MCH MCHC RDW Plt Count MPV Sodium 135 L Potassium 4.2 Chloride 97 L Carbon Dioxide 30 Anion Gap 9 BUN 45 H Creatinine 7.9 H* Creat Clearance w eGFR 7.41 POC Glucometer 212 202 Random Glucose 150 H Calcium 8.8 Phosphorus 5.3 H Magnesium 2.4 08/07/18 06:26 WBC RBC Hgb Hct MCV MCH MCHC RDW Plt Count MPV Sodium Potassium Chloride Carbon Dioxide Anion Gap BUN Creatinine Creat Clearance w eGFR POC Glucometer 138 Random Glucose Calcium Phosphorus Magnesium Active Medications Generic Name Dose Route Start Last Admin Trade Name Freq PRN Reason Stop Dose Admin Acetaminophen 650 mg 08/01/18 17:08 08/04/18 22:24 Tylenol - PO 650 mg Q4H PRN Administration FEVER Albuterol/Ipratropium 1 amp 08/02/18 16:00 08/06/18 20:28 Duoneb - NEB 1 amp RQID [facility] Administration Calcitriol 0.25 mcg 08/01/18 22:00 08/06/18 21:29 Rocaltrol - PO 0.25 mcg BID [facility] Administration Calcium Acetate 1,334 mg 08/01/18 17:30 08/06/18 17:58 Phoslo - PO 1,334 mg TIDCM [facility] Administration Chlorhexidine Gluconate 1 applic 08/06/18 22:00 08/06/18 21:28 Hibiclens For Decolonization - TP 1 applic HS [facility] Administration Clonidine 0.3 mg 08/06/18 14:00 08/07/18 06:20 Catapres - PO 0.3 mg TID [facility] Administration Furosemide 40 mg 08/01/18 22:00 08/06/18 21:27 Lasix - PO 40 mg BID [facility] Administration Heparin Sodium (Porcine) 5,000 unit 08/01/18 22:00 08/06/18 21:28 Heparin - SQ 5,000 unit BID [facility] Administration Hydralazine HCl 100 mg 08/07/18 06:15 08/07/18 06:19 Apresoline - PO 100 mg TID [facility] Administration Ceftriaxone Sodium 2 gm/ 100 mls @ 200 mls/hr 08/03/18 11:30 08/06/18 15:12 Dextrose IVPB 200 mls/hr DAILY [facility] Administration Protocol Nicardipine HCl 25 mg/ 250 mls @ 50 mls/hr 08/06/18 13:45 08/06/18 23:23 Dextrose IVPB 5 mg/hr TITR [facility] 50 mls/hr Administration Protocol 5 MG/HR Insulin Aspart 1 vial 08/01/18 22:00 08/07/18 06:27 Novolog Vial Sliding Scale - SQ Not Given ACHS [facility] Protocol Labetalol HCl 600 mg 08/06/18 21:00 08/07/18 06:19 Normodyne - PO 600 mg TID [facility] Administration Lisinopril 40 mg 08/06/18 10:30 08/06/18 10:30 Prinivil PO 40 mg DAILY [facility] Administration Mupirocin 1 applic 08/06/18 22:00 08/06/18 21:28 Bactroban Ointment (For Decolonization) - NS 08/11/18 21:59 1 applic BID [facility] Administration Ranitidine HCl 150 mg 08/02/18 10:00 08/06/18 09:20 Zantac - PO 150 mg DAILY [facility] Administration ASSESSMENT/PLAN: 48 yo M with a hx of HTN (with previous HTN emergencies), IDDM, ESRD on HD MWF ( last dialysis today), adenocarcinoma s/p cholecystectomy, and anemia admitted to [facility] with complaint of SOB with productive cough with blood admitted to the intensive care unit for hypertensive urgency with failed control of BPs with oral medications. Neuro: A&O x3 Alert and awake, conversed well during exam CV Patient has chronic HTN possibly secondary to ESRD vs essential HTN. On the following home medications: lisinopril, furosemide, clonidine, hydralazine, and labetalol. Currently on the following medications: 600 mg labetalol TID, 40 mg lisinopril q daily, nifedipine ER 90 mg, furosemide 40 mg BID, hydralazine 100 mg TID, clonidine 0.3 mg TID. -Consulted cardiology; resuming oral meds except for nifedipine. Recommended nicardipine drip with target SBP 160-180. -Started minoxidil 2.5 mg PO per recommendations of nephro. Resp Patient does not have symptomatic complaints of SOB Currently has community acquired PNA treated with ceftriaxone -Will monitor SpO2 >94% -Currently breathing on room air -will continue cefetin per ID recommendations -Duoneb treatments scheduled GI Hx of adenocarcinoma gallbladder s/p cholecystectomy Currently no abdominal complaints. GI prophylaxis: Ranitidine Nephro ESRD on HD (dialysis yesterday; on dialysis for 3 years) Schedule is MWF Followed by Nephrology Hem/Onc Hx of anemia Will monitor hemoglobin/hematocrit trends ID Followed by ID; recommended cefetin for Community acquired PNA. FEN -Nutrition: Renal diet -Monitor electrolytes and replete as necessary -sliding scale - not given this morning DVT pphx -SCDs -On heparin Dispo: Patient to be transferred to floors today Visit type - Emergency Visit Emergency Visit: Yes ED Registration Date: 08/01/18 Care time: The patient presented to the Emergency Department on the above date and was hospitalized for further evaluation of their emergent condition. - New Patient This patient is new to me today: No - Critical Care Critical Care patient: Yes Total Critical Care Time (in minutes): 36 Critical Care Statement: The care of this patient involved high complexity decision making to prevent further life threatening deterioration of the patient 's condition and/or to evaluate & treat vital organ system(s) failure or risk of failure. - Discharge Referral Referred to [facility] No
[2018-08-07] MEDS ORDERED: DEXTROSE 5%-WATER 100 ML IVPB ONE (08:17)
[2018-08-07] MEDS: CALCIUM ACETATE 667 MG CAPSULE (FP) PO SCH ×2 (08:18→11:28)
[2018-08-07] MEDS: FUROSEMIDE 40 MG TABLET (FP) PO SCH ×2 (09:08→21:05)
[2018-08-07] MEDS: LISINOPRIL 20 MG TABLET (FP) PO SCH (09:08)
[2018-08-07] MEDS: HEPARIN NA (PORCINE) 5,000 UNITS/ML 1ML VIAL SQ SCH ×2 (09:09→21:05)
[2018-08-07] MEDS: CEFTRIAXONE 2 GM in DEXTROSE 5%-WATER 100 ML IVPB SCH (09:09)
[2018-08-07] MEDS: CALCITRIOL 0.25 MCG CAPSULE (FP) PO SCH ×2 (09:09→21:05)
[2018-08-07] MEDS: RANITIDINE HCL 150 MG TABLET (FP) PO SCH (09:09)
[2018-08-07] MEDS: MUPIROCIN 2% TOPICAL OINTMENT FOR DECOLONIZATION NS SCH ×2 (09:10→21:04)
[2018-08-07] MEDS ORDERED: NIFEdipine E.R. 90 MG TABLET (FP) PO SCH (10:00)
[2018-08-07] MEDS ORDERED: MINOXIDIL 2.5 MG TABLET PO SCH ×2 (11:45)
--- NOTE | 2018-08-07 12:02 | PN ---
Progress Note, Physician History of Present Illness: Pt seen and examined at bedside. He is awake and alert. His bp is better controlled today. - Current Medication List Current Medications: Active Medications Acetaminophen (Tylenol -) 650 mg PO Q4H PRN PRN Reason: FEVER Last Admin: 08/04/18 22:24 Dose: 650 mg Albuterol/Ipratropium (Duoneb -) 1 amp NEB RQID [facility] Last Admin: 08/07/18 07:45 Dose: 1 amp Calcitriol (Rocaltrol -) 0.25 mcg PO BID [facility] Last Admin: 08/07/18 09:09 Dose: 0.25 mcg Calcium Acetate (Phoslo -) 1,334 mg PO TIDCM [facility] Last Admin: 08/07/18 11:28 Dose: 1,334 mg Chlorhexidine Gluconate (Hibiclens For Decolonization -) 1 applic TP HS [facility] Last Admin: 08/06/18 21:28 Dose: 1 applic Clonidine (Catapres -) 0.3 mg PO TID [facility] Last Admin: 08/07/18 06:20 Dose: 0.3 mg Furosemide (Lasix -) 40 mg PO BID [facility] Last Admin: 08/07/18 09:08 Dose: 40 mg Heparin Sodium (Porcine) (Heparin -) 5,000 unit SQ BID [facility] Last Admin: 08/07/18 09:09 Dose: 5,000 unit Hydralazine HCl (Apresoline -) 100 mg PO TID [facility] Last Admin: 08/07/18 06:19 Dose: 100 mg Ceftriaxone Sodium 2 gm/ (Dextrose) 100 mls @ 200 mls/hr IVPB DAILY [facility]; Protocol Last Admin: 08/07/18 09:09 Dose: 200 mls/hr Nicardipine HCl 25 mg/ (Dextrose) 250 mls @ 50 mls/hr IVPB TITR [facility]; Protocol Last Admin: 08/06/18 23:23 Dose: 5 mg/hr, 50 mls/hr Insulin Aspart (Novolog Vial Sliding Scale -) 1 vial SQ ACHS [facility]; Protocol Last Admin: 08/07/18 11:11 Dose: Not Given Labetalol HCl (Normodyne -) 600 mg PO TID [facility] Last Admin: 08/07/18 06:19 Dose: 600 mg Lisinopril (Prinivil) 40 mg PO DAILY [facility] Last Admin: 08/07/18 09:08 Dose: 40 mg Minoxidil (Lonitin -) 2.5 mg PO DAILY [facility] Mupirocin (Bactroban Ointment (For Decolonization) -) 1 applic NS BID [facility] Stop: 08/11/18 21:59 Last Admin: 08/07/18 09:10 Dose: 1 applic Nifedipine (Procardia Xl -) 90 mg PO DAILY [facility] Last Admin: 08/07/18 09:08 Dose: 90 mg Ranitidine HCl (Zantac -) 150 mg PO DAILY [facility] Last Admin: 08/07/18 09:09 Dose: 150 mg - Objective Vital Signs: Vital Signs Temperature 98.2 F 08/07/18 07:00 Pulse Rate 69 08/07/18 11:00 Respiratory Rate 16 08/07/18 11:00 Blood Pressure 177/74 H 08/07/18 11:00 O2 Sat by Pulse Oximetry (%) 96 08/07/18 07:54 Constitutional: Yes: Calm Eyes: Yes: Conjunctiva Clear HENT: Yes: Atraumatic Neck: Yes: Supple Cardiovascular: Yes: S1, S2 Respiratory: Yes: CTA Bilaterally Gastrointestinal: Yes: Soft Genitourinary: Yes: WNL Musculoskeletal: Yes: WNL Edema: LLE: Trace, RLE: Trace Neurological: Yes: Oriented Psychiatric: Yes: Oriented Labs: CBC, BMP 08/07/18 05:30 08/07/18 05:30 INR, PTT INR 1.13 (0.83-1.09) H 08/01/18 13:12 Problem List - Problems (1) Hemoptysis Code(s): R04.2 - HEMOPTYSIS (2) Pneumonia Code(s): J18.9 - PNEUMONIA, UNSPECIFIED ORGANISM (3) End-stage renal disease (ESRD) Code(s): N18.6 - END STAGE RENAL DISEASE Assessment/Plan Current Medications Generic Name Dose Route Start Last Admin Trade Name Freq PRN Reason Stop Dose Admin Acetaminophen 650 mg 08/01/18 17:08 08/04/18 22:24 Tylenol - PO 650 mg Q4H PRN Administration FEVER Albuterol/Ipratropium 1 amp 08/02/18 16:00 08/07/18 07:45 Duoneb - NEB 1 amp RQID [facility] Administration Calcitriol 0.25 mcg 08/01/18 22:00 08/07/18 09:09 Rocaltrol - PO 0.25 mcg BID [facility] Administration Calcium Acetate 1,334 mg 08/01/18 17:30 08/07/18 11:28 Phoslo - PO 1,334 mg TIDCM [facility] Administration Chlorhexidine Gluconate 1 applic 08/06/18 22:00 08/06/18 21:28 Hibiclens For Decolonization - TP 1 applic HS [facility] Administration Clonidine 0.3 mg 08/06/18 14:00 08/07/18 06:20 Catapres - PO 0.3 mg TID [facility] Administration Furosemide 40 mg 08/01/18 22:00 08/07/18 09:08 Lasix - PO 40 mg BID [facility] Administration Heparin Sodium (Porcine) 5,000 unit 08/01/18 22:00 08/07/18 09:09 Heparin - SQ 5,000 unit BID [facility] Administration Hydralazine HCl 100 mg 08/07/18 06:15 08/07/18 06:19 Apresoline - PO 100 mg TID [facility] Administration Ceftriaxone Sodium 2 gm/ 100 mls @ 200 mls/hr 08/03/18 11:30 08/07/18 09:09 Dextrose IVPB 200 mls/hr DAILY [facility] Administration Protocol Nicardipine HCl 25 mg/ 250 mls @ 50 mls/hr 08/06/18 13:45 08/06/18 23:23 Dextrose IVPB 5 mg/hr TITR [facility] 50 mls/hr Administration Protocol 5 MG/HR Insulin Aspart 1 vial 08/01/18 22:00 08/07/18 11:11 Novolog Vial Sliding Scale - SQ Not Given ACHS [facility] Protocol Labetalol HCl 600 mg 08/06/18 21:00 08/07/18 06:19 Normodyne - PO 600 mg TID [facility] Administration Lisinopril 40 mg 08/06/18 10:30 08/07/18 09:08 Prinivil PO 40 mg DAILY [facility] Administration Minoxidil 2.5 mg 08/07/18 11:45 Lonitin - PO DAILY [facility] Mupirocin 1 applic 08/06/18 22:00 08/07/18 09:10 Bactroban Ointment (For Decolonization) - NS 08/11/18 21:59 1 applic BID [facility] Administration Nifedipine 90 mg 08/07/18 10:00 08/07/18 09:08 Procardia Xl - PO 90 mg DAILY [facility] Administration Ranitidine HCl 150 mg 08/02/18 10:00 08/07/18 09:09 Zantac - PO 150 mg DAILY [facility] Administration Impression 1. ESRD 2. HTN 3. DM 4. anemia 5. PNA 6. gallbladder adenoca 7. hemopysis Plan - bp is better - pt off of drip - start minoxidil today - cont bp meds and monitor blood pressure - HD tomorrow - follow cxr - HD 3 45, opti 180, 2 k bath, micera (07/29) with next dose due on the - will follow Dr Kerns
--- NOTE | 2018-08-07 12:30 | PN ---
Progress Note, Physician History of Present Illness: TRANSFERRED TO ICU AFTER HYPERTENSIVE CRISIS NO C/O CHEST PAIN / COUGH NO PURULENT SPUTUM PRODUCTION OR HEMOPTYSIS [facility] (-) - Current Medication List Current Medications: Active Medications Acetaminophen (Tylenol -) 650 mg PO Q4H PRN PRN Reason: FEVER Last Admin: 08/04/18 22:24 Dose: 650 mg Albuterol/Ipratropium (Duoneb -) 1 amp NEB RQID [facility] Last Admin: 08/07/18 11:35 Dose: 1 amp Calcitriol (Rocaltrol -) 0.25 mcg PO BID [facility] Last Admin: 08/07/18 09:09 Dose: 0.25 mcg Calcium Acetate (Phoslo -) 1,334 mg PO TIDCM [facility] Last Admin: 08/07/18 11:28 Dose: 1,334 mg Chlorhexidine Gluconate (Hibiclens For Decolonization -) 1 applic TP HS [facility] Last Admin: 08/06/18 21:28 Dose: 1 applic Clonidine (Catapres -) 0.3 mg PO TID [facility] Last Admin: 08/07/18 06:20 Dose: 0.3 mg Furosemide (Lasix -) 40 mg PO BID [facility] Last Admin: 08/07/18 09:08 Dose: 40 mg Heparin Sodium (Porcine) (Heparin -) 5,000 unit SQ BID [facility] Last Admin: 08/07/18 09:09 Dose: 5,000 unit Hydralazine HCl (Apresoline -) 100 mg PO TID [facility] Last Admin: 08/07/18 06:19 Dose: 100 mg Ceftriaxone Sodium 2 gm/ (Dextrose) 100 mls @ 200 mls/hr IVPB DAILY [facility]; Protocol Last Admin: 08/07/18 09:09 Dose: 200 mls/hr Nicardipine HCl 25 mg/ (Dextrose) 250 mls @ 50 mls/hr IVPB TITR [facility]; Protocol Last Admin: 08/06/18 23:23 Dose: 5 mg/hr, 50 mls/hr Insulin Aspart (Novolog Vial Sliding Scale -) 1 vial SQ ACHS [facility]; Protocol Last Admin: 08/07/18 11:11 Dose: Not Given Labetalol HCl (Normodyne -) 600 mg PO TID [facility] Last Admin: 08/07/18 06:19 Dose: 600 mg Lisinopril (Prinivil) 40 mg PO DAILY [facility] Last Admin: 08/07/18 09:08 Dose: 40 mg Minoxidil (Lonitin -) 2.5 mg PO DAILY [facility] Mupirocin (Bactroban Ointment (For Decolonization) -) 1 applic NS BID [facility] Stop: 08/11/18 21:59 Last Admin: 08/07/18 09:10 Dose: 1 applic Nifedipine (Procardia Xl -) 90 mg PO DAILY [facility] Last Admin: 08/07/18 09:08 Dose: 90 mg Ranitidine HCl (Zantac -) 150 mg PO DAILY [facility] Last Admin: 08/07/18 09:09 Dose: 150 mg - Objective Vital Signs: Vital Signs Temperature 98.2 F 08/07/18 07:00 Pulse Rate 69 08/07/18 11:00 Respiratory Rate 16 08/07/18 11:00 Blood Pressure 177/74 H 08/07/18 11:00 O2 Sat by Pulse Oximetry (%) 96 08/07/18 07:54 Constitutional: Yes: No Distress Eyes: Yes: Conjunctiva Clear Cardiovascular: Yes: Regular Rate and Rhythm, S1, S2 Respiratory: Yes: Other (FEW CREPITATIONS L>R BASE) Gastrointestinal: Yes: Normal Bowel Sounds, Soft. No: Tenderness Edema: No Labs: CBC, BMP 08/07/18 05:30 08/07/18 05:30 INR, PTT INR 1.13 (0.83-1.09) H 08/01/18 13:12 Assessment/Plan PNEUMONIA ESRD IDDM THROMBOCYTOPENIA RESOLVED ADENOCARCINOMA OF GB DAY #7 IV ANTIBIOTICS SUBSTITUTE CEFTIN ADJUSTED FOR ESRD
[2018-08-07] MEDS ORDERED: CEFUROXIME AXETIL 250 MG TABLET PO SCH (12:45)
[2018-08-07 12:47] VITALS: BMI 26.9
--- NOTE | 2018-08-07 13:05 | PN ---
Teaching Attending Note Name of Resident: Sridhar Aranda ATTENDING PHYSICIAN STATEMENT I saw and evaluated the patient. I reviewed the resident's note and discussed the case with the resident. I agree with the resident's findings and plan as documented. SUBJECTIVE: Patient seen and examined in the ICU. Off Cardene drip. Denies COTA, BOV, SOB, CP, etc. No reported hemoptysis. No fevers or chills. Does report snoring and some symptoms that may be consistent with OSAS. Intake & Output 08/04/18 08/05/18 08/06/18 08/07/18 23:59 23:59 23:59 23:59 Intake Total 120 100 0 390 Output Total 0 Balance 120 100 0 390 Weight 171 lb 9.6 oz 170 lb 8 oz 177 lb 11.2 oz 177 lb Last Vital Signs Temp Pulse Resp BP Pulse Ox 98.2 F 69 16 177/74 H 96 08/07/18 07:00 08/07/18 11:00 08/07/18 11:00 08/07/18 11:00 08/07/18 07:54 Active Medications Acetaminophen (Tylenol -) 650 mg PO Q4H PRN PRN Reason: FEVER Last Admin: 08/04/18 22:24 Dose: 650 mg Albuterol/Ipratropium (Duoneb -) 1 amp NEB RQID [facility] Last Admin: 08/07/18 11:35 Dose: 1 amp Calcitriol (Rocaltrol -) 0.25 mcg PO BID [facility] Last Admin: 08/07/18 09:09 Dose: 0.25 mcg Calcium Acetate (Phoslo -) 1,334 mg PO TIDCM [facility] Last Admin: 08/07/18 11:28 Dose: 1,334 mg Cefuroxime Axetil (Ceftin -) 250 mg PO DAILY [facility] Chlorhexidine Gluconate (Hibiclens For Decolonization -) 1 applic TP HS [facility] Last Admin: 08/06/18 21:28 Dose: 1 applic Clonidine (Catapres -) 0.3 mg PO TID [facility] Last Admin: 08/07/18 06:20 Dose: 0.3 mg Furosemide (Lasix -) 40 mg PO BID [facility] Last Admin: 08/07/18 09:08 Dose: 40 mg Heparin Sodium (Porcine) (Heparin -) 5,000 unit SQ BID [facility] Last Admin: 08/07/18 09:09 Dose: 5,000 unit Hydralazine HCl (Apresoline -) 100 mg PO TID [facility] Last Admin: 08/07/18 06:19 Dose: 100 mg Nicardipine HCl 25 mg/ (Dextrose) 250 mls @ 50 mls/hr IVPB TITR [facility]; Protocol Last Admin: 08/06/18 23:23 Dose: 5 mg/hr, 50 mls/hr Insulin Aspart (Novolog Vial Sliding Scale -) 1 vial SQ ACHS [facility]; Protocol Last Admin: 08/07/18 11:11 Dose: Not Given Labetalol HCl (Normodyne -) 600 mg PO TID [facility] Last Admin: 08/07/18 06:19 Dose: 600 mg Lisinopril (Prinivil) 40 mg PO DAILY [facility] Last Admin: 08/07/18 09:08 Dose: 40 mg Minoxidil (Lonitin -) 2.5 mg PO DAILY [facility] Mupirocin (Bactroban Ointment (For Decolonization) -) 1 applic NS BID [facility] Stop: 08/11/18 21:59 Last Admin: 08/07/18 09:10 Dose: 1 applic Nifedipine (Procardia Xl -) 90 mg PO DAILY [facility] Last Admin: 08/07/18 09:08 Dose: 90 mg Ranitidine HCl (Zantac -) 150 mg PO DAILY [facility] Last Admin: 08/07/18 09:09 Dose: 150 mg Gen: NAD at rest Heart: RRR Lung: decreased breath sounds at the bases Abd: soft, nontender Ext: no edema Laboratory Results - last 24 hr 08/06/18 08/06/18 08/06/18 14:00 16:46 21:55 WBC RBC Hgb Hct MCV MCH MCHC RDW Plt Count MPV Sodium Potassium Chloride Carbon Dioxide Anion Gap BUN 20 H Creatinine 4.0 H Creat Clearance w eGFR POC Glucometer 212 202 Random Glucose Calcium Phosphorus Magnesium 08/07/18 08/07/18 08/07/18 05:30 05:30 06:26 WBC 5.5 RBC 3.64 L Hgb 10.9 L Hct 32.7 L MCV 89.9 MCH 30.1 MCHC 33.5 RDW 17.5 H Plt Count 135 MPV 9.8 Sodium 135 L Potassium 4.2 Chloride 97 L Carbon Dioxide 30 Anion Gap 9 BUN 45 H Creatinine 7.9 H* Creat Clearance w eGFR 7.41 POC Glucometer 138 Random Glucose 150 H Calcium 8.8 Phosphorus 5.3 H Magnesium 2.4 08/07/18 11:07 WBC RBC Hgb Hct MCV MCH MCHC RDW Plt Count MPV Sodium Potassium Chloride Carbon Dioxide Anion Gap BUN Creatinine Creat Clearance w eGFR POC Glucometer 196 Random Glucose Calcium Phosphorus Magnesium A/P Pneumonia Hemoptysis ESRD on HD HTN DM Anemia - Add Minoxidil - ABX per ID - HD per renal - inhaled bronchodilators - O2 to keep SpO2 >90% - Floor Dr Schneider
[2018-08-07] MEDS: ACETAMINOPHEN 325 MG TABLET (FP) PO PRN (13:29)
--- NOTE | 2018-08-07 14:13 | PN ---
Progress Note, Physician Chief Complaint: SEEN IN ICU ASLEEP COMFORTABLE EVENTS AND NOTES REVIEWED - Current Medication List Current Medications: Active Medications Acetaminophen (Tylenol -) 650 mg PO Q4H PRN PRN Reason: FEVER Last Admin: 08/07/18 13:29 Dose: 650 mg Albuterol/Ipratropium (Duoneb -) 1 amp NEB RQID [facility] Last Admin: 08/07/18 11:35 Dose: 1 amp Calcitriol (Rocaltrol -) 0.25 mcg PO BID [facility] Last Admin: 08/07/18 09:09 Dose: 0.25 mcg Calcium Acetate (Phoslo -) 1,334 mg PO TIDCM [facility] Last Admin: 08/07/18 11:28 Dose: 1,334 mg Cefuroxime Axetil (Ceftin -) 250 mg PO DAILY [facility] Last Admin: 08/07/18 13:30 Dose: 250 mg Chlorhexidine Gluconate (Hibiclens For Decolonization -) 1 applic TP HS [facility] Last Admin: 08/06/18 21:28 Dose: 1 applic Clonidine (Catapres -) 0.3 mg PO TID [facility] Last Admin: 08/07/18 13:29 Dose: 0.3 mg Furosemide (Lasix -) 40 mg PO BID [facility] Last Admin: 08/07/18 09:08 Dose: 40 mg Heparin Sodium (Porcine) (Heparin -) 5,000 unit SQ BID [facility] Last Admin: 08/07/18 09:09 Dose: 5,000 unit Hydralazine HCl (Apresoline -) 100 mg PO TID [facility] Last Admin: 08/07/18 13:29 Dose: 100 mg Nicardipine HCl 25 mg/ (Dextrose) 250 mls @ 50 mls/hr IVPB TITR [facility]; Protocol Last Admin: 08/06/18 23:23 Dose: 5 mg/hr, 50 mls/hr Insulin Aspart (Novolog Vial Sliding Scale -) 1 vial SQ ACHS [facility]; Protocol Last Admin: 08/07/18 11:11 Dose: Not Given Labetalol HCl (Normodyne -) 600 mg PO TID [facility] Last Admin: 08/07/18 13:28 Dose: 600 mg Lisinopril (Prinivil) 40 mg PO DAILY [facility] Last Admin: 08/07/18 09:08 Dose: 40 mg Minoxidil (Lonitin -) 2.5 mg PO DAILY [facility] Last Admin: 08/07/18 13:30 Dose: 2.5 mg Mupirocin (Bactroban Ointment (For Decolonization) -) 1 applic NS BID [facility] Stop: 08/11/18 21:59 Last Admin: 08/07/18 09:10 Dose: 1 applic Nifedipine (Procardia Xl -) 90 mg PO DAILY [facility] Last Admin: 08/07/18 09:08 Dose: 90 mg Ranitidine HCl (Zantac -) 150 mg PO DAILY [facility] Last Admin: 08/07/18 09:09 Dose: 150 mg - Objective Vital Signs: Vital Signs Temperature 98.2 F 08/07/18 07:00 Pulse Rate 69 08/07/18 11:00 Respiratory Rate 16 08/07/18 11:00 Blood Pressure 177/74 H 08/07/18 11:00 O2 Sat by Pulse Oximetry (%) 96 08/07/18 07:54 Constitutional: Yes: Mild Distress Eyes: Yes: WNL HENT: Yes: WNL Neck: Yes: WNL Cardiovascular: Yes: Regular Rate and Rhythm Respiratory: Yes: On Nasal O2, Rhonchi Gastrointestinal: Yes: Soft Musculoskeletal: Yes: Other Edema: No Integumentary: Yes: WNL ...Motor Strength: WNL Labs: CBC, BMP 08/07/18 05:30 08/07/18 05:30 INR, PTT INR 1.13 (0.83-1.09) H 08/01/18 13:12 Problem List - Problems (1) HTN (hypertension) Code(s): I10 - ESSENTIAL (PRIMARY) HYPERTENSION (2) Hemoptysis Code(s): R04.2 - HEMOPTYSIS (3) Pneumonia Code(s): J18.9 - PNEUMONIA, UNSPECIFIED ORGANISM Qualifiers: Pneumonia type: due to unspecified organism Laterality: unspecified laterality Lung location: unspecified part of lung Qualified Code(s): J18.9 - Pneumonia, unspecified organism (4) Troponin I above reference range Code(s): R74.8 - ABNORMAL LEVELS OF OTHER SERUM ENZYMES (5) Anemia Code(s): D64.9 - ANEMIA, UNSPECIFIED Qualifiers: Other causes of anemia: chronic disease, kidney (6) Type 2 diabetes mellitus with diabetic peripheral angiopathy without gangrene Code(s): E11.51 - TYPE 2 DIABETES W DIABETIC PERIPHERAL ANGIOPATH W/O GANGRENE (7) Hyperlipidemia Code(s): E78.5 - HYPERLIPIDEMIA, UNSPECIFIED (8) ESRD (end stage renal disease) on dialysis Code(s): N18.6 - END STAGE RENAL DISEASE; Z99.2 - DEPENDENCE ON RENAL DIALYSIS (9) Hypertensive emergency Code(s): I10 - ESSENTIAL (PRIMARY) HYPERTENSION (10) Diabetes mellitus type 2, uncontrolled Code(s): E11.65 - TYPE 2 DIABETES MELLITUS WITH HYPERGLYCEMIA Assessment/Plan ESRD ON HD RENAL F/U APPRECIATED TREATED FOR PNEUMONIA, ABX, NEBS, RESP SUPPORT IN ICU FOR HYOERTENSIVE EMERGENCY ON IV DRIP/MINOXIDIL OTHERS COMFORTABLE NOW WILL NEED AGGRESSIVE F/U POOR COMPLIANCE WITH DM, HTN, DIETARY EVAL FOR EDUCATION
[2018-08-07] MEDS ORDERED: ACETAMINOPHEN 325 MG TABLET (FP) PO PRN ×2 (14:16→20:14)
--- NOTE | 2018-08-07 16:20 | PN ---
Progress Note, Physician Chief Complaint: Cardiology FU telem NSR - Current Medication List Current Medications: Active Medications Acetaminophen (Tylenol -) 650 mg PO Q4H PRN PRN Reason: FEVER Albuterol/Ipratropium (Duoneb -) 1 amp NEB RQID [facility] Calcitriol (Rocaltrol -) 0.25 mcg PO BID [facility] Calcium Acetate (Phoslo -) 1,334 mg PO TIDCM [facility] Cefuroxime Axetil (Ceftin -) 250 mg PO DAILY [facility] Clonidine (Catapres -) 0.3 mg PO TID [facility] Furosemide (Lasix -) 40 mg PO BID [facility] Heparin Sodium (Porcine) (Heparin -) 5,000 unit SQ BID [facility] Hydralazine HCl (Apresoline -) 100 mg PO TID [facility] Insulin Aspart (Novolog Vial Sliding Scale -) 1 vial SQ ACHS [facility]; Protocol Labetalol HCl (Normodyne -) 600 mg PO TID [facility] Lisinopril (Prinivil) 40 mg PO DAILY [facility] Minoxidil (Lonitin -) 5 mg PO DAILY [facility] Mupirocin (Bactroban Ointment (For Decolonization) -) 1 applic NS BID [facility] Stop: 08/11/18 21:59 Nifedipine (Procardia Xl -) 90 mg PO DAILY [facility] Ranitidine HCl (Zantac -) 150 mg PO DAILY [facility] - Objective Vital Signs: Vital Signs Temperature 98.2 F 08/07/18 07:00 Pulse Rate 68 08/07/18 15:00 Respiratory Rate 17 08/07/18 15:00 Blood Pressure 156/70 08/07/18 15:00 O2 Sat by Pulse Oximetry (%) 96 08/07/18 07:54 Constitutional: Yes: Well Nourished, No Distress Eyes: Yes: Conjunctiva Clear HENT: Yes: Atraumatic, Normocephalic Neck: Yes: Supple, Trachea Midline Cardiovascular: Yes: Regular Rate and Rhythm Respiratory: Yes: Regular, CTA Bilaterally Gastrointestinal: Yes: Normal Bowel Sounds Edema: No Labs: CBC, BMP 08/07/18 05:30 08/07/18 05:30 INR, PTT INR 1.13 (0.83-1.09) H 08/01/18 13:12 Problem List - Problems (1) HTN (hypertension) Code(s): I10 - ESSENTIAL (PRIMARY) HYPERTENSION Assessment/Plan 48 year old man pmh HTN, DMII, ESRD on HD, chronic anemia, h/o gallbladder adeno CA s/p recection and being monitored at [facility] sent from HD with cough and fever, bloody sputum. No chest pain, orthopnea, pnd or edema. +sob. a, COTA vomitting. Has chronic mild Rt sided chest pain which is not new. BP improved after resuming usual medications. Minoxidil was added by team Will see as needed.
[2018-08-07] MEDS ORDERED: INSULIN SLIDING SCALE (NOVOLOG) 1 VIAL SQ SCH (16:30)
[2018-08-07] MEDS ORDERED: CALCIUM ACETATE 667 MG CAPSULE (FP) PO SCH (17:30)
[2018-08-07] MEDS ORDERED: hydrALAZINE HCL 50 MG TABLET (FP) PO SCH (22:00)
[2018-08-07] MEDS ORDERED: LABETALOL HCL 200 MG TABLET (FP) PO SCH (22:00)
[2018-08-07] MEDS ORDERED: MUPIROCIN 2% TOPICAL OINTMENT FOR DECOLONIZATION NS SCH (22:00)
[2018-08-07] MEDS ORDERED: CALCITRIOL 0.25 MCG CAPSULE (FP) PO SCH (22:00)
[2018-08-07] MEDS ORDERED: cloNIDine HCL 0.1 MG TABLET PO SCH (22:00)
[2018-08-07] MEDS ORDERED: HEPARIN NA (PORCINE) 5,000 UNITS/ML 1ML VIAL SQ SCH (22:00)
[2018-08-07] MEDS ORDERED: FUROSEMIDE 40 MG TABLET (FP) PO SCH (22:00)
[2018-08-08] MEDS: LABETALOL HCL 200 MG TABLET (FP) PO SCH ×3 (05:54→21:04)
[2018-08-08] MEDS: hydrALAZINE HCL 50 MG TABLET (FP) PO SCH ×3 (05:55→21:03)
[2018-08-08] MEDS: cloNIDine HCL 0.1 MG TABLET PO SCH ×3 (06:29→21:03)
[2018-08-08] MEDS: INSULIN SLIDING SCALE (NOVOLOG) 1 VIAL SQ SCH ×4 (06:41→21:09)
[2018-08-08] MEDS: CALCIUM ACETATE 667 MG CAPSULE (FP) PO SCH ×3 (08:09→18:02)
[2018-08-08] MEDS: ALBUTEROL SO4 2.5/IPRATROPIUM 0.5 INH SOL 3 ML VIAL.NEB. NEB SCH ×4 (08:44→20:56)
[2018-08-08] MEDS ORDERED: MINOXIDIL 2.5 MG TABLET PO SCH ×2 (10:00)
[2018-08-08] MEDS ORDERED: RANITIDINE HCL 150 MG TABLET (FP) PO SCH (10:00)
[2018-08-08] MEDS ORDERED: CEFUROXIME AXETIL 250 MG TABLET PO SCH (10:00)
[2018-08-08] MEDS ORDERED: NIFEdipine E.R. 90 MG TABLET (FP) PO SCH (10:00)
[2018-08-08] MEDS ORDERED: LISINOPRIL 20 MG TABLET (FP) PO SCH (10:00)
[2018-08-08] MEDS ORDERED: PT OWN MED DRAWER 7, Y5N ONE ×3 (11:45→20:57)
[2018-08-08] MEDS: LISINOPRIL 20 MG TABLET (FP) PO SCH (11:45)
[2018-08-08] MEDS: FUROSEMIDE 40 MG TABLET (FP) PO SCH ×2 (11:46→21:03)
[2018-08-08] MEDS: NIFEdipine E.R. 90 MG TABLET (FP) PO SCH (11:46)
[2018-08-08] MEDS: MINOXIDIL 2.5 MG TABLET PO SCH (11:47)
[2018-08-08] MEDS: MUPIROCIN 2% TOPICAL OINTMENT FOR DECOLONIZATION NS SCH ×2 (11:51→21:08)
--- NOTE | 2018-08-08 13:07 | PN ---
Progress Note (short form) - Note Progress Note: PULMONARY Still some hemoptysis. No fevers or chills. Vital Signs Period Temp Pulse Resp BP Sys/Kaufman Pulse Ox Last 24 Hr 97.8 F-98.5 F 66-82 17-20 122-186/70-85 98 Gen: NAD at rest Heart: RRR Lung: decreased breath sounds at the bases Abd: soft, nontender Ext: no edema CBC, BMP 08/07/18 05:30 08/07/18 05:30 Active Medications Acetaminophen (Tylenol -) 650 mg PO Q4H PRN PRN Reason: FEVER Albuterol/Ipratropium (Duoneb -) 1 amp NEB RQID [facility] Last Admin: 08/08/18 11:41 Dose: Not Given Calcitriol (Rocaltrol -) 0.25 mcg PO BID [facility] Last Admin: 08/07/18 21:05 Dose: 0.25 mcg Calcium Acetate (Phoslo -) 1,334 mg PO TIDCM [facility] Last Admin: 08/08/18 11:52 Dose: Not Given Cefuroxime Axetil (Ceftin -) 250 mg PO DAILY [facility] Clonidine (Catapres -) 0.3 mg PO TID [facility] Last Admin: 08/08/18 06:29 Dose: 0.3 mg Furosemide (Lasix -) 40 mg PO BID [facility] Last Admin: 08/08/18 11:46 Dose: 40 mg Heparin Sodium (Porcine) (Heparin -) 5,000 unit SQ BID [facility] Last Admin: 08/07/18 21:05 Dose: 5,000 unit Hydralazine HCl (Apresoline -) 100 mg PO TID [facility] Last Admin: 08/08/18 05:55 Dose: 100 mg Insulin Aspart (Novolog Vial Sliding Scale -) 1 vial SQ ACHS [facility]; Protocol Last Admin: 08/08/18 11:03 Dose: Not Given Labetalol HCl (Normodyne -) 600 mg PO TID [facility] Last Admin: 08/08/18 05:54 Dose: 600 mg Lisinopril (Prinivil) 40 mg PO DAILY [facility] Last Admin: 08/08/18 11:45 Dose: 40 mg Minoxidil (Lonitin -) 5 mg PO DAILY [facility] Last Admin: 08/08/18 11:47 Dose: 5 mg Mupirocin (Bactroban Ointment (For Decolonization) -) 1 applic NS BID [facility] Stop: 08/11/18 21:59 Last Admin: 08/08/18 11:51 Dose: Not Given Nifedipine (Procardia Xl -) 90 mg PO DAILY [facility] Last Admin: 08/08/18 11:46 Dose: 90 mg Ranitidine HCl (Zantac -) 150 mg PO DAILY [facility] A/P Pneumonia Hemoptysis ESRD on HD HTN DM Anemia - continue antibiotics - monitor hemoptysis - HD per renal - inhaled bronchodilators - O2 to keep SpO2 >90%
[2018-08-08] MEDS: HEPARIN NA (PORCINE) 5,000 UNITS/ML 1ML VIAL SQ SCH ×2 (13:45→21:03)
[2018-08-08] MEDS: CALCITRIOL 0.25 MCG CAPSULE (FP) PO SCH ×2 (13:46→21:06)
[2018-08-08] MEDS: CEFUROXIME AXETIL 250 MG TABLET PO SCH (13:46)
[2018-08-08] MEDS: RANITIDINE HCL 150 MG TABLET (FP) PO SCH (13:47)
--- NOTE | 2018-08-08 16:04 | PN ---
Progress Note, Physician History of Present Illness: Pt seen and examined at bedside. He is awake and alert. He complains of cough. - Current Medication List Current Medications: Active Medications Acetaminophen (Tylenol -) 650 mg PO Q4H PRN PRN Reason: FEVER Albuterol/Ipratropium (Duoneb -) 1 amp NEB RQID [facility] Last Admin: 08/08/18 15:48 Dose: 1 amp Calcitriol (Rocaltrol -) 0.25 mcg PO BID [facility] Last Admin: 08/08/18 13:46 Dose: 0.25 mcg Calcium Acetate (Phoslo -) 1,334 mg PO TIDCM [facility] Last Admin: 08/08/18 11:52 Dose: Not Given Cefuroxime Axetil (Ceftin -) 250 mg PO DAILY [facility] Last Admin: 08/08/18 13:46 Dose: 250 mg Clonidine (Catapres -) 0.3 mg PO TID [facility] Last Admin: 08/08/18 13:46 Dose: 0.3 mg Furosemide (Lasix -) 40 mg PO BID [facility] Last Admin: 08/08/18 11:46 Dose: 40 mg Heparin Sodium (Porcine) (Heparin -) 5,000 unit SQ BID [facility] Last Admin: 08/08/18 13:45 Dose: 5,000 unit Hydralazine HCl (Apresoline -) 100 mg PO TID [facility] Last Admin: 08/08/18 13:46 Dose: 100 mg Insulin Aspart (Novolog Vial Sliding Scale -) 1 vial SQ ACHS [facility]; Protocol Last Admin: 08/08/18 11:03 Dose: Not Given Labetalol HCl (Normodyne -) 600 mg PO TID [facility] Last Admin: 08/08/18 13:46 Dose: 600 mg Lisinopril (Prinivil) 40 mg PO DAILY [facility] Last Admin: 08/08/18 11:45 Dose: 40 mg Minoxidil (Lonitin -) 5 mg PO DAILY [facility] Last Admin: 08/08/18 11:47 Dose: 5 mg Mupirocin (Bactroban Ointment (For Decolonization) -) 1 applic NS BID [facility] Stop: 08/11/18 21:59 Last Admin: 08/08/18 11:51 Dose: Not Given Nifedipine (Procardia Xl -) 90 mg PO DAILY [facility] Last Admin: 08/08/18 11:46 Dose: 90 mg Ranitidine HCl (Zantac -) 150 mg PO DAILY [facility] Last Admin: 08/08/18 13:47 Dose: 150 mg - Objective Vital Signs: Vital Signs Temperature 98.7 F 08/08/18 13:42 Pulse Rate 82 08/08/18 13:42 Respiratory Rate 20 08/08/18 13:42 Blood Pressure 196/84 H 08/08/18 13:42 O2 Sat by Pulse Oximetry (%) 98 08/07/18 21:00 Constitutional: Yes: Calm Eyes: Yes: Conjunctiva Clear HENT: Yes: Atraumatic Cardiovascular: Yes: S1, S2 Respiratory: Yes: CTA Bilaterally Gastrointestinal: Yes: Soft Genitourinary: Yes: WNL Musculoskeletal: Yes: WNL Edema: No Neurological: Yes: Oriented Psychiatric: Yes: Oriented Labs: CBC, BMP 08/07/18 05:30 08/07/18 05:30 INR, PTT INR 1.13 (0.83-1.09) H 08/01/18 13:12 Problem List - Problems (1) Hemoptysis Code(s): R04.2 - HEMOPTYSIS (2) Pneumonia Code(s): J18.9 - PNEUMONIA, UNSPECIFIED ORGANISM (3) End-stage renal disease (ESRD) Code(s): N18.6 - END STAGE RENAL DISEASE Assessment/Plan Current Medications Generic Name Dose Route Start Last Admin Trade Name Freq PRN Reason Stop Dose Admin Acetaminophen 650 mg 08/07/18 20:14 Tylenol - PO Q4H PRN FEVER Albuterol/Ipratropium 1 amp 08/08/18 08:00 08/08/18 15:48 Duoneb - NEB 1 amp RQID [facility] Administration Calcitriol 0.25 mcg 08/07/18 22:00 08/08/18 13:46 Rocaltrol - PO 0.25 mcg BID [facility] Administration Calcium Acetate 1,334 mg 08/08/18 08:00 08/08/18 11:52 Phoslo - PO Not Given TIDCM [facility] Cefuroxime Axetil 250 mg 08/08/18 10:00 08/08/18 13:46 Ceftin - PO 250 mg DAILY [facility] Administration Clonidine 0.3 mg 08/07/18 22:00 08/08/18 13:46 Catapres - PO 0.3 mg TID [facility] Administration Furosemide 40 mg 08/07/18 22:00 08/08/18 11:46 Lasix - PO 40 mg BID [facility] Administration Heparin Sodium (Porcine) 5,000 unit 08/07/18 22:00 08/08/18 13:45 Heparin - SQ 5,000 unit BID [facility] Administration Hydralazine HCl 100 mg 08/07/18 22:00 08/08/18 13:46 Apresoline - PO 100 mg TID [facility] Administration Insulin Aspart 1 vial 08/07/18 22:00 08/08/18 11:03 Novolog Vial Sliding Scale - SQ Not Given ACHS [facility] Protocol Labetalol HCl 600 mg 08/07/18 22:00 08/08/18 13:46 Normodyne - PO 600 mg TID [facility] Administration Lisinopril 40 mg 08/08/18 10:00 08/08/18 11:45 Prinivil PO 40 mg DAILY [facility] Administration Minoxidil 5 mg 08/08/18 10:00 08/08/18 11:47 Lonitin - PO 5 mg DAILY [facility] Administration Mupirocin 1 applic 08/07/18 22:00 08/08/18 11:51 Bactroban Ointment (For Decolonization) - NS 08/11/18 21:59 Not Given BID [facility] Nifedipine 90 mg 08/08/18 10:00 08/08/18 11:46 Procardia Xl - PO 90 mg DAILY [facility] Administration Ranitidine HCl 150 mg 08/08/18 10:00 08/08/18 13:47 Zantac - PO 150 mg DAILY [facility] Administration Impression 1. ESRD 2. HTN 3. DM 4. anemia 5. PNA 6. gallbladder adenoca 7. hemopysis Plan - cont to monitor bp - pt just given all of his afternoon meds - cxr reviewed - pt tolerated HD - HD 3 45, opti 180, 2 k bath, micera (07/29) with next dose due on the - will follow Dr Kerns
--- NOTE | 2018-08-08 17:34 | PN ---
Progress Note, Physician Chief Complaint: PNA HTN Emergency History of Present Illness: Previous notes and events reviewed awake and alert patient noted upon exam to be diaphoretic with complaints of R sided chest pain radiating to back, VS: 192/85, 75bpm, 97% RA, 99.4F rectally, 22, FS 190mg/dL - Current Medication List Current Medications: Active Medications Acetaminophen (Tylenol -) 650 mg PO Q4H PRN PRN Reason: FEVER Albuterol/Ipratropium (Duoneb -) 1 amp NEB RQID [facility] Last Admin: 08/08/18 15:48 Dose: 1 amp Calcitriol (Rocaltrol -) 0.25 mcg PO BID [facility] Last Admin: 08/08/18 13:46 Dose: 0.25 mcg Calcium Acetate (Phoslo -) 1,334 mg PO TIDCM [facility] Last Admin: 08/08/18 11:52 Dose: Not Given Cefuroxime Axetil (Ceftin -) 250 mg PO DAILY [facility] Last Admin: 08/08/18 13:46 Dose: 250 mg Clonidine (Catapres -) 0.3 mg PO TID [facility] Last Admin: 08/08/18 13:46 Dose: 0.3 mg Furosemide (Lasix -) 40 mg PO BID [facility] Last Admin: 08/08/18 11:46 Dose: 40 mg Heparin Sodium (Porcine) (Heparin -) 5,000 unit SQ BID [facility] Last Admin: 08/08/18 13:45 Dose: 5,000 unit Hydralazine HCl (Apresoline -) 100 mg PO TID [facility] Last Admin: 08/08/18 13:46 Dose: 100 mg Insulin Aspart (Novolog Vial Sliding Scale -) 1 [facility]; Protocol Last Admin: 08/08/18 16:32 Dose: 2 unit Labetalol HCl (Normodyne -) 600 mg PO TID [facility] Last Admin: 08/08/18 13:46 Dose: 600 mg Lisinopril (Prinivil) 40 mg PO DAILY [facility] Last Admin: 08/08/18 11:45 Dose: 40 mg Minoxidil (Lonitin -) 5 mg PO DAILY [facility] Last Admin: 08/08/18 11:47 Dose: 5 mg Mupirocin (Bactroban Ointment (For Decolonization) -) 1 applic NS BID [facility] Stop: 08/11/18 21:59 Last Admin: 08/08/18 11:51 Dose: Not Given Nifedipine (Procardia Xl -) 90 mg PO DAILY [facility] Last Admin: 08/08/18 11:46 Dose: 90 mg Ranitidine HCl (Zantac -) 150 mg PO DAILY [facility] Last Admin: 08/08/18 13:47 Dose: 150 mg - Objective Vital Signs: Vital Signs Temperature 98.7 F 08/08/18 13:42 Pulse Rate 78 08/08/18 16:25 Respiratory Rate 20 08/08/18 16:25 Blood Pressure 188/83 H 08/08/18 16:25 O2 Sat by Pulse Oximetry (%) 98 08/07/18 21:00 Constitutional: Yes: Calm, Mild Distress Eyes: Yes: Conjunctiva Clear HENT: Yes: Normocephalic Neck: Yes: Supple Cardiovascular: Yes: Regular Rate and Rhythm Respiratory: Yes: CTA Bilaterally, On Nasal O2, Tachypnea Gastrointestinal: Yes: Normal Bowel Sounds, Soft Extremities: Yes: WNL Edema: No Neurological: Yes: Alert, Oriented Psychiatric: Yes: Alert, Oriented Labs: CBC, BMP 08/07/18 05:30 08/07/18 05:30 INR, PTT INR 1.13 (0.83-1.09) H 08/01/18 13:12 Problem List - Problems (1) HTN (hypertension) Assessment/Plan: -continue with labetolol, hydralazine nifedipine, clonidine, lasix, lisinopril -low Na diet -monitor BP Code(s): I10 - ESSENTIAL (PRIMARY) HYPERTENSION (2) Pneumonia Assessment/Plan: -ID on board -continue PO ABT -pulmonary on board -O2 via [place] prn for SOB -keep SpO2 >90% Code(s): J18.9 - PNEUMONIA, UNSPECIFIED ORGANISM Qualifiers: Pneumonia type: due to unspecified organism Laterality: unspecified laterality Lung location: unspecified part of lung Qualified Code(s): J18.9 - Pneumonia, unspecified organism (3) Chest pain Assessment/Plan: -cardiology on board -EKG ordered STAT -troponin STAT Code(s): R07.9 - CHEST PAIN, UNSPECIFIED Qualifiers: Chest pain type: unspecified Qualified Code(s): R07.9 - Chest pain, unspecified (4) ESRD (end stage renal disease) on dialysis Assessment/Plan: -continue with HD -renal on board Code(s): N18.6 - END STAGE RENAL DISEASE; Z99.2 - DEPENDENCE ON RENAL DIALYSIS (5) Hemoptysis Assessment/Plan: -pulmonary on board -continue PO ABT Code(s): R04.2 - HEMOPTYSIS
--- NOTE | 2018-08-08 19:09 | PN ---
Progress Note, Physician Chief Complaint: BP difficult to control Chest pain History of Present Illness: This is a 48 year old man pmh HTN, DMII, ESRD on HD, chronic anemia, h/o gallbladder adeno [place] s/p recection and being monitored at [facility] sent from HD with cough and fever, bloody sputum. Today after dialysis his BP is difficult to control and he is having left sided chest pain, worse with a deep breath. EKG's reviewed. Cardiac enzymes sent. His BP is difficult to control despite multiple antihypertensive agents. - Current Medication List Current Medications: Active Medications Acetaminophen (Tylenol -) 650 mg PO Q4H PRN PRN Reason: FEVER Albuterol/Ipratropium (Duoneb -) 1 amp NEB RQID [facility] Last Admin: 08/08/18 15:48 Dose: 1 amp Calcitriol (Rocaltrol -) 0.25 mcg PO BID [facility] Last Admin: 08/08/18 13:46 Dose: 0.25 mcg Calcium Acetate (Phoslo -) 1,334 mg PO TIDCM [facility] Last Admin: 08/08/18 18:02 Dose: 1,334 mg Cefuroxime Axetil (Ceftin -) 250 mg PO DAILY [facility] Last Admin: 08/08/18 13:46 Dose: 250 mg Clonidine (Catapres -) 0.3 mg PO TID [facility] Last Admin: 08/08/18 13:46 Dose: 0.3 mg Furosemide (Lasix -) 40 mg PO BID [facility] Last Admin: 08/08/18 11:46 Dose: 40 mg Heparin Sodium (Porcine) (Heparin -) 5,000 unit SQ BID [facility] Last Admin: 08/08/18 13:45 Dose: 5,000 unit Hydralazine HCl (Apresoline -) 100 mg PO TID [facility] Last Admin: 08/08/18 13:46 Dose: 100 mg Insulin Aspart (Novolog Vial Sliding Scale -) 1 vial SQ ACHS [facility]; Protocol Last Admin: 08/08/18 16:32 Dose: 2 unit Labetalol HCl (Normodyne -) 600 mg PO TID [facility] Last Admin: 08/08/18 13:46 Dose: 600 mg Lisinopril (Prinivil) 40 mg PO DAILY [facility] Last Admin: 08/08/18 11:45 Dose: 40 mg Minoxidil (Lonitin -) 5 mg PO DAILY [facility] Last Admin: 08/08/18 11:47 Dose: 5 mg Mupirocin (Bactroban Ointment (For Decolonization) -) 1 applic NS BID [facility] Stop: 08/11/18 21:59 Last Admin: 08/08/18 11:51 Dose: Not Given Nifedipine (Procardia Xl -) 90 mg PO DAILY [facility] Last Admin: 08/08/18 11:46 Dose: 90 mg Ranitidine HCl (Zantac -) 150 mg PO DAILY [facility] Last Admin: 08/08/18 13:47 Dose: 150 mg - Objective Vital Signs: Vital Signs Temperature 98.7 F 08/08/18 13:42 Pulse Rate 78 08/08/18 16:25 Respiratory Rate 20 08/08/18 16:25 Blood Pressure 188/83 H 08/08/18 16:25 O2 Sat by Pulse Oximetry (%) 98 08/07/18 21:00 Constitutional: Yes: No Distress HENT: Yes: WNL Cardiovascular: Yes: Regular Rate and Rhythm (NL S1 S2, No MRHG) Respiratory: Yes: CTA Bilaterally Gastrointestinal: Yes: Normal Bowel Sounds Edema: No Neurological: Yes: Alert, Oriented Labs: CBC, BMP 08/07/18 05:30 08/07/18 05:30 INR, PTT INR 1.13 (0.83-1.09) H 08/01/18 13:12 Assessment/Plan 48 year old man pmh HTN, DMII, ESRD on HD, chronic anemia, h/o gallbladder adeno [place] s/p recection and being monitored at [facility] sent from HD with cough and fever, bloody sputum. Today after dialysis his BP is difficult to control and he is having left sided chest pain, worse with a deep breath. EKG's reviewed. Cardiac enzymes sent. His BP is difficult to control despite multiple antihypertensive agents HTN BP remains elevated Continue: Clonidine (Catapres -) 0.3 mg PO TID [facility] Last Admin: 08/08/18 13:46 Dose: 0.3 mg Furosemide (Lasix -) 40 mg PO BID [facility] Last Admin: 08/08/18 11:46 Dose: 40 mg Hydralazine HCl (Apresoline -) 100 mg PO TID [facility] Last Admin: 08/08/18 13:46 Dose: 100 mg Labetalol HCl (Normodyne -) 600 mg PO TID [facility] Last Admin: 08/08/18 13:46 Dose: 600 mg Lisinopril (Prinivil) 40 mg PO DAILY [facility] Last Admin: 08/08/18 11:45 Dose: 40 mg Minoxidil (Lonitin -) 5 mg PO DAILY [facility] Last Admin: 08/08/18 11:47 Dose: 5 mg Nifedipine (Procardia Xl -) 90 mg PO DAILY [facility] Last Admin: 08/08/18 11:46 Dose: 90 mg May need to increase Minoxidil. Chest pain Pleuritic component Follow cardiac enzymes, but need to interpret cardiac enzyme in light of the fact that they are chronically elevated in a non ischemic pattern at baseline Consider adding Imdur 30 mg PO daily Will follow with you.
[2018-08-09] MEDS: LABETALOL HCL 200 MG TABLET (FP) PO SCH ×3 (05:49→22:00)
[2018-08-09] MEDS: hydrALAZINE HCL 50 MG TABLET (FP) PO SCH ×3 (05:49→21:59)
[2018-08-09] MEDS: cloNIDine HCL 0.1 MG TABLET PO SCH ×3 (05:49→22:00)
[2018-08-09] MEDS: INSULIN SLIDING SCALE (NOVOLOG) 1 VIAL SQ SCH ×4 (06:01→22:01)
[2018-08-09] MEDS: ALBUTEROL SO4 2.5/IPRATROPIUM 0.5 INH SOL 3 ML VIAL.NEB. NEB SCH ×4 (08:00→20:25)
[2018-08-09] MEDS: CALCIUM ACETATE 667 MG CAPSULE (FP) PO SCH ×3 (08:02→16:50)
[2018-08-09] MEDS ORDERED: PT OWN MED DRAWER 7, Y5N ONE ×3 (08:58→21:24)
[2018-08-09] MEDS: FUROSEMIDE 40 MG TABLET (FP) PO SCH ×2 (09:10→22:00)
[2018-08-09] MEDS: LISINOPRIL 20 MG TABLET (FP) PO SCH (09:10)
[2018-08-09] MEDS: CEFUROXIME AXETIL 250 MG TABLET PO SCH (09:11)
[2018-08-09] MEDS: HEPARIN NA (PORCINE) 5,000 UNITS/ML 1ML VIAL SQ SCH ×2 (09:13→22:00)
[2018-08-09] MEDS: RANITIDINE HCL 150 MG TABLET (FP) PO SCH (09:13)
[2018-08-09] MEDS: CALCITRIOL 0.25 MCG CAPSULE (FP) PO SCH ×2 (09:14→22:01)
[2018-08-09] MEDS: NIFEdipine E.R. 90 MG TABLET (FP) PO SCH (09:14)
[2018-08-09 09:29] LABS: HEMATOCRIT 33.1 % (35.4-49); HEMOGLOBIN 11.1 GM/dL (11.7-16.9); MCH 30.1 pg (25.7-33.7); MCHC 33.6 g/dl (32.0-35.9); MEAN CELL VOLUME 89.6 fl (80-96); MEAN PLT VOLUME 9.5 fl (7.5-11.1); PLATELET COUNT 132 K/MM3 (134-434); WHITE BLOOD COUNT 4.1 K/mm3 (4.0-10.0)
[2018-08-09] MEDS: MUPIROCIN 2% TOPICAL OINTMENT FOR DECOLONIZATION NS SCH ×2 (09:47→22:00)
[2018-08-09 09:51] LABS: ALBUMIN 3.4 g/dl (3.4-5.0); ALK PHOS 115 U/L (45-117); ANION GAP 11 MMOL/L (8-16); BILIRUBIN,TOTAL 1.1 mg/dL (0.2-1); BLOOD UREA NITROGEN 43 mg/dL (7-18); CALCIUM 9.4 mg/dL (8.5-10.1); CHLORIDE 100 mmol/L (98-107); CO2 29 mmol/L (21-32); GLUCOSE,RANDOM 145 mg/dL (74-106); POTASSIUM 4.5 mmol/L (3.5-5.1); SGOT/AST 30 U/L (15-37); SGPT/ALT 38 U/L (13-61); SODIUM 140 mmol/L (136-145)
[2018-08-09 10:18] LABS: CREATININE 8.3 mg/dL (0.55-1.3)
[2018-08-09] MEDS: MINOXIDIL 2.5 MG TABLET PO SCH (10:56)
--- NOTE | 2018-08-09 11:38 | PN ---
Progress Note (short form) - Note Progress Note: PULMONARY Hemoptysis resolving. No fevers or chills. Vital Signs Period Temp Pulse Resp BP Sys/Kaufman Pulse Ox Last 24 Hr 98.3 F-98.7 F 66-92 18-20 145-215/70-95 Gen: NAD at rest Heart: RRR Lung: decreased breath sounds at the bases Abd: soft, nontender Ext: no edema CBC, BMP 08/09/18 07:45 08/09/18 07:45 Active Medications Acetaminophen (Tylenol -) 650 mg PO Q4H PRN PRN Reason: FEVER Albuterol/Ipratropium (Duoneb -) 1 amp NEB RQID [facility] Last Admin: 08/08/18 20:56 Dose: 1 amp Calcitriol (Rocaltrol -) 0.25 mcg PO BID [facility] Last Admin: 08/09/18 09:14 Dose: 0.25 mcg Calcium Acetate (Phoslo -) 1,334 mg PO TIDCM [facility] Last Admin: 08/09/18 08:02 Dose: 1,334 mg Cefuroxime Axetil (Ceftin -) 250 mg PO DAILY [facility] Last Admin: 08/09/18 09:11 Dose: 250 mg Clonidine (Catapres -) 0.3 mg PO TID [facility] Last Admin: 08/09/18 05:49 Dose: 0.3 mg Furosemide (Lasix -) 40 mg PO BID [facility] Last Admin: 08/09/18 09:10 Dose: 40 mg Heparin Sodium (Porcine) (Heparin -) 5,000 unit SQ BID [facility] Last Admin: 08/09/18 09:13 Dose: 5,000 unit Hydralazine HCl (Apresoline -) 100 mg PO TID [facility] Last Admin: 08/09/18 05:49 Dose: 100 mg Insulin Aspart (Novolog Vial Sliding Scale -) 1 vial SQ ACHS [facility]; Protocol Last Admin: 08/09/18 10:58 Dose: Not Given Labetalol HCl (Normodyne -) 600 mg PO TID [facility] Last Admin: 08/09/18 05:49 Dose: 600 mg Lisinopril (Prinivil) 40 mg PO DAILY [facility] Last Admin: 08/09/18 09:10 Dose: 40 mg Minoxidil (Lonitin -) 5 mg PO DAILY [facility] Last Admin: 08/09/18 10:56 Dose: 5 mg Mupirocin (Bactroban Ointment (For Decolonization) -) 1 applic NS BID [facility] Stop: 08/11/18 21:59 Last Admin: 08/09/18 09:47 Dose: Not Given Nifedipine (Procardia Xl -) 90 mg PO DAILY [facility] Last Admin: 08/09/18 09:14 Dose: 90 mg Ranitidine HCl (Zantac -) 150 mg PO DAILY [facility] Last Admin: 08/09/18 09:13 Dose: 150 mg A/P Pneumonia Hemoptysis ESRD on HD HTN DM Anemia - continue antibiotics - monitor hemoptysis - HD per renal - inhaled bronchodilators - O2 to keep SpO2 >90%
--- NOTE | 2018-08-09 12:54 | EKG ---
Test Reason : Blood Pressure : / mmHG Vent. Rate : 074 BPM Atrial Rate : 074 BPM P-R Int : 184 ms QRS Dur : 098 ms QT Int : 438 ms P-R-T Axes : 069 -44 072 degrees QTc Int : 486 ms NORMAL SINUS RHYTHM POSSIBLE LEFT ATRIAL ENLARGEMENT LEFT ANTERIOR HEMIBLOCK LEFT VENTRICULAR HYPERTROPHY CANNOT RULE OUT SEPTAL INFARCT (CITED ON OR BEFORE 03-OCT-2015) ABNORMAL ECG Confirmed by DOUGLAS GUARDADO MD ([id number]) on 08/09/2018 12:53:54 PM Referred By: Confirmed By:DOUGLAS GUARDADO MD
--- NOTE | 2018-08-09 13:35 | PN ---
Progress Note, Physician Chief Complaint: PNA HTN Emergency History of Present Illness: Previous notes and events reviewed awake and alert NAD denies chest pain, SOB BP much improved today 151/89 - Current Medication List Current Medications: Active Medications Acetaminophen (Tylenol -) 650 mg PO Q4H PRN PRN Reason: FEVER Albuterol/Ipratropium (Duoneb -) 1 amp NEB RQID [facility] Last Admin: 08/09/18 08:00 Dose: 1 amp Calcitriol (Rocaltrol -) 0.25 mcg PO BID [facility] Last Admin: 08/09/18 09:14 Dose: 0.25 mcg Calcium Acetate (Phoslo -) 1,334 mg PO TIDCM [facility] Last Admin: 08/09/18 13:00 Dose: 1,334 mg Cefuroxime Axetil (Ceftin -) 250 mg PO DAILY [facility] Last Admin: 08/09/18 09:11 Dose: 250 mg Clonidine (Catapres -) 0.3 mg PO TID [facility] Last Admin: 08/09/18 13:17 Dose: 0.3 mg Furosemide (Lasix -) 40 mg PO BID [facility] Last Admin: 08/09/18 09:10 Dose: 40 mg Heparin Sodium (Porcine) (Heparin -) 5,000 unit SQ BID [facility] Last Admin: 08/09/18 09:13 Dose: 5,000 unit Hydralazine HCl (Apresoline -) 100 mg PO TID [facility] Last Admin: 08/09/18 13:17 Dose: 100 mg Insulin Aspart (Novolog Vial Sliding Scale -) 1 vial SQ [facility]; Protocol Last Admin: 08/09/18 10:58 Dose: Not Given Labetalol HCl (Normodyne -) 600 mg PO TID [facility] Last Admin: 08/09/18 05:49 Dose: 600 mg Lisinopril (Prinivil) 40 mg PO DAILY [facility] Last Admin: 08/09/18 09:10 Dose: 40 mg Minoxidil (Lonitin -) 5 mg PO DAILY [facility] Last Admin: 08/09/18 10:56 Dose: 5 mg Mupirocin (Bactroban Ointment (For Decolonization) -) 1 applic NS BID [facility] Stop: 08/11/18 21:59 Last Admin: 08/09/18 09:47 Dose: Not Given Nifedipine (Procardia Xl -) 90 mg PO DAILY [facility] Last Admin: 08/09/18 09:14 Dose: 90 mg Ranitidine HCl (Zantac -) 150 mg PO DAILY [facility] Last Admin: 08/09/18 09:13 Dose: 150 mg - Objective Vital Signs: Vital Signs Temperature 98.3 F 08/09/18 10:00 Pulse Rate 91 H 08/09/18 10:00 Respiratory Rate 18 08/09/18 10:00 Blood Pressure 151/89 08/09/18 10:00 O2 Sat by Pulse Oximetry (%) 98 08/07/18 21:00 Constitutional: Yes: No Distress, Calm Eyes: Yes: Conjunctiva Clear HENT: Yes: Normocephalic Cardiovascular: Yes: Regular Rate and Rhythm Respiratory: Yes: Regular, CTA Bilaterally Gastrointestinal: Yes: Normal Bowel Sounds, Soft Musculoskeletal: Yes: WNL Extremities: Yes: WNL Edema: No Neurological: Yes: Alert, Oriented Psychiatric: Yes: Alert, Oriented Labs: CBC, BMP 08/09/18 07:45 08/09/18 07:45 INR, PTT INR 1.13 (0.83-1.09) H 08/01/18 13:12 Problem List - Problems (1) HTN (hypertension) Assessment/Plan: -continue with labetolol, hydralazine nifedipine, clonidine, lasix, lisinopril -low Na diet -monitor BP Code(s): I10 - ESSENTIAL (PRIMARY) HYPERTENSION (2) Pneumonia Assessment/Plan: -ID on board -continue PO ABT -pulmonary on board -O2 via [place] prn for SOB -keep SpO2 >90% Code(s): J18.9 - PNEUMONIA, UNSPECIFIED ORGANISM Qualifiers: Pneumonia type: due to unspecified organism Laterality: unspecified laterality Lung location: unspecified part of lung Qualified Code(s): J18.9 - Pneumonia, unspecified organism (3) Chest pain Assessment/Plan: -cardiology on board and recommendation appreciated -EKG reviewed -currently denies CP on examination Code(s): R07.9 - CHEST PAIN, UNSPECIFIED Qualifiers: Chest pain type: unspecified Qualified Code(s): R07.9 - Chest pain, unspecified (4) ESRD (end stage renal disease) on dialysis Assessment/Plan: -continue with HD -renal on board Code(s): N18.6 - END STAGE RENAL DISEASE; Z99.2 - DEPENDENCE ON RENAL DIALYSIS (5) Hemoptysis Assessment/Plan: -pulmonary on board -continue PO ABT Code(s): R04.2 - HEMOPTYSIS
[2018-08-09] MEDS ORDERED: SODIUM CHLORIDE 250 ML IV PRN (16:05)
--- NOTE | 2018-08-09 16:05 | PN ---
Progress Note, Physician History of Present Illness: Pt seen and examined at bedside. He is awake and alert. He feels that cough is improving. - Current Medication List Current Medications: Active Medications Acetaminophen (Tylenol -) 650 mg PO Q4H PRN PRN Reason: FEVER Albuterol/Ipratropium (Duoneb -) 1 amp NEB RQID [facility] Last Admin: 08/09/18 08:00 Dose: 1 amp Calcitriol (Rocaltrol -) 0.25 mcg PO BID [facility] Last Admin: 08/09/18 09:14 Dose: 0.25 mcg Calcium Acetate (Phoslo -) 1,334 mg PO TIDCM [facility] Last Admin: 08/09/18 13:00 Dose: 1,334 mg Cefuroxime Axetil (Ceftin -) 250 mg PO DAILY [facility] Last Admin: 08/09/18 09:11 Dose: 250 mg Clonidine (Catapres -) 0.3 mg PO TID [facility] Last Admin: 08/09/18 13:17 Dose: 0.3 mg Furosemide (Lasix -) 40 mg PO BID [facility] Last Admin: 08/09/18 09:10 Dose: 40 mg Heparin Sodium (Porcine) (Heparin -) 5,000 unit SQ BID [facility] Last Admin: 08/09/18 09:13 Dose: 5,000 unit Hydralazine HCl (Apresoline -) 100 mg PO TID [facility] Last Admin: 08/09/18 13:17 Dose: 100 mg Insulin Aspart (Novolog Vial Sliding Scale -) 1 vial SQ [facility]; Protocol Last Admin: 08/09/18 10:58 Dose: Not Given Labetalol HCl (Normodyne -) 600 mg PO TID [facility] Last Admin: 08/09/18 14:55 Dose: 600 mg Lisinopril (Prinivil) 40 mg PO DAILY [facility] Last Admin: 08/09/18 09:10 Dose: 40 mg Minoxidil (Lonitin -) 10 mg PO DAILY [facility] Mupirocin (Bactroban Ointment (For Decolonization) -) 1 applic NS BID [facility] Stop: 08/11/18 21:59 Last Admin: 08/09/18 09:47 Dose: Not Given Nifedipine (Procardia Xl -) 90 mg PO DAILY [facility] Last Admin: 08/09/18 09:14 Dose: 90 mg Ranitidine HCl (Zantac -) 150 mg PO DAILY [facility] Last Admin: 08/09/18 09:13 Dose: 150 mg - Objective Vital Signs: Vital Signs Temperature 99.0 F 08/09/18 15:47 Pulse Rate 69 08/09/18 15:47 Respiratory Rate 18 08/09/18 10:00 Blood Pressure 141/65 08/09/18 15:47 O2 Sat by Pulse Oximetry (%) 98 08/07/18 21:00 Constitutional: Yes: Calm Eyes: Yes: Conjunctiva Clear HENT: Yes: Atraumatic Neck: Yes: Supple Cardiovascular: Yes: S1, S2 Gastrointestinal: Yes: Soft Genitourinary: Yes: WNL Musculoskeletal: Yes: WNL Edema: No Neurological: Yes: Oriented Psychiatric: Yes: Oriented Labs: CBC, BMP 08/09/18 07:45 08/09/18 07:45 INR, PTT INR 1.13 (0.83-1.09) H 08/01/18 13:12 Problem List - Problems (1) Hemoptysis Code(s): R04.2 - HEMOPTYSIS (2) Pneumonia Code(s): J18.9 - PNEUMONIA, UNSPECIFIED ORGANISM (3) End-stage renal disease (ESRD) Code(s): N18.6 - END STAGE RENAL DISEASE Assessment/Plan Current Medications Generic Name Dose Route Start Last Admin Trade Name Freq PRN Reason Stop Dose Admin Acetaminophen 650 mg 08/07/18 20:14 Tylenol - PO Q4H PRN FEVER Albuterol/Ipratropium 1 amp 08/08/18 08:00 08/09/18 08:00 Duoneb - NEB 1 amp RQID [facility] Administration Calcitriol 0.25 mcg 08/07/18 22:00 08/09/18 09:14 Rocaltrol - PO 0.25 mcg BID [facility] Administration Calcium Acetate 1,334 mg 08/08/18 08:00 08/09/18 13:00 Phoslo - PO 1,334 mg TIDCM [facility] Administration Cefuroxime Axetil 250 mg 08/08/18 10:00 08/09/18 09:11 Ceftin - PO 250 mg DAILY [facility] Administration Clonidine 0.3 mg 08/07/18 22:00 08/09/18 13:17 Catapres - PO 0.3 mg TID [facility] Administration Furosemide 40 mg 08/07/18 22:00 08/09/18 09:10 Lasix - PO 40 mg BID [facility] Administration Heparin Sodium (Porcine) 5,000 unit 08/07/18 22:00 08/09/18 09:13 Heparin - SQ 5,000 unit BID [facility] Administration Hydralazine HCl 100 mg 08/07/18 22:00 08/09/18 13:17 Apresoline - PO 100 mg TID [facility] Administration Insulin Aspart 1 vial 08/07/18 22:00 08/09/18 10:58 Novolog Vial Sliding Scale - SQ Not Given ACHS [facility] Protocol Labetalol HCl 600 mg 08/07/18 22:00 08/09/18 14:55 Normodyne - PO 600 mg TID [facility] Administration Lisinopril 40 mg 08/08/18 10:00 08/09/18 09:10 Prinivil PO 40 mg DAILY [facility] Administration Minoxidil 10 mg 08/09/18 16:02 Lonitin - PO DAILY [facility] Mupirocin 1 applic 08/07/18 22:00 08/09/18 09:47 Bactroban Ointment (For Decolonization) - NS 08/11/18 21:59 Not Given BID [facility] Nifedipine 90 mg 08/08/18 10:00 08/09/18 09:14 Procardia Xl - PO 90 mg DAILY [facility] Administration Ranitidine HCl 150 mg 08/08/18 10:00 08/09/18 09:13 Zantac - PO 150 mg DAILY [facility] Administration Impression 1. ESRD 2. HTN 3. DM 4. anemia 5. PNA 6. gallbladder adenoca 7. hemopysis Plan - HD tomorrow - do not hold bp meds in am before HD, spoke to nurse - bp starting to improved - cont to monitor bp - pt tolerated HD - HD 3 45, opti 180, 2 k bath, micera (07/29) with next dose due on the - will follow Dr Kerns
--- NOTE | 2018-08-09 16:40 | PN ---
Progress Note, Physician Chief Complaint: BP difficult to control Chest pain History of Present Illness: This is a 48 year old man pmh HTN, DMII, ESRD on HD, chronic anemia, h/o gallbladder adeno [place] s/p recection and being monitored at [facility] sent from HD with cough and fever, bloody sputum. Today after dialysis his BP is difficult to control and he is having left sided chest pain, worse with a deep breath. EKG's reviewed. Cardiac enzymes sent. His BP is difficult to control despite multiple antihypertensive agents. - Current Medication List Current Medications: Active Medications Acetaminophen (Tylenol -) 650 mg PO Q4H PRN PRN Reason: FEVER Albuterol/Ipratropium (Duoneb -) 1 amp NEB RQID [facility] Last Admin: 08/09/18 08:00 Dose: 1 amp Calcitriol (Rocaltrol -) 0.25 mcg PO BID [facility] Last Admin: 08/09/18 09:14 Dose: 0.25 mcg Calcium Acetate (Phoslo -) 1,334 mg PO TIDCM [facility] Last Admin: 08/09/18 13:00 Dose: 1,334 mg Cefuroxime Axetil (Ceftin -) 250 mg PO DAILY [facility] Last Admin: 08/09/18 09:11 Dose: 250 mg Clonidine (Catapres -) 0.3 mg PO TID [facility] Last Admin: 08/09/18 13:17 Dose: 0.3 mg Furosemide (Lasix -) 40 mg PO BID [facility] Last Admin: 08/09/18 09:10 Dose: 40 mg Heparin Sodium (Porcine) (Heparin -) 5,000 unit SQ BID [facility] Last Admin: 08/09/18 09:13 Dose: 5,000 unit Hydralazine HCl (Apresoline -) 100 mg PO TID [facility] Last Admin: 08/09/18 13:17 Dose: 100 mg Sodium Chloride (Normal Saline -) 250 mls @ 3,000 mls/hr IV PRN PRN PRN Reason: Hypotension during Dialysis Stop: 08/10/18 16:05 Insulin Aspart (Novolog Vial Sliding Scale -) 1 vial SQ [facility]; Protocol Last Admin: 08/09/18 10:58 Dose: Not Given Labetalol HCl (Normodyne -) 600 mg PO TID [facility] Last Admin: 08/09/18 14:55 Dose: 600 mg Lisinopril (Prinivil) 40 mg PO DAILY [facility] Last Admin: 08/09/18 09:10 Dose: 40 mg Minoxidil (Lonitin -) 10 mg PO DAILY [facility] Mupirocin (Bactroban Ointment (For Decolonization) -) 1 applic NS BID [facility] Stop: 08/11/18 21:59 Last Admin: 08/09/18 09:47 Dose: Not Given Nifedipine (Procardia Xl -) 90 mg PO DAILY [facility] Last Admin: 08/09/18 09:14 Dose: 90 mg Ranitidine HCl (Zantac -) 150 mg PO DAILY [facility] Last Admin: 08/09/18 09:13 Dose: 150 mg - Objective Vital Signs: Vital Signs Temperature 99.0 F 08/09/18 15:47 Pulse Rate 69 08/09/18 15:47 Respiratory Rate 18 08/09/18 10:00 Blood Pressure 141/65 08/09/18 15:47 O2 Sat by Pulse Oximetry (%) 98 08/07/18 21:00 Constitutional: Yes: Well Nourished HENT: Yes: WNL Neck: Yes: WNL Cardiovascular: Yes: Regular Rate and Rhythm (NL S1S2 no [facility]) Respiratory: Yes: CTA Bilaterally Gastrointestinal: Yes: Soft Edema: LLE: Trace, RLE: Trace Neurological: Yes: Alert, Oriented (Grossly non focal) Labs: CBC, BMP 08/09/18 07:45 08/09/18 07:45 INR, PTT INR 1.13 (0.83-1.09) H 08/01/18 13:12 Assessment/Plan 48 year old man pmh HTN, DMII, ESRD on HD, chronic anemia, h/o gallbladder adeno [place] s/p recection and being monitored at [facility] sent from HD with cough and fever, bloody sputum. Today after dialysis his BP is difficult to control and he is having left sided chest pain, worse with a deep breath. EKG's reviewed. Cardiac enzymes sent. His BP is difficult to control despite multiple antihypertensive agents HTN BP remains elevated Continue: Clonidine (Catapres -) 0.3 mg PO TID [facility] Last Admin: 08/09/18 13:17 Dose: 0.3 mg Furosemide (Lasix -) 40 mg PO BID [facility] Last Admin: 08/09/18 09:10 Dose: 40 mg Hydralazine HCl (Apresoline -) 100 mg PO TID [facility] Last Admin: 08/09/18 13:17 Dose: 100 mg Insulin Aspart (Novolog Vial Sliding Scale -) 1 vial SQ ACHS [facility]; Protocol Last Admin: 08/09/18 10:58 Dose: Not Given Labetalol HCl (Normodyne -) 600 mg PO TID [facility] Last Admin: 08/09/18 14:55 Dose: 600 mg Lisinopril (Prinivil) 40 mg PO DAILY [facility] Last Admin: 08/09/18 09:10 Dose: 40 mg Minoxidil (Lonitin -) 10 mg PO DAILY [facility] Nifedipine (Procardia Xl -) 90 mg PO DAILY [facility] Last Admin: 08/09/18 09:14 Dose: 90 mg Ranitidine HCl (Zantac -) 150 mg PO DAILY [facility] Last Admin: 08/09/18 09:13 Dose: 150 mg Chest pain Pleuritic component Troponin 0.07. Follow cardiac enzymes, but need to interpret cardiac enzyme in light of the fact that they are chronically elevated in a non ischemic pattern at baseline Consider adding Imdur 30 mg PO daily Will follow with you.
[2018-08-09] MEDS ORDERED: INSULIN (NOVOLOG) ASPART 100 UNITS/ML 10ML VIAL ONE (21:23)
[2018-08-10] MEDS: hydrALAZINE HCL 50 MG TABLET (FP) PO SCH ×3 (06:21→22:14)
[2018-08-10] MEDS: cloNIDine HCL 0.1 MG TABLET PO SCH ×3 (06:21→22:15)
[2018-08-10] MEDS: INSULIN SLIDING SCALE (NOVOLOG) 1 VIAL SQ SCH ×4 (06:22→22:22)
[2018-08-10] MEDS: LABETALOL HCL 200 MG TABLET (FP) PO SCH ×3 (06:22→22:14)
[2018-08-10] MEDS: ALBUTEROL SO4 2.5/IPRATROPIUM 0.5 INH SOL 3 ML VIAL.NEB. NEB SCH ×4 (07:20→20:17)
[2018-08-10] MEDS ORDERED: PT OWN MED DRAWER 7, Y5N ONE ×3 (08:41→16:02)
[2018-08-10 08:45] LABS: HEMATOCRIT 31.5 % (35.4-49); HEMOGLOBIN 10.6 GM/dL (11.7-16.9); MCH 30.2 pg (25.7-33.7); MCHC 33.7 g/dl (32.0-35.9); MEAN CELL VOLUME 89.7 fl (80-96); MEAN PLT VOLUME 9.5 fl (7.5-11.1); PLATELET COUNT 122 K/MM3 (134-434); RBC 3.51 M/mm3 (4.00-5.60); RDW 16.5 % (11.9-15.9)
[2018-08-10] MEDS: RANITIDINE HCL 150 MG TABLET (FP) PO SCH ×2 (08:47→09:06)
[2018-08-10] MEDS: CALCIUM ACETATE 667 MG CAPSULE (FP) PO SCH ×3 (08:47→17:02)
[2018-08-10] MEDS: FUROSEMIDE 40 MG TABLET (FP) PO SCH ×3 (08:47→22:14)
[2018-08-10] MEDS: LISINOPRIL 20 MG TABLET (FP) PO SCH ×2 (08:47→09:05)
[2018-08-10] MEDS: CEFUROXIME AXETIL 250 MG TABLET PO SCH ×2 (08:48→09:05)
[2018-08-10] MEDS: NIFEdipine E.R. 90 MG TABLET (FP) PO SCH ×2 (08:48→09:05)
[2018-08-10] MEDS: CALCITRIOL 0.25 MCG CAPSULE (FP) PO SCH ×3 (08:48→22:16)
[2018-08-10 08:59] LABS: ALBUMIN 3.3 g/dl (3.4-5.0); ALK PHOS 102 U/L (45-117); ANION GAP 11 MMOL/L (8-16); BILIRUBIN,TOTAL 1.2 mg/dL (0.2-1); BLOOD UREA NITROGEN 63 mg/dL (7-18); CHLORIDE 98 mmol/L (98-107); CO2 29 mmol/L (21-32); GLUCOSE,RANDOM 144 mg/dL (74-106); POTASSIUM 4.8 mmol/L (3.5-5.1); SGOT/AST 22 U/L (15-37); SGPT/ALT 34 U/L (13-61); SODIUM 137 mmol/L (136-145); TOT PROT 6.7 g/dl (6.4-8.2)
[2018-08-10 09:05] LABS: CREATININE 10.7 mg/dL (0.55-1.3)
[2018-08-10] MEDS: MUPIROCIN 2% TOPICAL OINTMENT FOR DECOLONIZATION NS SCH ×2 (09:05→22:15)
[2018-08-10] MEDS: HEPARIN NA (PORCINE) 5,000 UNITS/ML 1ML VIAL SQ SCH ×2 (09:51→22:15)
[2018-08-10] MEDS: ISOSORBIDE MONONITRATE 30 MG TAB.SR.24H (FP) PO SCH (13:51)
--- NOTE | 2018-08-10 14:13 | PN ---
Progress Note, Physician Chief Complaint: patient seen and examined back from HD to get his BP meds now - Current Medication List Current Medications: Active Medications Acetaminophen (Tylenol -) 650 mg PO Q4H PRN PRN Reason: FEVER Albuterol/Ipratropium (Duoneb -) 1 amp NEB RQID [facility] Last Admin: 08/10/18 11:05 Dose: Not Given Calcitriol (Rocaltrol -) 0.25 mcg PO BID [facility] Last Admin: 08/10/18 09:06 Dose: Not Given Calcium Acetate (Phoslo -) 1,334 mg PO TIDCM [facility] Last Admin: 08/10/18 11:53 Dose: Not Given Cefuroxime Axetil (Ceftin -) 250 mg PO DAILY [facility] Last Admin: 08/10/18 09:05 Dose: Not Given Clonidine (Catapres -) 0.3 mg PO TID [facility] Last Admin: 08/10/18 13:51 Dose: 0.3 mg Furosemide (Lasix -) 40 mg PO BID [facility] Last Admin: 08/10/18 09:05 Dose: Not Given Heparin Sodium (Porcine) (Heparin -) 5,000 unit SQ BID [facility] Last Admin: 08/10/18 09:51 Dose: Not Given Hydralazine HCl (Apresoline -) 100 mg PO TID [facility] Last Admin: 08/10/18 13:51 Dose: 100 mg Sodium Chloride (Normal Saline -) 250 mls @ 3,000 mls/hr IV PRN PRN PRN Reason: Hypotension during Dialysis Stop: 08/10/18 16:05 Insulin Aspart (Novolog Vial Sliding Scale -) 1 vial SQ [facility]; Protocol Last Admin: 08/10/18 11:52 Dose: Not Given Isosorbide Mononitrate (Imdur -) 30 mg PO DAILY [facility] Last Admin: 08/10/18 13:51 Dose: 30 mg Labetalol HCl (Normodyne -) 600 mg PO TID [facility] Last Admin: 08/10/18 13:51 Dose: 600 mg Lisinopril (Prinivil) 40 mg PO DAILY [facility] Last Admin: 08/10/18 09:05 Dose: Not Given Minoxidil (Lonitin -) 10 mg PO DAILY [facility] Mupirocin (Bactroban Ointment (For Decolonization) -) 1 applic NS BID [facility] Stop: 08/11/18 21:59 Last Admin: 08/10/18 09:05 Dose: Not Given Nifedipine (Procardia Xl -) 90 mg PO DAILY [facility] Last Admin: 08/10/18 09:05 Dose: Not Given Ranitidine HCl (Zantac -) 150 mg PO DAILY [facility] Last Admin: 08/10/18 09:06 Dose: Not Given - Objective Vital Signs: Vital Signs Temperature 98.9 F 08/10/18 09:00 Pulse Rate 71 08/10/18 11:25 Respiratory Rate 18 08/10/18 11:25 Blood Pressure 178/76 H 08/10/18 11:25 O2 Sat by Pulse Oximetry (%) 98 08/09/18 21:00 Constitutional: Yes: Calm Cardiovascular: Yes: Regular Rate and Rhythm, S1, S2 Respiratory: Yes: CTA Bilaterally Gastrointestinal: Yes: Normal Bowel Sounds, Soft Edema: No Neurological: Yes: Alert, Oriented Labs: CBC, BMP 08/10/18 07:00 08/10/18 07:00 INR, PTT INR 1.13 (0.83-1.09) H 08/01/18 13:12 Problem List - Problems (1) HTN (hypertension) Assessment/Plan: hydralazine labetolol clonidine procardia and lisinopri started on minoxidil Code(s): I10 - ESSENTIAL (PRIMARY) HYPERTENSION (2) Hemoptysis Assessment/Plan: chest ct noted iv abx now po abx Code(s): R04.2 - HEMOPTYSIS (3) Pneumonia Assessment/Plan: iv abx rocephin to po ceftin Code(s): J18.9 - PNEUMONIA, UNSPECIFIED ORGANISM Qualifiers: Pneumonia type: due to unspecified organism Laterality: unspecified laterality Lung location: unspecified part of lung Qualified Code(s): J18.9 - Pneumonia, unspecified organism (4) ESRD (end stage renal disease) on dialysis Assessment/Plan: HD per renal- today next session in AM Code(s): N18.6 - END STAGE RENAL DISEASE; Z99.2 - DEPENDENCE ON RENAL DIALYSIS
--- NOTE | 2018-08-10 15:10 | PN ---
Progress Note, Physician Chief Complaint: Comfortable at rest No chest pain History of Present Illness: 48 year old man pmh HTN, DMII, ESRD on HD, chronic anemia, h/o gallbladder adeno [place] s/p recection and being monitored at [facility] sent from HD with cough and fever, bloody sputum. Today after dialysis his BP is difficult to control and he is having left sided chest pain, worse with a deep breath. EKG's reviewed. Cardiac enzymes sent. His BP is difficult to control despite multiple antihypertensive agents - Current Medication List Current Medications: Active Medications Acetaminophen (Tylenol -) 650 mg PO Q4H PRN PRN Reason: FEVER Albuterol/Ipratropium (Duoneb -) 1 amp NEB RQID [facility] Last Admin: 08/10/18 11:05 Dose: Not Given Calcitriol (Rocaltrol -) 0.25 mcg PO BID [facility] Last Admin: 08/10/18 09:06 Dose: Not Given Calcium Acetate (Phoslo -) 1,334 mg PO TIDCM [facility] Last Admin: 08/10/18 11:53 Dose: Not Given Cefuroxime Axetil (Ceftin -) 250 mg PO DAILY [facility] Last Admin: 08/10/18 09:05 Dose: Not Given Clonidine (Catapres -) 0.3 mg PO TID [facility] Last Admin: 08/10/18 13:51 Dose: 0.3 mg Furosemide (Lasix -) 40 mg PO BID [facility] Last Admin: 08/10/18 09:05 Dose: Not Given Heparin Sodium (Porcine) (Heparin -) 5,000 unit SQ BID [facility] Last Admin: 08/10/18 09:51 Dose: Not Given Hydralazine HCl (Apresoline -) 100 mg PO TID [facility] Last Admin: 08/10/18 13:51 Dose: 100 mg Sodium Chloride (Normal Saline -) 250 mls @ 3,000 mls/hr IV PRN PRN PRN Reason: Hypotension during Dialysis Stop: 08/10/18 16:05 Insulin Aspart (Novolog Vial Sliding Scale -) 1 vial SQ ACHS [facility]; Protocol Last Admin: 08/10/18 11:52 Dose: Not Given Isosorbide Mononitrate (Imdur -) 30 mg PO DAILY [facility] Last Admin: 08/10/18 13:51 Dose: 30 mg Labetalol HCl (Normodyne -) 600 mg PO TID [facility] Last Admin: 08/10/18 13:51 Dose: 600 mg Lisinopril (Prinivil) 40 mg PO DAILY [facility] Last Admin: 08/10/18 09:05 Dose: Not Given Minoxidil (Lonitin -) 10 mg PO DAILY [facility] Mupirocin (Bactroban Ointment (For Decolonization) -) 1 applic NS BID [facility] Stop: 08/11/18 21:59 Last Admin: 08/10/18 09:05 Dose: Not Given Nifedipine (Procardia Xl -) 90 mg PO DAILY [facility] Last Admin: 08/10/18 09:05 Dose: Not Given Ranitidine HCl (Zantac -) 150 mg PO DAILY [facility] Last Admin: 08/10/18 09:06 Dose: Not Given - Objective Vital Signs: Vital Signs Temperature 98.9 F 08/10/18 09:00 Pulse Rate 77 08/10/18 13:30 Respiratory Rate 18 08/10/18 13:30 Blood Pressure 190/80 H 08/10/18 13:30 O2 Sat by Pulse Oximetry (%) 98 08/09/18 21:00 Constitutional: Yes: No Distress Neck: Yes: Supple Cardiovascular: Yes: Regular Rate and Rhythm, S1, S2. No: JVD Respiratory: Yes: Rales (bibasilar) Gastrointestinal: Yes: Soft Edema: No Labs: CBC, BMP 08/10/18 07:00 08/10/18 07:00 INR, PTT INR 1.13 (0.83-1.09) H 08/01/18 13:12 Assessment/Plan 48 year old man pmh HTN, DMII, ESRD on HD, chronic anemia, h/o gallbladder adeno [place] s/p recection and being monitored at [facility] sent from HD with cough and fever, bloody sputum. EKG's reviewed and no significant ischemic changes Cardiac enzymes in nonischemic pattern His BP is difficult to control despite multiple antihypertensive agents HTN BP remains elevated Continue regimen on clonidine, hydralazine, labetalol, lisinopril, minoxidil, nifedipine, and imdur. -Would continue to increase regimen as tolerates based on BP at dialysis. If need further BP control can increase nifedipine to 60mg bid. If still needs further bp control room to increase labetalol based on HR or imdur if needed. Chest pain Pleuritic component Troponin 0.07 are chronically elevated in a non ischemic pattern at baseline No chest pain No new ekg changes Will sign off
[2018-08-10] MEDS ORDERED: MINOXIDIL 10 MG TABLET PO SCH (15:47)
--- NOTE | 2018-08-10 15:47 | PN ---
Progress Note, Physician History of Present Illness: Pt seen and examined at bedside. He is awake and alert. He denies shortness of breath. He does get back pain at times. - Current Medication List Current Medications: Active Medications Acetaminophen (Tylenol -) 650 mg PO Q4H PRN PRN Reason: FEVER Albuterol/Ipratropium (Duoneb -) 1 amp NEB RQID [facility] Last Admin: 08/10/18 15:34 Dose: 1 amp Calcitriol (Rocaltrol -) 0.25 mcg PO BID [facility] Last Admin: 08/10/18 09:06 Dose: Not Given Calcium Acetate (Phoslo -) 1,334 mg PO TIDCM [facility] Last Admin: 08/10/18 11:53 Dose: Not Given Cefuroxime Axetil (Ceftin -) 250 mg PO DAILY [facility] Last Admin: 08/10/18 09:05 Dose: Not Given Clonidine (Catapres -) 0.3 mg PO TID [facility] Last Admin: 08/10/18 13:51 Dose: 0.3 mg Furosemide (Lasix -) 40 mg PO BID [facility] Last Admin: 08/10/18 09:05 Dose: Not Given Heparin Sodium (Porcine) (Heparin -) 5,000 unit SQ BID [facility] Last Admin: 08/10/18 09:51 Dose: Not Given Hydralazine HCl (Apresoline -) 100 mg PO TID [facility] Last Admin: 08/10/18 13:51 Dose: 100 mg Sodium Chloride (Normal Saline -) 250 mls @ 3,000 mls/hr IV PRN PRN PRN Reason: Hypotension during Dialysis Stop: 08/10/18 16:05 Insulin Aspart (Novolog Vial Sliding Scale -) 1 vial SQ ACHS [facility]; Protocol Last Admin: 08/10/18 11:52 Dose: Not Given Isosorbide Mononitrate (Imdur -) 30 mg PO DAILY [facility] Last Admin: 08/10/18 13:51 Dose: 30 mg Labetalol HCl (Normodyne -) 600 mg PO TID [facility] Last Admin: 08/10/18 13:51 Dose: 600 mg Lisinopril (Prinivil) 40 mg PO DAILY [facility] Last Admin: 08/10/18 09:05 Dose: Not Given Minoxidil (Lonitin -) 10 mg PO DAILY [facility] Mupirocin (Bactroban Ointment (For Decolonization) -) 1 applic NS BID [facility] Stop: 08/11/18 21:59 Last Admin: 08/10/18 09:05 Dose: Not Given Nifedipine (Procardia Xl -) 90 mg PO DAILY [facility] Last Admin: 08/10/18 09:05 Dose: Not Given Ranitidine HCl (Zantac -) 150 mg PO DAILY [facility] Last Admin: 08/10/18 09:06 Dose: Not Given - Objective Vital Signs: Vital Signs Temperature 98.9 F 08/10/18 09:00 Pulse Rate 77 08/10/18 13:30 Respiratory Rate 18 08/10/18 13:30 Blood Pressure 190/80 H 08/10/18 13:30 O2 Sat by Pulse Oximetry (%) 98 08/09/18 21:00 Constitutional: Yes: Calm Eyes: Yes: Conjunctiva Clear HENT: Yes: Atraumatic Neck: Yes: Supple Cardiovascular: Yes: S1, S2 Respiratory: Yes: CTA Bilaterally Gastrointestinal: Yes: Soft Genitourinary: Yes: WNL Musculoskeletal: Yes: WNL Edema: No Neurological: Yes: Oriented Psychiatric: Yes: Oriented Labs: CBC, BMP 08/10/18 07:00 08/10/18 07:00 INR, PTT INR 1.13 (0.83-1.09) H 08/01/18 13:12 Problem List - Problems (1) Hemoptysis Code(s): R04.2 - HEMOPTYSIS (2) Pneumonia Code(s): J18.9 - PNEUMONIA, UNSPECIFIED ORGANISM (3) End-stage renal disease (ESRD) Code(s): N18.6 - END STAGE RENAL DISEASE Assessment/Plan Current Medications Generic Name Dose Route Start Last Admin Trade Name Freq PRN Reason Stop Dose Admin Acetaminophen 650 mg 08/07/18 20:14 Tylenol - PO Q4H PRN FEVER Albuterol/Ipratropium 1 amp 08/08/18 08:00 08/10/18 15:34 Duoneb - NEB 1 amp RQID [facility] Administration Calcitriol 0.25 mcg 08/07/18 22:00 08/10/18 09:06 Rocaltrol - PO Not Given BID [facility] Calcium Acetate 1,334 mg 08/08/18 08:00 08/10/18 11:53 Phoslo - PO Not Given TIDCM [facility] Cefuroxime Axetil 250 mg 08/08/18 10:00 08/10/18 09:05 Ceftin - PO Not Given DAILY [facility] Clonidine 0.3 mg 08/07/18 22:00 08/10/18 13:51 Catapres - PO 0.3 mg TID [facility] Administration Furosemide 40 mg 08/07/18 22:00 08/10/18 09:05 Lasix - PO Not Given BID [facility] Heparin Sodium (Porcine) 5,000 unit 08/07/18 22:00 08/10/18 09:51 Heparin - SQ Not Given BID [facility] Hydralazine HCl 100 mg 08/07/18 22:00 08/10/18 13:51 Apresoline - PO 100 mg TID [facility] Administration Sodium Chloride 250 mls @ 3,000 mls/hr 08/09/18 16:05 Normal Saline - IV 08/10/18 16:05 PRN PRN Hypotension during Dialysis Insulin Aspart 1 vial 08/07/18 22:00 08/10/18 11:52 Novolog Vial Sliding Scale - SQ Not Given ACHS [facility] Protocol Isosorbide Mononitrate 30 mg 08/10/18 12:30 08/10/18 13:51 Imdur - PO 30 mg DAILY [facility] Administration Labetalol HCl 600 mg 08/07/18 22:00 08/10/18 13:51 Normodyne - PO 600 mg TID [facility] Administration Lisinopril 40 mg 08/08/18 10:00 08/10/18 09:05 Prinivil PO Not Given DAILY [facility] Minoxidil 10 mg 08/10/18 16:45 Lonitin - PO DAILY [facility] Mupirocin 1 applic 08/07/18 22:00 08/10/18 09:05 Bactroban Ointment (For Decolonization) - NS 08/11/18 21:59 Not Given BID [facility] Nifedipine 90 mg 08/08/18 10:00 08/10/18 09:05 Procardia Xl - PO Not Given DAILY [facility] Ranitidine HCl 150 mg 08/08/18 10:00 08/10/18 09:06 Zantac - PO Not Given DAILY [facility] Impression 1. ESRD 2. HTN 3. DM 4. anemia 5. PNA 6. gallbladder adenoca 7. hemopysis Plan - bp remains difficult to control on all agents listed - give minoxidil as he did not get it yet - will increase progardia to 60 mg bid - cardio input appreciated - cont to monitor bp - HD 3 45, opti 180, 2 k ursula bergman (07/29) with next dose due on the - will follow Dr Kerns
[2018-08-10] MEDS ORDERED: MINOXIDIL 2.5 MG TABLET PO SCH (16:45)
[2018-08-10] MEDS ORDERED: INSULIN (NOVOLOG) ASPART 100 UNITS/ML 10ML VIAL ONE (21:49)
[2018-08-10] MEDS: NIFEdipine E.R 60 MG TABLET (UD) PO SCH (22:56)
[2018-08-11] MEDS ORDERED: PT OWN MED DRAWER 7, Y5N ONE ×3 (05:36→14:22)
[2018-08-11] MEDS: hydrALAZINE HCL 50 MG TABLET (FP) PO SCH ×2 (06:21→14:27)
[2018-08-11] MEDS: cloNIDine HCL 0.1 MG TABLET PO SCH ×2 (06:21→14:27)
[2018-08-11] MEDS: LABETALOL HCL 200 MG TABLET (FP) PO SCH ×2 (06:21→14:27)
[2018-08-11] MEDS: INSULIN SLIDING SCALE (NOVOLOG) 1 VIAL SQ SCH ×2 (06:27→11:25)
[2018-08-11] MEDS: ALBUTEROL SO4 2.5/IPRATROPIUM 0.5 INH SOL 3 ML VIAL.NEB. NEB SCH ×2 (07:35→11:20)
[2018-08-11] MEDS: CALCIUM ACETATE 667 MG CAPSULE (FP) PO SCH ×2 (08:25→11:58)
[2018-08-11] MEDS: FUROSEMIDE 40 MG TABLET (FP) PO SCH (09:13)
[2018-08-11] MEDS: CEFUROXIME AXETIL 250 MG TABLET PO SCH (09:13)
[2018-08-11] MEDS: ISOSORBIDE MONONITRATE 30 MG TAB.SR.24H (FP) PO SCH (09:13)
[2018-08-11] MEDS: RANITIDINE HCL 150 MG TABLET (FP) PO SCH (09:13)
[2018-08-11] MEDS: HEPARIN NA (PORCINE) 5,000 UNITS/ML 1ML VIAL SQ SCH (09:13)
[2018-08-11] MEDS: LISINOPRIL 20 MG TABLET (FP) PO SCH (09:13)
[2018-08-11] MEDS: MUPIROCIN 2% TOPICAL OINTMENT FOR DECOLONIZATION NS SCH (09:14)
[2018-08-11] MEDS: NIFEdipine E.R 60 MG TABLET (UD) PO SCH (09:14)
[2018-08-11] MEDS: CALCITRIOL 0.25 MCG CAPSULE (FP) PO SCH (09:14)
--- NOTE | 2018-08-11 10:39 | PN ---
Progress Note, Physician Chief Complaint: Pneumonia ESRD HTN History of Present Illness: Received dialysis yesterday Added minoxidil for better BP control, doing better Seen by Cardiology and nephrology Rocephin changed to PO ceftin - Current Medication List Current Medications: Active Medications Acetaminophen (Tylenol -) 650 mg PO Q4H PRN PRN Reason: FEVER Albuterol/Ipratropium (Duoneb -) 1 amp NEB RQID [facility] Last Admin: 08/11/18 07:35 Dose: 1 amp Calcitriol (Rocaltrol -) 0.25 mcg PO BID [facility] Last Admin: 08/11/18 09:14 Dose: 0.25 mcg Calcium Acetate (Phoslo -) 1,334 mg PO TIDCM [facility] Last Admin: 08/11/18 08:25 Dose: 1,334 mg Cefuroxime Axetil (Ceftin -) 250 mg PO DAILY [facility] Last Admin: 08/11/18 09:13 Dose: 250 mg Clonidine (Catapres -) 0.3 mg PO TID [facility] Last Admin: 08/11/18 06:21 Dose: 0.3 mg Furosemide (Lasix -) 40 mg PO BID [facility] Last Admin: 08/11/18 09:13 Dose: 40 mg Heparin Sodium (Porcine) (Heparin -) 5,000 unit SQ BID [facility] Last Admin: 08/11/18 09:13 Dose: 5,000 unit Hydralazine HCl (Apresoline -) 100 mg PO TID [facility] Last Admin: 08/11/18 06:21 Dose: 100 mg Insulin Aspart (Novolog Vial Sliding Scale -) 1 vial SQ ACHS [facility]; Protocol Last Admin: 08/11/18 06:27 Dose: Not Given Isosorbide Mononitrate (Imdur -) 30 mg PO DAILY [facility] Last Admin: 08/11/18 09:13 Dose: 30 mg Labetalol HCl (Normodyne -) 600 mg PO TID [facility] Last Admin: 08/11/18 06:21 Dose: 600 mg Lisinopril (Prinivil) 40 mg PO DAILY [facility] Last Admin: 08/11/18 09:13 Dose: 40 mg Minoxidil (Loniten -) 10 mg PO DAILY [facility] Last Admin: 08/11/18 09:14 Dose: 10 mg Mupirocin (Bactroban Ointment (For Decolonization) -) 1 applic NS BID [facility] Stop: 08/11/18 21:59 Last Admin: 08/11/18 09:14 Dose: Not Given Nifedipine (Procardia Xl -) 60 mg PO BID [facility] Last Admin: 08/11/18 09:14 Dose: 60 mg Ranitidine HCl (Zantac -) 150 mg PO DAILY [facility] Last Admin: 08/11/18 09:13 Dose: 150 mg - Objective Vital Signs: Vital Signs Temperature 97.4 F L 08/11/18 09:00 Pulse Rate 67 08/11/18 09:00 Respiratory Rate 20 08/11/18 09:00 Blood Pressure 115/64 08/11/18 09:00 O2 Sat by Pulse Oximetry (%) 98 08/09/18 21:00 Constitutional: Yes: Well Nourished, No Distress, Calm Cardiovascular: Yes: Regular Rate and Rhythm Respiratory: Yes: Regular Gastrointestinal: Yes: Normal Bowel Sounds, Soft Musculoskeletal: Yes: WNL Extremities: Yes: WNL Edema: No Peripheral Pulses WNL: Yes Neurological: Yes: Alert, Oriented Psychiatric: Yes: Alert, Oriented Labs: CBC, BMP 08/10/18 07:00 08/10/18 07:00 INR, PTT INR 1.13 (0.83-1.09) H 08/01/18 13:12 Problem List - Problems (1) HTN (hypertension) Assessment/Plan: -Better controlled after starting minoxidil -Seen by Cardiology+nephrology Code(s): I10 - ESSENTIAL (PRIMARY) HYPERTENSION (2) Pneumonia Assessment/Plan: -resolved -IV rocephin changed to PO ceftin Code(s): J18.9 - PNEUMONIA, UNSPECIFIED ORGANISM Qualifiers: Pneumonia type: due to unspecified organism Laterality: unspecified laterality Lung location: unspecified part of lung Qualified Code(s): J18.9 - Pneumonia, unspecified organism (3) End-stage renal disease (ESRD) Assessment/Plan: -Nephrology on board -Dialysis MWF -Cleared by Nephrology to be discharged and get dialysis outpatient Code(s): N18.6 - END STAGE RENAL DISEASE (4) Diabetes mellitus Assessment/Plan: -A1c 5.4 -Dietary control-diabetic/renal diet -BGM AC HS -Novolog sliding scale Code(s): E11.9 - TYPE 2 DIABETES MELLITUS WITHOUT COMPLICATIONS Assessment/Plan see problem list
--- NOTE | 2018-08-11 10:49 | DS ---
Physical Examination Vital Signs: Vital Signs Temperature 97.4 F L 08/11/18 09:00 Pulse Rate 67 08/11/18 09:00 Respiratory Rate 20 08/11/18 09:00 Blood Pressure 115/64 08/11/18 09:00 O2 Sat by Pulse Oximetry (%) 98 08/09/18 21:00 Findings/Remarks: 48 year old male, with a significant past medical history of of IDDM, ESRD (on HD MWF, most recent today), chronic anemia, recently diagnosed gallbladder adenocarcinoma, and HTN (with prior hypertensive emergency), who presents to the ED with a productive cough, associated with bloody sputum, and tactile fevers since yesterday. The patient notes he had 2 episodes of vomiting yesterday when he went to his HD appointment. The patient states he experiences chest tightness and chest pain when breathing. The patient denies sick contacts or recent travels. Constitutional: Yes: Well Nourished, No Distress, Calm Cardiovascular: Yes: Regular Rate and Rhythm Respiratory: Yes: Regular Gastrointestinal: Yes: Normal Bowel Sounds, Soft Musculoskeletal: Yes: WNL Extremities: Yes: WNL Edema: No Peripheral Pulses WNL: Yes Neurological: Yes: Alert, Oriented Psychiatric: Yes: Alert, Oriented Labs: CBC, BMP 08/10/18 07:00 08/10/18 07:00 Discharge Summary Reason For Visit: PNEUMONIA Current Active Problems Diabetes mellitus (Acute) HTN (hypertension) (Acute) Hemoptysis (Acute) Pneumonia (Acute) Pneumonia (Acute) Troponin I above reference range (Acute) Hospital Course: Laboratory Last Values WBC 4.0 K/mm3 (4.0-10.0) 08/10/18 07:00 RBC 3.51 M/mm3 (4.00-5.60) L 08/10/18 07:00 Hgb 10.6 GM/dL (11.7-16.9) L 08/10/18 07:00 Hct 31.5 % (35.4-49) L 08/10/18 07:00 MCV 89.7 fl (80-96) 08/10/18 07:00 MCH 30.2 pg (25.7-33.7) 08/10/18 07:00 MCHC 33.7 g/dl (32.0-35.9) 08/10/18 07:00 RDW 16.5 % (11.9-15.9) H 08/10/18 07:00 Plt Count 122 K/MM3 (134-434) L 08/10/18 07:00 MPV 9.5 fl (7.5-11.1) 08/10/18 07:00 Absolute Neuts (auto) 4.0 K/mm3 (1.5-8.0) 08/02/18 06:20 Neutrophils % 74.2 % (42.8-82.8) 08/02/18 06:20 Lymphocytes % 15.4 % (8-40) D 08/02/18 06:20 Monocytes % 8.2 % (3.8-10.2) 08/02/18 06:20 Eosinophils % 0.8 % (0-4.5) D 08/02/18 06:20 Basophils % 1.4 % (0-2.0) D 08/02/18 06:20 Nucleated RBC % 0 % (0-0) 08/02/18 06:20 PT with INR 13.40 SEC (9.7-13.0) H 08/01/18 13:12 INR 1.13 (0.83-1.09) H 08/01/18 13:12 PTT (Actin FS) 28.3 SECONDS (25.2-36.5) 08/01/18 13:12 VBG pH 7.47 (7.32-7.42) H 08/01/18 13:45 POC VBG pCO2 39.5 mmHg (38-52) 08/01/18 13:45 POC VBG pO2 45.8 mmHg (28-48) 08/01/18 13:45 Mixed VBG HCO3 28.1 meq/L (19-25) H 08/01/18 13:45 Sodium 137 mmol/L (136-145) 08/10/18 07:00 Potassium 4.8 mmol/L (3.5-5.1) 08/10/18 07:00 Chloride 98 mmol/L (98-107) 08/10/18 07:00 Carbon Dioxide 29 mmol/L (21-32) 08/10/18 07:00 Anion Gap 11 MMOL/L (8-16) 08/10/18 07:00 BUN 63 mg/dL (7-18) H 08/10/18 07:00 Creatinine 10.7 mg/dL (0.55-1.3) H* 08/10/18 07:00 Creat Clearance w eGFR 5.22 (>60) 08/10/18 07:00 POC Glucometer 154 UNITS (80-120) 08/11/18 06:26 Random Glucose 144 mg/dL (74-106) H 08/10/18 07:00 Hemoglobin A1c % 5.4 % (4.2-6.3) 08/02/18 06:20 Lactic Acid 1.6 mmol/L (0.4-2.0) 08/01/18 17:44 Calcium 9.0 mg/dL (8.5-10.1) 08/10/18 07:00 Phosphorus 5.3 mg/dL (2.5-4.9) H 08/07/18 05:30 Magnesium 2.4 mg/dL (1.8-2.4) 08/07/18 05:30 Total Bilirubin 1.2 mg/dL (0.2-1) H 08/10/18 07:00 AST 22 U/L (15-37) 08/10/18 07:00 ALT 34 U/L (13-61) 08/10/18 07:00 Alkaline Phosphatase 102 U/L (45-117) 08/10/18 07:00 Creatine Kinase 44 U/L (26-308) 08/02/18 06:20 Troponin I 0.07 ng/ml (0.00-0.05) H 08/08/18 17:30 Total Protein 6.7 g/dl (6.4-8.2) 08/10/18 07:00 Albumin 3.3 g/dl (3.4-5.0) L 08/10/18 07:00 Triglycerides 84 mg/dL (0-150) 08/02/18 06:20 Cholesterol 98 mg/dL (50-200) 08/02/18 06:20 Total LDL Cholesterol 44 mg/dL (5-100) 08/02/18 06:20 HDL Cholesterol 49 mg/dL (40-60) 08/02/18 06:20 Urine Color Yellow 08/01/18 13:58 Urine Appearance Cloudy 08/01/18 13:58 Urine pH 6.0 (5.0-8.0) 08/01/18 13:58 Ur Specific [place] 1.016 (1.010-1.035) 08/01/18 13:58 Urine Protein 3+ (NEGATIVE) H 08/01/18 13:58 Urine Glucose (UA) 2+ (NEGATIVE) H 08/01/18 13:58 Urine Ketones Negative (NEGATIVE) 08/01/18 13:58 Urine Blood Negative (NEGATIVE) 08/01/18 13:58 Urine Nitrite Negative (NEGATIVE) 08/01/18 13:58 Urine Bilirubin Negative (<2.0 mg/dL) 08/01/18 13:58 Urine Urobilinogen Negative mg/dL (0.2-1.0) 08/01/18 13:58 Ur Leukocyte Esterase Negative (NEGATIVE) 08/01/18 13:58 Urine WBC (Auto) 4 /hpf (3-5) 08/01/18 13:58 Urine RBC (Auto) 1 /hpf (0-3) 08/01/18 13:58 Hyaline Casts 1 /lpf 08/01/18 13:58 Granular Casts 5 /lpf 08/01/18 13:58 Hep A IgM Ab Confirm Negative (Negative) 08/04/18 08:31 Hepatitis A Ab Total Positive (Negative) H 08/04/18 08:31 Hep Bs Antigen Negative (Negative) 08/04/18 08:31 Hep Bs Antibody Reactive (.) 08/04/18 08:31 Hep B Core Total Ab Negative (Negative) 08/04/18 08:31 Hep C Ab Diagnostic <0.1 s/co ratio (0.0-0.9) 08/04/18 08:31 Hepatitis C RNA Cancelled 08/04/18 08:31 HCV RNA PCR log copy lathe tender/ml Cancelled 08/04/18 08:31 HCV RNA (PCR) IUs/ml Cancelled 08/04/18 08:31 HCV RNA PCR w/Genot Rflx Cancelled 08/04/18 08:31 Liver Fibrosis Interp Cancelled 08/04/18 08:31 HIV 1&2 Antibody Screen Negative 08/05/18 06:30 HIV P24 Antigen Negative 08/05/18 06:30 Influenza A (Rapid) Negative 08/01/18 11:10 Influenza B (Rapid) Negative 08/01/18 11:10 Microbiology 08/01/18 14:55 Blood - Peripheral Venous Blood Culture - Final NO GROWTH AFTER 5 DAYS INCUBATION 08/01/18 13:12 Blood - Peripheral Venous Blood Culture - Final NO GROWTH AFTER 5 DAYS INCUBATION 08/03/18 06:00 Urine For Antigen Detection Legionella Antigen - Final 08/03/18 06:00 Urine For Antigen Detection Streptococcus pneumoniae Antigen (M - Final 08/01/18 13:58 Urine - Urine Clean Catch Urine Culture - Final NO GROWTH OBTAINED Vital Signs Temp 97.4 F L 08/11/18 09:00 Pulse 67 08/11/18 09:00 Resp 20 08/11/18 09:00 BP 115/64 08/11/18 09:00 Pulse Ox 98 08/09/18 21:00 Intake & Output 08/10/18 08/10/18 08/11/18 11:59 23:59 11:59 Intake Total 225 225 600 Balance 225 225 600 Weight 78.471 kg 79.549 kg Intake: Oral 225 225 600 Other: Voiding Method Toilet Toilet Toilet # Unmeasured Voids Void 1 1 Bowel Movement No No No Weight Measurement Method [facility] [place] Condition: Stable - Instructions Referrals: Collins Romano [Primary Care Provider] - Chandler Simon MD [Staff Physician] - Disposition: HOME - Home Medications Comprehensive Discharge Medication List: Ambulatory Orders Calcitriol [Calcitriol -] 0.25 mcg PO BID #60 capsule 10/07/15 Famotidine 20 mg PO DAILY 11/01/15 Acetaminophen Suppository [Tylenol .Suppository -] 650 mg MD Q6H PRN #0 supp.rect 11/08/15 Calcium Acetate [Phoslo -] 1,334 mg PO TIDCM #180 capsule 11/08/15 Furosemide [Lasix -] 40 mg PO BID #60 tablet 11/08/15 Labetalol HCl [Normodyne -] 600 mg PO TID #270 tablet 11/08/15 Lisinopril [Prinivil -] 40 mg PO DAILY #30 tablet 11/08/15 Ranitidine [Zantac -] 150 mg PO DAILY #30 tablet 11/08/15 Clonidine HCl 0.3 mg PO TID #90 tablet 09/25/17 Hydralazine HCl 100 mg PO TID #180 tablet 09/25/17 Labetalol HCl [Normodyne -] 600 mg PO TID #270 tablet 09/25/17 Albuterol 2.5/Ipratropium 0.5 [Duoneb -] 1 amp NEB RQID amp 08/11/18 Cefuroxime Axetil [Ceftin -] 250 mg PO DAILY #6 tablet 08/11/18 Furosemide [Lasix -] 40 mg PO BID #60 tablet 08/11/18 Insulin Sliding Scale [Novolog Vial Sliding Scale -] 1 vial SQ ACHS #1 ea Isosorbide Mononitrate [Imdur -] 30 mg PO DAILY #30 tab.sr.24h 08/11/18 Minoxidil [Loniten -] 10 mg PO DAILY #30 tablet 08/11/18 Nifedipine ER [Procardia XL -] 60 mg PO BID #60 tab.er.24 08/11/18
--- NOTE | 2018-08-11 13:36 | PN ---
Progress Note, Physician History of Present Illness: PULMONARY ALERT,DOING WELL ,-SOB,-COUGH,-HEMOPTYSIS - Current Medication List Current Medications: Active Medications Acetaminophen (Tylenol -) 650 mg PO Q4H PRN PRN Reason: FEVER Albuterol/Ipratropium (Duoneb -) 1 amp NEB RQID [facility] Last Admin: 08/11/18 11:20 Dose: 1 amp Calcitriol (Rocaltrol -) 0.25 mcg PO BID [facility] Last Admin: 08/11/18 09:14 Dose: 0.25 mcg Calcium Acetate (Phoslo -) 1,334 mg PO TIDCM [facility] Last Admin: 08/11/18 11:58 Dose: 1,334 mg Cefuroxime Axetil (Ceftin -) 250 mg PO DAILY [facility] Last Admin: 08/11/18 09:13 Dose: 250 mg Clonidine (Catapres -) 0.3 mg PO TID [facility] Last Admin: 08/11/18 06:21 Dose: 0.3 mg Furosemide (Lasix -) 40 mg PO BID [facility] Last Admin: 08/11/18 09:13 Dose: 40 mg Heparin Sodium (Porcine) (Heparin -) 5,000 unit SQ BID [facility] Last Admin: 08/11/18 09:13 Dose: 5,000 unit Hydralazine HCl (Apresoline -) 100 mg PO TID [facility] Last Admin: 08/11/18 06:21 Dose: 100 mg Insulin Aspart (Novolog Vial Sliding Scale -) 1 vial SQ [facility]; Protocol Last Admin: 08/11/18 11:25 Dose: Not Given Isosorbide Mononitrate (Imdur -) 30 mg PO DAILY [facility] Last Admin: 08/11/18 09:13 Dose: 30 mg Labetalol HCl (Normodyne -) 600 mg PO TID [facility] Last Admin: 08/11/18 06:21 Dose: 600 mg Lisinopril (Prinivil) 40 mg PO DAILY [facility] Last Admin: 08/11/18 09:13 Dose: 40 mg Minoxidil (Loniten -) 10 mg PO DAILY [facility] Last Admin: 08/11/18 09:14 Dose: 10 mg Mupirocin (Bactroban Ointment (For Decolonization) -) 1 applic NS BID [facility] Stop: 08/11/18 21:59 Last Admin: 08/11/18 09:14 Dose: Not Given Nifedipine (Procardia Xl -) 60 mg PO BID [facility] Last Admin: 08/11/18 09:14 Dose: 60 mg Ranitidine HCl (Zantac -) 150 mg PO DAILY [facility] Last Admin: 08/11/18 09:13 Dose: 150 mg - Objective Vital Signs: Vital Signs Temperature 97.4 F L 08/11/18 09:00 Pulse Rate 67 08/11/18 09:00 Respiratory Rate 20 08/11/18 09:00 Blood Pressure 115/64 08/11/18 09:00 O2 Sat by Pulse Oximetry (%) 98 08/09/18 21:00 Constitutional: Yes: Well Nourished, Calm Eyes: Yes: WNL HENT: Yes: WNL Neck: Yes: WNL Cardiovascular: Yes: Regular Rate and Rhythm, S1, S2 Respiratory: Yes: CTA Bilaterally Gastrointestinal: Yes: Normal Bowel Sounds, Soft Extremities: Yes: WNL Edema: No Labs: CBC, BMP 08/10/18 07:00 08/10/18 07:00 INR, PTT INR 1.13 (0.83-1.09) H 08/01/18 13:12 Problem List - Problems (1) Pneumonia Code(s): J18.9 - PNEUMONIA, UNSPECIFIED ORGANISM (2) Hemoptysis Code(s): R04.2 - HEMOPTYSIS (3) Pneumonia Code(s): J18.9 - PNEUMONIA, UNSPECIFIED ORGANISM Qualifiers: Pneumonia type: due to unspecified organism Laterality: unspecified laterality Lung location: unspecified part of lung Qualified Code(s): J18.9 - Pneumonia, unspecified organism (4) Anemia Code(s): D64.9 - ANEMIA, UNSPECIFIED Qualifiers: Other causes of anemia: chronic disease, kidney (5) ESRD (end stage renal disease) on dialysis Code(s): N18.6 - END STAGE RENAL DISEASE; Z99.2 - DEPENDENCE ON RENAL DIALYSIS (6) Nausea & vomiting Code(s): R11.2 - NAUSEA WITH VOMITING, UNSPECIFIED Qualifiers: Vomiting type: unspecified Vomiting Intractability: unspecified Qualified Code(s): R11.2 - Nausea with vomiting, unspecified (7) Type 2 diabetes mellitus with diabetic peripheral angiopathy without gangrene Code(s): E11.51 - TYPE 2 DIABETES W DIABETIC PERIPHERAL ANGIOPATH W/O GANGRENE (8) Hyperlipidemia Code(s): E78.5 - HYPERLIPIDEMIA, UNSPECIFIED (9) Hypertension Code(s): I10 - ESSENTIAL (PRIMARY) HYPERTENSION Qualifiers: Hypertension type: essential hypertension Assessment/Plan IMP PNEUMONIA CLINICALLY IMPROVED HEMOPTYSIS RESOLVED ESRD ON HD ANEMIA HTN IDDM H/O GALLBLADDER CA PLAN INHALED BRONCHODILATORS HD PER RENAL DR ALEXANDER Problem List - Problems (1) Pneumonia Code(s): J18.9 - PNEUMONIA, UNSPECIFIED ORGANISM (2) Hemoptysis Code(s): R04.2 - HEMOPTYSIS (3) Pneumonia Code(s): J18.9 - PNEUMONIA, UNSPECIFIED ORGANISM Qualifiers: Pneumonia type: due to unspecified organism Laterality: unspecified laterality Lung location: unspecified part of lung Qualified Code(s): J18.9 - Pneumonia, unspecified organism (4) Anemia Code(s): D64.9 - ANEMIA, UNSPECIFIED Qualifiers: Other causes of anemia: chronic disease, kidney (5) ESRD (end stage renal disease) on dialysis Code(s): N18.6 - END STAGE RENAL DISEASE; Z99.2 - DEPENDENCE ON RENAL DIALYSIS (6) Nausea & vomiting Code(s): R11.2 - NAUSEA WITH VOMITING, UNSPECIFIED Qualifiers: Vomiting type: unspecified Vomiting Intractability: unspecified Qualified Code(s): R11.2 - Nausea with vomiting, unspecified (7) Type 2 diabetes mellitus with diabetic peripheral angiopathy without gangrene Code(s): E11.51 - TYPE 2 DIABETES W DIABETIC PERIPHERAL ANGIOPATH W/O GANGRENE (8) Hyperlipidemia Code(s): E78.5 - HYPERLIPIDEMIA, UNSPECIFIED (9) Hypertension Code(s): I10 - ESSENTIAL (PRIMARY) HYPERTENSION Qualifiers: Hypertension type: essential hypertension
[2018-08-11 14:27] VITALS: BP 120/59; PULSE 68; TEMP 98.4
--- NOTE | 2018-08-11 16:38 | PN ---
Progress Note, Physician History of Present Illness: Pt seen and examined at bedside. He is awake and alert. His blood pressure is improved. He is eager to go home. - Objective Vital Signs: Vital Signs Temperature 98.4 F 08/11/18 14:26 Pulse Rate 68 08/11/18 14:26 Respiratory Rate 20 08/11/18 09:00 Blood Pressure 120/59 L 08/11/18 14:26 O2 Sat by Pulse Oximetry (%) 98 08/09/18 21:00 Constitutional: Yes: Calm Eyes: Yes: Conjunctiva Clear HENT: Yes: Atraumatic Neck: Yes: Supple Cardiovascular: Yes: S1, S2 Respiratory: Yes: CTA Bilaterally Gastrointestinal: Yes: Soft Genitourinary: Yes: WNL Musculoskeletal: Yes: WNL Extremities: Yes: WNL Edema: No Neurological: Yes: Oriented Psychiatric: Yes: Oriented Labs: CBC, BMP 08/10/18 07:00 08/10/18 07:00 INR, PTT INR 1.13 (0.83-1.09) H 08/01/18 13:12 Problem List - Problems (1) Hemoptysis Code(s): R04.2 - HEMOPTYSIS (2) Pneumonia Code(s): J18.9 - PNEUMONIA, UNSPECIFIED ORGANISM (3) End-stage renal disease (ESRD) Code(s): N18.6 - END STAGE RENAL DISEASE Assessment/Plan Impression 1. ESRD 2. HTN 3. DM 4. anemia 5. PNA 6. gallbladder adenoca 7. hemopysis Plan - bp is improving - pt is eager to go home - discussed compliance with meds - he has HD set up as outpt - HD 3 45, opti 180, 2 k bath, micera (07/29) with next dose due on the - will follow Dr Kerns
== END 2018-08-11 15:47 | disposition home or self-care (01) | DRG 139 ==
LOC: JER 10:52 → JERFT 10:52 → JERBED 15:46 → J4W 08-02 17:33 → J5S 08-04 14:38 → JICU 08-06 14:41 → J6S 08-07 22:05
PROVIDERS: ADMIT Family Medicine; ATTEND Family Medicine
PROC: 5A1D70Z Performance of Urinary Filtration, Intermittent, Less than 6 Hours Per Day (ICD-10-PCS; principal; 2018-08-03)
DX: J18.9 Pneumonia, unspecified organism (principal); E11.22 Type 2 diabetes mellitus with diabetic chronic kidney disease; I12.0 Hypertensive chronic kidney disease with stage 5 chronic kidney disease or end stage renal disease; N18.6 End stage renal disease; D69.6 Thrombocytopenia, unspecified; R04.2 Hemoptysis; Z99.2 Dependence on renal dialysis; E78.5 Hyperlipidemia, unspecified; D64.9 Anemia, unspecified; Z79.4 Long term (current) use of insulin; C23 Malignant neoplasm of gallbladder; Z85.09 Personal history of malignant neoplasm of other digestive organs; I16.1 Hypertensive emergency; Z91.11 Patient's noncompliance with dietary regimen
CPT/HCPCS: 36415; 71045-TC-FY; 71046-TC-FY; 71250-TC; 80048; 80053; 80061; 81003; 81015; 82550; 82565; 82803; 82962; 83036; 83605; 83721; 83735; 84100; 84484; 84520; 85025; 85027; 85610; 85730; 86704; 86706; 86708; 86803; 87040; 87086; 87340; 87389; 87804; 87899; 93005; 93010; 94640; 99285-25; J0735; J1644

== ENCOUNTER 2019-06-23 21:45 | Inpatient (IN) | payer OTHER ==
[2019-06-23 21:54] VITALS: BMI 57.3
--- NOTE | 2019-06-23 23:12 | PDOC ---
History of Present Illness - General Chief Complaint: Dialysis Shunt Problem Stated Complaint: MISSED DIALYSIS Time Seen by Provider: 06/23/19 23:11 Past History - Past Medical History Allergies/Adverse Reactions: Allergies Allergy/AdvReac Type Severity Reaction Status Date / Time No Known Drug Allergies Allergy Verified 06/23/19 21:55 Home Medications: Ambulatory Orders Aspirin 81 mg PO DAILY 06/24/19 Calcium Acetate [Phoslo -] 667 mg PO 06/24/19 Clonidine HCl [Catapres] 0.3 mg PO TID 06/24/19 Hydralazine HCl 25 mg PO TID 06/24/19 Hydralazine HCl 100 mg PO TID 06/24/19 Isosorbide Mononitrate [Isosorbide Mononitrate ER] 30 mg PO BID 06/24/19 Labetalol HCl [Normodyne -] 200 mg PO BID 06/24/19 Lisinopril [Prinivil -] 40 mg PO DAILY 06/24/19 Nifedipine [Nifedipine ER] 60 mg PO HS 06/24/19 Sildenafil Citrate [Viagra] 100 mg PO PRN 06/24/19 Anemia: No Asthma: No Cancer: Yes (ADENOCARCINOMA ON GALL BLADDER) Cardiac Disorders: No CVA: No COPD: No DVT: No Dementia: No Diabetes: Yes Dialysis: Yes (-W-) GI Disorders: No Disorders: No HTN: Yes Hypercholesterolemia: Yes Kidney Stones: (Possible kidney failure, has not started Dialysis process.) Liver Disease: No Psychiatric Problems: No Seizures: No Thyroid Disease: No Lung CA: No - Surgical History Cholecystectomy: Yes - Immunization History Immunization Up to Date: No - Psycho Social/Smoking Cessation Hx Smoking History: Never smoked Have you smoked in the past 12 months: No Number of Cigarettes Smoked Daily: 12 If you are a former smoker, when did you quit?: 1999 Information on smoking cessation initiated: No Hx Alcohol Use: No Drug/Substance Use Hx: No Substance Use Type: None Hx Substance Use Treatment: No *Physical Exam - Vital Signs Last Vital Signs Temp Pulse Resp BP Pulse Ox 98.5 F 65 22 H 143/51 L 100 06/23/19 21:50 06/23/19 21:50 06/23/19 21:50 06/23/19 21:50 06/23/19 21:50 ED Treatment Course - LABORATORY CBC & Chemistry Diagram: 06/24/19 05:00 06/24/19 05:00 Medical Decision Making - Medical Decision Making 06/24/19 00:35 HPI: 49yo American-speaking M hx IDDM, ESRD (HD MWF, last Friday), chronic anemia, gallbladder adenocarcinoma (s/p resection), and HTN (hx emergency) presents requesting dialysis s/p missed 2 dialysis appts, with 2 days of chest pain, SOB , N/V, and intermittent lightheadedness consistent with prior sx s/p missed dialysis. States sx are exactly the same as when missed dialysis appts in past. SOB intermittent, not worse with exertion, worsening over past 2 days. Chest pain dull, minimal, L-sided, NR, intermittent, worse with exertion, no hx CAD or FH CAD, no associated diaphoresis or numbness/tingling. NBNB emesis x2. Lightheaded only with exertion. Missed Friday dialysis because was in [place], returned yesterday and called clinic and told clinic was closed today but to come to hospital if has sx. Denies sick contacts. Neph - Luis F Crowley Hai L[place] PCP - Rosalina ROS: Constitutional: Positive for generalized weakness. Negative for chills, fever, diaphoresis. HENT: Negative for sore throat, rhinorrhea, congestion. Eyes: Negative for visual disturbance. Respiratory: Positive for shortness of breath. Negative for cough, and wheezing. Cardiovascular: Positive for chest pain. Negative for palpitations, and leg swelling. Gastrointestinal: Positive for nausea, and vomiting. Negative for abdominal pain , blood in stool, constipation, diarrhea. Genitourinary: Negative for dysuria, flank pain, and hematuria. Musculoskeletal: Negative for myalgias, back pain, and neck pain. Skin: Negative for rash. Neurological: Positive for light-headedness. Negative for vertigo, syncope, weakness, numbness and headaches. Psychiatric/Behavioral: Negative for behavioral problems and confusion. PE: Gen: Alert, NAD, comfortable-appearing. HEENT: PERRL, EOMI, MMM, NCAT. No conjunctival pallor. Sclera are non-icteric. Oropharynx is clear. CV: Regular rate and rhythm. No murmurs, rubs, or gallops. PULM: No resp distress. CTAB, no wheezes, rales, or rhonchi. ABD: soft, NT/ND, no rebound tenderness or guarding, no CVA tenderness. BACK: No TTP of c/t/l-spine. No step-offs or deformities. MSK: No bony deformities. 2+ pulses in all extremities. NEURO: AAOx3. PERRL. No gross CN deficits. Strength and sensation grossly intact throughout. EXTREMITIES: No cyanosis. No clubbing. No edema. No calf tenderness. PSYCH: Normal mood and thought pattern. SKIN: Warm and dry. Normal capillary refill. No rashes. No jaundice. MDM: 49yo American-speaking M hx IDDM, ESRD (HD MWF, last Friday), chronic anemia, gallbladder adenocarcinoma (s/p resection), and HTN (hx emergency) presents requesting dialysis s/p missed 2 dialysis appts, with 2 days of chest pain, SOB , N/V, and intermittent lightheadedness consistent with prior sx s/p missed dialysis. Hemodynamically stable, afebrile, benign abdomen, no e/o fluid overload. Sx most likely 2/2 missed dialysis due to consistent with prior sx. Also consider and r/o end-organ damage, hyperkalemia, fluid overload, influenza, ACS/ DE (HEART score 2), metabolic derangement, anemia, infection. Low concern for emergent GI pathology due to lack of abdominal pain or TTP. -CBC,CMP,Coags,Mg,Phos,Lipase,Influenza,UA/UC -EKG reviewed: NSR, 63bpm, LAD, normal intervals, QRS 108ms, normal axis, no e/ o acute ischemia, no peaked T waves -CXR -Pending w/u, consider nephrology consult and dialysis -Dispo: pending w/u 06/24/19 03:36 CXR reviewed: cardiomegaly, slight vascular congestion, no acute pathology Labs reviewed. Of note, trop 0.07, BUN/Cr 166.8/20.7, K 6.8, gluc 116, phos 7, Mg 2.9 -Treat K: Insulin, Glucose, Ca -EKG repeat -Consult placed for Neph Dr Kerns -Admit for dialysis 06/24/19 06:03 Signed out to admitting team. Called Dr Kerns for consult. 06/24/19 06:[address] Kerns - requested urgent telemetry bed. Once pt is in bed, he will send his nurse to do dialysis. Charge nurse informed. Admitting team informed. Lab called for results pending. CMP resulted. K 5.9. Glucose 56 - 1amp D50. CBC,CMP WBC 5.9 K/mm3 (4.0-10.0) 06/24/19 05:00 RBC 2.92 M/mm3 (4.00-5.60) L 06/24/19 05:00 Hgb 9.2 GM/dL (11.7-16.9) L 06/24/19 05:00 Hct 28.0 % (35.4-49) L 06/24/19 05:00 MCV 95.7 fl (80-96) 06/24/19 05:00 MCH 31.5 pg (25.7-33.7) 06/24/19 05:00 MCHC 32.9 g/dl (32.0-35.9) 06/24/19 05:00 RDW 15.6 % (11.9-15.9) 06/24/19 05:00 Plt Count 80 K/MM3 (134-434) L 06/24/19 05:00 MPV 11.0 fl (7.5-11.1) 06/24/19 05:00 Absolute Neuts (auto) 4.3 K/mm3 (1.5-8.0) 06/24/19 05:00 Neutrophils % 73.5 % (42.8-82.8) 06/24/19 05:00 Lymphocytes % 16.1 % (8-40) 06/24/19 05:00 Monocytes % 9.2 % (3.8-10.2) 06/24/19 05:00 Eosinophils % 0.5 % (0-4.5) 06/24/19 05:00 Basophils % 0.7 % (0-2.0) 06/24/19 05:00 Nucleated RBC % 0 % (0-0) 06/24/19 05:00 Sodium 141 mmol/L (136-145) 06/24/19 05:00 Potassium 5.9 mmol/L (3.5-5.1) H 06/24/19 05:00 Chloride 115 mmol/L (98-107) H 06/24/19 05:00 Carbon Dioxide 11 mmol/L (21-32) L 06/24/19 05:00 Anion Gap 16 MMOL/L (8-16) 06/24/19 05:00 BUN 166.8 mg/dL (7-18) H* 06/24/19 02:06 Creatinine 20.7 mg/dL (0.55-1.3) H* 06/24/19 02:06 Est GFR (CKD-EPI)AfAm 2.77 06/24/19 05:00 Est GFR (CKD-EPI)NonAf 2.39 06/24/19 05:00 POC Glucometer 121 UNITS (80-120) 06/24/19 04:14 Random Glucose 56 mg/dL (74-106) L 06/24/19 05:00 Calcium 8.7 mg/dL (8.5-10.1) 06/24/19 05:00 Phosphorus 6.5 mg/dL (2.5-4.9) H 06/24/19 05:00 Magnesium 2.8 mg/dL (1.8-2.4) H 06/24/19 05:00 Total Bilirubin 0.6 mg/dL (0.2-1) 06/24/19 05:00 AST 22 U/L (15-37) 06/24/19 05:00 ALT 30 U/L (13-61) 06/24/19 05:00 Alkaline Phosphatase 82 U/L (45-117) 06/24/19 05:00 Creatine Kinase 121 U/L (26-308) 06/24/19 05:00 Troponin I 0.07 ng/ml (0.00-0.05) H 06/24/19 05:00 Total Protein 6.0 g/dl (6.4-8.2) L 06/24/19 05:00 Albumin 3.2 g/dl (3.4-5.0) L 06/24/19 05:00 Lipase 189 U/L (73-393) 06/24/19 02:06 Discharge - Discharge Information Problems reviewed: Yes Clinical Impression/Diagnosis: ESRD (end stage renal disease) on dialysis, Troponin I above reference range, Hyperkalemia, Elevated BUN, Missed dialysis Condition: Stable - Admission Yes - Follow up/Referral Referrals: Collins Romano [Primary Care Provider] - - Patient Discharge Instructions - Post Discharge Activity
--- NOTE | 2019-06-24 00:27 | PDOC ---
Documentation entered by Amanda Mcdonough SCRIBE, acting as scribe for Lex Grimes MD. Lex Grimes MD: This documentation has been prepared by the Sharonda bartlett Nirvannie, SCRIBE, under my direction and personally reviewed by me in its entirety. I confirm that the documentation accurately reflects all work, treatment, procedures, and medical decision making performed by me. Attending Attestation - Resident Resident Name: Brittani Contreras - ED Attending Attestation I have performed the following: I have examined & evaluated the patient, The case was reviewed & discussed with the resident, I agree w/resident's findings & plan, Exceptions are as noted - HPI HPI: 06/24/19 00:06 49 year old male, with a significant past medical history of esrd (mwf, last dialysis on fri), DM, gallbladder adenocarcinoma (s/p resection), and htn, who presents to the emergency department after missing 2 sessions of dialysis with chest and abdominal pain. As per patient, he was away in [place] thus, he missed his session on Friday then the center was closed today, prompting his arrival to the ED. While in the ED, patient endorses nausea, dyspnea upon exertion, and mild chest pain similar to previous times he has missed dialysis. He denies any headache, palpitations, diaphoresis, or focal change in strength/ sensation. Allergies: NKDA Primary Care Physician: Dr. Romano Aircraft Armorer: Dr. Kerns - Physicial Exam PE: 06/24/19 00:21 GENERAL: The patient is awake, alert, and fully oriented, Nontoxic - in no acute distress. HEAD: Normocephalic, atraumatic. EYES: extraocular movements intact, sclera anicteric, conjunctiva clear. ENT: Normal voice, Moist mucous membranes. NECK: Normal range of motion, supple LUNGS: Breath sounds equal, clear to auscultation bilaterally. No wheezes, no rhonchi, no rales. HEART: Regular rate and rhythm, normal S1 and S2 without murmur, rub or gallop. ABDOMEN: Soft, nontender, No guarding, no rebound. No CVA tenderness EXTREMITIES: Normal range of motion, trace lower extremity edema, negative Homans fistula in the right upper extremity with thrill NEUROLOGICAL: No facial assymetry, Normal speech, PSYCH: Normal mood, normal affect. SKIN: Warm, Dry, normal turgor, - Medical Decision Making 06/23/19 23:42 49y M hx of ESRD (MWF, last dialysis on Fri), DM, gb adenocacinoma s/p resection , htn presents with missed dilalsysis and worsening sob, REINA, nausea, lightheadedness patient endorses mild chest pain, denies any fever, chills, abd pain Concern for possible fluid overload as the patient is dyspneic on exertion however the patient does not appear overtly fluid overloaded 06/24/19 01:42 labs hemolyzed, awaiting redraw pt signed out to overnight team to fu results and dispo pt. anticipate admission
[2019-06-24 00:47] LABS: BASO % 0.6 % (0-2.0); EOS % 0.4 % (0-4.5); HEMATOCRIT 29.4 % (35.4-49); HEMOGLOBIN 9.4 GM/dL (11.7-16.9); LYMPH % 13.7 % (8-40); MCHC 32.1 g/dl (32.0-35.9); MEAN CELL VOLUME 96.7 fl (80-96); MEAN PLT VOLUME 11.3 fl (7.5-11.1); MONO % 6.4 % (3.8-10.2); NEUT % 78.9 % (42.8-82.8); PLATELET COUNT 82 K/MM3 (134-434); RBC 3.04 M/mm3 (4.00-5.60); RDW 15.5 % (11.9-15.9)
[2019-06-24 00:59] LABS: INR 1.08 (0.83-1.09); PROTHROMBIN TIME (PATIENT) 12.7 SEC (9.7-13.0)
[2019-06-24 01:01] LABS: ACTIVATED PTT 30.5 SECONDS (25.2-36.5)
[2019-06-24 03:19] LABS: ALBUMIN 3.3 g/dl (3.4-5.0); BILIRUBIN,TOTAL 0.6 mg/dL (0.2-1); CALCIUM 8.4 mg/dL (8.5-10.1); TOT PROT 6.2 g/dl (6.4-8.2)
[2019-06-24 03:20] LABS: POTASSIUM 6.8 mmol/L (3.5-5.1)
[2019-06-24] MEDS ORDERED: SODIUM CHLORIDE 0.9% 500 ML INFUS.BAG IV ONE (03:21)
[2019-06-24 03:22] LABS: BLOOD UREA NITROGEN 166.8 mg/dL (7-18)
[2019-06-24] MEDS ORDERED: INSULIN REGULAR HUMAN 100 UNITS/ML *VIAL IVPUSH ONE (03:22)
[2019-06-24] MEDS ORDERED: DEXTROSE 50%-WATER - 25 GM/50 ML VIAL IVPUSH ONE ×3 (03:22→06:52)
[2019-06-24 03:23] LABS: CREATININE 20.7 mg/dL (0.55-1.3)
[2019-06-24] MEDS ORDERED: CALCIUM GLUCONATE 10% - 1,000 MG/10 ML VIAL IVPUSH ONE (03:27)
[2019-06-24] MEDS ORDERED: CALCIUM GLUCONATE 10% - 1,000 MG/10 ML VIAL ONE (03:33)
[2019-06-24] MEDS ORDERED: DEXTROSE 50%-WATER 25 GM/50 ML DISP.SYRIN ONE ×2 (03:34→06:53)
[2019-06-24] MEDS ORDERED: INSULIN REGULAR HUMAN 100 UNITS/ML *VIAL ONE (03:34)
[2019-06-24] MEDS ORDERED: ALBUTEROL SO4 0.083% IH SOL 2.5 MG/3 ML VIAL.NEB. NEB ONE ×2 (03:51→04:06)
[2019-06-24 05:32] LABS: BASO % 0.7 % (0-2.0); EOS % 0.5 % (0-4.5); HEMOGLOBIN 9.2 GM/dL (11.7-16.9); LYMPH % 16.1 % (8-40); MCH 31.5 pg (25.7-33.7); MCHC 32.9 g/dl (32.0-35.9); MEAN CELL VOLUME 95.7 fl (80-96); MONO % 9.2 % (3.8-10.2); NEUT % 73.5 % (42.8-82.8); PLATELET COUNT 80 K/MM3 (134-434); RBC 2.92 M/mm3 (4.00-5.60); RDW 15.6 % (11.9-15.9); WHITE BLOOD COUNT 5.9 K/mm3 (4.0-10.0)
[2019-06-24 05:43] LABS: MAGNESIUM 2.8 mg/dL (1.8-2.4); PHOSPHOROUS 6.5 mg/dL (2.5-4.9)
--- NOTE | 2019-06-24 06:23 | HP ---
Admitting History and Physical - Primary Care Physician PCP: Dr. Nance - Admission Chief Complaint: Missed dialysis History of Present Illness: 49 year old male with PMHx of IDDM, ESRD (HD MWF, last Friday), chronic anemia , gallbladder adenocarcinoma (s/p resection), and HTN (hx emergency) presents requesting dialysis s/p missed 2 dialysis appts, with 2 days of chest pain, SOB , N/V, and intermittent lightheadedness consistent with prior sx s/p missed dialysis. SOB intermittent, not worse with exertion, worsening over past 2 days. Chest pain dull, minimal, L-sided, NR, intermittent, worse with exertion, NBNB emesis x2. Lightheaded only with exertion. Missed Friday dialysis because was in [place], returned yesterday and called clinic and told clinic was closed today but to come to hospital if has sx. Denies sick contacts. History Source: Patient, Medical Record Limitations to Obtaining History: Language Barrier - Past Medical History Cardiovascular: Yes: HTN, Hyperlipdemia Gastrointestinal: Yes: Cancer (gallbladder adenocarcinoma (s/p resection)) Renal/: Yes: Renal Failure, Hemodialysis (Mo,We,Fr) Heme/Onc: Yes: Anemia, Other (adenocarcinoma gallbladder treated) Endocrine: Yes: Diabetes Mellitus - Past Surgical History Past Surgical History: Yes: AV Fistula/Graft (Left upper arm), Cholecystectomy - Smoking History Smoking history: Never smoked Have you smoked in the past 12 months: No Aproximately how many cigarettes per day: 12 If you are a former smoker, when did you quit?: 1999 - Alcohol/Substance Use Hx Alcohol Use: No History of Substance Use: reports: None - Social History ADL: Independent History of Recent Travel: No Home Medications - Allergies Allergies/Adverse Reactions: Allergies Allergy/AdvReac Type Severity Reaction Status Date / Time No Known Drug Allergies Allergy Verified 06/23/19 21:55 - Home Medications Home Medications: Ambulatory Orders Aspirin 81 mg PO DAILY 06/24/19 Calcium Acetate [Phoslo -] 667 mg PO 06/24/19 Clonidine HCl [Catapres] 0.3 mg PO TID 06/24/19 Hydralazine HCl 25 mg PO TID 06/24/19 Hydralazine HCl 100 mg PO TID 06/24/19 Isosorbide Mononitrate [Isosorbide Mononitrate ER] 30 mg PO BID 06/24/19 Labetalol HCl [Normodyne -] 200 mg PO BID 06/24/19 Lisinopril [Prinivil -] 40 mg PO DAILY 06/24/19 Nifedipine [Nifedipine ER] 60 mg PO HS 06/24/19 Sildenafil Citrate [Viagra] 100 mg PO PRN 06/24/19 Family Medical History Family Hx Cardiac Disorders: Mother, Father Family Hx Renal Disease: Father (ESRD) Review of Systems - Review of Systems Constitutional: reports: Weakness Eyes: reports: No Symptoms HENT: reports: No Symptoms Neck: reports: No Symptoms Cardiovascular: reports: Chest Pain, Shortness of Breath Respiratory: reports: SOB Gastrointestinal: reports: Nausea, Vomiting Genitourinary: reports: No Symptoms Musculoskeletal: reports: No Symptoms Integumentary: reports: No Symptoms Neurological: reports: Other (Lightheaded) Endocrine: reports: No Symptoms Hematology/Lymphatic: reports: No Symptoms Psychiatric: reports: No Symptoms Physical Examination Vital Signs: Vital Signs Temperature 98.5 F 06/23/19 21:50 Pulse Rate 64 06/24/19 06:04 Respiratory Rate 18 06/24/19 06:04 Blood Pressure 134/60 06/24/19 06:04 O2 Sat by Pulse Oximetry (%) 97 06/24/19 06:04 Constitutional: Yes: No Distress, Calm Eyes: Yes: Conjunctiva Clear, EOM Intact HENT: Yes: Atraumatic, Normocephalic Neck: Yes: Supple, Trachea Midline Cardiovascular: Yes: Regular Rate and Rhythm Respiratory: Yes: Regular, CTA Bilaterally Gastrointestinal: Yes: Normal Bowel Sounds, Soft ...Rectal Exam: Yes: WNL Musculoskeletal: Yes: WNL Edema: No Peripheral Pulses WNL: Yes Integumentary: Yes: WNL Neurological: Yes: Alert, Oriented Labs: CBC, BMP 06/24/19 05:00 Imaging - Results Chest X-ray: Report Reviewed (CXR: cardiomegaly, no acute infiltrate) EKG: Report Reviewed (EKG:NSR, 63bpm, no ischemic changes noted) Other: Report Reviewed (Trop 0.07, BUN/Cr 166.8/20.7, K 6.8, phos 7, Mg 2.9) Problem List - Problems (1) Chest pain Code(s): R07.9 - CHEST PAIN, UNSPECIFIED Qualifiers: Chest pain type: unspecified Qualified Code(s): R07.9 - Chest pain, unspecified (2) Troponin I above reference range Code(s): R74.8 - ABNORMAL LEVELS OF OTHER SERUM ENZYMES (3) Elevated BUN Code(s): R79.9 - ABNORMAL FINDING OF BLOOD CHEMISTRY, UNSPECIFIED (4) Hyperkalemia Code(s): E87.5 - HYPERKALEMIA (5) Missed dialysis Code(s): [id number] - (6) Nausea & vomiting Code(s): R11.2 - NAUSEA WITH VOMITING, UNSPECIFIED Qualifiers: Vomiting type: unspecified Vomiting Intractability: unspecified Qualified Code(s): R11.2 - Nausea with vomiting, unspecified (7) ESRD (end stage renal disease) on dialysis Code(s): N18.6 - END STAGE RENAL DISEASE; Z99.2 - DEPENDENCE ON RENAL DIALYSIS (8) Anemia Code(s): D64.9 - ANEMIA, UNSPECIFIED Qualifiers: Other causes of anemia: chronic disease, kidney (9) HTN (hypertension) Code(s): I10 - ESSENTIAL (PRIMARY) HYPERTENSION (10) SOB (shortness of breath) Code(s): R06.02 - SHORTNESS OF BREATH (11) Hyperlipidemia Code(s): E78.5 - HYPERLIPIDEMIA, UNSPECIFIED (12) Electrolyte abnormality Code(s): E87.8 - OTH DISORDERS OF ELECTROLYTE AND FLUID BALANCE, NEC Assessment/Plan 49 year old male with PMHx of IDDM, ESRD (HD MWF, last Friday), chronic anemia , gallbladder adenocarcinoma (s/p resection), and HTN (hx emergency) presents requesting dialysis s/p missed 2 dialysis appts, with 2 days of chest pain, SOB , N/V, and intermittent lightheadedness consistent with prior sx s/p missed dialysis. Of note reassessed at 6 am by hospitalization after hyperkalemia treated denies CP/SOB, mild nausea present awaiting dialysis session. #Chest Pain r/o ACS #Elevated troponin likely due to demand ( missed dialysis) admit tele, cardaic monitoring Trop 0.07, #2: 0.07 EKG:NSR, 63bpm, no ischemic changes noted CXR: cardiomegaly, no acute infiltrate Influenza A&B : negative pending UA follow up Cardiology consult #Missed dialysis session ( missed two sessions) #ESRD ( HD:MWF) -BUN/Cr 166.8/20.7, K 6.8, phos 7, Mg 2.9 -awaiting dialysis session in Am -Continue home meds -pending repeat CMP -follow up Nephrology consult # Electrolyte imbalance due to missed dialysis # Hyperkalemia K 6.8, phos 7, Mg 2.9 -Treat K: Insulin, Glucose, Ca and nebs - pending repeat CMP STAT # N/V - no active vomiting noted - if noted with vomiting consider antiemetic PRN #HTN -continue with home meds -monitor vitals #Diabetes Mellitus -BGM BID AC -Coverage with Novolog sliding scale # chronic anemia - monitor H/H trend FEN - correct lytes - Renal, Low Na Diet DVT ppx - SCDs, heparin SQ Dispo: Tele Visit type - Emergency Visit Emergency Visit: Yes Care time: The patient presented to the Emergency Department on the above date and was hospitalized for further evaluation of their emergent condition. - New Patient This patient is new to me today: Yes Date on this admission: 06/24/19 - Critical Care Critical Care patient: No
[2019-06-24 06:51] LABS: ALBUMIN 3.2 g/dl (3.4-5.0); BILIRUBIN,TOTAL 0.6 mg/dL (0.2-1); CALCIUM 8.7 mg/dL (8.5-10.1); POTASSIUM 5.9 mmol/L (3.5-5.1)
[2019-06-24] MEDS ORDERED: EPOETIN ALFA 10,000 UNIT/1 ML VIAL IVPUSH ONE (06:52)
[2019-06-24 06:54] LABS: BLOOD UREA NITROGEN 165.5 mg/dL (7-18)
[2019-06-24] MEDS: INSULIN SLIDING SCALE (NOVOLOG) 1 VIAL SQ SCH ×2 (07:50→17:49)
[2019-06-24] MEDS: CALCIUM ACETATE 667 MG CAPSULE (FP) PO SCH ×3 (08:48→17:49)
[2019-06-24 09:25] LABS: CREATININE 21.1 mg/dL (0.55-1.3)
[2019-06-24] MEDS ORDERED: PATIENT'S OWN MEDICATION (NON-FORMULARY) (Lisinopril [Prinivil -] 40 MG) PO SCH (10:00)
[2019-06-24] MEDS: ASPIRIN 81 MG CHEWABLE TABLETS PO SCH (10:29)
[2019-06-24] MEDS: ISOSORBIDE MONONITRATE 30 MG TAB.SR.24H (FP) PO SCH ×2 (10:29→21:02)
[2019-06-24] MEDS: HEPARIN NA (PORCINE) 5,000 UNITS/ML 1ML VIAL SQ SCH ×2 (10:29→21:01)
--- NOTE | 2019-06-24 11:20 | PN ---
Progress Note, Physician Chief Complaint: AWAKE ALERT EVENTS REVIEWED DENIES CHEST PAIN OR SOB - Current Medication List Current Medications: Active Medications Acetaminophen (Tylenol -) 650 mg PO Q6H PRN PRN Reason: PAIN LEVEL 1-5 Aspirin (Asa -) 81 mg PO DAILY [facility] Last Admin: 06/24/19 10:29 Dose: 81 mg Calcium Acetate (Phoslo -) 667 mg PO TIDCM [facility] Last Admin: 06/24/19 08:48 Dose: 667 mg Clonidine (Catapres -) 0.3 mg PO TID [facility] Epoetin [place] (Procrit -) 5,000 unit IVPUSH ONCE ONE Stop: 06/24/19 06:53 Heparin Sodium (Porcine) (Heparin -) 5,000 unit SQ BID [facility] Last Admin: 06/24/19 10:29 Dose: 5,000 unit Hydralazine HCl (Apresoline -) 25 mg PO TID [facility] Hydralazine HCl (Apresoline -) 100 mg PO TID [facility] Sodium Chloride (Normal Saline -) 250 mls @ 3,000 mls/hr IV PRN PRN PRN Reason: Hypotension during Dialysis Stop: 06/25/19 06:51 Insulin Aspart ([facility]olog [facility]ial Sliding Scale -) [facility] Last Admin: 06/24/19 07:50 Dose: Not Given Isosorbide Mononitrate (Imdur -) 30 mg PO BID [facility] Last Admin: 06/24/19 10:29 Dose: 30 mg Labetalol HCl (Normodyne -) 200 mg PO BID [facility] Lisinopril (Prinivil) 40 mg PO DAILY [facility] Nifedipine (Procardia Xl -) 60 mg PO [facility] - Objective Vital Signs: Vital Signs Temperature 97.4 F L 06/24/19 08:31 Pulse Rate 64 06/24/19 08:31 Respiratory Rate 18 06/24/19 08:31 Blood Pressure 116/52 L 06/24/19 08:31 O2 Sat by Pulse Oximetry (%) 98 06/24/19 08:31 Constitutional: Yes: No Distress Cardiovascular: Yes: Regular Rate and Rhythm Respiratory: Yes: WNL Gastrointestinal: Yes: WNL Genitourinary: Yes: Other Musculoskeletal: Yes: Muscle Weakness Edema: No Neurological: Yes: WNL ...Motor Strength: WNL Psychiatric: Yes: WNL Labs: CBC, BMP 06/24/19 05:00 06/24/19 05:00 INR, PTT INR 1.08 (0.83-1.09) 06/24/19 00:00 Problem List - Problems (1) ESRD (end stage renal disease) on dialysis Code(s): N18.6 - END STAGE RENAL DISEASE; Z99.2 - DEPENDENCE ON RENAL DIALYSIS (2) Hyperkalemia Code(s): E87.5 - HYPERKALEMIA (3) Anemia Code(s): D64.9 - ANEMIA, UNSPECIFIED Qualifiers: Other causes of anemia: chronic disease, kidney (4) HTN (hypertension) Code(s): I10 - ESSENTIAL (PRIMARY) HYPERTENSION Assessment/Plan HD PER RENAL DIETARY CONSULT TO DISCUSS RENAL DIET/ADA COMPLIANCE WITH HD ALSO DISCUSSED OOB TO CHAIR DC PLANNING TOMORROW
--- NOTE | 2019-06-24 11:50 | EKG ---
Test Reason : Blood Pressure : / mmHG Vent. Rate : 065 BPM Atrial Rate : 065 BPM P-R Int : 194 ms QRS Dur : 114 ms QT Int : 436 ms P-R-T Axes : 067 -55 082 degrees QTc Int : 453 ms NORMAL SINUS RHYTHM LEFT ANTERIOR FASCICULAR BLOCK ABNORMAL ECG WHEN COMPARED WITH ECG OF 23-JUN-2019 23:38, NO SIGNIFICANT CHANGE WAS FOUND Confirmed by GUNNAR SAHNI MD ([id number]) on 06/24/2019 11:50:21 AM Referred By: Confirmed By:GUNNAR SAHNI MD
--- NOTE | 2019-06-24 11:51 | EKG ---
Test Reason : Blood Pressure : / mmHG Vent. Rate : 063 BPM Atrial Rate : 063 BPM P-R Int : 188 ms QRS Dur : 108 ms QT Int : 456 ms P-R-T Axes : 024 -50 067 degrees QTc Int : 466 ms NORMAL SINUS RHYTHM LEFT AXIS DEVIATION ABNORMAL ECG WHEN COMPARED WITH ECG OF 23-JUN-2019 22:01, NO SIGNIFICANT CHANGE WAS FOUND Confirmed by GUNNAR SAHNI MD ([id number]) on 06/24/2019 11:51:05 AM Referred By: Confirmed By:GUNNAR SAHNI MD
[2019-06-24] MEDS ORDERED: EPOETIN ALFA 3,000 UNIT, EPOETIN ALFA 2,000 UNIT IVPUSH ONE (12:00)
[2019-06-24] MEDS ORDERED: SODIUM CHLORIDE 250 ML IV PRN (12:15)
[2019-06-24] MEDS: LABETALOL HCL 200 MG TABLET (FP) PO SCH ×2 (12:28→21:03)
[2019-06-24] MEDS: LISINOPRIL 20 MG TABLET (FP) PO SCH (12:28)
--- NOTE | 2019-06-24 13:01 | CON.CARD ---
Consult Consult Specialty:: Cardiology Referred by:: Goyo Reason for Consultation:: Shortness of breath - History of Present Illness Chief Complaint: Shortness of breath History of Present Illness: The patient is a 49-year-old man with a history of diabetes, hypertension, hyperlipidemia, end-stage renal disease on hemodialysis, status post laparoscopic cholecystectomy and adenocarcinoma resected on 09/24/2017, now presenting with shortness of breath and fluid overload. The patient missed several dialysis sessions. He is currently comfortably undergoing dialysis. His breathing improved. No further chest pains. The patient is comfortable. - History Source History Provided By: Patient Limitations to Obtaining History: No Limitations - Past Medical History Cardio/Vascular: Yes: HTN, Hyperlipdemia Gastrointestinal: Yes: Cancer (gallbladder adenocarcinoma (s/p resection)) Renal/: Yes: Renal Failure, Hemodialysis (Mo,We,Fr) Endocrine: Yes: Diabetes Mellitus - Past Surgical History Past Surgical History: Yes: AV Fistula/Graft (Left upper arm), Cholecystectomy - Alcohol/Substance Use Hx Alcohol Use: No History of Substance Use: reports: None - Smoking History Smoking history: Never smoked Have you smoked in the past 12 months: No Aproximately how many cigarettes per day: 12 If you are a former smoker, when did you quit?: 1999 - Social History ADL: Independent History of Recent Travel: No Home Medications - Allergies Allergies/Adverse Reactions: Allergies Allergy/AdvReac Type Severity Reaction Status Date / Time No Known Drug Allergies Allergy Verified 06/23/19 21:55 - Home Medications Home Medications: Ambulatory Orders Aspirin 81 mg PO DAILY 06/24/19 Calcium Acetate [Phoslo -] 667 mg PO 06/24/19 Clonidine HCl [Catapres] 0.3 mg PO TID 06/24/19 Hydralazine HCl 25 mg PO TID 06/24/19 Hydralazine HCl 100 mg PO TID 06/24/19 Isosorbide Mononitrate [Isosorbide Mononitrate ER] 30 mg PO BID 06/24/19 Labetalol HCl [Normodyne -] 200 mg PO BID 06/24/19 Lisinopril [Prinivil -] 40 mg PO DAILY 06/24/19 Nifedipine [Nifedipine ER] 60 mg PO HS 06/24/19 Sildenafil Citrate [Viagra] 100 mg PO PRN 06/24/19 Review of Systems - Review of Systems Constitutional: reports: No Symptoms Eyes: reports: No Symptoms HENT: reports: No Symptoms Neck: reports: No Symptoms Cardiovascular: reports: No Symptoms Respiratory: reports: No Symptoms Gastrointestinal: reports: No Symptoms Genitourinary: reports: No Symptoms Breasts: reports: No Symptoms Reported Musculoskeletal: reports: No Symptoms Integumentary: reports: No Symptoms Neurological: reports: No Symptoms Endocrine: reports: No Symptoms Hematology/Lymphatic: reports: No Symptoms Psychiatric: reports: No Symptoms Vital Signs: Vital Signs Temperature 98.5 F 06/24/19 11:35 Pulse Rate 66 06/24/19 11:40 Respiratory Rate 18 06/24/19 11:40 Blood Pressure 156/72 06/24/19 11:40 O2 Sat by Pulse Oximetry (%) 98 06/24/19 08:31 Constitutional: Yes: Well Nourished, No Distress, Calm Eyes: Yes: WNL, Conjunctiva Clear, EOM Intact HENT: Yes: WNL, Atraumatic, Normocephalic Neck: Yes: WNL, Supple, Trachea Midline Respiratory: Yes: WNL, Regular, Other (Decreased breath sounds at bases) Gastrointestinal: Yes: WNL, Normal Bowel Sounds, Soft Renal/: Yes: Other (Patient on dialysis) Cardiovascular: Yes: WNL, Regular Rate and Rhythm JVD: No Carotid Bruit: No PMI: Non-Displaced Heart Sounds: Yes: S1, S2 Murmur: Yes: Systolic Murmur, Grade 2 Musculoskeletal: Yes: WNL Extremities: Yes: WNL Edema: No Peripheral Pulses: 2+ Left Carotid, 2+ Right Carotid, 2+ Left Femoral, 2+ Right Femoral, 2+ Left Popliteal, 2+ Right Popliteal, 2+ Left Doralis Pedis, 2+ Right Dorsalis Pedis Neurological: Yes: WNL, Alert, Oriented ...Motor Strength: WNL Psychiatric: Yes: WNL, Alert, Oriented - Other Data Labs, Other Data: CBC, BMP 06/24/19 05:00 06/24/19 05:00 INR, PTT INR 1.08 (0.83-1.09) 06/24/19 00:00 Troponin, BNP 06/24/19 06/24/19 06/24/19 00:00 02:06 05:00 Troponin I Cancelled 0.07 H 0.07 H Troponin, BNP 06/24/19 06/24/19 06/24/19 00:00 02:06 05:00 Troponin I Cancelled 0.07 H 0.07 H Assessment/Plan The patient is a 49-year-old man with a history of diabetes, hypertension, hyperlipidemia, end-stage renal disease on hemodialysis, status post laparoscopic cholecystectomy and adenocarcinoma resected on 09/24/2017, now presenting with shortness of breath and fluid overload. The patient missed several dialysis sessions. He is currently comfortably undergoing dialysis. His breathing improved. No further chest pains. The patient is comfortable. There is no evidence of ischemia nor acute coronary syndrome. The blood pressure is better controlled. The patient's symptoms resolved. He is in sinus rhythm. Cardiac markers are normal. There is no need for further cardiac work-up at this point. Strict salt and fluid restrictions. Renal diet. Continue home medications. May stop telemetry. Please do not hesitate to call us PRN
[2019-06-24] MEDS: cloNIDine HCL 0.1 MG TABLET PO SCH ×2 (13:30→21:01)
[2019-06-24] MEDS: hydrALAZINE HCL 50 MG TABLET (FP) PO SCH ×2 (13:31→21:02)
[2019-06-24] MEDS ORDERED: CLONIDINE HCL 0.3 MG PO SCH (14:00)
[2019-06-24] MEDS ORDERED: PATIENT'S OWN MEDICATION (NON-FORMULARY) (Hydralazine Hcl [Hydralazine Hcl] 100 MG) PO SCH (14:00)
[2019-06-24] MEDS ORDERED: hydrALAZINE HCL 25 MG TABLET (FP) PO SCH (14:00)
--- NOTE | 2019-06-24 14:29 | CONSULT ---
Consult Consult Specialty:: Nephrology Reason for Consultation:: ESRD - History of Present Illness Chief Complaint: missed HD History of Present Illness: Pt is 49 year old male with pmhx of esrd, htn, dm, anemia, pna, and gallbladder adenoca who presents to the ER after missing HD. He missed two HD sessions because of the holiday schedule. He complains of shortness of breath. he denies chest pain or palpitations. He was found to be hyperkalemic. he denies fevers or chills. - History Source History Provided By: Patient, Medical Record - Past Medical History Cardio/Vascular: Yes: HTN, Hyperlipdemia Gastrointestinal: Yes: Cancer (gallbladder adenocarcinoma (s/p resection)) Renal/: Yes: Renal Failure, Hemodialysis (Mo,We,Fr) Endocrine: Yes: Diabetes Mellitus - Past Surgical History Past Surgical History: Yes: AV Fistula/Graft (Left upper arm), Cholecystectomy - Alcohol/Substance Use Hx Alcohol Use: No History of Substance Use: reports: None - Smoking History Smoking history: Never smoked Have you smoked in the past 12 months: No Aproximately how many cigarettes per day: 12 If you are a former smoker, when did you quit?: 1999 - Social History ADL: Independent History of Recent Travel: No Home Medications - Allergies Allergies/Adverse Reactions: Allergies Allergy/AdvReac Type Severity Reaction Status Date / Time No Known Drug Allergies Allergy Verified 06/23/19 21:55 - Home Medications Home Medications: Ambulatory Orders Aspirin 81 mg PO DAILY 06/24/19 Calcium Acetate [Phoslo -] 667 mg PO 06/24/19 Clonidine HCl [Catapres] 0.3 mg PO TID 06/24/19 Hydralazine HCl 25 mg PO TID 06/24/19 Hydralazine HCl 100 mg PO TID 06/24/19 Isosorbide Mononitrate [Isosorbide Mononitrate ER] 30 mg PO BID 06/24/19 Labetalol HCl [Normodyne -] 200 mg PO BID 06/24/19 Lisinopril [Prinivil -] 40 mg PO DAILY 06/24/19 Nifedipine [Nifedipine ER] 60 mg PO HS 06/24/19 Sildenafil Citrate [Viagra] 100 mg PO PRN 06/24/19 Family Medical History Family History: Denies Review of Systems - Review of Systems Constitutional: reports: Malaise Eyes: reports: No Symptoms HENT: reports: No Symptoms Neck: reports: No Symptoms Cardiovascular: reports: No Symptoms Respiratory: reports: No Symptoms Gastrointestinal: reports: Nausea Genitourinary: reports: No Symptoms Musculoskeletal: reports: No Symptoms Integumentary: reports: No Symptoms Neurological: reports: No Symptoms Endocrine: reports: No Symptoms Hematology/Lymphatic: reports: No Symptoms Psychiatric: reports: No Symptoms Physical Exam Vital Signs: Vital Signs Temperature 98.5 F 06/24/19 11:35 Pulse Rate 86 06/24/19 14:10 Respiratory Rate 18 06/24/19 14:10 Blood Pressure 188/84 H 06/24/19 14:10 O2 Sat by Pulse Oximetry (%) 98 06/24/19 08:31 Constitutional: Yes: Calm Eyes: Yes: Conjunctiva Clear HENT: Yes: Atraumatic Neck: Yes: Supple Cardiovascular: Yes: S1, S2 Respiratory: Yes: Rhonchi Gastrointestinal: Yes: Soft Renal/: Yes: WNL Edema: Yes Edema: LLE: 1+, RLE: 1+ Neurological: Yes: Oriented Psychiatric: Yes: Oriented Labs: CBC, BMP 06/24/19 05:00 06/24/19 05:00 Laboratory Tests 06/24/19 06/24/19 06/24/19 00:00 02:06 05:00 Hgb 9.4 L 9.2 L Sodium Potassium 6.8 H* BUN Creatinine 06/24/19 05:00 Hgb Sodium 141 Potassium 5.9 H BUN 165.5 H* Creatinine 21.1 H* Imaging - Results Chest X-ray: Report Reviewed Problem List - Problems (1) ESRD (end stage renal disease) on dialysis Code(s): N18.6 - END STAGE RENAL DISEASE; Z99.2 - DEPENDENCE ON RENAL DIALYSIS (2) Hyperkalemia Code(s): E87.5 - HYPERKALEMIA Assessment/Plan Current Medications Generic Name Dose Route Start Last Admin Trade Name Freq PRN Reason Stop Dose Admin Acetaminophen 650 mg 06/24/19 06:52 Tylenol - PO Q6H PRN PAIN LEVEL 1-5 Aspirin 81 mg 06/24/19 10:00 06/24/19 10:29 Asa - PO 81 mg DAILY AFIA Administration Calcium Acetate 667 mg 06/24/19 08:00 06/24/19 13:30 Phoslo - PO 667 mg TIDCM AFIA Administration Clonidine 0.3 mg 06/24/19 14:00 06/24/19 13:30 Catapres - PO 0.3 mg TID AFIA Administration Heparin Sodium (Porcine) 5,000 unit 06/24/19 10:00 06/24/19 10:29 Heparin - SQ 5,000 unit BID AFIA Administration Hydralazine HCl 100 mg 06/24/19 14:00 06/24/19 13:31 Apresoline - PO 100 mg TID AFIA Administration Sodium Chloride 250 mls @ 3,000 mls/hr 06/24/19 12:15 Normal Saline - IV 06/25/19 12:14 PRN PRN Hypotension during Dialysis Insulin Aspart 1 vial 06/24/19 07:00 06/24/19 07:50 Novolog Vial Sliding Scale - SQ Not Given BIDAC COUNTS INCLUDE 234 BEDS AT THE [facility] Protocol Isosorbide Mononitrate 30 mg 06/24/19 10:00 06/24/19 10:29 Imdur - PO 30 mg BID AFIA Administration Labetalol HCl 200 mg 06/24/19 10:00 06/24/19 12:28 Normodyne - PO Not Given BID COUNTS INCLUDE 234 BEDS AT THE [facility] Lisinopril 40 mg 06/24/19 10:00 06/24/19 12:28 Prinivil PO Not Given DAILY COUNTS INCLUDE 234 BEDS AT THE [facility] Nifedipine 60 mg 06/24/19 22:00 Procardia Xl - PO HS COUNTS INCLUDE 234 BEDS AT THE [facility] Impression 1. ESRD 2. HTN 3. DM 4. anemia 5. PNA 6. gallbladder adenoca 7. hyperkalemia 8. met acidosis Plan - HD today - resume bp meds - will need HD again tomorrow - monitor lytes - HD 3 45, opti 180, 2 k bath, micera - will follow
[2019-06-24] MEDS ORDERED: LABETALOL HCL 100 MG TABLET (FP) PO ONE (18:15)
[2019-06-24] MEDS: NIFEdipine E.R 60 MG TABLET (UD) PO SCH (21:02)
[2019-06-25] MEDS: INSULIN SLIDING SCALE (NOVOLOG) 1 VIAL SQ SCH ×2 (06:00→18:20)
[2019-06-25] MEDS: cloNIDine HCL 0.1 MG TABLET PO SCH ×3 (06:00→21:00)
[2019-06-25] MEDS: hydrALAZINE HCL 50 MG TABLET (FP) PO SCH ×3 (06:00→21:00)
[2019-06-25] MEDS: CALCIUM ACETATE 667 MG CAPSULE (FP) PO SCH ×3 (08:30→18:19)
[2019-06-25] MEDS ORDERED: SODIUM CHLORIDE 250 ML IV PRN (08:55)
[2019-06-25] MEDS: LABETALOL HCL 200 MG TABLET (FP) PO SCH ×2 (10:08→21:00)
[2019-06-25] MEDS: LISINOPRIL 20 MG TABLET (FP) PO SCH (10:08)
[2019-06-25] MEDS: ISOSORBIDE MONONITRATE 30 MG TAB.SR.24H (FP) PO SCH ×2 (10:09→21:00)
[2019-06-25] MEDS: HEPARIN NA (PORCINE) 5,000 UNITS/ML 1ML VIAL SQ SCH ×2 (10:09→21:01)
[2019-06-25] MEDS: ASPIRIN 81 MG CHEWABLE TABLETS PO SCH (10:09)
--- NOTE | 2019-06-25 10:17 | DS ---
Physical Examination Vital Signs: Vital Signs Temperature 98.2 F 06/25/19 08:31 Pulse Rate 65 06/25/19 08:31 Respiratory Rate 16 06/25/19 08:31 Blood Pressure 151/69 06/25/19 08:31 O2 Sat by Pulse Oximetry (%) 95 06/24/19 21:00 Constitutional: Yes: No Distress Cardiovascular: Yes: Regular Rate and Rhythm Respiratory: Yes: WNL Gastrointestinal: Yes: Soft Labs: CBC, BMP 06/24/19 05:00 06/24/19 05:00 Discharge Summary Problems reviewed: Yes Reason For Visit: MISSED DIALYSIS,BLOOD UREA ABNORMAL,HYPERKALEMIA Current Active Problems ESRD (end stage renal disease) on dialysis (Acute) Electrolyte abnormality (Acute) Elevated BUN (Acute) Hyperkalemia (Acute) Missed dialysis (Acute) Troponin I above reference range (Acute) Procedures: Principal: CXR/LABS/HD Hospital Course: PATIENT MISSED HD DUE TO TRAVELING BECAME FLUID OVERLOADED. PATIENT HAD HD, CARDIAC W/UP AND FEELS BETTER AFTER EXCESS FLUID REMOVED Plan of Treatment: FOLLOW UP HD SCHEDULE Condition: Stable - Instructions Diet, Activity, Other Instructions: RENAL/ADA DIET MENU GIVEN HD PER SCHEDULE Referrals: Collins Romano [Primary Care Provider] - Disposition: HOME - Home Medications Comprehensive Discharge Medication List: Ambulatory Orders Aspirin 81 mg PO DAILY 06/24/19 Calcium Acetate [Phoslo -] 667 mg PO 06/24/19 Clonidine HCl [Catapres] 0.3 mg PO TID 06/24/19 Hydralazine HCl 25 mg PO TID 06/24/19 Hydralazine HCl 100 mg PO TID 06/24/19 Isosorbide Mononitrate [Isosorbide Mononitrate ER] 30 mg PO BID 06/24/19 Labetalol HCl [Normodyne -] 200 mg PO BID 06/24/19 Lisinopril [Prinivil -] 40 mg PO DAILY 06/24/19 Nifedipine [Nifedipine ER] 60 mg PO HS 06/24/19 Sildenafil Citrate [Viagra] 100 mg PO PRN 06/24/19 Prescription Drug Monitoring Program (I-STOP) results: I-STOP not reviewed
--- NOTE | 2019-06-25 14:05 | PN ---
Progress Note, Physician History of Present Illness: Pt seen and examined at bedside. he is awake and alert. He feels that his breathing is improved. - Current Medication List Current Medications: Active Medications Acetaminophen (Tylenol -) 650 mg PO Q6H PRN PRN Reason: PAIN LEVEL 1-5 Aspirin (Asa -) 81 mg PO DAILY [facility] Last Admin: 06/25/19 10:09 Dose: 81 mg Calcium Acetate (Phoslo -) 667 mg PO TIDCM [facility] Last Admin: 06/25/19 12:58 Dose: 667 mg Clonidine (Catapres -) 0.3 mg PO TID [facility] Last Admin: 06/25/19 06:00 Dose: 0.3 mg Epoetin [place] (Epogen -) 5,000 unit IVPUSH ONCE ONE Stop: 06/25/19 08:56 Heparin Sodium (Porcine) (Heparin -) 5,000 unit SQ BID [facility] Last Admin: 06/25/19 10:09 Dose: 5,000 unit Hydralazine HCl (Apresoline -) 100 mg PO TID [facility] Last Admin: 06/25/19 06:00 Dose: 100 mg Sodium Chloride (Normal Saline -) 250 mls @ 3,000 mls/hr IV PRN PRN PRN Reason: Hypotension during Dialysis Stop: 06/26/19 08:55 Insulin Aspart (Novolog Vial Sliding Scale -) [facility]; Protocol Last Admin: 06/25/19 06:00 Dose: 2 units Isosorbide Mononitrate (Imdur -) 30 mg PO BID [facility] Last Admin: 06/25/19 10:09 Dose: 30 mg Labetalol HCl (Normodyne -) 200 mg PO BID [facility] Last Admin: 06/25/19 10:08 Dose: 200 mg Lisinopril (Prinivil) 40 mg PO DAILY [facility] Last Admin: 06/25/19 10:08 Dose: 40 mg Nifedipine (Procardia Xl -) 60 mg PO HS [facility] Last Admin: 06/24/19 21:02 Dose: 60 mg - Objective Vital Signs: Vital Signs Temperature 98.2 F 06/25/19 08:31 Pulse Rate 65 06/25/19 08:31 Respiratory Rate 16 06/25/19 08:31 Blood Pressure 151/69 06/25/19 08:31 O2 Sat by Pulse Oximetry (%) 95 06/25/19 10:00 Constitutional: Yes: Calm Eyes: Yes: Conjunctiva Clear HENT: Yes: Atraumatic Neck: Yes: Supple Cardiovascular: Yes: S1, S2 Respiratory: Yes: CTA Bilaterally Gastrointestinal: Yes: Soft Genitourinary: Yes: WNL Musculoskeletal: Yes: WNL Edema: Yes Edema: LLE: 1+, RLE: 1+ Neurological: Yes: Oriented Psychiatric: Yes: Oriented Labs: CBC, BMP 06/24/19 05:00 06/24/19 05:00 INR, PTT INR 1.08 (0.83-1.09) 06/24/19 00:00 Problem List - Problems (1) ESRD (end stage renal disease) on dialysis Code(s): N18.6 - END STAGE RENAL DISEASE; Z99.2 - DEPENDENCE ON RENAL DIALYSIS (2) Hyperkalemia Code(s): E87.5 - HYPERKALEMIA Assessment/Plan Current Medications Generic Name Dose Route Start Last Admin Trade Name Freq PRN Reason Stop Dose Admin Acetaminophen 650 mg 06/24/19 06:52 Tylenol - PO Q6H PRN PAIN LEVEL 1-5 Aspirin 81 mg 06/24/19 10:00 06/25/19 10:09 Asa - PO 81 mg DAILY AFIA Administration Calcium Acetate 667 mg 06/24/19 08:00 06/25/19 12:58 Phoslo - PO 667 mg TIDCM AFIA Administration Clonidine 0.3 mg 06/24/19 14:00 06/25/19 06:00 Catapres - PO 0.3 mg TID AFIA Administration Epoetin [place] 5,000 unit 06/25/19 08:55 Epogen - IVPUSH 06/25/19 08:56 ONCE ONE Heparin Sodium (Porcine) 5,000 unit 06/24/19 10:00 06/25/19 10:09 Heparin - SQ 5,000 unit BID AFIA Administration Hydralazine HCl 100 mg 06/24/19 14:00 06/25/19 06:00 Apresoline - PO 100 mg TID AFIA Administration Sodium Chloride 250 mls @ 3,000 mls/hr 06/25/19 08:55 Normal Saline - IV 06/26/19 08:55 PRN PRN Hypotension during Dialysis Insulin Aspart 1 vial 06/24/19 07:00 01/03/20 06:00 Novolog Vial Sliding Scale - SQ 2 units BIDAC AFIA Administration Protocol Isosorbide Mononitrate 30 mg 06/24/19 10:00 06/25/19 10:09 Imdur - PO 30 mg BID AFIA Administration Labetalol HCl 200 mg 06/24/19 10:00 06/25/19 10:08 Normodyne - PO 200 mg BID AFIA Administration Lisinopril 40 mg 06/24/19 10:00 06/25/19 10:08 Prinivil PO 40 mg DAILY AFIA Administration Nifedipine 60 mg 06/24/19 22:00 06/24/19 21:02 Procardia Xl - PO 60 mg HS AFIA Administration Impression 1. ESRD 2. HTN 3. DM 4. anemia 5. PNA 6. gallbladder adenoca 7. hyperkalemia 8. met acidosis Plan - HD again to get pt back on schedule - can be discharged after HD - monitor lytes - HD 3 45, opti 180, 2 k bath, micera - will follow
[2019-06-25] MEDS ORDERED: EPOETIN ALFA 2,000 UNIT/1 ML VIAL IVPUSH ONE (15:15)
[2019-06-25] MEDS ORDERED: LABETALOL HCL 200 MG TABLET (FP) PO ONE (16:04)
[2019-06-25] MEDS: NIFEdipine E.R 60 MG TABLET (UD) PO SCH ×2 (16:18→21:01)
[2019-06-25 17:01] LABS: HEMATOCRIT 27.8 % (35.4-49); HEMOGLOBIN 9.1 GM/dL (11.7-16.9); MCHC 32.8 g/dl (32.0-35.9); MEAN CELL VOLUME 94.5 fl (80-96); MEAN PLT VOLUME 10.8 fl (7.5-11.1); PLATELET COUNT 71 K/MM3 (134-434); RBC 2.95 M/mm3 (4.00-5.60); WHITE BLOOD COUNT 2.6 K/mm3 (4.0-10.0)
[2019-06-25 17:27] LABS: ALBUMIN 3.1 g/dl (3.4-5.0); BILIRUBIN,TOTAL 0.7 mg/dL (0.2-1); BLOOD UREA NITROGEN 71.1 mg/dL (7-18); TOT PROT 6.2 g/dl (6.4-8.2)
[2019-06-25] MEDS ORDERED: ONDANSETRON 4 MG/2 ML VIAL IVPUSH ONE (18:15)
[2019-06-25] MEDS: ACETAMINOPHEN 325 MG TABLET (FP) PO PRN (18:19)
[2019-06-26] MEDS: hydrALAZINE HCL 50 MG TABLET (FP) PO SCH ×3 (06:13→21:08)
[2019-06-26] MEDS: INSULIN SLIDING SCALE (NOVOLOG) 1 VIAL SQ SCH ×2 (06:14→17:32)
[2019-06-26] MEDS: cloNIDine HCL 0.1 MG TABLET PO SCH ×3 (06:14→21:08)
[2019-06-26] MEDS: CALCIUM ACETATE 667 MG CAPSULE (FP) PO SCH ×3 (08:21→17:32)
[2019-06-26] MEDS: LABETALOL HCL 200 MG TABLET (FP) PO SCH ×3 (10:06→22:38)
[2019-06-26] MEDS: HEPARIN NA (PORCINE) 5,000 UNITS/ML 1ML VIAL SQ SCH ×2 (10:06→21:09)
[2019-06-26] MEDS: ASPIRIN 81 MG CHEWABLE TABLETS PO SCH (10:06)
[2019-06-26] MEDS: LISINOPRIL 20 MG TABLET (FP) PO SCH (10:06)
[2019-06-26] MEDS: ACETAMINOPHEN 325 MG TABLET (FP) PO PRN (10:06)
[2019-06-26] MEDS: ISOSORBIDE MONONITRATE 30 MG TAB.SR.24H (FP) PO SCH ×2 (10:07→21:08)
[2019-06-26] MEDS ORDERED: LABETALOL HCL 200 MG TABLET (FP) PO ONE (11:11)
--- NOTE | 2019-06-26 11:34 | PN ---
Progress Note (short form) - Note Progress Note: Renal follow up for ESRD on HD Seen and examined at the bedside reports occpitial COTA no blurry vision, chest pain, abdmonal pain s/p HD yesterday BP elevated overnight Vital Signs Temperature 98.0 F 06/26/19 09:05 Pulse Rate 71 06/26/19 09:05 Respiratory Rate 18 06/26/19 09:05 Blood Pressure 190/83 H 06/26/19 09:05 O2 Sat by Pulse Oximetry (%) 96 06/25/19 21:00 NAD awake and alert RRR CTA no LE edema CBC, BMP 06/25/19 15:40 06/25/19 15:40 Current Medications Acetaminophen (Tylenol -) 650 mg PO Q6H PRN PRN Reason: PAIN LEVEL 1-5 Last Admin: 06/26/19 10:06 Dose: 650 mg Aspirin (Asa -) 81 mg PO DAILY [facility] Last Admin: 06/26/19 10:06 Dose: 81 mg Calcium Acetate (Phoslo -) 667 mg PO TIDCM [facility] Last Admin: 06/26/19 08:21 Dose: 667 mg Clonidine (Catapres -) 0.3 mg PO TID [facility] Last Admin: 06/26/19 06:14 Dose: 0.3 mg Heparin Sodium (Porcine) (Heparin -) 5,000 unit SQ BID [facility] Last Admin: 06/26/19 10:06 Dose: 5,000 unit Hydralazine HCl (Apresoline -) 100 mg PO TID [facility] Last Admin: 06/26/19 06:13 Dose: 100 mg Insulin Aspart (Novolog Vial Sliding Scale -) [facility] Protocol Last Admin: 06/26/19 06:14 Dose: Not Given Isosorbide Mononitrate (Imdur -) 30 mg PO BID [facility] Last Admin: 06/26/19 10:07 Dose: 30 mg Labetalol HCl (Normodyne -) 600 mg PO BID [facility] Lisinopril (Prinivil) 40 mg PO DAILY [facility] Last Admin: 06/26/19 10:06 Dose: 40 mg Nifedipine (Procardia Xl -) 60 mg PO HS [facility] Last Admin: 06/25/19 21:01 Dose: Not Given Impression 1. ESRD 2. HTN 3. DM 4. anemia 5. PNA 6. gallbladder adenoca 7. hyperkalemia 8. met acidosis Plan s/p dialysis yesterday, no acute indication for treatment today next dialysis planned for Friday BP remains above goal, Increase Labetalol to 600mg BID Monitor HR on labetalol and Clonidine Continue Lisinopirl and Nifedpine Ideally SBP < or equial to 160 on discharge. Oswald Brennan DO
--- NOTE | 2019-06-26 13:06 | PN ---
Progress Note (short form) - Note Progress Note: DISCHARGE HELD DUE TO HTN 200/90MMHG MEDS CHANGED BY NEPHROLOGY WILL MONITOR TODAY DC TOMORROW Problem List - Problems (1) ESRD (end stage renal disease) on dialysis Code(s): N18.6 - END STAGE RENAL DISEASE; Z99.2 - DEPENDENCE ON RENAL DIALYSIS (2) Hyperkalemia Code(s): E87.5 - HYPERKALEMIA (3) Anemia Code(s): D64.9 - ANEMIA, UNSPECIFIED Qualifiers: Other causes of anemia: chronic disease, kidney (4) HTN (hypertension) Code(s): I10 - ESSENTIAL (PRIMARY) HYPERTENSION
[2019-06-26 15:02] LABS: EPI CELLS 1.4 /HPF (0-5/HPF); HYALINE CASTS 9 /lpf (0-8); PH,URINE 5.5 (5.0-8.0); URINE APPEARANCE CLOUDY; URINE BACTERIA 3983.8 /hpf (NEGATIVE); URINE BILIRUBIN NEGATIVE (NEGATIVE); URINE COLOR YELLOW; URINE GLUCOSE (UA) TRACE (NEGATIVE); URINE KETONE NEGATIVE (NEGATIVE); URINE LEUK ESTERASE 1+ (NEGATIVE); URINE NITRITE NEGATIVE (NEGATIVE); URINE PROTEIN 3+ (NEGATIVE); URINE RBC 2 /hpf (0-4); URINE UROBILINOGEN 0.2 mg/dL (0.2-1.0); URINE WBC 62 /hpf (0-5)
[2019-06-26 15:49] LABS: YEAST NONE SEEN (NEGATIVE)
[2019-06-26] MEDS ORDERED: NIFEdipine E.R. 30 MG TABLET (FP) PO ONE (17:45)
[2019-06-26] MEDS: NIFEdipine E.R 60 MG TABLET (UD) PO SCH (21:08)
--- NOTE | 2019-06-26 23:24 | EKG ---
Test Reason : Blood Pressure : / mmHG Vent. Rate : 064 BPM Atrial Rate : 064 BPM P-R Int : 196 ms QRS Dur : 108 ms QT Int : 440 ms P-R-T Axes : 041 -50 082 degrees QTc Int : 453 ms NORMAL SINUS RHYTHM LEFT AXIS DEVIATION SEPTAL INFARCT (CITED ON OR BEFORE 03-OCT-2015) ABNORMAL ECG WHEN COMPARED WITH ECG OF 08-AUG-2018 17:33, NO SIGNIFICANT CHANGE WAS FOUND Confirmed by SUSAN DAVID, PRITI ([id number]) on 06/26/2019 11:24:02 PM Referred By: Confirmed By:PRITI DAVIS MD
[2019-06-27] MEDS: cloNIDine HCL 0.1 MG TABLET PO SCH ×2 (06:11→13:05)
[2019-06-27] MEDS: hydrALAZINE HCL 50 MG TABLET (FP) PO SCH ×2 (06:11→13:05)
[2019-06-27] MEDS: INSULIN SLIDING SCALE (NOVOLOG) 1 VIAL SQ SCH (06:12)
[2019-06-27 06:46] LABS: BLOOD UREA NITROGEN 63.4 mg/dL (7-18); CALCIUM 7.9 mg/dL (8.5-10.1); POTASSIUM 4.2 mmol/L (3.5-5.1)
[2019-06-27 06:50] LABS: CREATININE 12.3 mg/dL (0.55-1.3)
--- NOTE | 2019-06-27 08:28 | PN ---
Progress Note (short form) - Note Progress Note: BP NORMAL NO EVENTS OVERNIGHT CAN DC HOME F/U WITH NEPHROLOGY AND HD Problem List - Problems (1) ESRD (end stage renal disease) on dialysis Code(s): N18.6 - END STAGE RENAL DISEASE; Z99.2 - DEPENDENCE ON RENAL DIALYSIS (2) Hyperkalemia Code(s): E87.5 - HYPERKALEMIA (3) Anemia Code(s): D64.9 - ANEMIA, UNSPECIFIED Qualifiers: Other causes of anemia: chronic disease, kidney (4) HTN (hypertension) Code(s): I10 - ESSENTIAL (PRIMARY) HYPERTENSION
[2019-06-27] MEDS: CALCIUM ACETATE 667 MG CAPSULE (FP) PO SCH ×2 (08:31→12:08)
[2019-06-27] MEDS: HEPARIN NA (PORCINE) 5,000 UNITS/ML 1ML VIAL SQ SCH (09:29)
[2019-06-27] MEDS: ASPIRIN 81 MG CHEWABLE TABLETS PO SCH (09:37)
[2019-06-27] MEDS: LISINOPRIL 20 MG TABLET (FP) PO SCH (09:38)
[2019-06-27] MEDS: ISOSORBIDE MONONITRATE 30 MG TAB.SR.24H (FP) PO SCH (09:38)
[2019-06-27] MEDS: LABETALOL HCL 200 MG TABLET (FP) PO SCH (09:38)
[2019-06-27 13:08] VITALS: BP 145/66; PULSE 64; TEMP 98
== END 2019-06-27 13:47 | disposition home or self-care (01) | DRG 425 ==
LOC: JER 21:45 → JERBED 06-24 03:41 → J4S 06-24 07:46
PROVIDERS: ADMIT Family Medicine; ATTEND Family Medicine
DX: E87.5 Hyperkalemia (principal); R07.9 Chest pain, unspecified; R74.9 Abnormal serum enzyme level, unspecified; D63.1 Anemia in chronic kidney disease; I12.0 Hypertensive chronic kidney disease with stage 5 chronic kidney disease or end stage renal disease; N18.6 End stage renal disease; E87.70 Fluid overload, unspecified; E11.22 Type 2 diabetes mellitus with diabetic chronic kidney disease; I24.8 Other forms of acute ischemic heart disease; E87.0 Hyperosmolality and hypernatremia; Z99.2 Dependence on renal dialysis; E87.2 Acidosis; E78.5 Hyperlipidemia, unspecified
CPT/HCPCS: 36415; 71046-TC-FY; 80048; 80053; 81003; 82550; 82962; 83036; 83690; 83735; 84100; 84484; 85025; 85027; 85610; 85730; 86803; 87086; 87186; 87340; 87804; 93005; 93010; 99285-25; J0735; J1644

== ENCOUNTER 2021-01-03 12:56 | Observation (INO) | payer OTHER ==
[2021-01-03] MEDS ORDERED: SODIUM CHLORIDE 250 ML IV PRN (13:55)
[2021-01-03 14:33] LABS: BASO % 0.8 % (0-2.0); EOS % 0.8 % (0-4.5); HEMATOCRIT 22.4 % (35.4-49); HEMOGLOBIN 7.4 GM/dL (11.7-16.9); MCH 29.6 pg (25.7-33.7); MCHC 33.1 g/dl (32.0-35.9); MEAN CELL VOLUME 89.3 fl (80-96); MEAN PLT VOLUME 10.1 fl (7.5-11.1); NEUT % 77.4 % (42.8-82.8); PLATELET COUNT 79 10^3/uL (134-434); RBC 2.51 M/mm3 (4.00-5.60); RDW 15.5 % (11.9-15.9); WHITE BLOOD COUNT 5.1 K/mm3 (4.0-10.0)
[2021-01-03 14:53] LABS: CHLORIDE 104 mmol/L (98-107); SODIUM 135 mmol/L (136-145)
[2021-01-03 14:56] LABS: CALCIUM 8.7 mg/dL (8.5-10.1)
[2021-01-03 14:57] LABS: ALBUMIN 3.4 g/dl (3.4-5.0); CO2 13 mmol/L (21-32); GLUCOSE,RANDOM 256 mg/dL (74-106); MAGNESIUM 2.3 mg/dL (1.8-2.4)
[2021-01-03 15:00] LABS: PHOSPHOROUS 5.8 mg/dL (2.5-4.9); SGOT/AST 24 U/L (15-37); SGPT/ALT 27 U/L (13-61)
[2021-01-03 15:01] LABS: BILIRUBIN,TOTAL 0.7 mg/dL (0.2-1)
[2021-01-03 15:02] LABS: TOT PROT 6.4 g/dl (6.4-8.2)
[2021-01-03 15:03] LABS: ALK PHOS 121 U/L (45-117)
[2021-01-03 15:25] LABS: ANION GAP 18 MMOL/L (8-16); BLOOD UREA NITROGEN 159.6 mg/dL (7-18); CREATININE 19.6 mg/dL (0.55-1.3)
[2021-01-03] MEDS ORDERED: ALBUTEROL SO4 HFA INHALER IH ONE (15:27)
[2021-01-03] MEDS ORDERED: CALCIUM GLUCONATE 10% - 1,000 MG/10 ML VIAL IVPUSH ONE (15:27)
[2021-01-03] MEDS ORDERED: INSULIN REGULAR HUMAN 100 UNITS/ML *VIAL IVPUSH ONE ×2 (15:27→15:33)
[2021-01-03] MEDS ORDERED: DEXTROSE 50%-WATER - 25 GM/50 ML VIAL IVPUSH ONE (15:27)
[2021-01-03] MEDS ORDERED: SODIUM BICARBONATE 8.4% - 150 MEQ in DEXTROSE 5%-WATER - 950 ML IVPB SCH (15:30)
[2021-01-03] MEDS ORDERED: SODIUM BICARBONATE 8.4% 50 MEQ/50 ML DISP.SYRIN IVPUSH ONE (15:33)
[2021-01-03] MEDS ORDERED: EPOETIN ALFA-EPBX 10,000 UNIT/ML VIAL IVPUSH ONE (18:15)
[2021-01-03 22:05] VITALS: BMI 23.3
[2021-01-04] MEDS ORDERED: ACETAMINOPHEN 325 MG TABLET (FP) PO PRN (05:32)
[2021-01-04] MEDS: cloNIDine HCL 0.1 MG TABLET PO SCH ×4 (06:00→21:17)
[2021-01-04] MEDS ORDERED: LABETALOL HCL 100 MG TABLET (FP) ONE (08:58)
[2021-01-04] MEDS: ASPIRIN 81 MG CHEWABLE TABLETS PO SCH (09:00)
[2021-01-04] MEDS ORDERED: LABETALOL HCL 200 MG TABLET (FP) PO SCH (10:00)
[2021-01-04] MEDS ORDERED: SODIUM CHLORIDE 250 ML IV PRN (10:28)
[2021-01-04] MEDS ORDERED: NIFEdipine E.R. 30 MG TABLET PO SCH ×2 (10:30→22:00)
[2021-01-04] MEDS: LISINOPRIL 20 MG TABLET PO SCH (11:14)
[2021-01-04] MEDS ORDERED: ONDANSETRON *ODT* 4 MG TABLET SL PRN (12:34)
[2021-01-04 13:37] LABS: HEMATOCRIT 24.4 % (35.4-49); HEMOGLOBIN 8.1 GM/dL (11.7-16.9); MCH 29.2 pg (25.7-33.7); MCHC 33.2 g/dl (32.0-35.9); MEAN CELL VOLUME 88.1 fl (80-96); MEAN PLT VOLUME 10.1 fl (7.5-11.1); PLATELET COUNT 83 10^3/uL (134-434); RBC 2.77 M/mm3 (4.00-5.60); RDW 15.3 % (11.9-15.9); WHITE BLOOD COUNT 3.8 K/mm3 (4.0-10.0)
[2021-01-04 13:57] LABS: CHLORIDE 104 mmol/L (98-107); SODIUM 143 mmol/L (136-145)
[2021-01-04 13:58] LABS: CALCIUM 8.7 mg/dL (8.5-10.1)
[2021-01-04 13:59] LABS: ANION GAP 14 MMOL/L (8-16); CO2 26 mmol/L (21-32); GLUCOSE,RANDOM 169 mg/dL (74-106)
[2021-01-04 14:02] LABS: BLOOD UREA NITROGEN 63.9 mg/dL (7-18); CREATININE 11.4 mg/dL (0.55-1.3)
[2021-01-04] MEDS: LABETALOL HCL 200 MG TABLET (FP) PO SCH ×3 (15:12→21:17)
[2021-01-04] MEDS ORDERED: NIFEdipine E.R. 30 MG TABLET PO ONE (16:29)
[2021-01-04] MEDS: INSULIN SLIDING SCALE (NOVOLOG) 1 VIAL SQ SCH ×2 (16:31→21:18)
[2021-01-04] MEDS: hydrALAZINE HCL 50 MG TABLET (FP) PO SCH ×2 (17:13→21:17)
[2021-01-04] MEDS ORDERED: INSULIN (NOVOLOG) ASPART 100 UNITS/ML 10ML VIAL ONE (21:12)
[2021-01-04] MEDS ORDERED: PT OWN MED DRAWER 7, Y5N ONE (21:13)
[2021-01-04] MEDS ORDERED: ATORVASTATIN CA 20 MG TABLET (FP) PO SCH (22:00)
[2021-01-05] MEDS ORDERED: PT OWN MED DRAWER 7, Y5N ONE (05:47)
[2021-01-05] MEDS: hydrALAZINE HCL 50 MG TABLET (FP) PO SCH (06:00)
[2021-01-05] MEDS: cloNIDine HCL 0.1 MG TABLET PO SCH (06:00)
[2021-01-05] MEDS: LABETALOL HCL 200 MG TABLET (FP) PO SCH (06:01)
[2021-01-05] MEDS: INSULIN SLIDING SCALE (NOVOLOG) 1 VIAL SQ SCH ×2 (06:02→11:16)
[2021-01-05] MEDS ORDERED: NIFEdipine E.R 60 MG TABLET PO SCH (10:00)
[2021-01-05 10:01] VITALS: BP 151/68; PULSE 65; TEMP 98.9
[2021-01-05] MEDS: ASPIRIN 81 MG CHEWABLE TABLETS PO SCH (10:01)
[2021-01-05] MEDS: LISINOPRIL 20 MG TABLET PO SCH (10:01)
[2021-01-05 18:08] LABS: HEP B CORE AB, TOT Negative (Negative)
== END 2021-01-05 13:11 | disposition home or self-care (01) ==
LOC: JER 12:56 → JERBED 15:34 → J6S 20:24
PROVIDERS: ADMIT Family Medicine; ATTEND Family Medicine
PROC: 3E033GC Introduction of Other Therapeutic Substance into Peripheral Vein, Percutaneous Approach (ICD-10-PCS; principal; 2021-01-03)
DX: I12.0 Hypertensive chronic kidney disease with stage 5 chronic kidney disease or end stage renal disease (principal); E11.22 Type 2 diabetes mellitus with diabetic chronic kidney disease; N18.6 End stage renal disease; Z99.2 Dependence on renal dialysis; D64.89 Other specified anemias; Z85.09 Personal history of malignant neoplasm of other digestive organs; E78.5 Hyperlipidemia, unspecified; Z79.4 Long term (current) use of insulin; Z87.01 Personal history of pneumonia (recurrent); Z87.891 Personal history of nicotine dependence
CPT/HCPCS: 36415; 71045-TC-FY; 80048; 80053; 82550; 82553; 82962; 83735; 84100; 84484; 85025; 85027; 86704; 86706; 86707; 86708; 86709; 86803; 86850; 86900; 86901; 87340; 93005; 93010; 96374; 99285-25; C9803; G0378; J0735; Q0162; Q5106; U0003; U0005